=== PATIENT | female | born 1965 | race Caucasian/White ===

== ENCOUNTER 2020-10-11 19:05 | Emergency (ER) | payer OTHER, SELFPAY ==
[2020-10-11] VITALS (7 sets, daily range): BP systolic 124–154; BP diastolic 68–90; PULSE 71–94; RESP 15–18; TEMP 36.4–36.8; O2SAT 93–95
--- NOTE | ~2020-10-11 | CT_ITS ---
EXAMINATION: CT abdomen pelvis w con DATE: 10/11/2020 22:51 INDICATION: Low abdominal pain. Blood in stool. TECHNIQUE: Computed tomography (CT) of the abdomen and pelvis was performed with 100 mL Omnipaque 350 intravenous contrast. Automated exposure control and iterative reconstruction technique were employe d. The dose-length product was 346.28 mGy-cm. COMPARISON: CT abdomen and pelvis 06/12/2017 FINDINGS: The visualized portions of the lung bases demonstrate minimal atelectasis. No pleural effus ion. The heart size is normal. No pericardial effusion. The liver and spleen are normal. There is cys tic wall thickening of the fundus of the gallbladder, consistent with adenomyomatosis. The pancreas a nd adrenal glands are normal. There are cysts in the kidneys measuring up to 3.0 cm on the left. Ther e are no dilated loops of bowel. The appendix is normal. There are no pathologically enlarged lymph n odes. There is no free intraperitoneal fluid. There is mild thoracolumbar spondylosis. IMPRESSION: 1. No etiology for the patient's symptoms. Reviewed, dictated and finalized at location A.
[2020-10-11 19:28] LABS: Basophils Percent Auto 0.4 % (0.2-1.2); Eosinophils Absolute Auto 0.1 K/mm3 (0-0.3); Eosinophils Percent Auto 1.3 % (0-4.4); Hematocrit 42.6 % (37.0-47.0); Hemoglobin 13.9 g/dL (12.0-15.0); Immature Granulocyte Absolute 0.02 K/mm3 (0.00-0.031); Immature Granulocyte Percent A 0.3 % (0-0.5); Lymphocytes Absolute Auto 2.17 K/mm3 (0.9-3.2); Lymphocytes Percent Auto 28.1 % (18.3-44.2); Mean Corpuscular HGB Conc 32.6 g/dl (32-36); Mean Corpuscular Hemoglobin 29.8 pg (26-34); Mean Corpuscular Volume 91.4 fl (80-100); Mean Platelet Volume 10.2 fl (7.4-10.4); Monocytes Absolute Auto 0.5 K/mm3 (0.1-0.6); Monocytes Percent Auto 6.7 % (2.6-8.5); Neutrophils Absolute Auto 4.9 K/mm3 (1.3-6.7); Neutrophils Percent Auto 63.2 % (45.5-73.1); Platelet Count Result 187 k/mm3 (150-375); Red Blood Count 4.66 M/mm3 (4.2-5.4); Red Cell Distribution Width 13.2 % (11.5-14.5); White Blood Count 7.7 K/mm3 (4.5-10.0)
[2020-10-11 19:37] LABS: INR 0.9; Prothrombin Time 13.1 Seconds (11.1-14.7)
[2020-10-11 19:38] LABS: Partial Thromboplastin Time 29.2 SECONDS (22.3-36.8)
[2020-10-11 19:50] LABS: Alanine Aminotransferase 158 U/L (4-35); Albumin Level 4.1 g/dL (3.5-5.1); Alkaline Phosphatase 131 U/L (38-126); Anion Gap 4 mmol/L (8-16); Aspartate Amino Transferase 102 U/L (14-36); Bilirubin,Total 0.5 mg/dL (0.2-1.3); Blood Urea Nitrogen 7 mg/dL (7-17); Calcium 8.7 mg/dL (8.4-10.2); Carbon Dioxide 32 mmol/L (22-30); Chloride 103 mmol/L (98-107); Estimated CRCL calculation 63 ml/min; Estimated Glomerular Filt Rate > 60; Glucose 133 mg/dL (65-105); Potassium 3.8 mmol/L (3.4-5.0); Sodium 139 mmol/L (137-145)
[2020-10-11 20:31] LABS: Add Urine Microscopic? NO; Appearance Urine Clear (Clear); Bilirubin Urine Negative (Negative); Blood Urine Negative (Negative); Color Urine Colorless (Yellow); Glucose Urine UA Negative (Negative); Ketones Urine Negative (Negative); Leukocyte Esterase Ur Negative LEU/UL (Negative); Nitrate Urine Negative (Negative); Protein Urine Negative (Negative); Urobilinogen Urine Negative mg/dL (<2.0)
[2020-10-11 20:41] LABS: Specific Grav Ur 1.002 (1.001-1.035)
--- NOTE | 2020-10-11 22:03 | ED.GIBLEED ---
HPI - GI Bleed General Chief complaint: GI Bleed Stated complaint: GI BLEED Time Seen by Provider: 10/11/20 22:01 Source: patient Mode of arrival: ambulatory Limitations: no limitations History of Present Illness HPI Narrative: Patient is a 55-year-old female complaining of rectal bleeding accompanied by lower abdominal pain started tonight. MD complaint: gross hematochezia Pain Consistency: constant Severity: moderate Relieving factors: none Exacerbating factors: none Related Data Home Medications Medication Instructions Recorded Confirmed atorvastatin 10/11/20 budesonide-formoterol INHALATION 10/11/20 buspirone mg 10/11/20 diclofenac sodium PO 10/11/20 donepezil mg 10/11/20 escitalopram oxalate mg 10/11/20 escitalopram oxalate mg 10/11/20 gabapentin 10/11/20 trazodone 10/11/20 Allergies Allergy/AdvReac Type Severity Reaction Status Date / Time ibuprofen Allergy Mild Ulcers Verified 10/11/20 22:30 codeine AdvReac Unknown N/V Verified 10/11/20 22:30 Review of Systems Review of Systems: All systems reviewed & are unremarkable except as noted in HPI and below Constitutional: Constitutional: Denies body ache(s), Denies chills, Denies excessive sweating, Denies fatigue, Denies fever(s), Denies headache(s), Denies lethargy, Denies malaise, Denies weakness and Denies weight loss Eyes: Eyes: Denies blurry vision, Denies change in vision and Denies loss of vision ENT: Denies dizziness, Denies ear discharge, Denies headache(s), Denies lip swelling, Denies epistaxis, Denies nasal congestion, Denies neck pain, Denies throat swelling and Denies tongue swelling Cardiovascular: Cardiovascular: Denies chest pain, Denies chest pain at rest, Denies chest pain with activity, Denies diaphoresis, Denies rapid heart rate, Denies edema, Denies irregular heart rhythm, Denies lightheadedness, Denies palpitations, Denies dyspnea and Denies dyspnea on exertion Respiratory: Respiratory: Denies chest congestion, Denies cough, Denies hemoptysis, Denies dyspnea and Denies dyspnea on exertion Gastrointestinal: Gastrointestinal: Denies melena, Denies diarrhea, Denies nausea, Denies vomiting and Denies hematemesis Musculoskeletal: Musculoskeletal: Denies abnormal gait, Denies deformity, Denies joint swelling, Denies limited range of motion, Denies neck pain and Denies numbness Neurologic: Denies Abnormal speech present, Denies abnormal gait, Denies confusion, Denies dizziness, Denies headache(s), Denies focal weakness, Denies loss of vision, Denies numbness, Denies Other visual disturbances, Denies Sensory deficit (Neuro) and Denies weakness Psychiatric: Psychiatric: Denies confusion, Denies depression, Denies auditory hallucinations, Denies homicidal ideation and Denies suicidal ideation Endocrine: Endocrine: Denies cold intolerance, Denies excessive sweating, Denies fatigue, Denies heat intolerance and Denies palpitations Hematologic/Lymphatic: Hematologic/Lymphatic: Denies easy bleeding and Denies easy bruising Allergic/Immunologic: Allergic/Immunologic: Denies lip swelling, Denies throat swelling and Denies tongue swelling PMFSH Past Medical History Medical History Ankle fracture, left Anxiety Bronchitis CAD (coronary artery disease) Chronic cough COPD (chronic obstructive pulmonary disease) Depression HTN (hypertension) Myocardial infarction Peripheral neuropathy Pneumonia UTI (urinary tract infection) Surgical History Surgical History H/O section H/O: hysterectomy Social History Social History Smoking status: Current every day smoker Gender identity (if verbalized by the patient): Female Exam Const: General: cooperative, healthy appearing, comfortable, no acute distress, well developed, alert and awake; No confusion Orientation/consc
[2020-10-11] MEDS: SODIUM CHLORIDE 0.9% IV 1,000 ML 999 ML IV CONT (23:37)
[2020-10-12 00:21] VITALS: BP 128/73; PULSE 72; RESP 16; O2SAT 100
== END 2020-10-12 00:23 | disposition home or self-care (01) ==
PROVIDERS: Emergency Medicine; Emergency Provider Emergency Medicine
DX: K62.5 Hemorrhage of anus and rectum (principal); F41.9 Anxiety disorder, unspecified; I25.10 Atherosclerotic heart disease of native coronary artery without angina pectoris; J44.9 Chronic obstructive pulmonary disease, unspecified; I10 Essential (primary) hypertension; I25.2 Old myocardial infarction; G62.9 Polyneuropathy, unspecified; Z87.442 Personal history of urinary calculi; F17.200 Nicotine dependence, unspecified, uncomplicated
CPT/HCPCS: 36415; 74177; 80053; 81003; 85025; 85610; 85730; 86850; 86900; 86901; 99284; J7030; Q9967

== ENCOUNTER 2021-12-31 13:22 | Outpatient (CLI) | payer OTHER, SELFPAY ==
--- NOTE | ~2021-12-31 | CT_ITS ---
EXAMINATION: CT abdomen pelvis w con DATE: 12/31/2021 13:56 INDICATION: Central lower abdominal pain with diarrhea TECHNIQUE: Computed tomography (CT) of the abdomen and pelvis was performed with 100 mL Omnipaque-300 intravenous contrast. Automated exposure control and iterative reconstruction technique were employe d. The dose-length product was 343.34 mGy-cm. COMPARISON: 10/11/2020 FINDINGS: Chronic mild linear discoid atelectasis/scarring in the anterobasilar right lower lobe. Heart size is normal. No pericardial or pleural effusion. Small region of focal hepatic steatosis along the ligame ntum teres. Again seen is low-density focal thickening of the gallbladder wall thickening of the fund us consistent with focal adenomyomatosis. The spleen, pancreas, right kidney and bilateral adrenal gl ands are normal. A couple left renal cysts the larger at the upper pole measuring 3 cm. Bowels includ ing the appendix are normal. Bladder and atrophic uterus and bilateral adnexa are unremarkable. No fr ee intraperitoneal gas or fluid. No pathologically enlarged abdominal or pelvic lymphadenopathy. Ther e is calcified atherosclerosis of the aorta and bilateral iliac arteries. Mild thoracolumbar spondylo sis. IMPRESSION: 1. No acute intra-abdominal/pelvic process. Reviewed, dictated and finalized at location B.
== END 2021-12-31 13:23 | disposition home or self-care (01) ==
LOC: CHSIMG 13:24
PROVIDERS: PCP Nurse Practitioner Family; Visit Provider Nurse Practitioner Family
DX: R10.84 Generalized abdominal pain (principal)
CPT/HCPCS: 74177; Q9967

== ENCOUNTER 2022-01-26 08:11 | Observation (INO) | payer OTHER, SELFPAY ==
[2022-01-26] VITALS (15 sets, daily range): BP systolic 118–147; BP diastolic 67–90; PULSE 67–150; RESP 14–30; TEMP 36.4–37.5; O2SAT 88–100; BMI 22.9
--- NOTE | ~2022-01-26 | XR_ITS ---
EXAMINATION: XR chest 1V portable DATE: 01/26/2022 08:50 INDICATION: Productive cough. Shortness of breath. TECHNIQUE: A single frontal view of the chest was obtained. COMPARISON: Chest 2 views 06/12/2019, CT abdomen and pelvis 12/31/2021 FINDINGS: The chest demonstrates clear lungs without pneumonia, pleural effusion, or pneumothorax. Th e heart size is normal. IMPRESSION: 1. No acute cardiopulmonary disease. Reviewed, dictated and finalized at location A.
--- NOTE | ~2022-01-26 | CT_ITS ---
EXAMINATION: CT abdomen pelvis w con DATE: 01/26/2022 10:50 INDICATION: Abdominal pain, nausea and vomiting TECHNIQUE: Computed tomography (CT) of the abdomen and pelvis was performed with 100 mL Omnipaque-300 intravenous contrast. Automated exposure control and iterative reconstruction technique were employe d. The dose-length product was 251.41 mGy-cm. COMPARISON: 12/31/2021 FINDINGS: Mild dependent atelectasis in the right lower lobe. Additional mild atelectasis more anteriorly in th e right middle lobe and lingula. Heart size is normal. No pericardial or pleural effusion. Focal hepa tic steatosis along the ligamentum teres. Phrygian cap versus focal adenomyomatosis at the tip of the gallbladder fundus. The pancreas, spleen, right kidney and bilateral adrenal glands are normal. A co uple left renal cysts the larger measuring 2.9 cm with smaller 2.1 cm parapelvic cyst at the lower po le of the left kidney. Bladder is mild, uterus and bilateral adnexa are unremarkable. The bowels incl uding the appendix are normal. No free intraperitoneal gas or fluid. No pathologically enlarged abdom inal or pelvic lymphadenopathy. Mild lumbar spondylosis and Schmorl's node along the superior endplat e of L1. IMPRESSION: 1. No acute intra-abdominal/pelvic process. Reviewed, dictated and finalized at location A.
--- NOTE | 2022-01-26 08:18 | ED.NAVMDI ---
HPI - Nausea/Vomiting/Diarrhea General Chief complaint: Nausea/Vomiting/Diarrhea Stated complaint: chest tightness, vomiting, covid symmptoms 01/25/22 Time Seen by Provider: 01/26/22 08:14 History of Present Illness HPI Narrative: Patient is a 56-year-old female presenting to the emergency department for evaluation of cough, nausea, numerous episodes of dry heaving and vomiting as well as chills. Patient states that symptoms began yesterday with associated rhinorrhea and cough. Patient reportedly has been vaccinated for COVID with initial booster. States that she started feeling unwell yesterday with subjective fever and chills overnight. Patient states she started to experience a chest pressure this morning that was aching in nature and burning in nature without radiation to the shoulders, neck or back. Patient with associated abdominal cramping which has been chronic and ongoing for many months. Patient without formal diagnosis for cause of this. Patient denies diarrhea or constipation. She does report normal bowel movement yesterday. She denies dysuria or hematuria. No recent medication changes per family. Per family, she has followed with prior cardiovascular in the past. She denies history of stent placement. Related Data Home Medications Medication Instructions Recorded Confirmed atorvastatin 80 mg tablet 10/11/20 buspirone 10 mg tablet 15 mg 10/11/20 donepezil 5 mg tablet mg 10/11/20 gabapentin 600 mg tablet 10/11/20 aspirin 81 mg chewable tablet 81 mg PO DAILY 01/26/22 01/26/22 cyanocobalamin (vitamin B-12) 1,000 mcg PO DAILY 01/26/22 01/26/22 1,000 mcg tablet (Vitamin B-12) dicyclomine 10 mg capsule mg 01/26/22 01/26/22 escitalopram oxalate 20 mg tablet mg 01/26/22 memantine 10 mg tablet mg 01/26/22 nitroglycerin 0.4 mg sublingual 0.4 mg sublingual Q5M PRN Chest 01/26/22 01/26/22 tablet Pain omeprazole 40 mg capsule,delayed mg 01/26/22 release ondansetron 4 mg disintegrating mg 01/26/22 tablet pantoprazole 40 mg tablet,delayed mg PO 01/26/22 release quetiapine 25 mg tablet mg 01/26/22 01/26/22 Allergies Allergy/AdvReac Type Severity Reaction Status Date / Time ibuprofen Allergy Mild Ulcers Verified 01/26/22 08:25 codeine AdvReac Unknown N/V Verified 01/26/22 08:25 Review of Systems Review of Systems: CONSTITUTIONAL: Reports fever, chills, diaphoresis EYES: Denies visual changes, redness, or discharge. ENT: Reports rhinorrhea, congestion, loss of sense of taste and smell CARDIOVASCULAR: Reports chest pain and palpitations RESPIRATORY: Reports cough and shortness of breath GASTROINTESTINAL: Reports abdominal pain, nausea and vomiting GENITOURINARY: Denies dysuria or hematuria. SKIN: Denies rash or itching. MUSCULOSKELETAL: Denies back pain, joint pain, reports myalgias NEUROLOGIC: Denies headache, numbness, or weakness. [facility] Past Medical History Medical History Ankle fracture, left Anxiety Bronchitis CAD (coronary artery disease) Chronic cough COPD (chronic obstructive pulmonary disease) Depression HTN (hypertension) Myocardial infarction Peripheral neuropathy Pneumonia UTI (urinary tract infection) Surgical History Surgical History H/O section H/O: hysterectomy Social History Social History Smoking status: Current every day smoker Gender identity (if verbalized by the patient): Female Exam Narrative: GENERAL: Awake, alert, ill-appearing, actively dry heaving at the time of assessment HEAD: Normocephalic, atraumatic. EYES: PERRLA and EOMI. ENT: Nares clear, no rhinorrhea or epistaxis. Mucous membranes moist. NECK: Supple. CHEST: No respiratory distress, breathing even and non labored HEART: Tachycardic rate, sinus rhythm ABDOMEN:Non distended, non tender EXTREMITIES: Normal range of ye
[2022-01-26] MEDS: SODIUM CHLORIDE 0.9% IV 1,000 ML 999 ML IV CONT (08:26)
[2022-01-26] MEDS: METOCLOPRAMIDE HCL INJ 10 MG/2 ML VIAL IV PUSH (08:27)
[2022-01-26] MEDS: diphenhydrAMINE HCl INJ 50 MG/ML VIAL 25 MG IV PUSH (08:27)
--- NOTE | 2022-01-26 08:29 | PC.NURSE ---
blood glucose was 97 at 0828
[2022-01-26 08:30] LABS: Glucose Point of Care 97 mg/dl (65-105)
[2022-01-26 08:39] LABS: Basophils Absolute Auto 0.1 K/mm3 (0.0-0.1); Basophils Percent Auto 0.4 % (0.2-1.2); Eosinophils Absolute Auto 0.1 K/mm3 (0-0.3); Eosinophils Percent Auto 0.4 % (0-4.4); Hematocrit 52.6 % (37.0-47.0); Hemoglobin 16.7 g/dL (12.0-15.0); Immature Granulocyte Absolute 0.03 K/mm3 (0.00-0.031); Immature Granulocyte Percent A 0.2 % (0-0.5); Lymphocytes Absolute Auto 2.38 K/mm3 (0.9-3.2); Lymphocytes Percent Auto 19.4 % (18.3-44.2); Mean Corpuscular HGB Conc 31.7 g/dl (32-36); Mean Corpuscular Hemoglobin 29.2 pg (26-34); Monocytes Absolute Auto 0.8 K/mm3 (0.1-0.6); Monocytes Percent Auto 6.6 % (2.6-8.5); Neutrophils Absolute Auto 8.9 K/mm3 (1.3-6.7); Platelet Count Result 233 k/mm3 (150-375); Red Blood Count 5.72 M/mm3 (4.2-5.4); Red Cell Distribution Width 13.4 % (11.5-14.5); White Blood Count 12.3 K/mm3 (4.5-10.0)
[2022-01-26 08:49] LABS: Alanine Aminotransferase 19 U/L (6-35); Albumin Level 5.2 g/dL (3.5-5.1); Alkaline Phosphatase 133 U/L (38-126); Anion Gap 11 mmol/L (8-16); Aspartate Amino Transferase 32 U/L (14-36); Bilirubin,Total 1.1 mg/dL (0.2-1.3); Blood Urea Nitrogen 8 mg/dL (7-17); Calcium 9.7 mg/dL (8.4-10.2); Carbon Dioxide 31 mmol/L (22-30); Chloride 99 mmol/L (98-107); Estimated CRCL calculation 55 ml/min; Estimated Glomerular Filt Rate > 60; Glucose 91 mg/dL (65-110); Lactic Acid Reflex 2.4 mmol/L (0.7-2.0); Lipase 85 U/L (23-300); Potassium 3.7 mmol/L (3.4-5.0); Sodium 141 mmol/L (137-145)
[2022-01-26] MEDS: MORPHINE SULFATE (*CRX) 4 MG/ML INJ IV PUSH (09:00)
[2022-01-26] MEDS: ONDANSETRON INJ 4 MG/2 ML VIAL IV PUSH (09:02)
[2022-01-26 09:10] LABS: Troponin I 0.069 ng/mL (0.000-0.034)
--- NOTE | 2022-01-26 09:15 | ECG_ITS ---
Measurements Intervals [place] Rate: 56 P: 81 NC: 176 QRS: 77 QRSD: 82 T: 60 QT: 413 QTc: 401 Interpretive Statements SINUS BRADYCARDIA INCOMPLETE RIGHT BUNDLE BRANCH BLOCK BASELINE ARTIFACT- I, II, III, AVR, AVL, AVF, V1-V6 BORDERLINE ECG Electronically Signed On 01-26-2022 22:21:22 CDT by Dwain Carr D.O.
[2022-01-26 09:58] LABS: D Dimer 0.39 ug/mL (<0.48)
[2022-01-26 09:58] LABS: Appearance Urine Clear (Clear); Bilirubin Urine Negative (Negative); Color Urine Yellow (Yellow); Glucose Urine UA Negative (Negative); Ketones Urine Negative (Negative); Leukocyte Esterase Ur 1+ LEU/UL (Negative); Nitrate Urine Negative (Negative); Protein Urine Negative (Negative); Specific Grav Ur 1.015 (1.001-1.035)
[2022-01-26 09:59] LABS: Add Urine Microscopic? YES; Blood Urine Trace-Intact (Negative)
[2022-01-26 10:03] LABS: Influenza A QL RT-PCR Negative (Negative); Influenza B QL RT-PCR Negative (Negative); SARS-CoV-2 RNA PCR Negative
[2022-01-26 10:10] LABS: Squamous Epithelial Cell Urine Moderate /hpf (Few); WBC Urine 0-3 /hpf
[2022-01-26] MEDS: ASPIRIN 81 MG CHEWABLE TABLET 324 MG PO (11:26)
[2022-01-26 11:35] LABS: Reflex Lactic Acid Yes or No Add Lactic
[2022-01-26 11:38] LABS: Troponin I 0.046 ng/mL (0.000-0.034)
--- NOTE | 2022-01-26 12:16 | PC.NURSE ---
patient transferred to floor with IVF infusing
--- NOTE | 2022-01-26 12:31 | PC.NURSE ---
This patient, Velia Pascual, was admitted to IMU Room 210-01. Patient/family oriented to hospital policies and general routines including ID bracelet, bed and alarms, visiting hours, pain management, procedures, bathroom and other care routines, personal items, smoking policy, room service/diet, and visiting hours. Information on how to activate the Rapid Response Team has been discussed. Patient/Family are encouraged to report perceived risks to care and to ask questions if they do not understand what they are told or what they should do.
[2022-01-26] MEDS: LACTATED RINGERS 1,000 ML 125 ML IV CONT ×2 (12:56→22:29)
--- NOTE | 2022-01-26 13:20 | PM.IMHP ---
H&P: HPI History of Present Illness Date/Time: 01/26/22 13:20 Chief Complaint: nausea and vomiting and cough Narrative: Patient is a 56-year-old female with past medical history of hyperlipidemia, mi, hypertension, GERD, IBS who presented to the ED with complaints of cough, nausea, vomiting. Patient stated that she felt like she really had COVID. Yesterday it started with a sore throat and today and advance to a cough that created her to have vomiting. After she had vomiting multiple times her chest became very tight she became very short of breath however patient is on home O2 at 2 L. her daughter stated that she went in to check on her and she was vomiting. Very diaphoretic and was having dry heaving. She stated that she is very tired and she has been having sweats, chills and felt fever prior. Her daughter also stated that she is having moments and fusion saying help help and was having involuntary tremors were whole body would move. Patient also stated that her belly is hurting it has been worse than normal that she has been having these issues over the last couple years. At it was mentioned that her liver and her gallbladder always of question however everything has came back normal multiple times. She denies any visual changes, hearing changes, dizziness, palpitations. She also stated that she has been having some urinary frequency and sometimes does not make it to that bathroom in time. She had a BM this morning and has had really bad gas ever since then. She also stated that yesterday when she had a pizza from [employer] the taste was really finding that she and garlic on it however there was no pathology on the pizza according to the daughter. Patient did denied direct chest pain. Upon arrival to he need a lactic acid was noted to be at 2.4 Troponins were noted to be elevated at 0.069, 0.046, 0.037. Patient was given IV fluids and currently his lactic acid 1.0. patient stated that she does have appetite changes however that has been something that has been going on for a while. However she is tolerating water. cardiology has been consulted for elevated troponins. Patient is being admitted to the hospitalist service as an observation Review of Systems Review of Systems: All systems reviewed & are unremarkable except as noted in HPI and below PMFSH Past Medical History Medical History Ankle fracture, left Anxiety Bronchitis CAD (coronary artery disease) COPD (chronic obstructive pulmonary disease) Depression HTN (hypertension) Hyperlipemia Myocardial infarction Pneumonia UTI (urinary tract infection) Surgical History Surgical History H/O: hysterectomy Family History Family History Mother Heart disease Renal disease Diabetes mellitus CHF (congestive heart failure) Father Heart disease Sibling Heart disease Social History Social History (Updated 01/26/22 @ 15:47 by FERCHO Longoria) Social History: Patient currently lives with her boyfriend. Her daughter Luzmaria is her surrogate. She denies having any pets at home, and had a total of three kids, one girl and 2 boys. 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
[2022-01-26 15:01] LABS: Troponin I 0.037 ng/mL (0.000-0.034)
--- NOTE | 2022-01-26 15:35 | PM.CNCAR ---
Assessment and Plan Assessment and plan (1) Elevated troponin: Code(s): R77.8 - Other specified abnormalities of plasma proteins Status: Acute Assessment and Plan: Elevated troponins noted, 0.069, 0.046 and 0.037, and occurring in the setting of acute gastrointestinal illness associated with lactic acidosis, tachycardia, dehydration, etc.. Nonischemic myocardial injury, not ACS Supportive care Had some slight EKG changes. Repeat EKG Continue aspirin, atorvastatin etc. Follow-up with security operations engineer on discharge (2) Nausea & vomiting: Code(s): R11.2 - Nausea with vomiting, unspecified Status: Acute Assessment and Plan: Nausea, vomiting, diarrhea etc. Possible viral gastroenteritis as workup has otherwise been negative Agree with IV fluids as she appears dehydrated Long history of GI problems and IBS (3) Chest pain: Code(s): R07.9 - Chest pain, unspecified Status: Acute Assessment and Plan: Appears musculoskeletal (4) History of [place] (myocardial infarction): Code(s): I25.2 - Old myocardial infarction Status: Acute Assessment and Plan: Apparent history of elevated troponins/[place]? Few years ago Try to find records Continue aspirin and atorvastatin (5) Tobacco use: Code(s): Z72.0 - Tobacco use Status: Acute Assessment and Plan: Encouraged tobacco cessation especially since the patient has a history of COPD and heart disease History of Present Illness History of Present Illness Consult date/time: 01/26/22 15:35 Reason For Visit: elecated troponin,chest pain,nausea/vomiting Narrative: Velia Dixon is a 56 y.o. female whom I was asked to see at the request of the ER physician Dr. Gardner for my advice and opinion regarding her elevated troponin of 0.037, in consultation. Patient has history of CAD with a small heart attack a few years ago when she was admitted to [facility] with pneumonia and elevated troponins. Apparently she had a cardiac catheterization, no intervention, and was discharged on aspirin and Plavix. She is followed by Dr. Trinidad Deng at [facility] in [place]. No recent cardiac problems or TNG use. Ms. Dixon has a history of GI complaints as followed by a GI MD, for possible IBS. Starting yesterday the patient had lower abdominal pain, nausea, vomiting, headache, cough, dry heaving, chills, rhinorrhea since yesterday. She thinks she had diarrhea 20 times yesterday and some this morning. No bleeding. Unable to keep anything down. Also complained of chest pressure and soreness in the left upper chest today, where she says it is tender to touch. Some shortness of breath today as well. In the emergency room apparently she was dry heaving very actively, heart rate 97-150, blood pressure 130-140/80-90, O2 sat 88-100%. COVID negative. History of hypertension, hyperlipidemia, COPD, and tobacco use. Unable to find any further information about her cardiac situation in [facility] or Care Everywhere, or [facility] EMR. The patient's daughter provided a lot of history since the patient has poor memory. Review of Systems Constitutional: Constitutional: Denies fever(s) Comments: Gets tired with activity, can only do so much housework then needs to stop and rest. Eyes: Eyes: Reports no additional eye complaints ENT: Denies epistaxis Cardiovascular: Cardiovascular: Reports chest pain, Reports pedal edema (Intermittently), Denies lightheadedness and Reports dyspnea Respiratory: Respiratory: Denies chest congestion, Reports cough, Reports dyspnea and Reports dyspnea on exertion Gastrointestinal: Gastrointestinal: Reports abdominal pain, Denies hematochezia, Reports diarrhea, Repo
--- NOTE | 2022-01-26 15:37 | ECG_ITS ---
Measurements Intervals [place] Rate: 72 P: 64 DE: 193 QRS: 37 QRSD: 82 T: 31 QT: 405 QTc: 445 Interpretive Statements SINUS RHYTHM INCOMPLETE RIGHT BUNDLE BRANCH BLOCK BORDERLINE ECG Electronically Signed On 01-26-2022 22:42:54 CDT by Dwain Carr D.O.
[2022-01-26] MEDS: DICYCLOMINE HCL 10 MG CAPSULE PO ×2 (17:16→20:05)
[2022-01-26] MEDS: busPIRone HCL 5 MG TABLET 15 MG PO (17:16)
[2022-01-26] MEDS: GABAPENTIN 300 MG CAPSULE 600 MG PO (17:16)
[2022-01-26] MEDS: ACETAMINOPHEN 325 MG TABLET 650 MG PO (17:22)
[2022-01-26 17:43] LABS: Troponin I 0.035 ng/mL (0.000-0.034)
[2022-01-26] MEDS: QUEtiapine FUMARATE 25 MG TABLET PO (20:04)
[2022-01-26] MEDS: ESCITALOPRAM OXALATE 10 MG TABLET 20 MG PO (20:05)
[2022-01-26] MEDS: ATORVASTATIN 40 MG TABLET 80 MG PO (20:05)
[2022-01-26] MEDS: PANTOPRAZOLE 40 MG TABLET PO (20:05)
[2022-01-26] MEDS: MORPHINE SULFATE (*CRX) 2 MG/ML INJ IV PUSH (20:11)
[2022-01-27] VITALS (11 sets, daily range): BP systolic 90–116; BP diastolic 48–65; PULSE 64–85; RESP 16–24; TEMP 36.2–37.1; O2SAT 83–97
[2022-01-27 05:07] LABS: Alanine Aminotransferase 9 U/L (6-35); Albumin Level 2.9 g/dL (3.5-5.1); Alkaline Phosphatase 69 U/L (38-126); Anion Gap 0 mmol/L (8-16); Aspartate Amino Transferase 22 U/L (14-36); Bilirubin,Total 0.8 mg/dL (0.2-1.3); Blood Urea Nitrogen 9 mg/dL (7-17); Calcium 8.2 mg/dL (8.4-10.2); Carbon Dioxide 30 mmol/L (22-30); Chloride 108 mmol/L (98-107); Estimated CRCL calculation 62 ml/min; Estimated Glomerular Filt Rate > 60; Glucose 69 mg/dL (65-110); Magnesium 1.9 mg/dL (1.6-2.3); Potassium 3.5 mmol/L (3.4-5.0); Sodium 138 mmol/L (137-145)
[2022-01-27 06:24] LABS: Basophils Percent Auto 0.5 % (0.2-1.2); Eosinophils Absolute Auto 0.1 K/mm3 (0-0.3); Eosinophils Percent Auto 1.2 % (0-4.4); Hematocrit 39.8 % (37.0-47.0); Hemoglobin 12.2 g/dL (12.0-15.0); Immature Granulocyte Absolute 0.01 K/mm3 (0.00-0.031); Immature Granulocyte Percent A 0.2 % (0-0.5); Lymphocytes Absolute Auto 2.25 K/mm3 (0.9-3.2); Lymphocytes Percent Auto 37.6 % (18.3-44.2); Mean Corpuscular HGB Conc 30.7 g/dl (32-36); Mean Corpuscular Volume 94.8 fl (80-100); Mean Platelet Volume 10.2 fl (7.4-10.4); Monocytes Absolute Auto 0.5 K/mm3 (0.1-0.6); Monocytes Percent Auto 7.9 % (2.6-8.5); Neutrophils Absolute Auto 3.2 K/mm3 (1.3-6.7); Neutrophils Percent Auto 52.6 % (45.5-73.1); Platelet Count Result 164 k/mm3 (150-375); Red Cell Distribution Width 13.5 % (11.5-14.5)
--- NOTE | 2022-01-27 06:28 | PC.NURSE ---
BG found to be 69 on 4 AM labs. 8 oz apple juice given at 0600. Orders for ACHS accuchecks and hypoglycemia protocol implemented by Dr. Rasmussen.
[2022-01-27] MEDS: HYDROcodone/acetaminophen (*CRX) 5-325 MG TABLET 1 TAB PO ×2 (06:39→19:49)
[2022-01-27] MEDS: LACTATED RINGERS 1,000 ML 125 ML IV CONT ×3 (06:40→22:39)
[2022-01-27 08:09] LABS: Glucose Point of Care 92 mg/dl (65-105)
[2022-01-27] MEDS: busPIRone HCL 5 MG TABLET 15 MG PO ×3 (09:12→17:04)
[2022-01-27] MEDS: CYANOCOBALAMIN 1,000 MCG TABLET 1000 MCG PO (09:12)
[2022-01-27] MEDS: GABAPENTIN 300 MG CAPSULE 600 MG PO ×3 (09:12→17:04)
[2022-01-27] MEDS: PANTOPRAZOLE 40 MG TABLET PO ×2 (09:12→19:52)
[2022-01-27] MEDS: DICYCLOMINE HCL 10 MG CAPSULE PO ×4 (09:12→19:52)
[2022-01-27] MEDS: MEMANTINE 10 MG TABLET PO (09:12)
[2022-01-27] MEDS: DONEPEZIL HCL 5 MG TABLET PO (09:12)
[2022-01-27] MEDS: ENOXAPARIN 40 MG/0.4 ML SYRINGE SUB-Q (09:13)
[2022-01-27] MEDS: ASPIRIN 81 MG CHEWABLE TABLET PO (09:16)
--- NOTE | 2022-01-27 10:07 | PM.PNCARD ---
Progress Note: A&P Assessment and Plan (1) Elevated troponin: Code(s): R77.8 - Other specified abnormalities of plasma proteins Status: Acute Assessment and Plan: Elevated troponins noted, 0.069, 0.046 and 0.037, and occurring in the setting of acute gastrointestinal illness associated with lactic acidosis, tachycardia, dehydration, etc.. Nonischemic myocardial injury, not ACS Supportive care no ST-T changes on repeat EKG Continue aspirin, atorvastatin etc. Follow-up with combine inspector on discharge Cardiology will sign off, please do not hesitate to contact us with any questions. (2) Nausea & vomiting: Code(s): R11.2 - Nausea with vomiting, unspecified Status: Acute Assessment and Plan: Nausea, vomiting, diarrhea etc. Possible viral gastroenteritis as workup has otherwise been negative Agree with IV fluids as she appears dehydrated Long history of GI problems and IBS (3) Chest pain: Code(s): R07.9 - Chest pain, unspecified Status: Acute Assessment and Plan: Appears musculoskeletal (4) History of CT (myocardial infarction): Code(s): I25.2 - Old myocardial infarction Status: Acute Assessment and Plan: Apparent history of elevated troponins/CT? Few years ago Try to find records Continue aspirin and atorvastatin (5) Tobacco use: Code(s): Z72.0 - Tobacco use Status: Acute Assessment and Plan: Encouraged tobacco cessation especially since the patient has a history of COPD and heart disease Subjective Date/time seen: 01/27/22 10:07 Cardiology follow up for chest pain, elevated troponin Feeling better this morning. No further chest pain. Denies any worsening shortness of breath, breathing is at baseline. Review of Systems Constitutional: Constitutional: Denies fever(s) and Reports headache(s) Eyes: Eyes: Reports no additional eye complaints ENT: Reports headache(s) and Denies epistaxis Cardiovascular: Cardiovascular: Reports chest pain, Reports pedal edema (Intermittently), Denies lightheadedness, Reports dyspnea and Reports dyspnea on exertion Respiratory: Respiratory: Denies chest congestion, Reports cough, Reports dyspnea and Reports dyspnea on exertion Gastrointestinal: Gastrointestinal: Reports abdominal pain, Denies hematochezia, Reports diarrhea, Reports nausea and Reports vomiting Musculoskeletal: Musculoskeletal: Reports arthralgias and Reports joint swelling (Knees) Integumentary/Breasts: Skin/Breast: Reports system reviewed and no additional complaints, except as docu Neurologic: Reports system reviewed and no additional complaints, except as documented, Denies behavioral changes, Denies confusion and Reports headache(s) Psychiatric: Psychiatric: Denies behavioral changes and Denies confusion Exam Const: General: cooperative, comfortable and no acute distress; No confusion Orientation/consciousness: oriented to person, patient oriented x3 and No confusion HENMT: Mouth: Yes dry mucous membranes Eyes: EOM: EOMs intact bilaterally Neck: Neck: supple Thyroid: thyroid normal Carotids: no bruits Chest: Other: Tenderness to palpation left upper chest Resp: Effort & Inspection: normal respiratory effort Auscultation: clear to auscultation bilaterally Cardio: Rate: regular rate Rhythm: regular rhythm Heart sounds: no murmurs GI: Inspection: normal to inspection Auscultation: normal bowel sounds Skin: Lesions: lesion noted (some scattered lesions on legs) Neuro: General: oriented to person, patient oriented x3 and No confusion Extrem: Right lower extremity: no edema Left lower extremity: no edema Psych: Appearance: grossly normal Mental Status: mental status grossly normal Objective Data Vital Signs Vital Signs: Vital Signs - 24 hr 01/26/22 11:05
[2022-01-27 12:15] LABS: Glucose Point of Care 108 mg/dl (65-105)
--- NOTE | 2022-01-27 13:42 | PM.IMPN ---
Progress Note: A&P Assessment and Plan (1) Chest pain: Code(s): R07.9 - Chest pain, unspecified Status: Acute (2) Nausea & vomiting: Code(s): R11.2 - Nausea with vomiting, unspecified Status: Acute (3) Bacteremia: Code(s): R78.81 - Bacteremia Status: Acute Plan 56-year-old female with past medical history of hyperlipidemia, mi, hypertension, GERD, IBS who presented to the ED with complaints of cough, nausea, vomiting. 1)Nausea/Vomiting: ?viral gastroenteritis symptoms resolved/improving c/w IV fluids Zofran PRN Tolerating PO food CT abdomen unremarkable Will need outpatient GI referral for possible H/o IBS 2)Chest Pain/Elevated troponin: resolved Cardiology signed off c/w ASA, Lipitor Outpatient follow up with cardiology 3)Bacteremia: Blood culture positive for GPC, 1 set in anaerobic bottle, ?contaminant Repeat Blood culture Start on Vancomycin empirically 4)c/w other home meds 5)DVT ppx: Lovenox 6)Code:Full 7)Dispo:pending improvement, can be downgraded to Med/Surg floor from IMU Time Spent With Patient Time with patient: 15 - 25 minutes Subjective Date/time seen: 01/27/22 13:42 Interval history: no chest pain, nausea resolved, some abdominal cramping but tolerating oral diet Review of Systems Review of Systems: All systems reviewed & are unremarkable except as noted in HPI and below Constitutional: Constitutional: Reports no additional constitutional complaints Eyes: Eyes: Reports no additional eye complaints ENT: Reports system reviewed and no additional complaints, except as documented Cardiovascular: Cardiovascular: Reports no additional cardiovascular complaints Respiratory: Respiratory: Reports no additional respiratory complaints Gastrointestinal: Gastrointestinal: Reports abdominal pain Musculoskeletal: Musculoskeletal: Reports no additional musculoskeletal complaints Neurologic: Reports system reviewed and no additional complaints, except as documented Exam Const: General: comfortable and no acute distress HENMT: Mouth: Yes moist mucous membranes Eyes: Sclera: sclerae normal Neck: Neck: supple Resp: Effort & Inspection: normal respiratory effort Auscultation: clear to auscultation bilaterally Cardio: Rate: regular rate Rhythm: regular rhythm GI: GI Palp: Yes Soft to palpation Auscultation: normal bowel sounds Skin: General skin exam: normal color Neuro: Speech: normal speech Extrem: General: normal to inspection Psych: Mental Status: mental status grossly normal Objective Data Vital Signs Vital Signs: Vital Signs - 24 hr 01/26/22 14:00 01/26/22 16:00 01/26/22 16:00 Temperature 98.8 F Pulse Rate 69 73 79 Respiratory Rate 18 Blood Pressure 120/67 Pulse Oximetry 95 Oxygen Delivery Oxygen Flow Rate 01/26/22 16:00 01/26/22 18:00 01/26/22 20:00 Temperature 99.5 F Pulse Rate 85 92 Respiratory Rate 16 Blood Pressure 125/69 Pulse Oximetry 93 94 Oxygen Delivery Nasal Cannula Oxygen Flow Rate 2 01/26/22 20:00 01/26/22 20:00 01/26/22 22:00 Temperature Pulse Rate 92 92 92 Respiratory Rate 16 Blood Pressure Pulse Oximetry 94 Oxygen Delivery Nasal Cannula Oxygen Flow Rate 2 01/27/22 00:00 01/27/22 00:00 01/27/22 00:00 Temperature 98.1 F Pulse Rate 80 72 80 Respiratory Rate 16 16 Blood Pressure 104/62 Pulse Oximetry 97 97 Oxygen Delivery Nasal Cannula Oxygen Flow Rate 2 01/27/22 02:00 01/27/22 04:00 01/27/22 04:00 Temperature Pulse Rate 75 75 75 Respiratory Rate 16 Blood Pressure Pulse Oximetry 97 Oxygen Delivery Nasal Cannula Oxygen Flow Rate 2 01/27/22 04:00 01/27/22 06:00 01/27/22 08:00 Temperature 98.1 F 98.5 F Pulse Rate 72 78 78 Respiratory Rate 16 16 Blood Pressure 100/62 116/65 Pulse Oximetry 93 95 Oxygen Delivery Oxygen Flow Rate 01/27/22 08:00 01/27/22 08:00 01/27/22 10:00 [place]
--- NOTE | 2022-01-27 14:51 | PCNSR ---
On 01/27/22, the student,Ai De Luna, provided care and completed [facility] documentation on this patient. I have reviewed the student's documentation and agree with the findings.
[2022-01-27 17:49] LABS: Glucose Point of Care 227 mg/dl (65-105)
[2022-01-27] MEDS: ATORVASTATIN 40 MG TABLET 80 MG PO (19:52)
[2022-01-27] MEDS: QUEtiapine FUMARATE 25 MG TABLET PO (19:52)
[2022-01-27] MEDS: ESCITALOPRAM OXALATE 10 MG TABLET 20 MG PO (19:52)
[2022-01-27 20:13] LABS: Glucose Point of Care 61 mg/dl (65-105)
[2022-01-27 20:37] LABS: Glucose Point of Care 86 mg/dl (65-105)
[2022-01-28 04:44] LABS: Basophils Percent Auto 0.4 % (0.2-1.2); Eosinophils Absolute Auto 0.1 K/mm3 (0-0.3); Eosinophils Percent Auto 1.1 % (0-4.4); Hematocrit 38.6 % (37.0-47.0); Hemoglobin 11.8 g/dL (12.0-15.0); Immature Granulocyte Absolute 0.01 K/mm3 (0.00-0.031); Immature Granulocyte Percent A 0.2 % (0-0.5); Immature Platelet Fraction Pct 4.2 % (0.9-11.2); Lymphocytes Absolute Auto 1.55 K/mm3 (0.9-3.2); Lymphocytes Percent Auto 28.8 % (18.3-44.2); Mean Corpuscular HGB Conc 30.6 g/dl (32-36); Mean Corpuscular Hemoglobin 29.4 pg (26-34); Mean Corpuscular Volume 96.3 fl (80-100); Monocytes Absolute Auto 0.5 K/mm3 (0.1-0.6); Monocytes Percent Auto 9.9 % (2.6-8.5); Neutrophils Absolute Auto 3.2 K/mm3 (1.3-6.7); Neutrophils Percent Auto 59.6 % (45.5-73.1); Platelet Count Result 153 k/mm3 (150-375); Red Blood Count 4.01 M/mm3 (4.2-5.4); Red Cell Distribution Width 13.4 % (11.5-14.5); White Blood Count 5.4 K/mm3 (4.5-10.0)
[2022-01-28 04:56] LABS: Alanine Aminotransferase 9 U/L (6-35); Albumin Level 2.7 g/dL (3.5-5.1); Alkaline Phosphatase 60 U/L (38-126); Anion Gap 0 mmol/L (8-16); Aspartate Amino Transferase 18 U/L (14-36); Bilirubin,Total 0.6 mg/dL (0.2-1.3); Blood Urea Nitrogen 6 mg/dL (7-17); Calcium 7.9 mg/dL (8.4-10.2); Carbon Dioxide 34 mmol/L (22-30); Chloride 107 mmol/L (98-107); Estimated CRCL calculation 62 ml/min; Estimated Glomerular Filt Rate > 60; Glucose 83 mg/dL (65-110); Potassium 3.8 mmol/L (3.4-5.0); Sodium 141 mmol/L (137-145)
[2022-01-28] MEDS: LACTATED RINGERS 1,000 ML 125 ML IV CONT (06:31)
[2022-01-28 08:00] VITALS: BP 118/75; PULSE 72; RESP 16; TEMP 36.4; O2SAT 93
[2022-01-28 08:30] LABS: Glucose Point of Care 92 mg/dl (65-105)
[2022-01-28 08:31] VITALS: PULSE 77; RESP 16; O2SAT 96
[2022-01-28] MEDS: busPIRone HCL 5 MG TABLET 15 MG PO ×2 (08:41→13:58)
[2022-01-28] MEDS: DICYCLOMINE HCL 10 MG CAPSULE PO ×2 (08:42→13:59)
[2022-01-28] MEDS: MEMANTINE 10 MG TABLET PO (08:42)
[2022-01-28] MEDS: DONEPEZIL HCL 5 MG TABLET PO (08:43)
[2022-01-28] MEDS: ENOXAPARIN 40 MG/0.4 ML SYRINGE SUB-Q (08:43)
[2022-01-28] MEDS: PANTOPRAZOLE 40 MG TABLET PO (08:43)
[2022-01-28] MEDS: GABAPENTIN 300 MG CAPSULE 600 MG PO ×2 (08:43→13:58)
[2022-01-28] MEDS: CYANOCOBALAMIN 1,000 MCG TABLET 1000 MCG PO (08:43)
[2022-01-28] MEDS: ASPIRIN 81 MG CHEWABLE TABLET PO (08:46)
[2022-01-28 11:58] LABS: Glucose Point of Care 100 mg/dl (65-105)
--- NOTE | 2022-01-28 14:17 | PM.DS ---
DS: Admitting Diagnosis Discharge Date 01/28/2022 Admitting Diagnosis nausea or vomiting DS: Discharge Diagnosis Discharge Diagnosis (1) Chest pain: Code(s): R07.9 - Chest pain, unspecified Status: Acute (2) Nausea & vomiting: Code(s): R11.2 - Nausea with vomiting, unspecified Status: Acute (3) Bacteremia: Code(s): R78.81 - Bacteremia Status: Acute Plan 56-year-old female with past medical history of hyperlipidemia, mi, hypertension, GERD, IBS who presented to the ED with complaints of cough, nausea, vomiting. 1)Nausea/Vomiting: ?viral gastroenteritis symptoms resolved/improving c/w IV fluids Zofran PRN Tolerating PO food CT abdomen unremarkable Will need outpatient GI referral for possible H/o IBS 2)Chest Pain/Elevated troponin: resolved Cardiology signed off c/w ASA, Lipitor Outpatient follow up with cardiology 3)Bacteremia: Blood culture positive for GPC, 1 set in anaerobic bottle, ?contaminant Repeat Blood culture Start on Vancomycin empirically 4)c/w other home meds 5)DVT ppx: Lovenox 6)Code:Full 7)Dispo:pending improvement, can be downgraded to Med/Surg floor from IMU DS: Summary Hospital Course Reason for hospitalization: nausea and vomiting and cough Narrative: ? Patient is a 56-year-old female with past medical history of hyperlipidemia, mi, hypertension, GERD, IBS who presented to the ED with complaints of cough, nausea, vomiting.? Patient stated that she felt like she really had COVID.? Yesterday it started with a sore throat and today and advance to a cough that created her to have vomiting.? After she had vomiting multiple times her chest became very tight she became very short of breath however patient is on home O2 at 2 L. her daughter stated that she went in to check on her and she was vomiting.? Very diaphoretic and was having dry heaving.? She stated that she is very tired and she has been having sweats, chills and felt fever prior.? Her daughter also stated that she is having moments and fusion saying help help and was having involuntary tremors were whole body would move.? Patient also stated that her belly is hurting it has been worse than normal that she has been having these issues over the last couple years.? At it was mentioned that her liver and her gallbladder always of question however everything has came back normal multiple times.? She denies any visual changes, hearing changes, dizziness, palpitations.? She also stated that she has been having some urinary frequency and sometimes does not make it to that bathroom in time.? She had a BM this morning and has had really bad gas ever since then.? She also stated that yesterday when she had a pizza from [employer] the taste was really finding that she and garlic on it however there was no pathology on the pizza according to the daughter.? Patient did denied direct chest pain.? Upon arrival to he need a lactic acid was noted to be at 2.4? Troponins were noted to be elevated at 0.069, 0.046, 0.037.? Patient was given IV fluids and? currently his lactic acid 1.0. patient stated that she does have appetite changes however that has been something that has been going on for a while.? However she is tolerating water. cardiology has been consulted for elevated troponins. Hospital Course: 56-year-old female with past medical history of hyperlipidemia, mi, hypertension, GERD, IBS who presented to the ED with complaints of cough, nausea, vomiting. 1)Nausea/Vomiting: ?viral gastroenteritis symptoms resolved/improving c/w IV fluids Zofran PRN Tolerating PO food CT abdomen unremarkable Will need outpatient GI referral for possible H/o IBS 2)Chest Pain/Elevated troponin: resolved Cardiology signed off c/w ASA, Lipitor Outpatient follow up with cardiology 3)Bacteremia: Blood culture positive for GPC, 1 set in anaerobic bottle, ?contaminant Repeat Blood culture Start on Vancomycin empirically patient remains cli
== END 2022-01-28 15:35 | disposition home or self-care (01) ==
LOC: ANHED 11:21 → ANHIMU 12:52
PROVIDERS: Internal Medicine; Nurse Practitioner; Admitting Provider Student in an Organized Health Care Education/Training Program; Emergency Provider Emergency Medicine; PCP Nurse Practitioner Family; Visit Provider Family Medicine
DX: R07.9 Chest pain, unspecified (principal); R11.2 Nausea with vomiting, unspecified; R78.81 Bacteremia; E78.5 Hyperlipidemia, unspecified; K58.9 Irritable bowel syndrome, unspecified; I10 Essential (primary) hypertension; Z99.81 Dependence on supplemental oxygen; F41.9 Anxiety disorder, unspecified; J44.9 Chronic obstructive pulmonary disease, unspecified; F32.A Depression, unspecified; I25.2 Old myocardial infarction; I45.10 Unspecified right bundle-branch block; G62.9 Polyneuropathy, unspecified; R10.9 Unspecified abdominal pain; R50.9 Fever, unspecified; D72.829 Elevated white blood cell count, unspecified; R71.8 Other abnormality of red blood cells; R77.8 Other specified abnormalities of plasma proteins; Z20.822 Contact with and (suspected) exposure to COVID-19; Z79.82 Long term (current) use of aspirin; Z79.899 Other long term (current) drug therapy
CPT/HCPCS: 36415; 71045; 74177; 80053; 81001; 82948; 83605; 83690; 83735; 84443; 84484; 85025; 85055; 85380; 87040; 87147; 87181; 87186; 87502; 93005; 96361; 96372; 96374; 96375; 96376; 99285; A9270; C9803; G0378; G0379; J1200; J1650; J2270; J2405; J2765; J3370; J7030; J7120; Q9967; U0003; U0005

== ENCOUNTER 2023-07-29 16:56 | Emergency (ER) | payer OTHER, SELFPAY ==
--- NOTE | ~2023-07-29 | CT_ITS ---
EXAMINATION: CT brain wo con DATE: 07/29/2023 21:12 INDICATION: dizziness . TECHNIQUE: Computed tomography (CT) of the head was performed without intravenous contrast. The mA wa s adjusted according to patient size. Iterative reconstruction technique was employed. The dose-lengt h product was 529.67 mGy-cm. COMPARISON: 06/12/2017. FINDINGS: No acute intracranial hemorrhage or extra-axial fluid collection. No hydrocephalus, mass, or herniation. No acute ischemic infarct. Unremarkable dural venous sinus attenuation. No acute osseous abnormality. The aerated spaces are clear. Mild intracranial atherosclerotic calcification. IMPRESSION: No acute intracranial process. Reviewed, dictated and finalized at location K. HOUSE WORKER
--- NOTE | ~2023-07-29 | XR_ITS ---
EXAMINATION: XR chest 2V Exam Date/Time: 07/29/2023 21:20 MANAGER TREASURY HISTORY: dizziness, SMOKER Comparison: 01/26/2022. RESULT: Lines, tubes, and devices: None. Lungs and pleura: Clear. Cardiomediastinal silhouette: Stable. Other: No acute osseous or upper abdominal finding. IMPRESSION: No acute cardiopulmonary process. Reviewed, dictated and finalized at location K. GER TREASURY
[2023-07-29 17:16] VITALS: BP 128/71; PULSE 106; RESP 18; TEMP 36.1; O2SAT 97
--- NOTE | 2023-07-29 20:30 | ECG_ITS ---
Measurements Intervals [place] Rate: 96 P: 55 MN: 208 QRS: 52 QRSD: 89 T: 57 QT: 333 QTc: 422 Interpretive Statements SINUS RHYTHM INCOMPLETE RIGHT BUNDLE BRANCH BLOCK LOW QRS VOLTAGE IN PRECORDIAL LEADS BORDERLINE ECG COMPARED TO ECG 01/26/2022 17:05:37 NO SIGNIFICANT CHANGES Electronically Signed On 07-30-2023 7:56:56 HOT FRAME TENDER by Dwain Carr D.O.
--- NOTE | 2023-07-29 20:47 | ED.RECABL ---
HPI - Recheck/Abnormal Lab/Rx General Chief Complaint: Recheck/Abnormal Lab/Rx Stated Complaint: low BP Time Seen by Provider: 07/29/23 20:29 Source: patient and family Mode of arrival: wheelchair Limitations: dementia History of Present Illness HPI narrative: This is a 58 year old female that presents to the ER for dizziness. Ongoing over the last 4 days. Reports worse with certain position changes. Reports lightheadedness as well as room spinning dizziness. Reports some associated nausea and vomiting. Does report history of vertigo. Reports recently being started on a new blood pressure medication. Denies chest pain, shortness of breath, palpitations or lower extremity edema. Related Data Home Medications Medication Instructions Recorded Confirmed atorvastatin 80 mg tablet 80 mg PO HS 10/11/20 01/26/22 buspirone 10 mg tablet 15 mg PO TID 10/11/20 01/26/22 donepezil 5 mg tablet 5 mg PO DAILY 10/11/20 01/26/22 gabapentin 600 mg tablet 600 mg PO TID 10/11/20 01/26/22 aspirin 81 mg chewable tablet 81 mg PO DAILY 01/26/22 01/26/22 cyanocobalamin (vitamin B-12) 1,000 mcg PO DAILY 01/26/22 01/26/22 1,000 mcg tablet (Vitamin B-12) dicyclomine 10 mg capsule 10 mg PO QID 01/26/22 01/26/22 escitalopram oxalate 20 mg tablet 20 mg PO HS 01/26/22 01/26/22 memantine 10 mg tablet 10 mg PO DAILY 01/26/22 01/26/22 nitroglycerin 0.4 mg sublingual 0.4 mg sublingual Q5M PRN Chest 01/26/22 01/26/22 tablet Pain omeprazole 40 mg capsule,delayed 40 mg PO DAILY 01/26/22 01/26/22 release ondansetron 4 mg disintegrating 4 mg PO Q8H PRN Nausea And Vomiting 01/26/22 01/26/22 tablet pantoprazole 40 mg tablet,delayed 40 mg PO DAILY 01/26/22 01/26/22 release quetiapine 25 mg tablet 25 mg PO HS 01/26/22 01/26/22 Allergies Allergy/AdvReac Type Severity Reaction Status Date / Time ibuprofen Allergy Mild Ulcers Verified 01/26/22 08:25 codeine AdvReac Unknown N/V Verified 01/26/22 08:25 Review of Systems Review of Systems: CONSTITUTIONAL: Denies fever EYES: Denies visual changes CARDIOVASCULAR: Denies chest pain, palpitations, or edema. RESPIRATORY: Denies dyspnea. GASTROINTESTINAL: Reports nausea, vomiting GENITOURINARY: Denies dysuria NEUROLOGIC: Denies numbness, or weakness. All systems reviewed & are unremarkable except as noted in HPI and below PMFSH Past Medical History Medical History (Updated 07/30/23 @ 00:13 by Joana Talavera PA-C) Ankle fracture, left Anxiety Bronchitis CAD (coronary artery disease) Possible [place] around 2019 when hospitalized for pneumonia. Train Operations Manager is Rajan Quinn Heart COPD (chronic obstructive pulmonary disease) Depression HTN (hypertension) Hyperlipemia Myocardial infarction Pneumonia Tobacco use UTI (urinary tract infection) Surgical History Surgical History H/O: hysterectomy Family History Family History Mother Heart disease Renal disease Diabetes mellitus CHF (congestive heart failure) Father Heart disease Sibling Heart disease Social History Social History Social History: Patient currently lives with her boyfriend. Her daughter Luzmaria is her surrogate. She denies having any pets at home, and had a total of three kids, one girl and 2 boys. 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
[2023-07-29 21:04] LABS: Basophils Absolute Auto 0.1 K/mm3 (0.0-0.1); Basophils Percent Auto 0.5 % (0.2-1.2); Eosinophils Absolute Auto 0.1 K/mm3 (0-0.3); Eosinophils Percent Auto 0.8 % (0-4.4); Hematocrit 44.3 % (37.0-47.0); Hemoglobin 14.3 g/dL (12.0-15.0); Immature Granulocyte Absolute 0.03 K/mm3 (0.00-0.031); Immature Granulocyte Percent A 0.3 % (0-0.5); Lymphocytes Absolute Auto 2.55 K/mm3 (0.9-3.2); Lymphocytes Percent Auto 25.2 % (18.3-44.2); Mean Corpuscular HGB Conc 32.3 g/dl (32-36); Mean Corpuscular Hemoglobin 30.6 pg (26-34); Mean Corpuscular Volume 94.7 fl (80-100); Monocytes Absolute Auto 0.7 K/mm3 (0.1-0.6); Monocytes Percent Auto 6.8 % (2.6-8.5); Neutrophils Absolute Auto 6.7 K/mm3 (1.3-6.7); Neutrophils Percent Auto 66.4 % (45.5-73.1); Platelet Count Result 235 k/mm3 (150-375); Red Blood Count 4.68 M/mm3 (4.2-5.4); Red Cell Distribution Width 14.4 % (11.5-14.5); White Blood Count 10.1 K/mm3 (4.5-10.0)
[2023-07-29 21:15] LABS: Alanine Aminotransferase 15 U/L (6-35); Albumin Level 4.4 g/dL (3.5-5.1); Alkaline Phosphatase 90 U/L (38-126); Anion Gap 4 mmol/L (8-16); Aspartate Amino Transferase 27 U/L (14-36); Bilirubin,Total 0.5 mg/dL (0.2-1.3); Blood Urea Nitrogen 13 mg/dL (7-17); Calcium 9.1 mg/dL (8.4-10.2); Carbon Dioxide 33 mmol/L (22-30); Chloride 102 mmol/L (98-107); Estimated CRCL calculation 61 ml/min; Estimated Glomerular Filt Rate > 60; Glucose 111 mg/dL (65-110); Potassium 3.9 mmol/L (3.4-5.0); Sodium 139 mmol/L (137-145)
[2023-07-29] MEDS: MECLIZINE HCL 25 MG TABLET PO (21:34)
[2023-07-29] MEDS: ONDANSETRON INJ 4 MG/2 ML VIAL IV PUSH (21:35)
[2023-07-29] MEDS: SODIUM CHLORIDE 0.9% IV 1,000 ML 999 ML IV CONT (21:39)
[2023-07-29 23:09] LABS: Appearance Urine Cloudy (Clear); Bacteria Urine 4+ /hpf; Bilirubin Urine Negative (Negative); Blood Urine Negative (Negative); Color Urine Yellow (Yellow); Glucose Urine UA Negative (Negative); Ketones Urine Trace mg/dL (Negative); Leukocyte Esterase Ur 2+ LEU/UL (Negative); Mucus Urine Present /lpf; Need Manual Microscopic Reviewed; Nitrate Urine Negative (Negative); Protein Urine Negative (Negative); RBC Urine 0-2 /hpf (0-2); Specific Grav Ur 1.023 (1.001-1.035); Squamous Epithelial Cell Urine Many /hpf (Few); Transitional Epi Cells Urine Present /hpf (None Seen); Urobilinogen Urine 0.2 mg/dL (<2.0); WBC Urine 51-100 /hpf; pH Urine 5.5 (5.0-9.0)
[2023-07-29 23:10] LABS: Add Urine Microscopic? YES
[2023-07-30 00:23] VITALS: BP 142/84; PULSE 72; RESP 15; O2SAT 100
== END 2023-07-30 00:24 | disposition home or self-care (01) ==
PROVIDERS: Emergency Provider Physician Assistant; PCP Nurse Practitioner Family
DX: N39.0 Urinary tract infection, site not specified (principal); R42 Dizziness and giddiness; I25.10 Atherosclerotic heart disease of native coronary artery without angina pectoris; I10 Essential (primary) hypertension; E78.5 Hyperlipidemia, unspecified; F41.9 Anxiety disorder, unspecified; F32.A Depression, unspecified; Z87.01 Personal history of pneumonia (recurrent); Z90.710 Acquired absence of both cervix and uterus; Z79.82 Long term (current) use of aspirin; F17.210 Nicotine dependence, cigarettes, uncomplicated
CPT/HCPCS: 36415; 70450; 71046; 80053; 81001; 85025; 87086; 87088; 93005; 96361; 96365; 96375; 99284; A9270; J0696; J2405; J7030

== ENCOUNTER 2023-10-23 15:01 | Inpatient (IN) | payer OTHER, SELFPAY ==
[2023-10-23] VITALS (21 sets, daily range): BP systolic 103–124; BP diastolic 53–83; PULSE 103–131; RESP 18–26; TEMP 36.4–37; O2SAT 77–100; BMI 27.8
--- NOTE | ~2023-10-23 | XR_ITS ---
EXAMINATION: XR chest 1V portable 10/23/2023 15:56 INDICATION: Shortness of breath, cough and aches PROCEDURE: AP portable chest COMPARISON: No prior studies for comparison. FINDINGS: The lungs are clear. The cardiomediastinal silhouette is within normal limits. There are no pleural effusions. There is no pneumothorax suspected. IMPRESSION: 1: NO ACUTE CARDIOPULMONARY DISEASE. Reviewed, dictated and finalized at location B.
--- NOTE | 2023-10-23 15:47 | ECG_ITS ---
SEE SCANNED COPY FOR CONFIRMED REPORT MTDD
[2023-10-23 16:07] LABS: Basophils Percent Auto 0.4 % (0.2-1.2); Eosinophils Absolute Auto 0.1 K/mm3 (0-0.3); Eosinophils Percent Auto 1.1 % (0-4.4); Hematocrit 42.4 % (37.0-47.0); Hemoglobin 13.7 g/dL (12.0-15.0); Immature Granulocyte Absolute 0.03 K/mm3 (0.00-0.031); Immature Granulocyte Percent A 0.3 % (0-0.5); Lymphocytes Absolute Auto 2.13 K/mm3 (0.9-3.2); Lymphocytes Percent Auto 20.2 % (18.3-44.2); Mean Corpuscular HGB Conc 32.3 g/dl (32-36); Mean Corpuscular Hemoglobin 31.2 pg (26-34); Mean Corpuscular Volume 96.6 fl (80-100); Mean Platelet Volume 9.8 fl (7.4-10.4); Monocytes Absolute Auto 1.1 K/mm3 (0.1-0.6); Monocytes Percent Auto 10.2 % (2.6-8.5); Neutrophils Absolute Auto 7.1 K/mm3 (1.3-6.7); Neutrophils Percent Auto 67.8 % (45.5-73.1); Platelet Count Result 265 k/mm3 (150-375); Red Blood Count 4.39 M/mm3 (4.2-5.4); Red Cell Distribution Width 12.4 % (11.5-14.5); White Blood Count 10.5 K/mm3 (4.5-10.0)
[2023-10-23 16:17] LABS: Alanine Aminotransferase 14 U/L (6-35); Albumin Level 4.1 g/dL (3.5-5.1); Alkaline Phosphatase 116 U/L (38-126); Anion Gap 3 mmol/L (4-12); Aspartate Amino Transferase 18 U/L (14-36); Bilirubin,Total 0.7 mg/dL (0.2-1.3); Blood Urea Nitrogen 7 mg/dL (7-17); Calcium 9.1 mg/dL (8.4-10.2); Carbon Dioxide 33 mmol/L (22-30); Chloride 101 mmol/L (98-107); Estimated CRCL calculation 61 ml/min; Estimated Glomerular Filt Rate > 60; Glucose 108 mg/dL (65-110); Potassium 3.9 mmol/L (3.4-5.0); Sodium 137 mmol/L (137-145)
[2023-10-23 16:22] LABS: Alveolar/Arterial O2 Gradient 206.4 mmHg; Base Excess ABG 3.1 mEq/l (+/-2.0); Carboxyhemoglobin 2.5 % THb (0-2.0); Fractional Inspired Oxygen 44 %; HCO3 ABG 29.3 mEq/l (22.0-26.0); Methemoglobin ABG 0.4 %THb (0-1.5); Oxygen Content ABG 17.1 %vol (16.0-22.0); PCO2 ABG 51.1 mmHg (35.0-45.0); PO2 FiO2 Ratio Arterial Blood 1.12 %; Reduced Hemoglobin 14.3 %THb (0-5.0); Total Hemoglobin 14.7 g/dL (12.0-18.0); pH ABG 7.377 (7.350-7.450)
[2023-10-23 16:27] LABS: Oxygen Saturation ABG 83.4 % (95.0-100.0); PO2 ABG 49.1 mmHg (80.0-100.0)
[2023-10-23 16:28] LABS: Device NASAL CANNULA; Modified Allen's Test Pass; Oxyhemoglobin 82.8 % THb (90.0-100.0); Site Drawn LEFT RADIAL
[2023-10-23 16:49] LABS: Influenza A QL RT-PCR Negative (Negative); Influenza B QL RT-PCR Negative (Negative); RSV RNA, RT-PCR Negative (Negative); SARS-CoV-2 RNA PCR Negative (Negative)
--- NOTE | 2023-10-23 17:41 | ED.SOB ---
HPI - SOB/Dyspnea General Chief Complaint: Shortness of Breath/Dyspnea Stated Complaint: TROUBLE BREATHING Time Seen by Provider: 10/23/23 17:35 History of Present Illness HPI Narrative: Pt presents with SOB for a few days and a cough productive of brown sputum. Pt denies fever. Pt has COPD and is on 2L 0xygen at home. Pt saturation 77% on arrival here on 4L, now 90%. Related Data Home Medications Medication Instructions Recorded Confirmed atorvastatin 80 mg tablet 80 mg PO HS 10/11/20 10/23/23 buspirone 10 mg tablet 15 mg PO TID 10/11/20 10/23/23 donepezil 5 mg tablet 5 mg PO DAILY 10/11/20 10/23/23 gabapentin 600 mg tablet 600 mg PO TID 10/11/20 10/23/23 aspirin 81 mg chewable tablet 81 mg PO DAILY 01/26/22 10/23/23 cyanocobalamin (vitamin B-12) 1,000 mcg PO DAILY 01/26/22 10/23/23 1,000 mcg tablet (Vitamin B-12) dicyclomine 10 mg capsule 10 mg PO QID 01/26/22 10/23/23 memantine 10 mg tablet 10 mg PO DAILY 01/26/22 10/23/23 nitroglycerin 0.4 mg sublingual 0.4 mg sublingual Q5M PRN Chest 01/26/22 10/23/23 tablet Pain omeprazole 40 mg capsule,delayed 40 mg PO DAILY 01/26/22 10/23/23 release trazodone 50 mg tablet 50 mg PO HS 10/23/23 10/23/23 Allergies Allergy/AdvReac Type Severity Reaction Status Date / Time ibuprofen Allergy Mild Ulcers Verified 01/26/22 08:25 codeine AdvReac Unknown N/V Verified 01/26/22 08:25 Review of Systems Review of Systems: All systems reviewed & are unremarkable except as noted in HPI and below PMFSH Past Medical History Medical History (Updated 10/23/23 @ 17:56 by Jasmin Lima III, ) Ankle fracture, left Anxiety Bronchitis CAD (coronary artery disease) Possible [place] around 2019 when hospitalized for pneumonia. Electronic Gluer is Rajan Quinn Heart COPD (chronic obstructive pulmonary disease) Depression HTN (hypertension) Hyperlipemia Myocardial infarction Pneumonia Tobacco use UTI (urinary tract infection) Surgical History Surgical History H/O: hysterectomy Family History Family History Mother Heart disease Renal disease Diabetes mellitus CHF (congestive heart failure) Father Heart disease Sibling Heart disease Social History Social History Social History: Patient currently lives with her boyfriend. Her daughter Luzmaria is her surrogate. She denies having any pets at home, and had a total of three kids, one girl and 2 boys. She wishes to be a full code at this time Smoking packs per day: 0.5 Smoking cigarettes per day: 10.0 Years smoked: 44 Smoking pack-years: 22.00 Smoking status: Current every day smoker Tobacco type: cigarettes Alcohol intake: current Drinks per week: 1 Substance use: current Substance use type: marijuana Other substance usage details: About a $20 bag Last use: 10/21/23 Do You Feel Safe in your Home?: Yes Lack of Transportation: No Lack of Food: Never True Current Housing: I Have Housing Concerned About Future Housing: No Difficulty Paying Gas/Electric Bills: No Difficulty Paying for Meds: No Currently Unemployed: No Education: High School Diploma/GED Difficulty w/ Childcare or Family Care: No Living arrangements: other Additional living arrangements comments: Lives with boyfriend Occupation/Education: other 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
[2023-10-23] MEDS: methylPREDNISolone SOD SUCC 125 MG VIAL IV PUSH (17:54)
[2023-10-23] MEDS: IPRATROPIUM 0.5 MG/ALBUTEROL SULFATE 2.5 MG AMPUL.NEB 3 ML INHALATION ×2 (18:07→19:26)
[2023-10-23] MEDS: AZITHROMYCIN 500 MG/NS 250 ML 500 MG/250 ML BAG 250 MG IVPB (18:26)
[2023-10-23] MEDS: BENZONATATE 100 MG CAPSULE PO (19:43)
--- NOTE | 2023-10-23 20:51 | ADMGEN ---
This patient, Velia Pascual, was admitted to IMU Room 203-01. Patient/family oriented to hospital policies and general routines including ID bracelet, bed and alarms, visiting hours, pain management, procedures, bathroom and other care routines, personal items, smoking policy, room service/diet, and visiting hours. Information on how to activate the Rapid Response Team has been discussed. Patient/Family are encouraged to report perceived risks to care and to ask questions if they do not understand what they are told or what they should do.
[2023-10-23] MEDS: WATER FOR IRRIGATION, STERILE 1,000 ML BOTTLE 1000 ML (22:00)
[2023-10-23] MEDS: ATORVASTATIN 40 MG TABLET 80 MG PO (23:17)
[2023-10-23] MEDS: traZODone HCL 50 MG TABLET PO (23:17)
[2023-10-23] MEDS: methylPREDNISolone SOD SUCC 125 MG VIAL 60 MG IV PUSH (23:18)
[2023-10-24] VITALS (24 sets, daily range): BP systolic 93–135; BP diastolic 61–78; PULSE 84–141; RESP 18–22; TEMP 36.2–36.8; O2SAT 63–100
[2023-10-24] MEDS: IPRATROPIUM 0.5 MG/ALBUTEROL SULFATE 2.5 MG AMPUL.NEB 3 ML INHALATION ×2 (02:08→07:31)
[2023-10-24 05:06] LABS: Basophils Percent Auto 0.2 % (0.2-1.2); Hematocrit 40.6 % (37.0-47.0); Hemoglobin 13.2 g/dL (12.0-15.0); Immature Granulocyte Absolute 0.08 K/mm3 (0.00-0.031); Immature Granulocyte Percent A 0.9 % (0-0.5); Lymphocytes Percent Auto 8.6 % (18.3-44.2); Mean Corpuscular HGB Conc 32.5 g/dl (32-36); Mean Corpuscular Hemoglobin 31.2 pg (26-34); Mean Platelet Volume 9.8 fl (7.4-10.4); Monocytes Absolute Auto 0.1 K/mm3 (0.1-0.6); Monocytes Percent Auto 0.6 % (2.6-8.5); Neutrophils Absolute Auto 8.3 K/mm3 (1.3-6.7); Neutrophils Percent Auto 89.7 % (45.5-73.1); Platelet Count Result 268 k/mm3 (150-375); Red Blood Count 4.23 M/mm3 (4.2-5.4); Red Cell Distribution Width 12.3 % (11.5-14.5); White Blood Count 9.3 K/mm3 (4.5-10.0)
[2023-10-24 05:17] LABS: Anion Gap 4 mmol/L (4-12); Blood Urea Nitrogen 9 mg/dL (7-17); Calcium 9.2 mg/dL (8.4-10.2); Carbon Dioxide 30 mmol/L (22-30); Chloride 105 mmol/L (98-107); Estimated CRCL calculation 80 ml/min; Estimated Glomerular Filt Rate > 60; Glucose 159 mg/dL (65-110); Magnesium 2.4 mg/dL (1.6-2.3); Potassium 3.9 mmol/L (3.4-5.0); Sodium 139 mmol/L (137-145)
[2023-10-24 05:19] LABS: Alveolar/Arterial O2 Gradient 66.7 mmHg; Base Excess ABG 0.5 mEq/l (+/-2.0); Carboxyhemoglobin 0.3 % THb (0-2.0); Fractional Inspired Oxygen 28 %; HCO3 ABG 26.3 mEq/l (22.0-26.0); Methemoglobin ABG 0.3 %THb (0-1.5); Oxygen Content ABG 18.9 %vol (16.0-22.0); Oxygen Saturation ABG 95.2 % (95.0-100.0); Oxyhemoglobin 93.8 % THb (90.0-100.0); PCO2 ABG 46.5 mmHg (35.0-45.0); PO2 ABG 78.1 mmHg (80.0-100.0); PO2 FiO2 Ratio Arterial Blood 2.79 %; Reduced Hemoglobin 5.6 %THb (0-5.0); Total Hemoglobin 14.3 g/dL (12.0-18.0)
[2023-10-24 05:20] LABS: Device NASAL CANNULA; Site Drawn RIGHT BRACHIAL
[2023-10-24 05:46] LABS: Procalcitonin 0.1 ng/mL
[2023-10-24] MEDS: methylPREDNISolone SOD SUCC 125 MG VIAL 60 MG IV PUSH ×3 (05:53→17:06)
[2023-10-24] MEDS: guaiFENesin 12 HR 600 MG TABCR 1200 MG PO ×2 (05:59→20:54)
--- NOTE | 2023-10-24 08:06 | PM.IMHP ---
H&P: HPI History of Present Illness Date/Time: 10/24/23 08:06 Chief Complaint: Shortness of breath Narrative: Ms. Pascual is a pleasant 58-year-old female with a past medical history depression and anxiety, mild cognitive impairment, CAD, COPD with chronic respiratory failure with hypoxia, hypertension, hyperlipidemia, active tobacco abuse presenting with shortness of breath. Typically uses 2 L of nasal cannula at home and on presentation to [place] [facility] she was requiring 4 L nasal cannula. She also admits to cough productive of ?nasty? sputum. In [place] [facility] she was provided DuoNebs along with Solu-Medrol 125 mg IV x1, azithromycin 500 mg IV x1, a dose of Tessalon Perles 100 mg p.o. Upon evaluating the patient in the morning of 10/23 she reports improved breathing but still active cough with sputum production. Review of Systems Review of Systems: All systems reviewed & are unremarkable except as noted in HPI and below (Subjective) [facility] Past Medical History Medical History (Updated 10/24/23 @ 08:09 by Clau Solorzano MD) Ankle fracture, left Anxiety Bronchitis CAD (coronary artery disease) Possible SD around 2019 when hospitalized for pneumonia. 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 Her daughter Luzmaria is her surrogate. She denies having any pets at home, and had a total of three kids, one girl and 2 boys. She wishes to be a full code at this time Smoking packs per day: 0.5 Smoking cigarettes per day: 10.0 Years smoked: 44 Smoking pack-years: 22.00 Smoking status: Current every day smoker Tobacco type: cigarettes Alcohol intake: current Drinks per week: 1 Substance use: current Substance use type: marijuana Other substance usage details: About a $20 bag Last use: 10/21/23 Do You Feel Safe in your Home?: Yes Lack of Transportation: No Lack of Food: Never True Current Housing: I Have Housing Concerned About Future Housing: No Difficulty Paying Gas/Electric Bills: No Difficulty Paying for Meds: No Currently Unemployed: No Education: High School Diploma/GED Difficulty w/ Childcare or Family Care: No Living arrangements: other Additional living arrangements comments: Lives with boyfriend Occupation/Education: other 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 Gender identity (if verbalized by the patient): Female Sexual Orientation (if Verbalized by the Patient): Straight or Heterosexual Spiritual care concerns: No Agree to blood products: Yes Meds Home Medications and Allergies Home Medications Medication Instructions Recorded Confirmed Type atorvastatin 80 mg tablet 80 mg PO HS 10/11/20 10/23/23 History buspirone 10 mg tablet 15 mg PO TID 10/11/20 10/23/23 History donepezil 5 mg tablet 5 mg PO DAILY 10/11/20 10/23/23 History gabapentin 600 mg tablet 600 mg PO TID 10/11/20 10/23/23 History aspirin 81 mg chewable tablet 81 mg PO DAILY 01/26/22 10/23/23 History cyanocobalamin (vitamin B-12) 1,000 mcg PO DAILY 01/26/22 10/23/23 History 1,000 mcg tablet (Vitamin B-12) dicyclomine 10 mg capsule 10 mg PO QID 01/26/22 10/23/23 History memantine 10 mg tablet 10 mg PO DAILY 01/26/22 10/23/23 History nitroglycerin 0.4 mg sublingual 0.4 mg sublingual Q5M PRN Chest 01/26/22 10/23/23 History table
[2023-10-24] MEDS: MEMANTINE 10 MG TABLET PO (08:53)
[2023-10-24] MEDS: busPIRone HCL 5 MG TABLET 15 MG PO ×3 (08:53→17:05)
[2023-10-24] MEDS: DICYCLOMINE HCL 10 MG CAPSULE PO ×4 (08:53→20:55)
[2023-10-24] MEDS: PANTOPRAZOLE 40 MG TABLET PO ×2 (08:53→17:06)
[2023-10-24] MEDS: ENOXAPARIN 40 MG/0.4 ML SYRINGE SUB-Q (08:54)
[2023-10-24] MEDS: GABAPENTIN 300 MG CAPSULE 600 MG PO ×3 (08:54→17:06)
[2023-10-24] MEDS: CYANOCOBALAMIN 1,000 MCG TABLET 1000 MCG PO (08:54)
[2023-10-24] MEDS: AZITHROMYCIN 250 MG TABLET 500 MG PO (08:54)
[2023-10-24] MEDS: ASPIRIN 81 MG CHEWABLE TABLET PO (08:54)
[2023-10-24] MEDS: DONEPEZIL HCL 5 MG TABLET PO (08:57)
[2023-10-24] MEDS: BENZONATATE 100 MG CAPSULE PO ×2 (10:12→20:55)
--- NOTE | 2023-10-24 12:00 | WPDNEURCNPN ---
Assessment and Plan Assessment and plan (1) COPD exacerbation: Code(s): J44.1 - Chronic obstructive pulmonary disease with (acute) exacerbation Status: Acute (2) Tobacco use: Code(s): Z72.0 - Tobacco use Status: Acute (3) Anxiety and depression: Code(s): F41.9 - Anxiety disorder, unspecified; F32.A - Depression, unspecified Status: Acute Plan 1. COPD With acute exacerbation. 2. Ongoing dementia 3. Polypharmacy 4. Chronic smoking. Will benefit from the long-term counseling and readjustment of the medications with involvement of the family. CT scan does not show any ventriculomegaly or chronic subdurals but MRI will be needed for the long-term recommendations Consult date: 10/24/23 HPI: Velia Pascual is a 58 year old female Admitted to the hospital through the emergency room for the complaints of dizziness 4 days duration in addition to complain of the aggravation of dizziness which position changes along with nausea and vomiting and vertigo patient, was recently started on antihypertensive medication and has been taking multiple medications which particularly included atorvastatin 80mg at night,BuSpar 15mg 3 times, donepezil 5mg daily, gabapentin 600mg 3 times, aspirin 81mg daily ecitalopram 20mg at night, memantine 10mg 3, omeprazole 40mg daily, Seroquel 25mg at night, patient is notedly allergic to codeine and ibuprofen and in the past has had ongoing anxiety, 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 for the coronary artery disease, hypertension ,has ongoing history of tobacco use and depression also has history of 50 years smoked 1 pack per day ,smoking currently everyday smoker but former alcohol intaker and also currently substance user, initial vital Signs fairly normal ,CBC normal, basic metabolic panel normal and routine lab studies normal ,initial CT scan without bleed or ventriculomegaly ,chest x-ray negative EKG without atrial fibrillation, being treated at present for the difficulties in breathing because of a history of chronic respiratory failure with hypoxia and history of active tobacco abuse medications have been unchanged continues to be on donepezil 5mg daily BuSpar 15mg 3 times a day aspirin 81mg daily atorvastatin 80mg at night. [facility] Past Medical History Medical History (Updated 10/24/23 @ 08:09 by Clau Solorzano MD) Ankle fracture, left Anxiety Bronchitis CAD (coronary artery disease) Possible [place] around 2019 when hospitalized for pneumonia. [facility] Offsider is [facility] COPD (chronic obstructive pulmonary disease) Depression HTN (hypertension) Hyperlipemia Myocardial infarction Pneumonia Tobacco use UTI (urinary tract infection) Surgical History Surgical History H/O: hysterectomy Family History Family History Mother Heart disease Renal disease Diabetes mellitus CHF (congestive heart failure) Father Heart disease Sibling Heart disease Social History Social History Social History: Patient currently lives with her boyfriend. Her daughter Luzmaria is her surrogate. She denies having any pets at home, and had a total of three kids, one girl and 2 boys. She wishes to be a full code at this time Smoking packs per day: 0.5 Smoking cigarettes per day: 10.0 Years smoked: 44 Smoking pack-years: 22.00 Smoking status: Current every day smoker Tobacco type: cigarettes Alcohol intake: current Drinks per week: 1 Substance use: current Substance use type: marijuana Other substance usage details: About a $20 bag Last use: 10/21/23 Do You Feel Safe in your Home?: Yes Lack of Transportation: No Lack of Food: Never True Current Housing: I Have Housing Concerned About Future Housing: No Difficulty Paying Gas/Electric Bills: No Difficulty Paying for Meds: No
[2023-10-24] MEDS: IPRATROPIUM BR 0.02% INH SOLN 0.5 MG/2.5 ML VIAL INHALATION ×2 (14:12→19:43)
[2023-10-24] MEDS: traZODone HCL 50 MG TABLET PO (20:55)
[2023-10-24] MEDS: ATORVASTATIN 40 MG TABLET 80 MG PO (20:55)
[2023-10-25] VITALS (19 sets, daily range): BP systolic 100–120; BP diastolic 71–88; PULSE 67–114; RESP 16–20; TEMP 36.3–37.1; O2SAT 90–98
[2023-10-25] MEDS: methylPREDNISolone SOD SUCC 125 MG VIAL 60 MG IV PUSH ×5 (00:09→23:44)
--- NOTE | 2023-10-25 01:59 | PC.NURSE ---
Patient received from IMU room 203 to 2 medical room 240 via wheelchair. Report received from ELISE Swan.
[2023-10-25] MEDS: IPRATROPIUM BR 0.02% INH SOLN 0.5 MG/2.5 ML VIAL INHALATION ×4 (02:39→20:03)
--- NOTE | 2023-10-25 02:52 | PC.NURSE ---
This patient, Velia Pascual, was transferred to [240] on 10/25/23 at 0200. Personal belongings sent with patient. Report given to [ELISE Shabazz]. Appropriate documentation sent with patient.
[2023-10-25 05:40] LABS: Basophils Percent Auto 0.2 % (0.2-1.2); Hematocrit 42.4 % (37.0-47.0); Hemoglobin 13.3 g/dL (12.0-15.0); Immature Granulocyte Absolute 0.17 K/mm3 (0.00-0.031); Lymphocytes Absolute Auto 1.21 K/mm3 (0.9-3.2); Lymphocytes Percent Auto 7.2 % (18.3-44.2); Mean Corpuscular HGB Conc 31.4 g/dl (32-36); Mean Corpuscular Hemoglobin 30.8 pg (26-34); Mean Corpuscular Volume 98.1 fl (80-100); Mean Platelet Volume 9.9 fl (7.4-10.4); Monocytes Absolute Auto 0.5 K/mm3 (0.1-0.6); Monocytes Percent Auto 2.9 % (2.6-8.5); Neutrophils Absolute Auto 14.8 K/mm3 (1.3-6.7); Neutrophils Percent Auto 88.7 % (45.5-73.1); Platelet Count Result 322 k/mm3 (150-375); Red Blood Count 4.32 M/mm3 (4.2-5.4); Red Cell Distribution Width 12.3 % (11.5-14.5); White Blood Count 16.7 K/mm3 (4.5-10.0)
[2023-10-25 05:59] LABS: Anion Gap 1 mmol/L (4-12); Blood Urea Nitrogen 9 mg/dL (7-17); Calcium 9.2 mg/dL (8.4-10.2); Carbon Dioxide 35 mmol/L (22-30); Chloride 103 mmol/L (98-107); Estimated CRCL calculation 81 ml/min; Estimated Glomerular Filt Rate > 60; Glucose 159 mg/dL (65-110); Sodium 139 mmol/L (137-145)
--- NOTE | 2023-10-25 07:00 | PM.IMPN ---
Progress Note: A&P Assessment and Plan (1) COPD exacerbation: Code(s): J44.1 - Chronic obstructive pulmonary disease with (acute) exacerbation Status: Acute Assessment and Plan: - started on abx tx: azithromycin 10/24/23 - Methylprednisolone 60 mg IV q6 - Atrovent 0.5 mg q6 - Supplemental O2: back at 2L baseline - supportive treatment: tylenol, tessalon perles, mucinex -CXR: no acute cardiopulmonary disease - Viral PCR: negative for Flu/COVID/RSV - ABG: improving 7.370/46.5/78.1/26.3 - Sputum culture: few gram positive cocci and few gram positive bacilli - trend labs Time Spent With Patient Time with patient: 25 - 35 minutes Subjective Date/time seen: 10/25/23 07:00 Interval history: 58-year-old female with a past medical history depression and anxiety, mild cognitive impairment, CAD, COPD with chronic respiratory failure with hypoxia, hypertension, hyperlipidemia, active tobacco abuse presenting with shortness of breath.? Typically uses 2 L of nasal cannula at home and on presentation to [place] ER she was requiring 4 L nasal cannula.? Patient is pleasant lying in bed. She states that she feels much better and denies chest pain, shortness of breath, palpitations, and nausea/vomiting. She continues to have a cough that has since become dry. Started on a benzocaine. Sputum cultures are showing gram + cocci and gram + bacilli. Patient remains on azithromycin at this time. Review of Systems Review of Systems: All systems reviewed & are unremarkable except as noted in HPI and below Exam Narrative: AF HR 101 RR 20 SpO2 98 2L BP 112/71 General: well nourished, well-developed female in no acute respiratory distress who is nontoxic appearing, lying semi recumbent in bed. HEENT: Normocephalic. Atraumatic. Pupils equal round reactive to light. Extraocular movement intact. Sclera clear and anicteric. No facial asymmetry. Chest: Lungs are clear to auscultation bilaterally. No wheezes or crackles. CV: Heart was regular rate and rhythm. S1-S2. No murmurs, gallops, or rubs. Abd: Abdomen was soft. Nontender. Nondistended. Positive bowel sounds. No organomegaly or masses. Ext: No clubbing, cyanosis, or edema. 2+ DP pulses bilaterally. Neuro: Patient is alert and oriented x4. Speech is clear. Psych: Normal mood and affect. Patient is pleasant and cooperative. Skin: Warm and dry. No rashes noted. Objective Data Vital Signs Vital Signs: Vital Signs - 24 hr 10/24/23 07:31 10/24/23 07:33 10/24/23 07:39 Temperature Pulse Rate 106 H 106 H 112 H Respiratory Rate 20 20 20 Blood Pressure Pulse Oximetry 97 Oxygen Delivery Nasal Cannula Oxygen Flow Rate 2 10/24/23 08:00 10/24/23 08:00 10/24/23 08:00 Temperature 97.6 F Pulse Rate 117 H 113 H 113 H Respiratory Rate 20 Blood Pressure 93/61 L Pulse Oximetry 95 94 Oxygen Delivery Nasal Cannula Oxygen Flow Rate 2 10/24/23 12:00 10/24/23 14:10 10/24/23 14:25 Temperature 97.4 F L Pulse Rate 94 107 H 102 H Respiratory Rate 22 H 20 20 Blood Pressure 123/78 Pulse Oximetry 92 Oxygen Delivery Oxygen Flow Rate 10/24/23 12:00 10/24/23 12:30 10/24/23 16:00 Temperature Pulse Rate 101 H 103 H Respiratory Rate Blood Pressure Pulse Oximetry 97 Oxygen Delivery Nasal Cannula Oxygen Flow Rate 1 10/24/23 16:00 10/24/23 19:43 10/24/23 19:43 Temperature 97.1 F L Pulse Rate 98 97 Respiratory Rate 22 H 20 Blood Pressure 133/69 Pulse Oximetry 91 87 L Oxygen Delivery Nasal Cannula Oxygen Flow Rate 1 10/24/23 19:51 10/24/23 20:02 10/24/23 20:28 Temperature 98.2 F Pulse Rate 102 H 141 H Respiratory Rate 20 22 H Blood Pressure 135/71 Pulse Oximetry 63 L 96 Oxygen Delivery Nasal Cannula Oxygen Flow Rate 2 10/24/23 20:45 10/24/23 20:00 10/25/23 00:00 Temperature Pulse Rate 141 H 108 H 75 Respiratory Rate 22 H Blood Pressure Pulse Oximetry 96 Oxygen Delivery Nasa
[2023-10-25] MEDS: AZITHROMYCIN 250 MG TABLET 500 MG PO (08:38)
[2023-10-25] MEDS: GABAPENTIN 300 MG CAPSULE 600 MG PO ×3 (08:38→16:33)
[2023-10-25] MEDS: CYANOCOBALAMIN 1,000 MCG TABLET 1000 MCG PO (08:38)
[2023-10-25] MEDS: guaiFENesin 12 HR 600 MG TABCR 1200 MG PO ×2 (08:38→20:33)
[2023-10-25] MEDS: busPIRone HCL 5 MG TABLET 15 MG PO ×3 (08:38→16:33)
[2023-10-25] MEDS: PANTOPRAZOLE 40 MG TABLET PO ×2 (08:38→16:33)
[2023-10-25] MEDS: DONEPEZIL HCL 5 MG TABLET PO (08:39)
[2023-10-25] MEDS: ASPIRIN 81 MG CHEWABLE TABLET PO (08:39)
[2023-10-25] MEDS: DICYCLOMINE HCL 10 MG CAPSULE PO ×4 (08:39→20:33)
[2023-10-25] MEDS: ENOXAPARIN 40 MG/0.4 ML SYRINGE SUB-Q (08:44)
[2023-10-25] MEDS: MEMANTINE 10 MG TABLET PO (09:35)
[2023-10-25] MEDS: BENZOCAINE/MENTHOL (*BKC) 18 EA LOZENGE 1 LOZENGE PO (17:59)
[2023-10-25] MEDS: ATORVASTATIN 40 MG TABLET 80 MG PO (20:33)
[2023-10-25] MEDS: traZODone HCL 50 MG TABLET PO (20:33)
[2023-10-26] VITALS (7 sets, daily range): BP systolic 119; BP diastolic 71; PULSE 62–98; RESP 18–20; TEMP 36.9; O2SAT 92–98
[2023-10-26] MEDS: IPRATROPIUM BR 0.02% INH SOLN 0.5 MG/2.5 ML VIAL INHALATION ×2 (02:15→07:42)
[2023-10-26] MEDS: methylPREDNISolone SOD SUCC 125 MG VIAL 60 MG IV PUSH ×2 (05:13→12:11)
[2023-10-26 06:13] LABS: Hematocrit 40.6 % (37.0-47.0); Hemoglobin 13.1 g/dL (12.0-15.0); Mean Corpuscular HGB Conc 32.3 g/dl (32-36); Mean Corpuscular Volume 96.2 fl (80-100); Platelet Count Result 316 k/mm3 (150-375); Red Blood Count 4.22 M/mm3 (4.2-5.4); Red Cell Distribution Width 12.3 % (11.5-14.5); White Blood Count 16.2 K/mm3 (4.5-10.0)
[2023-10-26 06:23] LABS: Anion Gap 4 mmol/L (4-12); Blood Urea Nitrogen 13 mg/dL (7-17); Calcium 9.2 mg/dL (8.4-10.2); Carbon Dioxide 34 mmol/L (22-30); Chloride 102 mmol/L (98-107); Estimated CRCL calculation 68 ml/min; Estimated Glomerular Filt Rate > 60; Glucose 148 mg/dL (65-110); Potassium 3.9 mmol/L (3.4-5.0); Sodium 140 mmol/L (137-145)
[2023-10-26] MEDS: DONEPEZIL HCL 5 MG TABLET PO (08:06)
[2023-10-26] MEDS: GABAPENTIN 300 MG CAPSULE 600 MG PO ×2 (08:06→12:10)
[2023-10-26] MEDS: CYANOCOBALAMIN 1,000 MCG TABLET 1000 MCG PO (08:06)
[2023-10-26] MEDS: MEMANTINE 10 MG TABLET PO (08:06)
[2023-10-26] MEDS: DICYCLOMINE HCL 10 MG CAPSULE PO ×2 (08:06→12:11)
[2023-10-26] MEDS: PANTOPRAZOLE 40 MG TABLET PO (08:06)
[2023-10-26] MEDS: ASPIRIN 81 MG CHEWABLE TABLET PO (08:06)
[2023-10-26] MEDS: guaiFENesin 12 HR 600 MG TABCR 1200 MG PO (08:06)
[2023-10-26] MEDS: AZITHROMYCIN 250 MG TABLET 500 MG PO (08:06)
[2023-10-26] MEDS: busPIRone HCL 5 MG TABLET 15 MG PO ×2 (08:06→12:10)
[2023-10-26] MEDS: ENOXAPARIN 40 MG/0.4 ML SYRINGE SUB-Q (08:07)
[2023-10-26] MEDS: BENZOCAINE/MENTHOL (*BKC) 18 EA LOZENGE 1 LOZENGE PO (08:09)
--- NOTE | 2023-10-26 10:56 | PC.NURSE ---
On 10/26/23, the student, [Lamar Oscar], provided care and completed [facility] documentation on this patient. I have reviewed the student's documentation and agree with the findings.
--- NOTE | 2023-10-26 10:57 | PM.DS ---
DS: Admitting Diagnosis Discharge Date 10/26/2023 Admitting Diagnosis COPD exacerbation DS: Discharge Diagnosis Discharge Diagnosis (1) COPD exacerbation: Code(s): J44.1 - Chronic obstructive pulmonary disease with (acute) exacerbation Status: Acute DS: Summary Hospital Course Reason for hospitalization: COPD exacerbation Hospital Course: 58-year-old female with a past medical history depression and anxiety, mild cognitive impairment, CAD, COPD with chronic respiratory failure with hypoxia, hypertension, hyperlipidemia, active tobacco abuse presenting with shortness of breath.? Typically uses 2 L of nasal cannula at home and on presentation to [place] ER she was requiring 4 L nasal cannula.?She was started on duonebs, solu-medrol and azithromycin at that time. Patient remained tachycardic with persistent cough and wheezing. The duoneb was then changed to ipratropium. Due to patients continuous sputum production a sputum culture was obtained and few gram positive cocci and bacilli. Spoke with [facility] pharmacy about antibiotic coverage and he states azithromycin remains appropriate. Patient is back on her baseline 2L nasal cannula and denies shortness of breath. Patient discharged home with daughter in a stable condition. She will finsih her course of azithromycin on 10/28/23. She will follow up with her primary care provider in 1 week. Status at Discharge Functional status at discharge: independent ambulation Time Spent with Patient Time attestation: Total time spent providing and/or coordinating discharge services: Time spent: Greater than 30 minutes Exam Narrative: AF HR 71 RR 18 SpO2 98 2L NC BP 119/71 General: well nourished, well-developed female in no acute respiratory distress who is nontoxic appearing, lying semi recumbent in bed. HEENT: Normocephalic. Atraumatic. Pupils equal round reactive to light. Extraocular movement intact. Sclera clear and anicteric. No facial asymmetry. Chest: Lungs are clear to auscultation bilaterally. No wheezes or crackles. CV: Heart was regular rate and rhythm. S1-S2. No murmurs, gallops, or rubs. Abd: Abdomen was soft. Nontender. Nondistended. Positive bowel sounds. No organomegaly or masses. Ext: No clubbing, cyanosis, or edema. 2+ DP pulses bilaterally. Neuro: Patient is alert and oriented x4.? Speech is clear. Psych: Normal mood and affect. Patient is pleasant and cooperative. Skin: Warm and dry. No rashes noted. DS: Data Data Completed and Pending Completed studies during hospitalization: Chest XR Labs on day of discharge: Labs from last 24 hours 10/26/23 10/26/23 05:08 05:07 WBC 16.2 H RBC 4.22 Hgb 13.1 Hct 40.6 MCV 96.2 MCH 31.0 MCHC 32.3 RDW 12.3 Plt Count 316 MPV 10.0 Sodium 140 Potassium 3.9 Chloride 102 Carbon Dioxide 34 H Anion Gap 4 BUN 13 Creatinine 0.70 Estim Creat Clear Calc 68 Estimated GFR > 60 Glucose 148 H Calcium 9.2 Discharge Plan Discharge Attending physician on discharge: Kiersten Hein Discharging Clinician: Albina Miranda Anticipated Discharge Date/Time: 10/26/23 08:35 Patient Disposition: Home, Self-Care Activity: as tolerated Diet: as tolerated and heart healthy Discharge Instructions: You were seen at the hospital for a COPD exacerbation. You were treated with duonebs, steroids and an antibiotic during your admission. You will continue this antibiotic for 2 more days starting tomorrow to complete the course. Follow up with your primary care provider in 1 week. Return to the hospital or call your primary care provider if you develop chest pain, shortness of breath, dizziness/lightheadedness, nausea/vomiting, or changes in bowel/bladder. Patient Instructions: Antibiotic Form, Azithromycin (By mouth), How to Stop Smoking (DC), COPD (Chronic Obstructive Pulmonary Disease) (DC) Patient Language: Yi Stand Alone Forms: General Discharge Information
== END 2023-10-26 14:26 | disposition home or self-care (01) | DRG 140 ==
LOC: ANHED 17:57 → ANHIMU 22:12 → ANH2MED 10-26 08:45 → ANHIMU 10-27 11:31
PROVIDERS: Student in an Organized Health Care Education/Training Program; Admitting Provider General Practice; Emergency Provider Emergency Medicine; PCP Student in an Organized Health Care Education/Training Program; Visit Provider Family Medicine
DX: J44.1 Chronic obstructive pulmonary disease with (acute) exacerbation (principal); J96.11 Chronic respiratory failure with hypoxia; E78.5 Hyperlipidemia, unspecified; F17.210 Nicotine dependence, cigarettes, uncomplicated; F41.9 Anxiety disorder, unspecified; F32.A Depression, unspecified; G31.84 Mild cognitive impairment of uncertain or unknown etiology; I25.10 Atherosclerotic heart disease of native coronary artery without angina pectoris; I10 Essential (primary) hypertension; Z99.81 Dependence on supplemental oxygen; Z79.82 Long term (current) use of aspirin
CPT/HCPCS: 36415; 36600; 71045; 80048; 80053; 82375; 82805; 83050; 83735; 84145; 85025; 85027; 87070; 87205; 87637; 93005; 94640; 96374; 99285; A9270; J0456; J1650; J2919

== ENCOUNTER 2024-11-10 18:55 | Inpatient (IN) | payer OTHER, SELFPAY ==
[2024-11-10] VITALS (11 sets, daily range): BP systolic 105–111; BP diastolic 74–77; PULSE 60–97; RESP 13–23; TEMP 36.8; O2SAT 88–100
--- NOTE | ~2024-11-10 | CT_ITS ---
Non-contrast Head CT History: Unresponsive episode COMPARISON: 07/29/2023 Technique: Axial non-contrast imaging of the brain was performed. Dose reduction technique was used on this scan by utilizing automated exposure control and iterative reconstruction technique. The dose -length product (DLP) was 605.33 mGy-cm. Findings: There is no evidence of intracranial hemorrhage, mass lesion, or acute infarct. Brain par enchyma appears normal. The ventricles and subarachnoid spaces are normal in size. The calvarium ap pears normal. The visualized paranasal sinuses and mastoid air cells are clear. Impression: No significant abnormality seen. Reviewed, dictated and finalized at location . Impression: No significant abnormality seen.
--- NOTE | ~2024-11-10 | XR_ITS ---
EXAMINATION: XR chest 1V portable Exam Date/Time: 11/10/2024 20:05 CDT HISTORY: hypoxia Comparison: 10/23/2023. RESULT: Lines, tubes, and devices: None. Lungs and pleura: Clear. Cardiomediastinal silhouette: Stable. Other: No acute osseous or upper abdominal finding. IMPRESSION: No acute cardiopulmonary process. Reviewed, dictated and finalized at location K.
--- NOTE | ~2024-11-10 | CT_ITS ---
Clinical Indication: Hypoxic respiratory failure CT Scan of the Chest with Contrast: Technique: Contiguous sections were acquired throughout the chest after intravenous administration of 100 cc of Omnipaque 350. Dose reduction technique was used on this scan by utilizing automated expos ure control and iterative reconstruction technique. The dose-length product (DLP) was 307.08 mGy-cm. Findings: There is no evidence of any significant mediastinal, hilar or axillary lymphadenopathy. There is no f illing defect in the pulmonary arterial tree to suggest pulmonary embolus. There is no evidence of ao rtic dissection or aneurysm. There is no evidence of pleural or pericardial effusion. The lungs are clear. No pulmonary nodules or infiltrates are noted. There is moderate emphysema. Images through the upper abdomen reveal no abnormalities. Impression: Moderate emphysema. No evidence of pulmonary embolus, aortic dissection, or aortic aneurysm. Clear lungs. Reviewed, dictated and finalized at [facility]. Impression: Moderate emphysema. No evidence of pulmonary embolus, aortic dissection, or aortic aneurysm. Clear lungs.
--- OUTSIDE RECORDS SUMMARY | 2024-11-10 18:58 | XMS_ITS ---
Author Organization [facility] Address [address] [place] [address] Care Team Providers Care Building Inspection Engineer Name Role Phone Rose Marie Craven PAC Primary Care Provider [facility] Status:Enrolled (Active) Start date:08/07/2024 Enrollment date:08/07/2024 Related social drivers of health:Intimate Partner Violence, Social Connections, Alcohol Use, Tobacco Use, Financial Resource Strain,Depression, Stress, Physical Activity, Food Insecurity, Transportation Needs, Housing Stability, Utilities Continued Care and Services Coordination
--- OUTSIDE RECORDS SUMMARY | 2024-11-10 18:58 | XMS_ITS | Clinical Summary ---
Author Organization [facility] Address [facility] [place] [address] Care Team Providers Care Fourdrinier Machine Operator Name Role Phone Giovanna Higgins MD Unavailable [phone] Gracie Hazel MD Primary Care Provider Allergies Active Allergy Reactions Criticality Noted Date Comments Codeine Vomiting,Unknown High 08/16/2017 Ibuprofen GI Bleed High 11/18/2018 Medications vitamin B-12 (CYANOCOBALAMIN) 1000 mcg tablet Take 1 tablet (1,000 mcg total) by mouth once a week. NO DOSE GIVEN 12-25-18. 12/26/19 19 Active aspirin EC 81 MG tablet Take 1 tablet (81 mg total) by mouth daily. 90 tablet 08/07/19 20 Active albuterol sulfate HFA 108 (90 Base) MCG/ACT inhaler Inhale 2 puffs into the lungs. 05/06/20 21 Active nitroglycerin (NITROSTAT) 0.[address] 1 tablet (0.4 mg total) under the tongue every 5 (five) minutes as needed for Chest Pain. Maximum of 3 doses. After 3rd dose call 9-1-1. 25 tablet 2 02/04/20 22 Active BREZTRI AEROSPHERE 160-9-4.8 MCG/ACT inhaler Inhale 2 puffs into the lungs 2 (two) times daily. Active traZODone (DESYREL) 50 MG tabletIndications: Moderate episode of recurrent major depressive disorder (CMS/HCC) at bedtime 60 tablet 11 05/20/20 24 Active valACYclovir (VALTREX) 1 g tabletIndications: HSV infection TAKE 1 TABLET BY MOUTH THREE TIMES DAILY 21 tablet 3 07/26/19 25 Active gabapentin (NEURONTIN) 300 MG capsule Take 1 capsule (300 mg total) by mouth 3 (three) times daily. Active polyethylene glycol (GLYCOLAX) packet Take 240 mLs (17 g total) by mouth daily as needed for Constipatio n. Dissolve powder in 240 mL water 14 each 09/04/19 25 Active donepezil (ARICEPT) 5 MG Tab Take 1 tablet (5 mg total) by mouth daily. Active memantine (NAMENDA) 10 MG tablet Take 1 tablet (10 mg total) by mouth 2 (two) times daily. Active hydroCHLOROthiazid e (MICROZIDE) 12.5 MG tablet Take 1 tablet (12.5 mg total) by mouth every morning. 90 tablet 3 09/24/19 25 Active buPROPion SR (WELLBUTRIN SR) 150 MG 12 hr tabletIndications: Encounter for smoking cessation counseling Take 1 tablet by mouth twice daily 60 tablet 5 10/01/19 25 Active busPIRone (BUSPAR) 15 MG tabletIndications: Anxiety Take 1 tablet (15 mg total) by mouth 2 (two) times a day. 60 tablet 5 10/05/19 25 Active amLODIPine (NORVASC) 5 MG tabletIndications: Primary hypertension Take 1 tablet (5 mg total) by mouth daily. 90 tablet 3 10/07/19 25 Active atorvastatin (LIPITOR) 40 MG tabletIndications: Hyperlipidemia, unspecified hyperlipidemia type Take 1 tablet (40 mg total) by mouth nightly at bedtime. at bedtime 90 tablet 3 10/07/19 25 Active pantoprazole EC (PROTONIX) 40 MG tabletIndications: GERD without esophagitis Take 1 tablet (40 mg total) by mouth daily. 90 tablet 3 10/07/19 25 Active folic acid (FOLVITE) 1 MG tabletIndications: Folic acid deficiency Take 1 tablet by mouth once daily 90 tablet 11/05/19 25 Active folic acid (FOLVITE) 1 MG tabletIndications: Folic acid deficiency Take 1 tablet by mouth once daily 90 tablet 08/06/19 25 025 Discontinued Active Problems Problem Noted Date Diagnosed Date COPD exacerbation ([facility]) 09/03/2024 Gastroesophageal reflux disease without esophagi tis 10/27/2021 Exercise hypoxemia 08/31/2020 Overview (07/25/2022): Last Assessment & Plan: Will continue 1 L of oxygen with activity. A disability placard application has been signed this visit. Nocturnal hypoxia 08/31/2020 Overview (07/25/2022): Last Assessment & Plan: 1 L of oxygen to be worn at night while sleeping Tobacco use 08/31/2020 Overview (07/25/2022): Last Assessment & Plan: Patient has a current up to 1 pack of cigarettes every 3 days. Patient has smoked for over 41 years and had her heaviest would smoke 1 pack per day. I have ordered a lung cancer screening CT in encouraged the patient to decrease the number of cigarettes use daily MCI (mild cognitive impairment) 05/29/2020 History of alcohol abuse 05/29/2020 Low back pain 04/13/2020 Coronary artery disease invo lving [place] coronary artery without angina pectoris 12/25/2018 Chronic systolic heart failure ([facility]) 12/25/2018 Tobacco dependence due to cigarettes 12/25/2018 Pure hypercholesterolemia 12/25/2018 Abnormal peripheral pulse 12/25/2018 S/P [facility] 11/19/2018 NSTEMI (non-ST elevated myoc ardial infarction) ([facility]) 11/18/2018 COPD, moderate ([facility]) 08/16/2017 Depression screening 08/16/2017 Depression with anxiety 08/16/2017 Lung nodule 08/16/2017 Neck pain 08/16/2017 Hypertension 08/16/2017 Neuropathy 08/16/2017 Resolved Problems Problem Noted Date Diagnosed Date Resolved Date Encounter to establish care 08/16/2017 03/20/2020 Encounters Date Type Department Care Team Description 10/22/2024 Travel 10/08/2024 Scan [employer] INFO SRVCS Scanned, Doc [facility] 10/07/2024 Ali Message Enc [facility] Family & Internal Medicine [address] [phone] Gracie Hazel MD Cb leisamamichael 10/04/2024 4:00 PM CDT Office Visit [facility] Family & Internal Medicine [address] [phone] Gracie Hazel MD Follow Up 10/04/2024 Travel 09/24/2024 Telephone [facility], [place] [address] Lincoln Moran MD Other 09/24/2024 Orders Only [facility], [address] [address] Karma Nick FNP 09/23/2024 11:15 AM CDT Office Visit [facility] [phone] Karma Nick FNP Coronary Artery Disease; CHF; Hypertension; Lipids 09/11/2024 3:03 PM SPACE CONTROLLER - 09/11/2024 11:59 PM SPACE CONTROLLER Hospital Encounter [facility] [address] Shaw Ribera REGISTERED DENTAL ASSISTANT RDA Discharge Disposition: Home or Self Care (Routine Discharge) 09/11/2024 Travel 09/06/2024 Hospital Follow-up Call [facility] [address] Shaylee Amaya LPN Follow Up Call (JANNY 09/02-09/04/24) 09/02/2024 8:06 PM SPACE CONTROLLER - 09/04/2024 11:03 AM SPACE CONTROLLER [facility] [address] [place] [address] Tesfaye Nieves MD,PHD Eladia, MD Heidi Tovar Isaac T, MD Breathing Problem Discharge Disposition: Home or Self Care (Routine Discharge) 09/02/2024 Travel from Last 3 Months Immunizations Immunization Administration Dates Next Due Arexvy Respiratory Syncytial Virus (RSV, adjuvanted) 0.5 mL, PF 11/04/2023 Fluzone (IIV3, Trivalent, 0. 5 ML Prefilled Syringe) 05/22/2024 Fluzone 6 Months+ Quad (0.5 mL Prefilled Syringe) 05/03/2023,04/13/2021,06/05/2020 Fluzone Adult - >Age 3 (Prefilled Syringe) 04/23 Fluzone High Dose - >Age 65 (Prefilled Syringe) 04/14/2022 Influenza Adult (Generic) 04/14/2022,04/23/2019, 04/06/2018 PFIZER COVID-19 (12+) MRNA, LNP-S, PF, CHARISSA-SUCROSE, 30 MCG/0.3 ML (COMIRNATY) 05/22/2024 PFIZER COVID-19 (HUSSEIN CAP), MRNA, LNP-S, PF, 30 MCG/0.3 ML CHARISSA-SUCROSE, IM 01/31/2022,08/07/2021 PFIZER COVID-19 (ORIGINAL FO RMULATION, PURPLE CAP) mRNA, LNP-S, PF, 30 MCG/0.3 ML DOSE 09/29/2020,09/08/2020 Pneumococcal (Prevnar 13) 09/02/2019 Pneumococcal (Prevnar 20) 01/20/2023 Shingrix 01/21/2024,11/04/2023 Tdap (Boostrix) 02/18/2018 Family History Medical History Relation Comments No Known Problems Brother 1 gout Brother 2 Heart Attack Father Kidney Disease Grandchild Sleep Apnea Grandchild wpw Grandchild No Known Problems Maternal Aunt Heart Attack Maternal Grandfather Cancer Maternal Grandmother No Known Problems Maternal Uncle CHF Mother Diabetes Mother Kidney Disease Mother Sleep Apnea Mother Stroke Mother peripheral neuropathy Mother No Known Problems Paternal Aunt Heart Attack Paternal Grandfather Heart Attack Paternal Grandmother No Known Problems Paternal Uncle Heart murmur Sister Breast Cancer Neg Hx Relation Status Comments Brother 1 Alive Brother 2 Alive Father (Age 70) Grandchild Maternal Aunt Maternal Grandfather Maternal Grandmother Maternal Uncle Alive Mother Alive Paternal Aunt Paternal Grandfather Paternal Grandmother Paternal Uncle Sister Alive Social History Tobacco Use Types Packs/Day Years Used Date Smoking Tobacco: Every Day Cigarettes 1 30 Smokeless Tobacco: Never Tobacco Cessation:Ready to Q uit: No; Counseling Given: Yes Comments:doc will address Alcohol Use Standard Drinks/Week Comments Yes 1.7 (1 standard drink = 0.6 oz p ure alcohol) socially [facility] Utilities Answer Date Recorded In the past 12 months has th e [employer], [employer], oil, or water [employer] threatened to shut off services in your home? No 09/03/2024 Humiliation, Afraid, Rape, and Kick questionnair e Answer Date Recorded Within the last year, have y ou been afraid of your partner or ex-partner? No 09/03/2024 Within the last year, have y ou been humiliated or emotionally abused in other ways by your partner or ex-partner? No Within the last year, have y ou been kicked, hit, slapped, or otherwise physically hurt by your partner or ex-partner? No 09/03/2024 Within the last year, have y ou been raped or forced to have any kind of sexual activity by your partner or ex-partner? No 09/03/2024 Overall Financial Resource Strain (CARDIA) Answe r Date Recorded How hard is it for you to pa y for the very basics like food, housing, medical care, and heating? Not very hard 09/03/2024 PHQ-2 Answer Date Recorded Patient Health Questionnaire-2 Score 2 10/04/2024 Hunger Vital Sign Answer Date Recorded Within the past 12 months, y ou worried that your food would run out before you got the money to buy more. Sometimes true Within the past 12 months, t he food you bought just didn't last and you didn't have money to get more. Sometimes true PRAPARE - Transportation Answer Date Re corded In the past 12 months, has l ack of transportation kept you from medical appointments or from getting medications? No 08/11 In the past 12 months, has l ack of transportation kept you from meetings, work, or from getting things needed for daily living? No 09/03/2024 Housing Stability Vital Sign Answer Fitz e Recorded In the last 12 months, was t here a time when you were not able to pay the mortgage or rent on time? No 09/03/2024 In the past 12 months, how m any times have you moved where you were living? 0 09/03/2024 At any time in the past 12 m [facility], were you homeless or living in a long term (including now)? No 09/03/2024 Comments No Sex and Gender Information Value Date Recorded Sex Assigned at Female 08/28/2024 12:36 PM SPACE CONTROLLER Legal Sex Female 6:34 PM SPACE CONTROLLER Gender Identity Not on file Sexual Orientation Not on file Last Filed Vital Signs Vital Sign Reading Time Taken Comments Blood Pressure 106/77 10/04/2024 3:44 PM CDT Pulse 98 10/04/2024 3:44 PM CDT Temperature 36.7 C (98 F) 10/04/2024 3:44 PM CDT Respiratory Rate 18 10/04/2024 3:44 PM CDT Oxygen Saturation 88% 10/04/2024 4:06 PM CDT Inhaled Oxygen Concentration - - Weight 65.8 kg (145 lb) 10/04/2024 3:44 PM CDT Height 152.4 cm (5') 10/04/2024 3:44 PM CDT Body Mass Index 28.32 10/04/2024 3:44 PM CDT Plan of Treatment Upcoming Encounters Date Type Department Care Team (Late st Contact Info) Description 11/15/2024 3:40 PM CDT Appointment [facility] [address] [place] [address] [place] [address] 04/01/2025 12:15 PM CDT Office Visit [facility]- on [facility] [address], [address] [phone] Lincoln Moran MD [facility]. [address] [phone] 04/03/2025 7:00 AM CDT Laboratory Only [facility] [id number] [place] [phone] 04/10/2025 4:20 PM CDT Office Visit [facility] [address] [place] [phone] [place] [address] [address] [place] [place] [address] Health Maintenance Due Date Last Done Comments Hepatitis C 1983 Mammogram Screening 09/11/2021 09/12/2019 Lung Cancer Screening 03/22/2022 03/22/2021 Annual Physical 11/02/2024 11/03/2023 DTaP, Tdap and Td Vaccines (2 - Td or Tdap) 02/19/2028 02/18/2018 Colorectal Cancer Screening Colonoscopy (10 Years) 11/16/2031 11/15/2021 Pneumococcal Vaccine: 50+ Years Completed 01/20/2023, 09/02/2019 RSV Immunization or 60+ Years Completed 11/04/2023 Zoster Vaccines Completed 01/21/2024, 11/04/2023 COVID-19 Vaccine Completed 05/22/2024, , 08/07/2021, Additional history exists PHQ-2 (Physician [place]) Completed 10/04/2024 Meningococcal B Vaccine Aged Out No l onger eligible based on patient's age to complete this topic Meningococcal Vaccine Aged Out No segundo brenna eligible based on patient's age to complete this topic RSV Immunizations Under 20 Months Aged Out No longer eligible based on patient's age to complete this topic Procedures Procedure Name Priority Date/Time Associated Diagnosis Comments MRI BRAIN WWO CON Routine 09/11/2024 4:0 6 PM SPACE CONTROLLER Mild neurocognitive disorder Mild cognitive impairment of uncertain or unknown etiology PROCALCITONIN (PCT) Routine 09/04/2024 5 :10 AM SPACE CONTROLLER CBC W/DIFF AUTOMATED Routine 09/04/2024 5:10 AM SPACE CONTROLLER COMPREHENSIVE METABOLIC PANEL Routine 09/04/2024 5:10 AM SPACE CONTROLLER MAGNESIUM Routine 09/04/2024 5:10 AM SPACE CONTROLLER INFLUENZA A & B Routine 09/03/2024 11:20 AM SPACE CONTROLLER CORONAVIRUS (COVID 19) Routine 09/03/2024 11:20 AM SPACE CONTROLLER HEMOGLOBIN, GLYCOSYLATED Routine 09/03/2024 5:40 AM SPACE CONTROLLER PROCALCITONIN (PCT) Routine 09/03/2024 5 :40 AM SPACE CONTROLLER TROPONIN, QUANT Routine 09/03/2024 5:40 AM SPACE CONTROLLER CBC W/DIFF AUTOMATED STAT 09/03/2024 5:40 AM SPACE CONTROLLER COMPREHENSIVE METABOLIC PANEL STAT 09/03/2024 5:40 AM SPACE CONTROLLER MAGNESIUM STAT 09/03/2024 5:40 AM SPACE CONTROLLER BLOOD GAS, ARTERIAL LAB STAT 09/03/2024 1:49 AM SPACE CONTROLLER TROPONIN, QUANT STAT 09/02/2024 10:54 PM SPACE CONTROLLER ECG 12-LEAD Routine 09/02/2024 8:37 PM SPACE CONTROLLER D-DIMER, QUANTITATIVE Routine 09/02/2024 8:24 PM SPACE CONTROLLER PRO-BRAIN NATRIURETIC PEPTIDE STAT 09/02/2024 8:24 PM SPACE CONTROLLER TROPONIN, QUANT STAT 09/02/2024 8:24 PM SPACE CONTROLLER COMPREHENSIVE METABOLIC PANEL STAT 09/02/2024 8:24 PM SPACE CONTROLLER CBC W/DIFF AUTOMATED STAT 09/02/2024 8:24 PM SPACE CONTROLLER XR CHEST PA+LAT STAT 09/02/2024 8:00 PM SPACE CONTROLLER COLONOSCOPY GENERIC (SCAN ORDER) 11/15/2021 MG SCREENING W ANTHONY BRIAN DIGI Routine 09/12/2019 1:17 PM SPACE CONTROLLER Breast cancer screening from Last 3 Months or Most Recently Relevant to Health Maintenance Results * MRI BRAIN WWO CON (09/11/2024 4:06 PM SPACE CONTROLLER) Anatomical Region Laterality Modality Head Magnetic Resonan ce 09/16/2024 9:13 AM CDT Impressions 09/17/2024 12:54 PM CDT IMPRESSION: 1. No acute intracranial abnormalities identified. 2. Small patchy supratentorial white matter abnormalities, possibly due to early small vessel disease. The attending radiologist has reviewed the image(s) and agrees with the content of this report. Ordered By: SHAW RIBERA Interpreted By: Rob Nagel MD, 09/16/2024 9:13 AM Narrative 09/17/2024 12:54 PM CDT [address] [id number] DATE: 09/11/2024 3:35 PM INDICATION: Mild neurocognitive disorder. Memory loss. EXAMINATION: MRI brain with and without contrast. TECHNIQUE: Multiplanar and multisequence MRI images of the brain were obtained before and after uneventful intravenous administration of 13 mL Dotarem. COMPARISON: MRI brain 09/07/20 FINDINGS: There is no evidence of acute infarct or restricted diffusion. There are a few tiny FLAIR hyperintense foci in the periventricular and deep white matter, possibly due to small vessel disease. There is no evidence of abnormal enhancement within the brain or meninges. There is no evidence of intracranial mass, mass effect, or midline shift. The ventricles and extra-axial CSF spaces are symmetric and unremarkable. There are no abnormal extra-axial collections. No hemorrhagic foci of susceptibility seen. The major intracranial arterial flow voids are grossly patent. The craniocervical junction and pineal region appear unremarkable. Partially empty sella, unchanged. Trace bilateral mastoid fluid, nonspecific. Visualized paranasal sinuses and orbits appear unremarkable. Procedure Note Mukul Hernandez MD - 09/17/2024 [facility] [address] [place], [place] [address] DATE: 09/11/2024 3:35 PM INDICATION: Mild neurocognitive disorder. Memory loss. EXAMINATION: MRI brain with and without contrast. TECHNIQUE: Multiplanar and multisequence MRI images of the brain wereobtained before and after uneventful intravenous administration of 13 mLDotarem. COMPARISON: MRI brain 09/07/20 FINDINGS: There is no evidence of acute infarct or restricted diffusion. There are afew tiny FLAIR hyperintense foci in the periventricular and deep whitematter, possibly due to small vessel disease. There is no evidence ofabnormal enhancement within the brain or meninges. There is no evidence ofintracranial mass, mass effect, or midline shift. The ventricles andextra-axial CSF spaces are symmetric and unremarkable. There are noabnormal extra-axial collections. No hemorrhagic foci of susceptibilityseen. The major intracranial arterial flow voids are grossly patent. Thecraniocervical junction and pineal region appear unremarkable. Partiallyempty sella, unchanged. Trace bilateral mastoid fluid, nonspecific.Visualized paranasal sinuses and orbits appear unremarkable. IMPRESSION: 1. No acute intracranial abnormalities identified. 2. Small patchy supratentorial white matter abnormalities, possibly due toearly small vessel disease. The attending radiologist has reviewed the image(s) and agrees with thecontent of this report. Ordered By: SHAW RIBERA Interpreted By: Rob Nagel MD, 09/16/2024 9:13 AM us Shaw Ribera REGISTERED DENTAL ASSISTANT RDA MRI Final Resul t * PROCALCITONIN (PCT) (09/04/2024 5:10 AM SPACE CONTROLLER) Only the most recent of2 resultswithin the time period is included. PROCALCITONIN <0.05 0.00 - 0.49 NG/ML 09/04/2024 6:22 AM [facility] 09/04/2024 5:10 AM SPACE CONTROLLER Marco Gordon MD LABORATORY Final Result [facility] [address] [place] [address], [place] [phone] * (ABNORMAL) COMPREHENSIVE METABOLIC PANEL (09/04/2024 5:10 AM SPACE CONTROLLER) Only the most recent of3 resultswithin the time period is included. GLUCOSE 113(H) 70 - 99 MG/DL 09/04/2024 6:00 AM [facility] BUN 6(L) 7 - 18 MG/DL 09/04/2024 6:00 AM [facility] CREATININE S/P/B 0.63 0.55 - 1.02 MG/DL 09/04/2024 6:00 AM [facility] SODIUM S/P/B 140 136 - 145 MMOL/L 09/04/2024 6:00 AM [facility] POTASSIUM S/P/B 4.1 3.5 - 5.1 MMOL/L 09/04/2024 6:00 AM [facility] CHLORIDE S/P/B 105 97 - 115 MMOL/L 09/04/2024 6:00 AM [facility] CO2 35.1(H) 21 - 32 MMOL/L 09/04/2024 6:00 AM [facility] CALCIUM S/P/B 8.4(L) 8.5 - 10.1 MG/DL 09/04/2024 6:00 AM [facility] BILIRUBIN TOTAL S/P/B 0.3 0.2 - 1.2 MG/DL 09/04/2024 6:00 AM [facility] Comment: THIS ASSAY IS NOT RECOMMENDED FOR PATIENTS UNDERGOING TREATMENT WITH ELTROMBOPAG DUE TO THE POTENTIAL FOR FALSELY ELEVATED RESULTS. TOTAL PROTEIN S/P/B 5.4(L) 6.4 - 8.2 G/DL 09/04/2024 6:00 AM [facility] ALBUMIN S/P/B 3.0(L) 3.4 - 5.0 G/DL 09/04/2024 6:00 AM [facility] AST 5(L) 15 - 37 U/L 09/04/2024 6:00 AM [facility] ALT 14 14 - 55 U/L 09/04/2024 6:00 AM [facility] ALKALINE PHOSPHATASE S/P/B 65 50 - 136 U/L 09/04/2024 6:00 AM [facility] ANION GAP NOT CALCULATED 2 - 10 MMOL/L 09/04/2024 6:00 AM [facility] BUN CREATININE RATIO 9.6 09/04/2024 6:00 AM [facility] A/G RATIO 1.2 1.0 - 2.0 RATIO 09/04/2024 6:00 AM [facility] GFR ESTIMATE >90 >90 ML/MIN/1. 73 M2 09/04/2024 6:00 AM [facility] Comment: NOTE: eGFR is not calculated for patients <18 years of age or gender unknown. This is an estimated GFR calculation using the new CKD EPI creatinine equation without race and so does not require a correction factor for race. This estimated GFR should not be used for calculating drug doses. 09/04/2024 5:10 AM SPACE CONTROLLER Gallito Church NP LABORATORY Final Result [facility] [address] [place] [address], * (ABNORMAL) CBC W/DIFF AUTOMATED (09/04/2024 5:10 AM SPACE CONTROLLER) Only the most recent of3 resultswithin the time period is included. WBC 10.99 4.5 - 11.0 x10'3/uL 09/04/2024 5:35 AM [facility] RBC 4.47 4.20 - 5.40 x10'6/uL 09/04/2024 5:35 AM [facility] HGB 13.8 12.0 - 16.0 G/DL 09/04/2024 5:35 AM [facility] HCT 42.9 38.0 - 48.0 % 09/04/2024 5:35 AM [facility] MCV 96.0 81.0 - 99.0 FL 09/04/2024 5:35 AM [facility] MCH 30.9 27.0 - 31.0 PG 09/04/2024 5:35 AM [facility] MCHC 32.2 32.0 - 36.0 G/DL 09/04/2024 5:35 AM [facility] RDW 14.0 11.5 - 14.5 % 09/04/2024 5:35 AM [facility] PLT 190 130 - 400 x10'3/uL 09/04/2024 5:35 AM [facility] MPV 9.9 9.3 - 12.2 FL 09/04/2024 5:35 AM [facility] DIFFERENTIAL TYPE AUTOMATED DIFFERENTIAL 09/04/2024 5:35 AM SPACE CONTROLLER [facility] NEUTROPHILS % 80.5 % 09/04/2024 5:35 AM SPACE CONTROLLER [facility] LYMPHOCYTES % 11.6 % 09/04/2024 5:35 AM [facility] MONOCYTES % 7.3 % 09/04/2024 5:35 AM [facility] EOSINOPHILS 0.0 % 09/04/2024 5:35 AM SPACE CONTROLLER [facility] BASOPHILS 0.1 % 09/04/2024 5:35 AM [facility] IMMATURE GRANS % 0.5 % 09/04/19 5:35 AM [facility] ABS. NEUTROPHILS 8.86(H) 1.80 - 7.70 x10'3/uL 09/04/2024 5:35 AM [facility] ABS. LYMPHOCYTES 1.27 1.00 - 4.80 x10'3/uL 09/04/2024 5:35 AM [facility] ABS. MONOCYTES 0.80 0.24 - 0.86 x10'3/uL 09/04/2024 5:35 AM [facility] ABS. EOSINOPHILS 0.00(L) 0.04 - 0.36 x10'3/uL 09/04/2024 5:35 AM [facility] ABS. BASOPHILS 0.01 0.01 - 0.08 x10'3/uL 09/04/2024 5:35 AM [facility] ABS. IMMATURE GRANULOCYTES 0.05 0.00 - 0.49 x10'3/uL 09/04/2024 5:35 AM [facility] 09/04/2024 5:10 AM SPACE CONTROLLER Gallito Church NP LABORATORY Final Result [facility] [address] [place] [address], * MAGNESIUM (09/04/2024 5:10 AM SPACE CONTROLLER) Only the most recent of2 resultswithin the time period is included. MAGNESIUM 2.2 1.8 - 2.4 MG/DL 09/04/2024 6:00 AM SPACE CONTROLLER [facility] 09/04/2024 5:10 AM SPACE CONTROLLER Gallito Church NP LABORATORY Final Result Performing Organization Address [facility] de Phone Number [facility] [address] [place] [id number], * CORONAVIRUS (COVID 19) (09/03/2024 11:20 AM SPACE CONTROLLER) CORONAVIRUS SARS COV 2 RNA NEGATIVE NEGATIVE 09/03/2024 12:00 PM SPACE CONTROLLER [facility] Comment: NEGATIVE RESULTS DO NOT RULE OUT COVID 19 AND SHOULD NOT BE USED THE SOLE BASIS FOR TREATMENT OR PATIENT MANAGEMENT DECISIONS, INCLUDING INFECTION CONTROL DECISIONS. NEGATIVE RESULTS SHOULD BE CONSIDERED IN THE CONTEXT OF A PATIENT'S RECENT EXPOSURES, HISTORY AND THE PRESENCE OF CLINICAL SIGNS AND SYMPTOMS CONSISTENT WITH COVID 19. THE ID NOW COVID-19 2.0 TEST HAS BEEN AUTHORIZED BY THE FDA UNDER EAU FOR USE BY AUTHORIZED LABORATORIES. PERFORMED BY NUCLEIC ACID AMPLIFICATION FOR MOLECULAR QUALITATIVE DETECTION OF SARS-COV-2. SPECIMEN TYPE NASAL 09/03/2024 11:39 AM SPACE CONTROLLER [facility] NASAL STRUCTURE / Unknown 09/03/2024 11:20 AM SPACE CONTROLLER Marco Gordon MD MICROBIOLOGY - GENERAL ORDERABLE S Final Result Performing Organization Address City/[facility]/ZIP Co de Phone Number [facility] [address] [place] [address], [place] [phone] * INFLUENZA A & B, RAPID (09/03/2024 11:20 AM SPACE CONTROLLER) SPECIMEN TYPE Negative for Group A Streptococci 09/03/2024 11:43 AM SPACE CONTROLLER [facility] INFLUENZA A NEGATIVE NEGATIVE 09/03/2024 12:00 PM SPACE CONTROLLER [facility] INFLUENZA B NEGATIVE NEGATIVE 09/03/2024 12:00 PM SPACE CONTROLLER [facility] Comment: Interpretation: Negative for Influenza A and B. A negative result does not exclude influenza virus infection. If influenza is circulating in your community, a diagnosis of influenza should be considered based on a patient's clinical presentation and empiric antiviral treatment should be considered, if indicated. If more conclusive testing is needed for hospitalized inpatients, follow-up confirmatory testing with RT-PCR requires a separate order. NASOPHARYNGEAL SWAB / Unknown 09/03/2024 11:20 AM SPACE CONTROLLER Marco Gordon MD MICROBIOLOGY - GENERAL ORDERABLE S Final Result [facility] [address] [place] [address], [place] [phone] * HEMOGLOBIN, GLYCOSYLATED (09/03/2024 5:40 AM SPACE CONTROLLER) HGB A1C 5.6 <5.7 % 09/03/2024 12:33 PM SPACE CONTROLLER [facility] Comment: ADA GUIDELINES 2010 5.7 TO 6.4% INCREASED RISK OF DIABETES > OR = 6.5% CONSISTENT WITH DIABETES ESTIMATED AVG GLUCOSE 114 mg/dL 09/03/2024 12:33 PM SPACE CONTROLLER [facility] 09/03/2024 5:40 AM SPACE CONTROLLER Ai Victoria RN LABORATORY Final Result [facility] [address] [place] [address], * TROPONIN, QUANT (09/03/2024 5:40 AM SPACE CONTROLLER) Only the most recent of3 resultswithin the time period is included. Pathologist [facility] TROPONIN I HIGH SENSITIVITY 49 <54 ng/L 09/03/2024 6:29 AM SPACE CONTROLLER [facility] Comment: HIGH DOSES OF BIOTIN, TROPONIN-SPECIFIC AUTOANTIBODIES, AND ANTIBODY THERAPY CONTAINING HAMA MAY INTERFERE WITH THIS TEST RESULT. CORRELATION TO CLINICAL HISTORY AND PRESENTATION RECOMMENDED. 09/03/2024 5:40 AM SPACE CONTROLLER Ai Victoria RN LABORATORY Final Result Performing Organization Address City/[facility]/ZIP Co de Phone Number [facility] [address] [place] [address], * (ABNORMAL) ARTERIAL BLOOD GAS (09/03/2024 1:49 AM SPACE CONTROLLER) [facility] PH ARTERIAL 7.42 7.35 - 7.45 09/03/2024 2:15 AM SPACE CONTROLLER [facility] PCO2 59.0(H) 35.0 - 45.0 MMHG 09/03/2024 2:15 AM SPACE CONTROLLER [facility] PO2 79.0(L) 83.0 - 108.0 MMHG 09/03/2024 2:15 AM [facility] TOTAL CO2 ARTERIAL 40.1(H) 19.0 - 24.0 MMOL/L 09/03/2024 2:15 AM [facility] BASE EXCESS 11.4(H) 0.0 - 3.0 MMOL/L 09/03/2024 2:15 AM [facility] O2 SATURATION 96 94.0 - 98.0 % 09/03/2024 2:15 AM SPACE CONTROLLER [facility] BICARB ARTERIAL 38.3(H) 21.0 - 28.0 MMOL/L 09/03/2024 2:15 AM SPACE CONTROLLER [facility] VALENTE TEST VALENTE TEST PERFORMED 09/03/2024 2:12 AM SPACE CONTROLLER [facility] O2 ADMIN ARTERIAL 44 09/03/2024 2:12 AM SPACE CONTROLLER [facility] DRAW SITE ARTERIAL RT RADIAL 09/03/2024 2:12 AM SPACE CONTROLLER [facility] 09/03/2024 1:49 AM SPACE CONTROLLER Gonzalez Montilla MD LABORATORY Final Resul t [facility] [address] [place] [address], * ECG 12 lead (09/02/2024 8:37 PM SPACE CONTROLLER) 09/02/2024 8:37 PM SPACE CONTROLLER Narrative [facility] RAD - 09/02/2024 10:08 PM SPACE CONTROLLER [address] Test Date: 2024-09-02 Pat Name: VELIA PASCUAL Department: 41 Room: [facility] Gender: Female [place]: [id number] : 1965 Requested By: JONATHAN LE Order Number: [id number] Reading MD: Maynor Mendez Measurements Intervals [place] Rate: 97 P: 66 CA: 208 QRS: 75 QRSD: 81 T: 68 QT: 335 QTc: 426 Interpretive Statements SINUS RHYTHM LOW QRS VOLTAGE IN PRECORDIAL LEADS [QRS DEFLECTION < 1.0 mV IN CHEST LEADS] Compared to ECG 02/03/2022 15:04:03 Low QRS voltage now present E CONTROLLER Procedure Note Maynor Mendez MD - 09/02/[address] Test Date: 2024-09-02 Pat Name: VELIA PASCUAL Department: 41 Room: [facility] Gender: Female [place]: [id number] : 1965 Requested By: JONATHAN LE Order Number: [id number] Reading MD: Maynor Mendez Measurements Intervals [place] Rate: 97 P: 66 CA: 208 QRS: 75 QRSD: 81 T: 68 QT: 335 QTc: 426 Interpretive Statements SINUS RHYTHM LOW QRS VOLTAGE IN PRECORDIAL LEADS [QRS DEFLECTION < 1.0 mV IN CHESTLEADS] Compared to ECG 02/03/2022 15:04:03 Low QRS voltage now present E CONTROLLER Jonathan HERNANDEZ ECG ORDERABLES Final Resul t Performing Organization Address City/[facility] Co de Phone Number [facility] ([facility]) RAD * (ABNORMAL) PRO-BRAIN NATRIURETIC PEPTIDE (09/02/2024 8:24 PM SPACE CONTROLLER) PRO-B TYPE NATRIURETIC PEPTIDE 197(H) <125 PG/ML 09/02/2024 9:14 PM SPACE CONTROLLER [facility] Comment: CUT POINTS ESTABLISHED BY INTERNATIONAL COLL[employer] ON NT PROBNP (ICON) STUDY (2006). AGE INDEPENDENT: <300 PG/ML HAS A 99% NEGATIVE PREDICTIVE VALUE FOR EXCLUDING ACUTE CHF <50 YEARS: >450 PG/ML IS CONSISTENT WITH ACUTE CHF 50-75 YEARS: >900 PG/ML IS CONSISTENT WITH ACUTE CHF >75 YEARS: >1800 PG/ML IS CONSISTENT WITH ACUTE CHF IN PATIENTS WITH RENAL INSUFFICIENCY (GFR <60), >1200 PG/ML YIELDS A DIAGNOSTIC SENSITIVITY AND SPECIFICITY OF 89% AND 72% FOR ACUTE CHF. 09/02/2024 8:24 PM SPACE CONTROLLER Jonathan HERNANDEZ LABORATORY Final Resul t Performing Organization Address City/State/[facility] Co de Phone Number [facility] [address] [place] [address], * D-DIMER, QUANTITATIVE (09/02/2024 8:24 PM SPACE CONTROLLER) D-DIMER 299 0 - 500 ng{FEU}/mL 09/02/2024 10:37 PM SPACE CONTROLLER [facility] Comment: D-Dimer values less than or equal to 500 ng/mL FEU have a negative predictive value of >95% for exclusion of deep vein thrombosis and pulmonary embolism. In patients over 50 (who tend to have higher normal baseline D-Dimer values), recent studies suggest age-adjusted D-Dimer cutoff values (calculated as: age [years] x 10 ng/mL) result in equivalent outcomes and no additional false negative findings. 09/02/2024 8:24 PM SPACE CONTROLLER Tesfaye Nieves MD,PHD LABORATORY Final Resu lt Performing Organization Address [facility] Co de Phone Number [facility] [address] [place] [address], * XR CHEST PA+LAT (09/02/2024 8:00 PM SPACE CONTROLLER) Anatomical Region Laterality Modality Chest Radiographic Kaylee ging 09/02/2024 8:04 PM SPACE CONTROLLER Impressions 09/02/2024 8:05 PM SPACE CONTROLLER =====IMPRESSION:===== No radiographic evidence of active chest disease. Ordered By: JONATHAN LE Interpreted By: Nikos Murdock MD, 09/02/2024 8:04 PM Narrative 09/02/2024 8:05 PM SPACE CONTROLLER [facility] [address] [address] Examination: Chest x-ray 2 view Exam date/time: 09/02/2024 7:51 PM Reason For Exam: increased shortness of breath Comparison: No prior exam Technique: PA and lateral views of the chest were obtained. Findings: The cardiac silhouette, mediastinal contours, and pulmonary vessels appear normal. The lungs are clear. No pneumothorax. No consolidations or effusions are seen. Procedure Note Nikos Murdock MD - 09/02/2024 [place] [id number] Examination: Chest x-ray 2 view Exam date/time: 09/02/2024 7:51 PM Reason For Exam: increased shortness of breath Comparison: No prior exam Technique: PA and lateral views of the chest were obtained. Findings: The cardiac silhouette, mediastinal contours, and pulmonaryvessels appear normal. The lungs are clear. No pneumothorax. Noconsolidations or effusions are seen. =====IMPRESSION:===== No radiographic evidence of active chest disease. Ordered By: JONATHAN LE Interpreted By: Nikos Murdock MD, 09/02/2024 8:04 PM Jonathan HERNANDEZ GENERAL IMAGING Final Resul t * COLONOSCOPY GENERIC (11/15/2021) 11/15/2021 Narrative 11/15/2021 Ordered by an unspecified provider. us Documents Scanned SCANNING Final Result * MG SCREENING W ANTHONY BRIAN DIGI (09/12/2019 1:17 PM SPACE CONTROLLER) Anatomical Region Laterality Modality Breast Bilateral Mammography 09/18/2019 12:3 5 PM CDT Impressions 09/18/2019 12:38 PM CDT IMPRESSION: 1. No mammographic evidence of malignancy. 2. BI-RADS Category 2 - benign findings. Annual screening mammography recommended MQSA BI-RADS Categories: Category 0 - needs additional imaging evaluation. Category 1 - negative. Category 2 - benign findings. Category 3 - probably benign findings, but short interval follow-up is recommended. Category 4 - suspicious abnormality and biopsy should be considered though the lesion may well be benign. Category 5 - highly suggestive of malignancy and appropriate action should be taken. A) A negative report should not delay a biopsy if a dominant or clinically suspicious mass is present. B) Adenosis and dense breasts may obscure an underlying neoplasm. C) Study interpreted with computer aided detection. Interpreted By: Fred Carbone, 09/18/2019 12:35 PM Narrative 09/18/2019 12:38 PM CDT IMAGING STUDIES: Bilateral screening mammograms with computer-aided detection with 2-D and 3-D imaging. Tomosynthesis. DATE: 09/12/2019 1:00 PM HISTORY: Screening . No current complaints. Routine exam. COMPARISON: 03/12/2015. TISSUE TYPE: Category B - There are areas of scattered fibroglandular density. FINDINGS: 1. Bilateral screening mammograms with computer detection with 2-D and 3-D imaging. Tomosynthesis. Mild scattered fibroglandular tissue pattern is present. Benign nodularity. Benign calcifications. Interval reduction in amount of breast parenchyma since prior exam. 2. No malignant microcalfcifications, new dominant masses, or architectural distortion. 3. No skin thickening or nipple retraction. Axillary regions are within normal limits. Rose Marie HERNANDEZ MAMMO Final Result from Last 3 Months or Most Recently Relevant to Health Maintenance Insurance [employer] Advance Directives Documents on File Type Date Recorded Patient Street Department Dispatcher Expl anation Advance Directives and Living Will 06/09/2020 12:36 PM 06/08/2020 [facility] Advance Directives and Living Will 06/09/2020 12:35 PM 06/05/2020 HC POA * Full Code (Latest Code Status on File) Date Activated Date Inactivated Comments 09/03/2024 12:08 AM 09/04/2024 1:13 PM * Full Code Date Activated Date Inactivated Comments 11/18/2018 5:52 PM 11/19/2018 10:04 PM * Full Code Date Activated Date Inactivated Comments 11/18/2018 5:52 PM 11/18/2018 5:52 PM Healthcare Agents on File Name Relationship Healthcare Agent Relationshi p Communication Luzmaria Pascual Daughter Health Care Agent Care Teams [employer] Machine Operator Relationship Specialty [place] [address] [facility] [place] [id number] PCP - General FAMILY PRACTICE 07/06/22 Giovanna Higgins MD [facility]. [facility] [address] [place] [address] [place] Supervisor [employer] INTERVENTIONAL CARDIOLOGY 12/14/18
--- OUTSIDE RECORDS SUMMARY | 2024-11-10 18:58 | XMS_ITS | Data Portability ---
Author Organization [facility], [address] [facility] ([place]) Address [address] 4th [place] [address] Care Team Providers Care Ward Clerk Name Role Phone VALENTINE PENG Primary Care Provider Assessment Encounter Date Assessment Date Assessment LastModified by Organization Details LastModified Time 02/19/2024 02/19/2024 Risk factors for cognitive dysfunction: current alcoholism, depression, anxiety, COPD, cardiovascular disease. 2022 SLUMS suggesting progression from 2021 when SLUMS was . 1. Daughter tells me that providers in the [facility] accept patient s insurance. We will try to get her set up for Neuropsychology there. 2. Continue donepezil 5 mg at bedtime, memantine 10 mg by mouth twice daily, and thiamine plus vitamin B12 supplementation daily. 3. Encouraged treatment for alcoholism. 4. I would like for her to obtain an MRI of the brain with and without contrast. 5. Discussed lifestyle modifications to help with memory loss at home: - A healthful diet, particularly the Mediterranean diet, can help to improve memory. This includes leafy green vegetables, nuts, berries, tea, coffee, and fish. - Regular exercise boosts the growth of brain cells and the production of neurotransmitters, enhancing memory. A mix of aerobic (cardio) and strength exercise is best. - Ensure 7-9 hours of sleep per night to aid in cognition and memory. - Meditation, stress reduction, and keeping up a good network of social relationships have all demonstrated abilities to stave off the effects of aging of the brain. - Learning new skills, traveling, learning new languages, using a musical instrument, taking an art or cooking class, doing puzzles, playing board games, etc., all help to promote the growth of new brain cells and help the brain form new passageways. - Try to stay organized and adhere to a routine schedule. Recommend keeping to-do lists, address books, lists of passwords, etc., to help recall information when it is needed. - Certain co-morbidities such as pain, depression, anxiety, and obstructive sleep apnea can all exacerbate memory loss. Make sure if these are issues for you to have them properly treated. - Treatment of hearing loss, vision loss, elevated blood pressure, elevated cholesterol, and thyroid disease also is important for good brain health and memory. 6. Follow-up with me in six months or sooner if needed. I personally spent a total of 30 minutes on the patient on this date of service, including both nlvz-bc-clru and wca-buiu-tr-face time, excluding any separately reportable services. titi [email or web address] Not available 03/05/2024 13:43:08 08/19/2024 08/19/2024 Risk factors for cognitive dysfunction: current alcoholism, depression, anxiety, COPD, cardiovascular disease. 2022 SLUMS suggesting progression from 2021 when SLUMS was . 1. Will continue to work on neuropsychology referral 2. Continue donepezil 5 mg at bedtime, memantine 10 mg by mouth twice daily, and thiamine plus vitamin B12 supplementation daily. 3. Encouraged treatment for alcoholism. 4. I would like for her to obtain an MRI of the brain with and without contrast 5. Discussed lifestyle modifications to help with memory loss at home: - A healthful diet, particularly the Mediterranean diet, can help to improve memory. This includes leafy green vegetables, nuts, berries, tea, coffee, and fish. - Regular exercise boosts the growth of brain cells and the production of neurotransmitters, enhancing memory. A mix of aerobic (cardio) and strength exercise is best. - Ensure 7-9 hours of sleep per night to aid in cognition and memory. - Meditation, stress reduction, and keeping up a good network of social relationships have all demonstrated abilities to stave off the effects of aging of the brain. - Learning new skills, traveling, learning new languages, using a musical instrument, taking an art or cooking class, doing puzzles, playing board games, etc., all help to promote the growth of new brain cells and help the brain form new passageways. - Try to stay organized and adhere to a routine schedule. Recommend keeping to-do lists, address books, lists of passwords, etc., to help recall information when it is needed. - Certain co-morbidities such as pain, depression, anxiety, and obstructive sleep apnea can all exacerbate memory loss. Make sure if these are issues for you to have them properly treated. - Treatment of hearing loss, vision loss, elevated blood pressure, elevated cholesterol, and thyroid disease also is important for good brain health and memory. 6. Follow-up with me in Fall 2024 or sooner if needed. I personally spent a total of 30 minutes on the patient on this date of service, including both edaq-vj-iibz and mjh-xcfm-sl-face time, excluding any separately reportable services. titi herbert Not available 08/29/2024 11:11:01 Plan of Treatment Reminders Order Date Submit Date Provider Last Modified By Organization Details Last Modified Time Details Appointments Establish ed Patient 20.EST 2024 11:00A Yoselin Phillips Not available Not available Not available Lab None recorded. Referral neuropsy hologist referral - Please see referral order and attachmen ts. Please call patient with appointme nt date and time. Thanks. 2023 025 [email or web address] r3 [facility] Centralized Referral Team, [address] [place], [address], 11/08/2024 10:17:21 Procedures None recorded. Surgeries None recorded. Imaging MRI, brain, w/wo contrast - Please contact patient to schedule. [email or web address] [facility], [address] [place], [address], 10/07/2024 14:57:00 MRI, brain, w/o contrast - Please call patient to schedule this. Fax results to [phone] [facility], [address] [place], [address], 10/07/2024 15:34:37 Medication Orders None recorded. Patient TargetsNo targets recorded. Patient InstructionsNo instructions recorded. Reason for Referral Neuropsychologist Referral f or Mild neurocognitive disorder Memory imparment - dementia Please see referral order and attachments. Please call patient with appointment date and time. Thanks. Referring Physician: Shaw Phillips, Neurology, Encounter Date: 02/19/2024 Results Created Date Observation Date Name Description Value Unit Range Abnormal Flag Note LastModifiedBy Organization Detail LastModifiedTime 10/08/19 25 09/11/2024 MRI, brain , w/o contr ast No observ ation record ed. FAMILIA Not Available 2024 16:48:18 Result Notes None recorded. Problems Name Problem SNOMED Code Status Onset Date Resolution Date Notes Provider Name and Address Organization Details Recorded Time Mild neurocognitive disorder 186567187 Active 2023 Shaw Phillips, SENIOR MARKETING SPECIALIST, HEALTH INSURANCE SPECIALIST [address] [place] [address], [phone] [facility] 4 13:23:12 Dementia 10447351 Active 2023 Shilpa Valenzuela [facility], [facility] 4 17:31:22 Problem Notes None recorded. Procedures Surgical History Date Name Laterality Status Provider Name and Address Organization Details Recorded Time Colonoscopy with biopsy completed Not Available Health Note 02/12/2024 13:31:58 Partial hysterectomy completed Not Available Health Note 02/12/2024 13:31:58 Imaging Results Imaging Date Name Status LastModified by Organiz ation Details LastModified Time 09/11/2024 MRI, brain, w/o contrast completed FAMILIA Information not available 10/10/2024 16:48:18 Procedure Notes None recorded. Medical Equipment None Reported. Allergies Allergen ID Allergen Name Allergen Category Reaction Reaction Severity Criticality Documentation Date Start Date Code Code System Note Provider Name and Address Organization Details Recorded Time 509653 ibuprofen medicatio n gi bleed Not available Not available 08/07/20232022 5640 RxNorm React ion: [place] hem[facility] ; Not Available [facility] 22:00:55 810704 codeine medicatio n vomiting Not available Not available 08/07/20232022 2670 RxNorm React ion: Vomit ing; Not Available [facility] 4 22:01:25 Medications Name Sig Start Date Stop Date Status Note LastModified by Organization Details LastModified Time atorvastatin 40 mg tablet TAKE 1 TABLET BY MOUTH NIGHTLY AT BEDTIME active Not Available Not Available No t Available donepezil 5 mg tablet TAKE 1 TABLET BY MOUTH ONCE DAILY active Not Available Not Available No t Available trazodone 50 mg tablet TAKE 1 TABLET BY MOUTH NIGHTLY AT BEDTIME active Not Available Not Available No t Available azithromycin 250 mg tablet TAKE 2 TABLETS BY MOUTH ONCE DAILY active Not Available Not Available No t Available valacyclovir 1 gram tablet TAKE 1 TABLET BY MOUTH THREE TIMES DAILY active Not Available Not Available Not Available prednisone 20 mg tablet TAKE 2 TABLETS BY MOUTH ONCE DAILY FOR 7 DAYS active Not Available Not Available No t Available amlodipine 5 mg tablet TAKE 1 TABLET BY MOUTH ONCE DAILY active Not Available Not Available No t Available cephalexin 500 mg capsule TAKE 1 CAPSULE BY MOUTH THREE TIMES DAILY active Not Available Not Available Not Available pantoprazole 40 mg tablet,delay ed release TAKE 1 TABLET BY MOUTH ONCE DAILY active Not Available Not Available No t Available gabapentin 300 mg capsule TAKE 1 CAPSULE BY MOUTH THREE TIMES DAILY active Not Available Not Available Not Available folic acid 1 mg tablet TAKE 1 TABLET BY MOUTH ONCE DAILY active Not Available Not Available No t Available hydrochlorot hiazide 25 mg tablet TAKE 1/2 (ONE-HALF) TABLET BY MOUTH IN THE MORNING active Not Available Not Available Not Available mirtazapine 15 mg tablet TAKE 1/2 (ONE-HALF) TABLET BY MOUTH ONCE DAILY FOR 2 WEEKS THEN 1 ONCE DAILY active Not Available Not Available No t Available albuterol sulfate HFA 90 mcg/actuatio n aerosol inhaler INHALE 2 PUFFS BY MOUTH EVERY 6 HOURS NEEDED FOR WHEEZING AND FOR SHORTNESS OF BREATH active Not Available Not Available No t Available celecoxib 100 mg capsule TAKE 1 CAPSULE BY MOUTH TWICE DAILY active Not Available Not Available No t Available cefdinir 300 mg capsule TAKE 1 CAPSULE BY MOUTH EVERY 12 HOURS FOR 7 DAYS active Not Available Not Available N ot Available amoxicillin 875 mg-potassium clavulanate 125 mg tablet TAKE 1 TABLET BY MOUTH TWICE DAILY FOR 10 DAYS active Not Available Not Available No t Available buspirone 15 mg tablet TAKE 1 TABLET BY MOUTH THREE TIMES DAILY active Not Available Not Available Not Available memantine 10 mg tablet TAKE 1 TABLET BY MOUTH TWICE DAILY active Not Available Not Available No t Available varenicline tartrate 0.5 mg (11)-1 mg (42) tablets in a dose pack TAKE 1 TABLET BY MOUTH IN MORNING WITH FOOD FOR 3 DAYS, THEN INCREASE TO 1 TABLET BY MOUTH TWICE DAILY WITH FOOD THEREAFTER DIRECTED ON PACKAGE. TRY TO QUIT SMOKING AFTER 1 WEEK. active Not Available Not Available No t Available Symbicort 160 mcg-4.5 mcg/actuatio n HFA aerosol inhaler INHALE 2 PUFFS BY MOUTH TWICE DAILY RINSE MOUTH AFTER USE DO NOT SWALLOW. active Not Available Not Available No t Available Anoro Ellipta 62.5 mcg-25 mcg/actuatio n powder for inhalation INHALE 1 PUFF BY MOUTH ONCE DAILY active Not Available Not Available No t Available bupropion HCl 150 mg tablet,12 hr sustained-re lease(smokin g deterrent) TAKE 1 TABLET BY MOUTH ONCE DAILY IN THE MORNING active Not Available Not Available Not Available Breztri Aerosphere 160 mcg-9mcg-4.8 mcg/actuatio n HFA aerosol inhaler INHALE 2 PUFFS TWICE DAILY active Not Available Not Available No t Available Vitals Date Recorded Body weight Heart rate Oxygen saturation Oxygen saturation in Arterial blood by Pulse oximetry Systolic blood pressure Diastolic blood pressure Provider Name and Address Organization Details Last Updated DateTime 4 38458.4 9 g 105 /min 88 % 88 % 130 mm[Hg] 82 mm[Hg] Aicha zaidi [facility] 4 12:40:13 Date Recorded Body height Body mass index (BMI) Body weight Heart rate Oxygen saturation Oxygen saturation in Arterial blood by Pulse oximetry Systolic blood pressure Diastolic blood pressure Provider Name and Address Organization Details Last Updated DateTime 5 162.56 cm 25.4 kg/m2 96499.9 5 g 102 /min 91 % 91 % 112 mm[Hg] 64 mm[Hg] Gloria Viveros [facility] 5 12:38:05 Social History Question Answer Notes LastModified by Organizat ion Details LastModified Time Tobacco Smoking Status Current Every Day Smoker Gloria Viveros [facility] 08/19/2024 12:41:57 Do You Have An Advance Directive? No [email or web address] Information not available 02/12/2024 What Is Your Level Of Alcohol Consumption? Occasional [email or web address] Information not available 02/12/2024 How Many Times Per Week Do You Consume Alcohol? 1-2 Times Per Week [email or web address] Information not available 02/12/2024 What Is Your Level Of Caffeine Consumption? Heavy [email or web address] Information not available 02/12/2024 Are You Currently Employed? No [email or web address] Information not available 02/12/2024 Which Illicit Or Recreational Drugs Have You Used? Marijuana [email or web address] Information not available 02/12/2024 What Is Your Occupation? N/a [email or web address] Information not available 02/12/2024 How Many Times Per Week Do You Exercise? 1-2 Times Per Week [email or web address] Information not available 02/12/2024 How Many Packs Per Day (PPD)? 1 Pack Per Day [email or web address] Information not available 02/12/2024 How Long Have You Smoked? 45 Years [email or web address] Information not available 02/12/2024 Do You Have A Medical Power Of Assessor? Yes [email or web address] Information not available 02/12/2024 What Was The Date Of Your Most Recent Tobacco Screening? 02/19/2024 [email or web address] Information not available 02/12/2024 What Is Your Relationship Status? [email or web address] Information not available 02/12/2024 Do You Use Any Illicit Or Recreational Drugs? Yes [email or web address] Information not available 02/12/2024 Sex: Unknown Functional Status Question Answer Note LastModified by Organization D etails LastModified Time What is your exercise level? Moderate [email or web address] Information not available 02/12/2024 Mental Status None recorded. Family History Relationship Description Onset Age of this Age Resolved Age Notes LastModified by Organization Details LastModified Time Mother Arthritis [email or web address] Not available 02/12/2024 13:31:57 Mother Chronic obstructive pulmonary disease [email or web address] Not available 2023 13:31:57 Mother Diabetes mellitus [email or web address] Not available 2023 13:31:57 Mother Heart disease [email or web address] Not available 2023 13:31:57 Mother Hypertensive disorder [email or web address] Not available 2023 13:31:57 Mother Hypercholest erolemia [email or web address] Not available 2023 13:31:57 Mother Kidney disease [email or web address] Not available 2023 13:31:57 Father Arthritis [email or web address] Not available 02/12/2024 13:31:57 Father Chronic obstructive pulmonary disease [email or web address] Not available 2023 13:31:57 Father Heart disease [email or web address] Not available 2023 13:31:57 Father Hypertensive disorder [email or web address] Not available 2023 13:31:57 Brother Arthritis [email or web address] Not availabl e 02/12/2024 13:31:57 Brother Heart disease [email or web address] Not available 2023 13:31:57 Sister Heart disease [email or web address] Not available 2023 13:31:57 Medical History Condition Response High Blood Pressure Y COPD Y Depression N Anxiety Disorder N Arthritis Y Cancer N Stroke N Fibromyalgia N Kidney Disease N Attention-deficit Hyperactivity Disorder N Thyroid Problems N Anemia N Diabetes N Bleeding Disorder N Hyperlipidemia N Asthma N Seizures N Heart Disease Y Osteoporosis N Gynecological HistoryNo gynecological history recorded. Obstetrics History GPAL:G 0 P 0 0 0 0 Past Encounters Encounter ID Performer Location Encounter Start Date Encounter Closed Date Diagnosis/Indication Diagnosis SNOMED-CT Code Diagnosis ICD10 Code Diagnosis Note [id number] Shaw Phillips APRN, HEALTH INSURANCE SPECIALIST [facility] ([place]) [address] [place] [phone] 02/19/2024 12:28:25 02/19/2024 13:11:56 Mild neurocognitive disorder 278546622 G31.84 [id number] Shaw Phillips APRN, HEALTH INSURANCE SPECIALIST [facility] ([place]) [address] [address] 08/19/2024 11:50:46 08/19/2024 14:28:33 Mild neurocognitive disorder 740347666 G31.84 Dementia 30830942 F03.90 Health Concerns Section Related Observation LastModified by Organization Detai ls LastModified Time None Recorded Concern Status LastModified by Organization Details LastModified Time None Recorded Advance Directives Directive N: Payers Encounter Date Sequence Insurance Name Policy Number Policy Hope Covered Member ID Hope Member ID Guarantor Name 02/19/2024 1 [employer] BET[place] - DOS ON OR AFTER 2020 (MEDICAID REPLACEMENT - HMO) Velia Pascual [id number] Velia Pascual 08/19/2024 1 [employer] BETTER HE[employer] OF [place] ON OR AFTER 06/09/2020 (MEDICAID REPLACEMENT - HMO) Velia Pascual [id number] Velia Pascual Notes Date Note Type Note Provider Name and Address Organization Details Recorded Time 02/19/2024 text/html Ms. Augie waldrop a pleasant 58 year-old female with a history of depression, anxiety, and alcoholism who returns today with her daughter, Luzmaria for follow-up of memory loss. The patient and her daughter tell me that her memory loss is stable since her last visit. She continues to live with her boyfriend and is independent in bathing, dressing, and cleaning. She needs cueing with cooking. Her significant other manages the finances. Her daughter lives one block away and visits her daily. She manages her own medication without difficulty or error. She recently forgot about an upcoming doctor s appointment. She still is consuming alcohol on occasion. She consumes about two meals per day. She takes a thiamine supplement, donepezil, and memantine daily. She denies any falls but does have mild tremulousness. She tends to socially withdraw and endorses some depression. She reports it takes a while for her to fall asleep at night. There have been no socially inappropriate behaviors, personality changes, hallucinations, delusions, or paranoia. She does not drive. She has had difficulty finding a neuropsychologist to take her insurance. Her family history is significant for mother with dementia. Shaw Phillips, SENIOR MARKETING SPECIALIST, HEALTH INSURANCE SPECIALIST [address] [place] [address], [phone], [facility] 03/05/2024 14:21:45 08/19/2024 text/html Ms. Augie waldrop a pleasant 59 year-old female with a history of depression, anxiety, and alcoholism who returns today with her daughter, Luzmaria for follow-up of memory loss. Interim history 08/16/24:Memory loss mostly stable since last visit. She continues to live with her boyfriend and is independent in ADL's. She has poor appetite. Daughter sets up medication for her; boyfriend manages most bills. Daughter lives close by. She endorses good mood; no abnormal thoughts / behaviors. They deny need for additional help at home. She has lumbar stenosis, takes gabapentin regularly. She has been told she needs surgery but will have to quit smoking first. Enjoys doing crossword puzzles. Continues to drink 1 - 3 beers most days. Takes donepezil 5 mg at bedtime, memantine 10 mg by mouth twice daily, and thiamine plus vitamin B12 supplementation daily. She has not yet had MRI Brain and we have been unable to find neuropsychology who accepts patient's insurance. Her family history is significant for mother with dementia. Shaw Phillips, SENIOR MARKETING SPECIALIST, HEALTH INSURANCE SPECIALIST [address] [place] [address], [phone], [facility] 08/29/2024 11:11:24 OBGyn Episode No OBEpisode recorded.
--- OUTSIDE RECORDS SUMMARY | 2024-11-10 18:58 | XMS_ITS | Encounter Summary ---
Author Organization [facility] Address [facility] [place] [address] Care Team Providers Care Brand Representative Name Role Phone Consuelo Santos UMM Primary Care Provider [phone] Giovanna Higgins MD Unavailable [phone] Taryn Marrero MD Primary Care Provider [phone] Rose Marie Craven Primary Care Provider + [phone] Emma Hernandez NP Primary Care Provider [facility] Rose Marie Craven Primary Care Provider + [phone] Gracie Hazel MD Primary Care Provider [phone] Encounter Details Date Type Department Care Team (Late st Contact Info) Description 11/22/2018 Hospital Follow-up Call [facility] [place] [address] Idalia Ernst Social History Tobacco Use Types Packs/Day Years Used Date Smoking Tobacco: Former Cigarettes 1 30 0 11/14/1988 - 11/14/2018 Smokeless Tobacco: Never Alcohol Use Standard Drinks/Week Comments Yes 1.7 (1 standard drink = 0.6 oz p ure alcohol) quit on 10/22/18 Comments Unknown Sex and Gender Information Value Date Recorded Sex Assigned at Female 08/28/2024 12:36 PM FAMILY SERVICES SPECIALIST Legal Sex Female 6:34 PM FAMILY SERVICES SPECIALIST Gender Identity Not on file Sexual Orientation Not on file documented as of this encounter Functional Status * RETIRED Are you deaf or do you have serious difficulty hearing Answer Date of Assessment Author Status No 11/19/2018 4:56 PM CDT Activ e * RETIRED Are you blind or do you have serious difficulty seeing, even when wearing glasses? Answer Date of Assessment Author Status No 11/19/2018 4:56 PM CDT Activ e * Do you have serious difficulty walking or climbing stairs? Answer Date of Assessment Author Status Yes 11/19/2018 4:56 PM CDT [place] Vazquez R N Active * Do you have difficulty dressing or bathing? Answer Date of Assessment Author Status Yes 11/19/2018 4:56 PM CDT [place] Vazquez R N Active * Because of a physical, mental, or emotional condition, do you have difficulty doing errands alone such as visiting a doctor's office or shopping? Answer Date of Assessment Author Status Yes 11/19/2018 4:56 PM CDT Houston Vazquez R N Active documented as of this encounter Mental Status * Because of a physical, mental, or emotional condition, do you have serious difficulty concentrating, remembering, or making decisions? Answer Entry Date Author Status No 11/19/2018 4:56 PM CDT Houston Vazquez R N Active documented in this encounter Plan of Treatment Upcoming Encounters Date Type Department Care Team (Late st Contact Info) Description 11/15/2024 3:40 PM CDT Appointment [facility] [place] [address] Gracie Hazel MD [address] [place] [address]. [address] [address] 04/01/2025 12:15 PM CDT Office Visit [facility], [address] [address] Lincoln Moran MD Three [facility]. [address] [address] 04/03/2025 7:00 AM CDT Laboratory Only [facility] Family & Internal Medicine [address] [phone] 04/10/2025 4:20 PM CDT Office Visit [facility] Family & Internal Medicine [facility] [address] [place] [address] [place] [address] [facility] [place] [address] documented as of this encounter Visit Diagnoses Not on filedocumented in this encounter Additional Health Concerns Infection Onset Date Last Indicated Resolved Time COVID-19 Rule Out 09/03/2024 09/03/2024 09/03/2024 12:00 PM FAMILY SERVICES SPECIALIST Respiratory Rule-Out 09/03/2024 09/03/2024 025 12:00 PM FAMILY SERVICES SPECIALIST documented as of this encounter Care Teams Brand Representative Relationship Specialty Start Date End Date Consuelo Santos APNP [address] [place] [address] PCP - General NURSE PRACTITIONER 08/16/17 12/07/18 Taryn Marrero MD [address] [address] PCP - General FAMILY PRACTICE 12/08/18 02/03/20 [place] [address] [place] [address] PCP - General PHYSICIAN QUALITY ASSURANCE SUPERVISOR BODY 02/04/20 12/12/21 [place] [address] [place] [address] PCP - General NURSE PRACTITIONER 12/13/21 04/03/22 [place] [address] [place] [address] PCP - General PHYSICIAN QUALITY ASSURANCE SUPERVISOR BODY 04/04/22 07/05/22 [place] [address] [facility] [place] [address] PCP - General FAMILY PRACTICE 07/06/22 Giovanna Higgins MD [facility]. [facility] [address] [place] [address] [place] Traffic Coordinator INTERVENTIONAL CARDIOLOGY 12/14/18 documented as of this encounter
--- OUTSIDE RECORDS SUMMARY | 2024-11-10 18:58 | XMS_ITS | Encounter Summary ---
Author Organization [facility] Address [facility] [place] [address] Care Team Providers Care Slasher Runner Name Role Phone Giovanna Higgins MD Unavailable Gracie Hazel MD Primary Care Provider [phone] Encounter Details Date Type Department Care Team (Late st Contact Info) Description 01/04/2023 MyChart Message [facility] [address] [place] [address] [facility] Provider Air Quality Message Social History Tobacco Use Types Packs/Day Years Used Date Smoking Tobacco: Every Day Cigarettes 1 30 Smokeless Tobacco: Never Comments:doc will address Alcohol Use Standard Drinks/Week Comments Yes 1.7 (1 standard drink = 0.6 oz p ure alcohol) socially PHQ-2 Answer Date Recorded PHQ-2 Score - If the patient scores above 3, please move on to questions 3-9 1 04/14/2022 Comments No Sex and Gender Information Value Date Recorded Sex Assigned at Female 08/28/2024 12:36 PM UTILIZATION ENGINEER Legal Sex Female 6:34 PM UTILIZATION ENGINEER Gender Identity Not on file Sexual Orientation [...] Info) Description 11/15/2024 3:40 PM CDT Appointment [facility] [place] [address] [place] [address] [place] [address] 04/01/2025 12:15 PM CDT [facility], [address] [address] Lincoln Moran MD Three [facility]. [address] [address] 04/03/2025 7:00 AM CDT Laboratory Only [facility] Family & Internal Medicine [address] [phone] 04/10/2025 4:20 PM CDT Office Visit [facility] Family & Internal Medicine [address] [phone] [place] [address] [place] [address] documented as of this encounter Visit Diagnoses Not on filedocumented in this encounter Additional Health Concerns Infection Onset Date Last Indicated Resolved Time COVID-19 Rule Out 09/03/2024 09/03/2024 09/03/2024 12:00 PM UTILIZATION ENGINEER Respiratory Rule-Out 09/03/2024 09/03/2024 025 12:00 PM UTILIZATION ENGINEER Assessment Noted Time PHQ-9 Depression Total Score: 16 022 4:13 PM CDT documented as of this encounter Care Teams Slasher Runner Relationship Specialty Start [place] [address] [facility] [address] [place] [address] PCP - General FAMILY PRACTICE 07/06/22 Giovanna Higgins MD [facility]. [facility] [address] [place] [address] [place] [facility] Veterinarian INTERVENTIONAL CARDIOLOGY 12/14/18 documented as of this encounter
--- OUTSIDE RECORDS SUMMARY | 2024-11-10 18:58 | XMS_ITS | Clinical Summary ---
Author Organization [address] Address [address] [place] [id number] Care Team Providers Care Gis Coordinator Name Role Phone Gracie Hazel MD Primary Care Provider [phone] Allergies Active Allergy Reactions Criticality Noted Date Comments Codeine Unknown,Vomiting High 08/16/2017 Ibuprofen GI bleeding,Other (S ee comments) High 11/18/2018 Stomach ulcers Medications aspirin 81 mg enteric coated tablet Take 1 tablet (81 mg total) by mouth daily 08/07/19 20 Active busPIRone (BUSPAR) 15 mg tablet 1 tablet (15 mg total) 3 (three) times a day 08/22/19 21 Active donepeziL (ARICEPT) 5 mg tablet Take 1 tablet (5 mg total) by mouth every morning 09/26/19 21 Active nitroglycerin (NITROSTAT) 0.[address] 1 tablet (0.4 mg total) under the tongue 11/20/19 19 Active memantine (NAMENDA) 10 mg tablet TAKE 1 TABLET BY MOUTH ONCE DAILY FOR 21 DAYS AFTER FINISHING 5MG TABLETS 03/30/20 21 Active ondansetron ODT (ZOFRAN-ODT) 4 mg disintegrating tablet Dissolve 1-2 tablets oral every 8 hours as needed for nausea or vomiting. 15 tablet 06/25/20 21 Active Additional Information Patient not taking.Reported on 10/08/2024 folic acid (FOLVITE) 1 mg tablet Take 1 tablet (1,000 mcg total) by mouth daily 10/02/19 23 Active atorvastatin (LIPITOR) 40 mg tablet Take 1 tablet (40 mg total) by mouth nightly 08/18/19 23 Active gabapentin (NEURONTIN) 300 mg capsule Take 1 capsule (300 mg total) by mouth 3 (three) times a day 08/01/19 23 Active albuterol HFA (PROVENTIL HFA,VENTOLIN HFA,PROAIR HFA) 90 mcg/actuation inhalerIndications :Chronic Obstructive Pulmonary Disease Inhale 2 puffs every 6 (six) hours as needed for wheezing or shortness of breath Fill per patient formulary 3 each 3 07/04/20 23 Active amLODIPine (NORVASC) 5 mg tablet Take 1 tablet (5 mg total) by mouth daily 07/16/19 24 Active valACYclovir (VALTREX) 1 gram tablet Take 1 tablet (1,000 mg total) by mouth 3 (three) times a day 07/16/[address] (PROTONIX) 40 mg EC tablet Take 1 tablet (40 mg total) by mouth daily 07/17/19 24 Active traZODone (DESYREL) 50 mg tablet Take 1 tablet (50 mg total) by mouth nightly 09/02/19 24 Active celecoxib (CeleBREX) 100 mg capsule Take 1 capsule (100 mg total) by mouth 2 (two) times a day 60 capsule 3 09/22/19 24 Active Additional Information Patient not taking.Reported on 04/09/2024 predniSONE (DELTASONE) 20 mg tablet 02/15/20 24 Active budesonide-glycopy r-formoterol (BREZTRI) 160-9-4.8 mcg/actuation inhalerIndications :Panlobular emphysema (HCC) Inhale 2 puffs 2 (two) times a day 3 each 3 04/09/20 24 Active mirtazapine (REMERON) 15 mg tablet TAKE 1/2 (ONE-HALF) TABLET BY MOUTH ONCE DAILY FOR 2 WEEKS THEN 1 ONCE DAILY Active hydroCHLOROthiazid e (HYDRODIURIL) 25 mg tablet Take 0.5 tablets (12.5 mg total) by mouth stockfeed miller before breakfast 04/01/20 24 Active buPROPion SR (ZYBAN) 150 mg 12 hr tablet Take 1 tablet (150 mg total) by mouth every morning 30 tablet 2 05/29/20 Active Active Problems Problem Noted Date Diagnosed Date Snoring 10/08/2024 Assessment & Plan (10/08/2024 1:52 PM CDT): As above, I have ordered a sleep study Mild neurocognitive disorder 02/19/2024 Dementia 01/08/2024 Low back pain 09/29/2023 Osteoarthritis of right knee 09/29/2023 Gastroesophageal reflux disease without esophagi tis 10/27/2021 Tobacco use 08/31/2020 Assessment & Plan (10/08/2024 1:52 PM CDT): I strongly encouraged the patient to decrease her tobacco use. I will order another screening chest CT for July 2025 Assessment & Plan (04/09/2024 3:36 PM CDT): The patient was strongly encouraged to decrease smoking with the ultimate goal of quitting. The patient and I went over the preliminary results of the PFT. Dr. العراقي notified. I have ordered an arterial blood gas with Carboxyhemoglobin Assessment & Plan (02/27/2024 1:53 PM CDT): Strongly encouraged the patient to quit smoking and she has a screening chest CT scheduled for June 2024 Assessment & Plan (07/04/2023 4:13 PM PIPE STEM REPAIRER): The patient continues to decrease the number cigarettes use per day. The patient has goal is to quit. I have ordered a lung cancer screening CT. Assessment & Plan (01/02/2023 1:52 PM CDT): The patient continues to smoke half pack cigarettes a day. The patient is also exposed to secondhand smoke. I did encourage the patient to decrease the amount of cigarettes to a goal of quitting. Assessment & Plan (10/17/2022 4:02 PM CDT): The patient was once again encouraged to decrease the amount of cigarettes she is smoking. The patient states she is trying to cut down a little bit every day. A low-dose screening CT scan has been ordered for March of 2023. Assessment & Plan (04/18/2022 4:34 PM CDT): Patient has a current up to 1 pack of cigarettes every 3 days. Patient has smoked for over 41 years and had her heaviest would smoke 1 pack per day. I have ordered a lung cancer screening CT in encouraged the patient to decrease the number of cigarettes use daily Assessment & Plan (11/04/2021 2:57 PM CDT): The patient was once again encouraged to stop smoking. Assessment & Plan (05/06/2021 1:40 PM CDT): Patient was once again encouraged to stop smoking. Assessment & Plan (01/04/2021 2:18 PM CDT): The patient was encouraged to decrease the number cigarette use per day with ultimate goal of quitting. The patient is currently smoking 0.5 packs of cigarettes per day for 41+ years. Assessment & Plan (08/31/2020 4:28 PM PIPE STEM REPAIRER): Patient was encouraged to decrease and stop her smoking. The patient verbalized understanding. The patient states that she is trying to decrease her smoking however in times of stress she does smoke more. I have ordered a low-dose screening CT to evaluate the patient for any pulmonary nodules. Simple chronic bronchitis 08/31/2020 Assessment & Plan (08/31/2020 4:28 PM PIPE STEM REPAIRER): The patient would like the Advair change. I have ordered Symbicort for the patient. The patient was instructed to use it 2 puffs twice a day and to rinse her mouth after use. She did verbalize understanding. The patient will continue to use her albuterol inhaler as needed up to 4 times a day for shortness of breath. Nocturnal hypoxia 08/31/2020 Assessment & Plan (10/08/2024 1:52 PM CDT): The patient has had documented nocturnal hypoxemia in the past and is snoring and has daytime hypersomnia. Have recommended proceeding with a nocturnal polysomnogram with a split night protocol if necessary and no MSLT. She will follow up here in 4 months. Assessment & Plan (04/09/2024 3:33 PM CDT): The patient was strongly encouraged to use her oxygen at night while sleeping. The patient should be wearing 2 L of oxygen at night via nasal cannula while sleeping Assessment & Plan (02/27/2024 1:52 PM CDT): She is using oxygen at 2 liters/minute while sleeping. Assessment & Plan (07/04/2023 4:13 PM PIPE STEM REPAIRER): The patient was encouraged to use 1 L of oxygen at night while sleeping Assessment & Plan (01/02/2023 1:52 PM CDT): The patient was encouraged to wear her oxygen at night. The patient is supposed to wear 1 L. Assessment & Plan (10/17/2022 4:01 PM CDT): The patient was encouraged to wear her oxygen at night. The patient is supposed to wear 1 L. Assessment & Plan (04/18/2022 4:34 PM CDT): 1 L of oxygen to be worn at night while sleeping Assessment & Plan (11/04/2021 2:57 PM CDT): I will have the patient's daughter call back in to verify the DME company that the patient is getting the oxygen from. The patient is noncompliant with oxygen via the nasal cannula. I am hoping that using an oxygen mask at night may help the patient to be more compliant. Assessment & Plan (05/06/2021 1:41 PM CDT): Patient continue to use her oxygen at night while sleeping. I have asked the DME company to send her a mask to wear instead of nasal cannula see if the patient will be more compliant. Assessment & Plan (01/04/2021 2:18 PM CDT): The patient was encouraged to resume 1 L of oxygen at bedtime. Assessment & Plan (08/31/2020 4:29 PM PIPE STEM REPAIRER): The patient was encouraged to use her oxygen at night while sleeping. The patient was explained the benefits of wearing the oxygen. Exercise hypoxemia 08/31/2020 Assessment & Plan (10/08/2024 1:51 PM CDT): She is using oxygen continuously at 3 L/min has adequate saturations today Assessment & Plan (04/09/2024 3:35 PM CDT): Due to the PFT results of the patient requiring 3 L of oxygen with ambulation on her 6 minute walk test and the patient has arthritic changes in the portable tank being too difficult to manipulate, I have ordered the patient a portable oxygen concentrator. She is aware that insurance may not want to pay for the concentrator. Assessment & Plan (02/27/2024 1:52 PM CDT): She has been using oxygen at 2 liters/minute with activity but she did not have her oxygen with her today. Assessment & Plan (07/04/2023 4:13 PM PIPE STEM REPAIRER): The patient was encouraged to use 1 L of oxygen with activity Assessment & Plan (01/02/2023 1:52 PM CDT): The patient was encouraged to use her oxygen 1 L with exertion. Assessment & Plan (10/17/2022 4:02 PM CDT): The patient was encouraged to use her oxygen 1 L with exertion. Assessment & Plan (04/18/2022 4:33 PM CDT): Will continue 1 L of oxygen with activity. A disability placard application has been signed this visit. Assessment & Plan (11/04/2021 3:10 PM CDT): The patient was encouraged to use 1 L of oxygen with activity. I did give the patient and daughter prescription to get a pulse ox at the [facility]. The patient's daughter is going to call back in to inform us of the [employer] company that supplies the patient's oxygen. In order needs to be sent to the DME company to supply the patient with a facemask to use her oxygen at night. Assessment & Plan (05/06/2021 1:41 PM CDT): Patient continue to use 1 L of oxygen with activity. The patient was encouraged to use it any time she is exerting herself. Assessment & Plan (01/04/2021 2:18 PM CDT): The patient will continue with 1 L of oxygen with all activity. Assessment & Plan (08/31/2020 4:30 PM PIPE STEM REPAIRER): The patient was encouraged to wear her oxygen 1 L with activity. I did inform the patient after she is consistent with using the Symbicort that we could perform another 6 minutes walk test to see if the patient's oxygen can be picked up. The patient verbalized understanding. COPD, moderate 08/16/2017 Assessment & Plan (10/08/2024 1:51 PM CDT): The patient has stage IV COPD and continues on Breztri 2 puffs b.i.d. and has an albuterol inhaler to use on a p.r.n. basis. Assessment & Plan (04/09/2024 3:33 PM CDT): Due to continued symptoms, the patient will continue with Breztri 2 puffs b.i.d.. Patient was previously on Symbicort and Anoro. She states that if the medication is too expensive she will call into the office to restart Symbicort and Anoro. The patient has an albuterol inhaler to use on a p.r.n. basis and up to 4 times a day as needed for symptom control. Assessment & Plan (02/27/2024 1:52 PM CDT): The patient has stage IV COPD. I will repeat PFTs since her PFTs were last checked in November 2022. I will also repeat a 6 minute walk test as well as a room air ABG to see if she needs oxygen at rest. I will check a chest x-ray and an alpha-1 antitrypsin level. I have given her a sample to use of breztri [address] of the Symbicort to see if this will improve her breathing. She will continue use albuterol a p.r.n. basis and follow up here in 6 weeks. Assessment & Plan (07/04/2023 4:14 PM PIPE STEM REPAIRER): The patient will continue Symbicort 2 puffs b.i.d. and albuterol on a p.r.n. basis and up to 4 times a day as needed for symptom control. The patient is under able to afford Trelegy at this time but states Trelegy did give her better relief Assessment & Plan (01/02/2023 2:21 PM CDT): I did give the patient samples of Trelegy to use one puff once a day to see if this will help better than the Symbicort. The patient is aware that she should not use the Symbicort in the Trelegy together. Patient continue to use her albuterol inhaler as needed up to 4 times a day for shortness of breath. The patient will call back in if she would like to start pulmonary rehab. Assessment & Plan (10/17/2022 4:03 PM CDT): The patient continue to use Symbicort two puffs twice a day. Patient continue to use her albuterol inhaler as needed up to 4 times a day for shortness of breath. I have ordered a pulmonary function test and a chest x-ray. The patient was also ordered an alpha-1 antitrypsin level. Assessment & Plan (04/18/2022 4:33 PM CDT): Will continue Symbicort 2 puffs b.i.d.. Patient has an albuterol inhaler that she may use on a p.r.n. basis and up to 4 times a day as needed for symptom control. Assessment & Plan (11/04/2021 2:56 PM CDT): Patient continue to use her Symbicort two puffs twice a day. Patient continue to use her albuterol inhaler as needed up to 4 times a day for shortness of breath. Assessment & Plan (05/06/2021 1:42 PM CDT): I did reorder the patient Symbicort. The patient was instructed to use it 2 puffs twice a day. Patient continue to use her albuterol inhaler as needed up to 4 times a day for shortness of breath. Assessment & Plan (01/04/2021 2:19 PM CDT): The patient will continue with Symbicort 2 puffs b.i.d. to treat COPD symptoms. The patient also has an albuterol inhaler that she may use on a p.r.n. basis and up to 4 times a day as needed for symptom control. The patient was provided a Z-Roddy and a tapering dose of prednisone due to her cold symptoms. Lung nodule 08/16/2017 Assessment & Plan (10/08/2024 1:51 PM CDT): The lung nodules are stable on the screening chest CT. Assessment & Plan (04/09/2024 3:32 PM CDT): CT has been ordered and scheduled for June of 2024 Assessment & Plan (07/04/2023 4:14 PM PIPE STEM REPAIRER): I have ordered a CT scan to monitor pulmonary nodules Assessment & Plan (01/02/2023 1:53 PM CDT): The patient will have another CT scan in March of 2023. This is been ordered. Assessment & Plan (10/17/2022 4:02 PM CDT): The patient will have another CT scan in March of 2023. This is been ordered. Assessment & Plan (04/18/2022 4:34 PM CDT): I have ordered a lung cancer screening CT for April of 2023. Patient has an up to 1 pack per day smoking history for 41 years. Patient was also ordered a kidney ultrasound due to the cyst found on left kidney during CT scanning. Assessment & Plan (11/04/2021 2:56 PM CDT): The patient will need another CT scan in March of 2022. This is been ordered. Assessment & Plan (05/06/2021 1:42 PM CDT): Patient will need another CT scan in March of 2022. This will need to be ordered at her next visit. Assessment & Plan (01/04/2021 2:18 PM CDT): The patient will need a CT scan in 6 months to evaluate pulmonary nodules. This is been ordered for the patient. Resolved Problems Problem Noted Date Diagnosed Date Resolved Date Cyst of left kidney 10/17/2022 10/09/19 Assessment & Plan (07/04/2023 4:14 PM PIPE STEM REPAIRER): The ultrasound showed stable cyst since 2016 Assessment & Plan (01/02/2023 1:53 PM CDT): I have reordered the ultrasound of the left kidney. Assessment & Plan (10/17/2022 4:06 PM CDT): The patient is agreeable to have the ultrasound of her kidney completed. Encounters Date Type Department Care Team Description 10/08/2024 1:45 PM CDT Office Visit [facility] Pulmonary [address] [place] [phone] Rob العراقي MD Nocturnal hypoxia (Primary Dx); Exercise hypoxemia; Lung nodule; COPD, moderate (HCC); Cyst of left kidney; Tobacco use; Snoring from Last 3 Months Immunizations Immunization Administration Dates Next Due Influenza, Quadrivalent, Spl it, Preservative Free, Intramuscular 05/03/2023,04/13/2021,06/05/2020,04/06 Influenza, Trivalent, Preser vative Free, Intramuscular 04/23/2019 Influenza, Unspecified 04/14/2022 Pfizer SARS-CoV-2 Monovalent Vaccination (12+ Yrs) PURPLE 09/29/2020 Pneumococcal Conjugate PCV 13 09/02/2019 Tdap 02/18/2018 Surgical History Surgery Date Site/Laterality Comments HYSTERECTOMY partial Medical History Medical History Date Comments High cholesterol COPD (chronic obstructive pulmonary disease) (HC C) Heart attack (HCC) Depression Neuropathy Hypertension Addiction to drug (HCC) Alcoholism (HCC) Anxiety Arthritis Dementia (HCC) Family History Medical History Relation Name Comments Anxiety disorder Brother Chronic Pain Brother COPD Father Heart disease Father Anxiety disorder Mother Chronic Pain Mother Depression Mother Diabetes Mother Heart disease Mother Hypertension Mother Kidney disease Mother Stroke Mother Anxiety disorder Sister Chronic Pain Sister Depression Sister Relation Name Status Comments Brother Father Mother Alive Sister Social History Tobacco Use Types Packs/Day Years Used Date Smoking Tobacco: Every Day Cigarettes 1 43 Smokeless Tobacco: Never Tobacco Cessation:Ready to Q uit: Not Asked; Counseling Given: Yes AUDIT-C Answer Date Recorded Q1: How often do you have a drink containing alc ohol? 2-3 times a week 01/22/2024 Q2: How many drinks containi ng alcohol do you have on a typical day when you are drinking? 1 or 2 01/22/2024 Q3: How often do you have si x or more drinks on one occasion? Never 01/22/2024 Comments No Sex and Gender Information Value Date Recorded Sex Assigned at Not on file Legal Sex Female 5:27 PM PIPE STEM REPAIRER Gender Identity Not on file Sexual Orientation Not on file Obstetrics History Last Filed Vital Signs Vital Sign Reading Time Taken Comments Blood Pressure 112/62 10/08/2024 1:19 PM CDT Pulse 100 10/08/2024 1:19 PM CDT Temperature 36.2 C (97.1 F) 10/08/2024 1:19 PM CDT Respiratory Rate 18 10/08/2024 1:19 PM CDT Oxygen Saturation 98% 10/08/2024 1:19 PM CDT 3 L 02 Inhaled Oxygen Concentration - - Weight 66.7 kg (147 lb) 10/08/2024 1:19 PM CDT Height 157.5 cm (5' 2 ) 10/08/2024 1:19 PM CDT Body Mass Index 26.89 10/08/2024 1:19 PM CDT Plan of Treatment Health Maintenance Due Date Last Done Comments Colon Cancer Screening-Colonoscopy 1965 Depression Screening 1963 Hepatitis C Screening 1963 Hepatitis B Screening 1981 Regular Well Visit/Exam 18-64 1981 Pneumococcal vaccine <65 (2 of 2 - PPSV23) 10/28/2019 09/02/2019 Breast Cancer Screening-Mammogram 09/11/2020 020, 09/12/2019 Covid-19 Vaccine (3 - 2023-2 5 season) 2024 09/29/2020, 09/08/2020 Lung Cancer Screening 07/31/2025 07/30/2024 , 06/12/2023, 04/04/2023, Additional history exists DTaP/Tdap/Td Vaccine (2 - Td or Tdap) 02/19/2028 02/18/2018 Cervical Cancer Screening Discontinued 11/03/2023 Zoster Vaccine Completed 01/21/2024, 11/04/2023 Influenza Vaccine Completed 05/22/2024, , 04/14/2022, Additional history exists Goals Goal Patient Goal Type Associated Problems Recent Progress Patient-Stated? Author CCM Chronic Pain Care Plan Chronic Care Management No change(01/21 12:24 PM CDT) No [place] bridges, Nisa Salazar, RN Note: Problem: Chronic Pain Goals: 1. Minimize further functional decline 2. Maximize quality of life 3. Control pain Strategies: - Activity/exercise program recommendation - Conservative stepwise pain medicine strategy with multi-disciplinary approach - Recommend healthy lifestyle strategies and compensatory methods as needed Procedures Procedure Name Priority Date/Time Associated Diagnosis Comments CT LUNG CANCER SCREENING Schedule Routine, Read Routine (OP Routine) 07/30/2024 9:02 AM PIPE STEM REPAIRER Tobacco abuse Personal history of tobacco use Pulmonary nodule Panlobular emphysema (HCC) from Last 3 Months or Most Recently Relevant to Health Maintenance Results * CT Lung Cancer Screening (07/30/2024 9:02 AM PIPE STEM REPAIRER) Anatomical Region Laterality Modality Chest N/A Computed Tomogra phy 07/30/2024 10:0 4 AM PIPE STEM REPAIRER Narrative 07/30/2024 10:11 AM PIPE STEM REPAIRER EXAM DESCRIPTION: CT LUNG CANCER SCREENING REASON FOR STUDY: Screening CT of the chest in a current smoker with a 49 pack year smoking history. Additional history: None. TECHNIQUE: Low dose CT scan of the chest was performed without intravenous contrast using helical scanning technique. The exam extends from the lung apices through the lung bases. Automatic exposure control was used as a dose optimization technique. NOTE: This study was performed for the specific purposes of lung cancer screening and is not an alternative to diagnostic chest CT. RADIATION DOSE: CT dose index volume (CTDIvol) = 2.89 mGy COMPARISON: 06/12/2023 FINDINGS: SMOKING RELATED LUNG DISEASE: There are moderate emphysematous changes of lungs with scattered mild subsegmental atelectasis and scarring. There is no definite evidence of a pneumothorax. The central airways are grossly patent. There is scattered mild bronchial wall thickening, which is likely related to mild chronic bronchitis/bronchiolitis. There is no definite evidence of a focal consolidation or pleural effusion. LUNG NODULES: There is a stable elongated subpleural 0.5 cm pulmonary nodule in the posterior right upper lobe (axial image 62). There is a stable subtle 0.3 cm perivascular there is a stable 0.3 cm pulmonary nodule in the lateral left lower lobe (axial image 195). Pulmonary nodule in the anterolateral left upper lobe (axial image 123). CORONARY ARTERY CALCIFICATION: Present. OTHER: The heart size is stable. There is no definite evidence of pericardial effusion. There are atherosclerotic changes of the thoracic aorta. There are mild atherosclerotic changes of the coronary vessels. There is no definite unenhanced CT evidence of mediastinal, hilar, or axillary lymphadenopathy. There are scattered subcentimeter mediastinal lymph nodes noted with the largest measuring 0.5 cm in the precarinal region (axial image 107). There is a mild nonspecific patulous appearance of the esophagus. There is a small amount of ingested debris noted in the distal esophagus, which is likely related to gastroesophageal reflux. There are small bilateral Bochdalek's hernias. The visualized portions of the bilateral adrenal glands are grossly stable and unremarkable. There is a mild levoscoliotic curvature of the spine with degenerative changes. IMPRESSION: Redemonstration of a few scattered small pulmonary nodules measuring up to 0.5 cm, grossly similar to the prior study. No definite evidence of a new suspicious pulmonary nodule. Moderate emphysematous changes of lungs with scattered mild subsegmental atelectasis and scarring. Scattered mild bronchial wall thickening, which is likely related to mild chronic bronchitis/bronchiolitis. Lung-RADS category 2: Benign appearance or behavior. Recommendation: Low dose Screening CT of chest in 12 months. THIS IS AN ELECTRONICALLY VERIFIED FINAL REPORT 07/30/2024 10:11 AM - Electronically signed by Thai Resendez D.O. PS: PS Report ID: [id number] Reading Location: [id number] Procedure Note Thai Resendez, DO - 07/30/2024 EXAM DESCRIPTION: CT LUNG CANCER SCREENING REASON FOR STUDY: Screening CT of the chest in a current smoker with a49 pack year smoking history. Additional history: None. TECHNIQUE: Low dose CT scan of the chest was performed without intravenous contrast using helical scanning technique. The exam extends from the lung apices through the lung bases. Automatic exposure control was used as adose optimization technique. NOTE: This study was performed for the specific purposes of lung cancer screening and is not an alternative to diagnostic chest CT. RADIATION DOSE: CT dose index volume (CTDIvol) = 2.89 mGy COMPARISON: 06/12/2023 FINDINGS: SMOKING RELATED LUNG DISEASE: There are moderate emphysematous changes of lungs with scattered mild subsegmental atelectasis andscarring. There is no definite evidence of a pneumothorax. The central airways are grossly patent. There is scattered mild bronchial wall thickening, whichis likely related to mild chronic bronchitis/bronchiolitis. There is nodefinite evidence of a focal consolidation or pleural effusion. LUNG NODULES: There is a stable elongated subpleural 0.5 cm pulmonarynodule in the posterior right upper lobe (axial image 62). There is a stablesubtle 0.3 cm perivascular there is a stable 0.3 cm pulmonary nodule in thelateral left lower lobe (axial image 195). Pulmonary nodule in the anterolateralleft upper lobe (axial image 123). CORONARY ARTERY CALCIFICATION: Present. OTHER: The heart size is stable. There is no definite evidence of pericardial effusion. There are atherosclerotic changes of the thoracic aorta. There are mild atherosclerotic changes of the coronary vessels. There is no definite unenhanced CT evidence of mediastinal, hilar, oraxillary lymphadenopathy. There are scattered subcentimeter mediastinal lymphnodes noted with the largest measuring 0.5 cm in the precarinal region (axialimage 107). There is a mild nonspecific patulous appearance of the esophagus. Thereis a small amount of ingested debris noted in the distal esophagus, which islikely related to gastroesophageal reflux. There are small bilateral Bochdalek's hernias. The visualized portions of the bilateral adrenal glands aregrossly stable and unremarkable. There is a mild levoscoliotic curvature of the spine with degenerative changes. IMPRESSION: Redemonstration of a few scattered small pulmonary nodules measuring upto 0.5 cm, grossly similar to the prior study. No definite evidence of a new suspicious pulmonary nodule. Moderate emphysematous changes of lungs with scattered mild subsegmental atelectasis and scarring. Scattered mild bronchial wall thickening, which is likely related to mild chronic bronchitis/bronchiolitis. Lung-RADS category 2: Benign appearance or behavior. Recommendation: Low dose Screening CT of chest in 12 months. THIS IS AN ELECTRONICALLY VERIFIED FINAL REPORT 07/30/2024 10:11 AM - Electronically signed by Thai Resendez D.O. PS: PS Report ID: [id number] Reading Location: [place] [address] Rob العراقي MD IMG CT PROCEDURES Final R esult from Last 3 Months or Most Recently Relevant to Health Maintenance Insurance [facility] [employer] [facility] Care Teams Gis Coordinator Relationship Specialty [place] [address] [place] [address] PCP - General Family Medicine 05/18/23
--- OUTSIDE RECORDS SUMMARY | 2024-11-10 18:58 | XMS_ITS | Clinical Summary ---
Author Organization [facility] Address [address] [place] [address] Care Team Providers Care Wet Mixer Name Role Phone Rose Marie Craven PAC Primary Care Provider [phone] Allergies Active Allergy Reactions Criticality Noted Date Comments Codeine Unknown,Vomiting High 08/16/2017 Ibuprofen Other (see Comments) High 11/18/2018 Stomach ulcers Medications atorvastatin (LIPITOR) 80 MG Tablet Take 80 mg by mouth. 0 Active busPIRone (BUSPAR) 10 MG Tablet Take 1 Tablet by mouth. 8 Active aspirin EC 81 MG Tablet Delayed Response Take 81 mg by mouth. 0 Active escitalopram (LEXAPRO) 10 MG Tablet Take 15 mg by mouth. 1 Active diclofenac (VOLTAREN) 75 MG Tablet Delayed Response Take 75 mg by mouth. 1 Active nitroGLYCERIN (NITROSTAT) 0.4 MG SL Tablet 0.4 mg by Sublingual route. 9 Active gabapentin (NEURONTIN) 600 MG Tablet Take 600 mg by mouth. 1 Active traMADol (ULTRAM) 50 MG Tablet Take 50 mg by mouth. 1 Active donepezil (ARICEPT) 5 MG Tablet Take 5 mg by mouth. 1 Active ondansetron (ZOFRAN) 4 MG Tablet Take 4 mg by mouth. 0 Active Cyanocobalamin (VITAMIN B-12) 1000 MCG Tablet Take 1,000 mcg by mouth. 9 Active budesonide-form oterol fumarate (SYMBICORT) 160-4.5 MCG/ACT Aerosol INHALE 2 PUFFS BY MOUTH TWICE DAILY (RINSE MOUTH AFTER EACH USE DO NOT SWALLOW) Active Active Problems No known active problems Immunizations Immunization Administration Dates Next Due Covid-19, Mrna, Lnp-s, Pf, 30 Mcg/0.3 Ml Dose (P fizer) 09/08/2020 Influenza Vaccine 04/23/2019 Influenza Vaccine, Quadrivalent, PF 06/05/2020,0 04/06/2018 Pneumococcal Vaccine - 13 Valent 09/02/2019 TDAP Vaccine 02/18/2018 Family History Medical History Relation Name Comments Heart Disease Father Diabetes Mother Heart Disease Mother Heart Disease Sister Relation Name Status Comments Father Mother Sister Social History Tobacco Use Types Packs/Day Years Used Date Smoking Tobacco: Every Day Smokeless Tobacco: Never Tobacco Cessation:Ready to Q uit: Yes; Counseling Given: Yes Alcohol Use Standard Drinks/Week Comments Not Currently 0 (1 standard drink = 0.6 oz pur e alcohol) in recovery Sexually Active Control Partners Comments Yes Comments No Sex and Gender Information Value Date Recorded Sex Assigned at Not on file Legal Sex Female 10:37 AM CDT Gender Identity Not on file Sexual Orientation Not on file Last Filed Vital Signs Vital Sign Reading Time Taken Comments Blood Pressure 144/80 12/02/2020 2:51 PM CDT Pulse 99 12/02/2020 2:51 PM CDT Temperature 37.1 C (98.7 F) 12/02/2020 2:51 PM CDT Respiratory Rate 18 12/02/2020 2:51 PM CDT Oxygen Saturation 90% 12/02/2020 2:51 PM CDT Inhaled Oxygen Concentration - - Weight 66.7 kg (147 lb) 12/02/2020 2:51 PM CDT Height 160 cm (5' 3 ) 12/02/2020 2:51 PM CDT Body Mass Index 26.04 12/02/2020 2:51 PM CDT Plan of Treatment Health Maintenance Due Date Last Done Comments Hepatitis C Virus (HCV) Screening 1965 Mammogram 1963 Colonoscopy 2008 Colorectal Cancer Screening 2008 Cologuard 2013 Immunochemical Fecal Occult Blood 2013 Zoster Immunization (1 of 2) 2013 Pneumococcal Immunization (5 0+ years) (2 of 2 - PPSV23) 09/02/2020 09/02/2019 Influenza Immunization (#1) 03/10/202405/11, 04/23/2019, 04/06/2018 SARS-COV-2 Immunization (3 - season) 2024 09/29/2020, 09/08/2020 Td Immunization Every 10 Yea rs (Adults With 1 Tdap) 02/19/2028 02/18/2018 Respiratory Syncytial Virus (RSV) Immunization (Adult) (1 - 1-dose 75+ series) 2038 DTaP/Tdap/Td Immunization Discontinued 02/18/2018 Pneumococcal Immunization Combined Discontinued 09/02/2019 Hepatitis B Immunization Aged Out No longer eligible based on patient's age to complete this topic Meningococcal Immunization (ACWY) Aged Out No longer eligible based on patient's age to complete this topic Rotavirus Immunization Aged Out No lo nger eligible based on patient's age to complete this topic Insurance MEDICAID [employer] [facility] Care Teams Wet Mixer Relationship Specialty Start Date End Date Rose Marie Craven PAC PCP - General Physician Regional Loss Prevention Manager 09/24/20
--- OUTSIDE RECORDS SUMMARY | 2024-11-10 18:58 | XMS_ITS | Encounter Summary ---
Author Organization [facility] Healthcare Address [address] [place] [address] Care Team Providers Care Pest Control Supervisor Name Role Phone Gracie Hazel MD Primary Care Provider [phone] Reason for Visit * Reason Onset Date Comments PMC Preprocedure 01/18/2024 Encounter Details Date Type Department Care Team (Late st Contact Info) Description 01/18/2024 Telephone [facility] [address] [facility] [address] [place] [address] Claudia Motley MD [address] [place] [address] PMC Preprocedure Social History Tobacco Use Types Packs/Day Years Used Date Smoking Tobacco: Every Day Cigarettes 1 43 Smokeless Tobacco: Never AUDIT-C Answer Date Recorded Q1: How often do you have a drink containing alc ohol? 2-3 times a week 01/22/2024 Q2: How many drinks containi ng alcohol do you have on a typical day when you are drinking? 1 or 2 01/22/2024 Q3: How often do you have si x or more drinks on one occasion? Never 01/22/2024 Comments Unknown Sex and Gender Information Value Date Recorded Sex Assigned at Not on file Legal Sex Female 5:27 PM VEHICLE WASHER Gender Identity Not on file Sexual Orientation Not on file documented as of this encounter Plan of Treatment Not on file documented as of this encounter Goals Goal Patient Goal Type Associated Problems Recent Progress Patient-Stated? Author CCM Chronic Pain Care Plan Chronic Care Management No change(01/21 12:24 PM CDT) Nisa Caldrea, RN Note: Problem: Chronic Pain Goals: 1. Minimize further functional decline 2. Maximize quality of life 3. Control pain Strategies: - Activity/exercise program recommendation - Conservative stepwise pain medicine strategy with multi-disciplinary approach - Recommend healthy lifestyle strategies and compensatory methods as needed documented as of this encounter Visit Diagnoses Not on filedocumented in this encounter Care Teams Pest Control Supervisor Relationship Specialty [place] [address] [address] [place] [address] PCP - General Family Medicine 05/18/23 documented as of this encounter
--- OUTSIDE RECORDS SUMMARY | 2024-11-10 18:58 | XMS_ITS | Encounter Summary ---
Author Organization [facility] Address [facility]ly [facility] [place] [address] Care Team Providers Care Stripper Shovel Operator Name Role Phone Giovanna Higgins MD Unavailable Gracie Hazel MD Primary Care Provider [phone] Encounter Details Date Type Department Care Team (Late st Contact Info) Description 02/14/2024 [employer] Message Enc [facility] Family & Internal Medicine [facility] [id number] [place] [address] Gracie Hazel [place] [id number] [place] [address]. [address] [place] [address] Antibiotics and steroids Social History Tobacco Use Types Packs/Day Years Used Date Smoking Tobacco: Every Day Cigarettes 1 30 Smokeless Tobacco: Never Comments:doc will address Alcohol Use Standard Drinks/Week Comments Yes 1.7 (1 standard drink = 0.6 oz p ure alcohol) socially PHQ-2 Answer Date Recorded Patient Health Questionnaire-2 Score 2 08/08/2023 Comments No Sex and Gender Information Value Date Recorded Sex Assigned at Female 08/28/2024 12:36 PM ANESTHESIOLOGY RESIDENT Legal Sex Female 6:34 PM ANESTHESIOLOGY RESIDENT Gender Identity Not on file Sexual Orientation [...] Info) Description 11/15/2024 3:40 PM CDT Appointment [facility] [address] Gracie Hazel MD [address] [place] [address]. [address] [place] [id number] 04/01/2025 12:15 PM CDT Office Visit [facility] THREE [facility], [address] [address] Lincoln Moran MD Three [facility]. [address] [address] 04/03/2025 7:00 AM CDT Laboratory Only [facility] Family & Internal Medicine [address] [address] 04/10/2025 4:20 PM CDT Office Visit [facility] Family & Internal Medicine [address] [phone] [place] [address] [place] [address] documented as of this encounter Visit Diagnoses Not on filedocumented in this encounter Additional Health Concerns Infection Onset Date Last Indicated Resolved Time COVID-19 Rule Out 09/03/2024 09/03/2024 09/03/2024 12:00 PM ANESTHESIOLOGY RESIDENT Respiratory Rule-Out 09/03/2024 09/03/2024 025 12:00 PM ANESTHESIOLOGY RESIDENT Assessment Noted Time PHQ-9 Depression Total Score: 6 08/08/19 24 4:07 PM ANESTHESIOLOGY RESIDENT documented as of this encounter Care Teams Stripper Shovel Operator Relationship Specialty [place] [address] [place] [address] PCP - General FAMILY PRACTICE 07/06/22 Giovanna Higgins MD [facility] [address] [place] [address] Live Wood Inspector INTERVENTIONAL CARDIOLOGY 12/14/18 documented as of this encounter
--- OUTSIDE RECORDS SUMMARY | 2024-11-10 18:58 | XMS_ITS | Encounter Summary ---
Author Organization [facility] Address [facility] [place] [address] Care Team Providers Care Market Intelligence Consultant Name Role Phone Consuelo Santos UMM Primary Care Provider [phone] Giovanna Higgins MD Unavailable [phone] Taryn Marrero MD Primary Care Provider [phone] Rose Marie Craven Primary Care Provider [phone] Emma Hernandez NP Primary Care Provider [facility] Rose Marie Craven Primary Care Provider [phone] Gracie Hazel MD Primary Care Provider [phone] Encounter Details Date Type Department Care Team (Late st Contact Info) Description 07/26/2017 Abstract [facility] CONVERSION [address] [place] [address] , Walt Faulkner MD Social History Tobacco Use Types Packs/Day Years Used Date Smoking Tobacco: Never Assessed Comments Unknown Sex and Gender Information Value Date Recorded Sex Assigned at Female 08/28/2024 12:36 PM SENIOR MICROSTRATEGY DEVELOPER Legal Sex Female 6:34 PM SENIOR MICROSTRATEGY DEVELOPER Gender Identity Not on file Sexual Orientation Not on file documented as of this encounter Plan of Treatment Upcoming Encounters Date Type Department Care Team (Late st Contact Info) Description 11/15/2024 3:40 PM CDT Appointment [place] [address] [place] [address] [facility]. [address] [place] [address] 04/01/2025 12:15 PM CDT Office Visit [facility] THREE [facility], [address] [address] Lincoln Moran MD Three [facility]. [address] [address] 04/03/2025 7:00 AM CDT Laboratory Only [facility] & Internal [address] [address] 04/10/2025 4:20 PM CDT Office Visit [facility] Family & Internal [address] [address] Gracie Hazel MD [address] [place] [address]. [address] [place] [address] documented as of this encounter Visit Diagnoses Not on filedocumented in this encounter Additional Health Concerns Infection Onset Date Last Indicated Resolved Time COVID-19 Rule Out 09/03/2024 09/03/2024 09/03/2024 12:00 PM SENIOR MICROSTRATEGY DEVELOPER Respiratory Rule-Out 09/03/2024 09/03/2024 025 12:00 PM SENIOR MICROSTRATEGY DEVELOPER documented as of this encounter Care Teams Market Intelligence Consultant Relationship Specialty Start Date End Date Consuelo Santos APNP [address] [place] [address] PCP - General NURSE PRACTITIONER 08/16/17 12/07/18 Taryn Marrero MD [facility] [address] [place] [address] PCP - General FAMILY PRACTICE 12/08/18 02/03/20 [place] [address] [place] [address] PCP - General PHYSICIAN MUFFLER INSTALLER 02/04/20 12/12/21 [place] [address] [place] [address] PCP - General NURSE PRACTITIONER 12/13/21 04/03/22 [place] [address] [place] [address] PCP - General PHYSICIAN MUFFLER INSTALLER 04/04/22 07/05/22 [place] [address] [facility]. [facility] [address] [place] [address] PCP - General FAMILY PRACTICE 07/06/22 Giovanna Higgins MD Three [facility]. [facility] [address] [place] [address] [place] Physical Therapist Assistant INTERVENTIONAL CARDIOLOGY 12/14/18 documented as of this encounter
--- OUTSIDE RECORDS SUMMARY | 2024-11-10 18:58 | XMS_ITS | Encounter Summary ---
Author Organization [facility] Address [facility] [place] [address] Care Team Providers Care Senior Engineering Associate Name Role Phone Giovanna Higgins MD Unavailable [phone] Taryn Marrero MD Primary Care Provider [phone] Rose Marie Craven Primary Care Provider [phone] Emma Hernandez NP Primary Care Provider [facility] Rose Marie Craven Primary Care Provider + [phone] Gracie Hazel MD Primary Care Provider [phone] Encounter Details Date Type Department Care Team (Late st Contact Info) Description 12/13/2018 [facility] at [address] [address] Milind Deleon MA Social History Tobacco Use Types Packs/Day Years Used Date Smoking Tobacco: Former Cigarettes 1 30 0 11/14/1988 - 11/14/2018 Smokeless Tobacco: Never Alcohol Use Standard Drinks/Week Comments Yes 1.7 (1 standard drink = 0.6 oz p ure alcohol) quit on 10/22/18 Comments Unknown Sex and Gender Information Value Date Recorded Sex Assigned at Female 08/28/2024 12:36 PM PODIATRIC SURGEON Legal Sex Female 6:34 PM PODIATRIC SURGEON Gender Identity Not on file Sexual Orientation [...] Info) Description 11/15/2024 3:40 PM CDT Appointment [facility] [address] Gracie Hazel MD [address] [place] [address]. [address] [phone] 04/01/2025 12:15 PM CDT Office Visit [facility], [address] [address] Lincoln Moran MD Three [facility]. [address] [address] 04/03/2025 7:00 AM CDT Laboratory Only [facility] Family & Internal Medicine [address] [phone] 04/10/2025 4:20 PM CDT Office Visit [facility] Family & Internal Medicine [facility] [address] [place] [address] [place] [address] [facility] [place], [place] [phone] documented as of this encounter Procedures Procedure Name Priority Date/Time Associated Diagnosis Comments BUN (OUTSIDE LAB) Routine 12/11/2018 HCT (OUTSIDE LAB) Routine 12/11/2018 HEMOGLOBIN Routine 12/11/2018 CREATININE Routine 12/11/2018 documented in this encounter Results * HCT (OUTSIDE LAB) (12/11/2018) HCT 38.9 12/11/2018 us Doc [facility] Abstract LAB-OUTSIDE/ABSTRACTED Final Result * Hemoglobin (12/11/2018) HGB 12.6 12/11/2018 us Doc [facility] Abstract LABORATORY Final Result * CREATININE (12/11/2018) CREATININE S/P/B 0.60 0.5 - 1.0 EGFR NON-AFR. AMER. >60 <=90 12/11/2018 us Doc [facility] Abstract LABORATORY Final Result * BUN (OUTSIDE LAB) (12/11/2018) BUN 6 12/11/2018 us Doc [facility] Abstract LAB-OUTSIDE/ABSTRACTED Edite d Result - Final documented in this encounter Visit Diagnoses Not on filedocumented in this encounter Additional Health Concerns Infection Onset Date Last Indicated Resolved Time COVID-19 Rule Out 09/03/2024 09/03/2024 09/03/2024 12:00 PM PODIATRIC SURGEON Respiratory Rule-Out 09/03/2024 09/03/2024 025 12:00 PM PODIATRIC SURGEON documented as of this encounter Care Teams Senior Engineering Associate Relationship Specialty Start Date End Date Taryn Marrero MD [facility] [address] [place] [address] PCP - General FAMILY PRACTICE 12/08/18 02/03/20 [place] [address] [place] [address] PCP - General PHYSICIAN MANAGER LOAN 02/04/20 12/12/21 [place] [address] [place] [address] PCP - General NURSE PRACTITIONER 12/13/21 04/03/22 [place] [address] [place] [address] PCP - General PHYSICIAN MANAGER LOAN 04/04/22 07/05/22 [place] [address] [facility]. [facility] [address] [place] [address] PCP - General FAMILY PRACTICE 07/06/22 Giovanna Higgins MD Three [facility]. [facility] [address] [place] [address] Moffat Inside Account Representative INTERVENTIONAL CARDIOLOGY 12/14/18 documented as of this encounter
--- OUTSIDE RECORDS SUMMARY | 2024-11-10 18:58 | XMS_ITS | Referral Summary ---
Author Organization [address] Address [address] [place] [id number] Care Team Providers Care Correctional Case Manager Name Role Phone Gracie Hazel MD Primary Care Provider [phone] Encounters Date Type Department Care Team Description 10/08/2024 1:45 PM CDT Office Visit [facility] Pulmonary [address] [place] [address] Rob العراقي MD Nocturnal hypoxia (Primary Dx); Exercise hypoxemia; Lung nodule; COPD, moderate (HCC); Cyst of left kidney; Tobacco use; Snoring from Last 3 Months Allergies Active Allergy Reactions Criticality Noted Date [...] 0.5 tablets (12.5 mg total) by mouth drywall applicator before breakfast 04/01/20 24 Active buPROPion SR (ZYBAN) 150 mg 12 hr tablet Take 1 tablet (150 mg total) by mouth every morning 30 tablet 2 05/29/20 24 Active Active Problems Problem Noted Date Diagnosed [...] 2024 Assessment & Plan (07/04/2023 4:13 PM ARTIFICIAL CANDY MAKER): The patient continues to decrease the number [...] years. Assessment & Plan (08/31/2020 4:28 PM ARTIFICIAL CANDY MAKER): Patient was encouraged to decrease and stop her smoking. The patient verbalized understanding. The patient states that she is trying to decrease her smoking however in times of stress she does smoke more. I have ordered a low-dose screening CT to evaluate the patient for any pulmonary nodules. Simple chronic bronchitis 08/31/2020 Assessment & Plan (08/31/2020 4:28 PM ARTIFICIAL CANDY MAKER): The patient would like the Advair change. [...] sleeping. Assessment & Plan (07/04/2023 4:13 PM ARTIFICIAL CANDY MAKER): The patient was encouraged to use 1 [...] daughter call back in to verify the [employer] company that the patient is getting the oxygen from. The patient is noncompliant with oxygen via the nasal cannula. I am hoping that using an oxygen mask at night may help the patient to be more compliant. Assessment & Plan (05/06/2021 1:41 PM CDT): Patient continue to use her oxygen at night while sleeping. I have asked the [employer] company to send her a mask to wear instead of nasal cannula see if the patient will be more compliant. Assessment & Plan (01/04/2021 2:18 PM CDT): The patient was encouraged to resume 1 L of oxygen at bedtime. Assessment & Plan (08/31/2020 4:29 PM ARTIFICIAL CANDY MAKER): The patient was encouraged to use her [...] today. Assessment & Plan (07/04/2023 4:13 PM ARTIFICIAL CANDY MAKER): The patient was encouraged to use 1 [...] to get a pulse ox at the drugstore. The patient's daughter is going to call back in to inform us of the DME company that supplies the patient's oxygen. In [...] activity. Assessment & Plan (08/31/2020 4:30 PM ARTIFICIAL CANDY MAKER): The patient was encouraged to wear her [...] weeks. Assessment & Plan (07/04/2023 4:14 PM ARTIFICIAL CANDY MAKER): The patient will continue Symbicort 2 puffs [...] 2024 Assessment & Plan (07/04/2023 4:14 PM ARTIFICIAL CANDY MAKER): I have ordered a CT scan to [...] 10/09/19 Assessment & Plan (07/04/2023 4:14 PM ARTIFICIAL CANDY MAKER): The ultrasound showed stable cyst since 2016 Assessment & Plan (01/02/2023 1:53 PM CDT): I have reordered the ultrasound of the left kidney. Assessment & Plan (10/17/2022 4:06 PM CDT): The patient is agreeable to have the ultrasound of her kidney completed. Immunizations Immunization Administration Dates Next Due Influenza, Quadrivalent, Spl it, Preservative Free, Intramuscular 05/03/2023,04/13/2021,06/05/2020,04/06 Influenza, Trivalent, Preser vative Free, Intramuscular 04/23/2019 Influenza, Unspecified 04/14/2022 Pfizer SARS-CoV-2 Monovalent Vaccination (12+ Yrs) PURPLE 09/29/2020 Pneumococcal Conjugate PCV 13 09/02/2019 Tdap 02/18/2018 Social History Tobacco Use Types Packs/Day Years [...] on file Legal Sex Female 5:27 PM ARTIFICIAL CANDY MAKER Gender Identity Not on file Sexual Orientation [...] 10/08/2024 1:19 PM CDT Plan of Treatment Not on file Goals Goal Patient Goal Type Associated Problems Recent Progress Patient-Stated? Author CCM Chronic Pain Care Plan Chronic Care Management No change(01/21 12:24 PM CDT) No Nisa Montoya, ELISE Note: Problem: Chronic Pain Goals: 1. Minimize further functional decline 2. Maximize quality of life 3. Control pain Strategies: - Activity/exercise program recommendation - Conservative stepwise pain medicine strategy with multi-disciplinary approach - Recommend healthy lifestyle strategies and compensatory methods as needed Procedures Procedure Name Priority Date/Time Associated Diagnosis Comments CT LUNG CANCER SCREENING Schedule Routine, Read Routine (OP Routine) 07/30/2024 9:02 AM ARTIFICIAL CANDY MAKER Tobacco abuse Personal history of tobacco use Pulmonary nodule Panlobular emphysema (HCC) from Last 3 Months or Most Recently Relevant to Health Maintenance Results * CT Lung Cancer Screening (07/30/2024 9:02 AM ARTIFICIAL CANDY MAKER) Anatomical Region Laterality Modality Chest N/A Computed Tomogra phy 07/30/2024 10:0 4 AM ARTIFICIAL CANDY MAKER Narrative 07/30/2024 10:11 AM ARTIFICIAL CANDY MAKER EXAM DESCRIPTION: CT LUNG CANCER SCREENING REASON [...] Thai Resendez D.O. PS: PS Report ID: [id number] Reading Location: [place] [address] Procedure Note Thai Resendez, DO - 07/30/2024 [...] Electronically signed by Thai Resendez D.O. PS: AMIE Report ID: [id number] Reading Location: [id number] Rob العراقي MD IMG CT PROCEDURES Final R esult from Last 3 Months or Most Recently Relevant to Health Maintenance Insurance [employer] [place] [place] [employer] [place] [place] Care Teams Correctional Case Manager Relationship Specialty [place] [address] [place] [address] PCP - General Family Medicine 05/18/23
--- OUTSIDE RECORDS SUMMARY | 2024-11-10 18:58 | XMS_ITS | Encounter Summary ---
Author Organization [facility] Address [address] [place] [address] Care Team Providers Care Residency Coordinator Name Role Phone Gracie Hazel MD Primary Care Provider [phone] Reason for Visit * Reason Onset Date Comments PMC Preprocedure 11/08/2023 Encounter Details Date Type Department Care Team (Late st Contact Info) Description 11/08/2023 Telephone [facility] [address] [facility] [address] [place] [address] Claudia Motley MD [address] [place] [address] [facility] Preprocedure Social History Tobacco Use Types Packs/Day Years Used Date Smoking Tobacco: Every Day Cigarettes 1 43 Smokeless Tobacco: Never AUDIT-C Answer Date Recorded Q1: How often do you have a drink containing alc ohol? 2-3 times a week 09/22/2023 Q2: How many drinks containi ng alcohol do you have on a typical day when you are drinking? 1 or 2 09/22/2023 Q3: How often do you have si x or more drinks on one occasion? Never 09/22/2023 Comments Unknown Sex and Gender Information Value Date Recorded Sex Assigned at Not on file Legal Sex Female 5:27 PM HAND RIGGER Gender Identity Not on file Sexual Orientation Not on file documented as of this encounter Plan of Treatment Not on file documented as of this encounter Goals Goal Patient Goal Type Associated Problems Recent Progress Patient-Stated? Author CCM Chronic Pain Care Plan Chronic Care Management No change(01/21 12:24 PM CDT) Nisa Caldera, RN Note: Problem: Chronic Pain Goals: 1. Minimize further functional decline 2. Maximize quality of life 3. Control pain Strategies: - Activity/exercise program recommendation - Conservative stepwise pain medicine strategy with multi-disciplinary approach - Recommend healthy lifestyle strategies and compensatory methods as needed documented as of this encounter Visit Diagnoses Not on filedocumented in this encounter Care Teams Residency Coordinator Relationship Specialty Start [place] [address] [address] [place] [address] PCP - General Family Medicine 05/18/23 documented as of this encounter
--- NOTE | 2024-11-10 19:16 | ECG_ITS ---
Test Date: 2024-11-10 19:35:35 Measurements Intervals [place] Rate: 89 P: 75 TN: 206 QRS: 61 QRSD: 83 T: 60 QT: 328 QTc: 401 Interpretive Statements SINUS RHYTHM POSSIBLE RIGHT VENTRICULAR CONDUCTION DELAY [RSR (QR) IN V1/V2] No previous ECG available for comparison Electronically Signed On 11-11-2024 06:54:09 CDT by Ba Silva M.D.
--- NOTE | 2024-11-10 19:24 | ED_ITS ---
HPI - General Adult General Chief complaint: Shortness of Breath/Dyspnea Stated complaint: neuro Time Seen by Provider: 11/10/24 19:17 History of Present Illness HPI narrative: 59-year-old female with history of COPD that continues to smoke presents emergency department for evaluation for altered mental status and hypoxia. Patient states she is on 4-5 L oxygen during the day during and with exertion but nothing at rest. Patient states that she has had increased shortness of breath over the last 3 days. states for the majority of the day today she has been altered. Patient states she does have some intermittent chest pain with inspiration. Patient does report a prior history of CO. Related Data Home Medications ?Medication ?Instructions ?Recorded ?Confirmed ?Last Taken ?Type atorvastatin 80 mg tablet 80 mg PO HS 10/11/20 11/10/24 10/22/23 20:00 History buspirone 10 mg tablet 15 mg PO TID 10/11/20 11/10/24 10/23/23 09:00 History donepezil 5 mg tablet 5 mg PO DAILY 10/11/20 11/10/24 10/23/23 09:00 History gabapentin 600 mg tablet 300 mg PO TID 10/11/20 11/10/24 10/23/23 09:00 History aspirin 81 mg chewable tablet 81 mg PO DAILY 01/26/22 11/10/24 10/23/23 09:00 History cyanocobalamin (vitamin B-12) 1,000 mcg PO DAILY 01/26/22 11/10/24 10/23/23 09:00 History 1,000 mcg tablet (Vitamin B-12) memantine 10 mg tablet 10 mg PO DAILY 01/26/22 11/10/24 10/23/23 09:00 History nitroglycerin 0.4 mg sublingual 0.4 mg sublingual Q5M PRN Chest 01/26/22 11/10/24 Unknown History tablet Pain omeprazole 40 mg capsule,delayed 40 mg PO DAILY 01/26/22 11/10/24 11/10/24 History release trazodone 50 mg tablet 50 mg PO HS 10/23/23 11/10/24 10/22/23 21:00 History albuterol sulfate 90 mcg/actuation 2 puff inhalation BID PRN 11/10/24 11/10/24 11/10/24 History aerosol inhaler shortness of breath or wheezing amlodipine 5 mg tablet 5 mg PO DAILY 11/10/24 11/10/24 Unknown History budesonide-formoterol HFA 160 2 puff inhalation BID 11/10/24 11/10/24 11/10/24 History mcg-4.5 mcg/actuation aerosol inhaler (Symbicort) bupropion HCl (smoking deter) 150 150 mg PO BID 11/10/24 11/10/24 Unknown History mg tablet,12 hr sustained-release(smoking deterrent) folic acid 1 mg tablet 1 mg PO DAILY 11/10/24 11/10/24 Unknown History hydrochlorothiazide 12.5 mg tablet 12.5 mg PO DAILY 11/10/24 11/10/24 11/10/24 History pantoprazole 40 mg tablet,delayed 40 mg PO DAILY 11/10/24 11/10/24 Unknown History release valacyclovir 1 gram tablet 1,000 mg PO TID 11/10/24 11/10/24 Unknown History Allergies Allergy/AdvReac Type Severity Reaction Status Date / Time ibuprofen Allergy Mild Ulcers Verified 11/10/24 19:22 codeine AdvReac Unknown N/V Verified 11/10/24 19:22 Review of Systems 2 Review of Systems: All systems reviewed & are unremarkable except as noted in HPI and below PMFSH Past Medical History Medical History (Updated 11/10/24 @ 23:15 by Eugene Lara MD) Substance abuse Nicotine abuse Dementia Acute electrocardiogram changes Hypoxic respiratory failure Tobacco use Hyperlipemia Anxiety Depression Ankle fracture, left UTI (urinary tract infection) Pneumonia Bronchitis COPD (chronic obstructive pulmonary disease) Myocardial infarction HTN (hypertension) CAD (coronary artery disease) Possible CO around 2019 when hospitalized for pneumonia. Pocket Flap Creasing Machine Operator is Rajan Quinn Heart Surgical History Surgical History H/O: hysterectomy Family History Family History (Updated 11/10/24 @ 23:07 by Blanche Austin RN) Mother Diabetes mellitus CHF (congestive heart failure) Renal disease Father COPD (chronic obstructive pulmonary disease) Sibling Heart disease Social History Social History Social History: Patient currently lives with her boyfriend. Her daughter Luzmaria is her surrogate. She denies having any pets at home, and had a total of three kids, one girl and 2 boys. She wishes to be a full code at this time Smoking packs per day: 0.5 Smoking cigarettes per day: 10.0 Years smoked: 44 Smoking pack-years: 22.00 Smoking status: Current every day smoker Tobacco type: cigarettes Alcohol intake: never Drinks per week: 1 Substance use: never Substance use type: marijuana Other substance usage details: About a $20 bag Last use: 10/21/23 Do You Feel Safe in your Home?: Yes Lack of Transportation: No Lack of Food: Never True Current Housing: I Have Housing Concerned About Future Housing: No Difficulty Paying Gas/Electric Bills: No Difficulty Paying for Meds: No Currently Unemployed: No Education: High School Diploma/GED Difficulty w/ Childcare or Family Care: No Living arrangements: other Additional living arrangements comments: Lives with boyfriend Occupation/Education: other 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 EYES: PERRLA/EOMI, conjunctivae clear. NOSE: Normal no drainage EARS:TMS clear with good light reflex. THROAT: Pharynx clear, no exudate. NECK: Supple. No adenopathy, no masses. RESPIRATORY: Wheezing respirations bilaterally CARDIOVASCULAR: Regular rate and rhythm without murmurs rubs or gallops. ABDOMINAL: Soft, nontender, nondistended, normal bowel sounds MUSCULOSKELETAL: Moves all extremities. Strength/ROM intact, No edema, No calf tenderness. NEURO: Alert. Cranial nerves II through XII intact. Good gait. Good coordination SKIN: Warm, dry. Normal Color Course Vital Signs Vital signs: Vital Signs Temperature 98.3 F 11/10/24 19:11 Pulse Rate 60 11/10/24 19:11 Respiratory Rate 14 11/10/24 19:11 Blood Pressure 105/74 11/10/24 19:11 Pulse Oximetry 88 L 11/10/24 19:11 Oxygen Delivery Nasal Cannula 11/10/24 19:11 Oxygen Flow Rate 5.5 11/10/24 19:11 Temperature 98.3 F 11/10/24 19:11 Pulse Rate 87 11/10/24 22:20 Respiratory Rate 23 H 11/10/24 22:20 Blood Pressure 110/74 11/10/24 19:31 Pulse Oximetry 98 11/10/24 22:20 Oxygen Delivery BiPAP 11/10/24 22:20 Oxygen Flow Rate 5 11/10/24 19:19 Medical Decision Making MDM Narrative Medical decision making narrative: 59-year-old female with history of COPD continues to smoke present to the emergency department for evaluation for hypoxia and confusion. Patient was hypoxic upon arrival emergency department, she was 55% on room air. Patient did improve on 5 L of oxygen but patient was quickly placed on BiPAP and a breathing treatment was given. 20 minutes after being on BiPAP the ABG was completed and does show a hypercapnia with a pCO2 in the 50s. Patient's EKG shows no evidence of acute STEMI the patient did have an elevated troponin. Repeat EKG shows no evidence of ischemia. Patient does have elevated troponins previously. Patient was negative for influenza RSV and for COVID. Chest x-ray shows no acute cardiopulmonary mallet. Patient was treated with a dose of IV Solu-Medrol, blood cultures were ordered patient was started on antibiotics for concern for underlying infection along with her COPD. Case was discussed with the hospitalist patient was accepted for admission. Differential Diagnosis Differential Diagnosis: COVID, RSV, influenza, pneumonia, COPD, ACS, CHF Vital Signs Vital Signs: Vital Signs Temperature 98.3 F 11/10/24 19:11 Pulse Rate 60 11/10/24 19:11 Respiratory Rate 14 11/10/24 19:11 Blood Pressure 105/74 11/10/24 19:11 Pulse Oximetry 88 L 11/10/24 19:11 Oxygen Delivery Nasal Cannula 11/10/24 19:11 Oxygen Flow Rate 5.5 11/10/24 19:11 Temperature 98.3 F 11/10/24 19:11 Pulse Rate 87 11/10/24 22:20 Respiratory Rate 23 H 11/10/24 22:20 Blood Pressure 110/74 11/10/24 19:31 Pulse Oximetry 98 11/10/24 22:20 Oxygen Delivery BiPAP 11/10/24 22:20 Oxygen Flow Rate 5 11/10/24 19:19 Lab Data Lab results reviewed: Yes I reviewed the patient's lab results. 11/10/24 19:29 11/10/24 19:29 Labs: Lab Results 11/10/24 11/10/24 Range/Units 19:29 19:54 WBC 8.9 (4.5-10.0) K/mm3 RBC 5.23 (4.2-5.4) M/mm3 Hgb 15.1 H (12.0-15.0) g/dL Hct 49.5 H (37.0-47.0) % MCV 94.6 (80-100) fl MCH 28.9 (26-34) pg MCHC 30.5 L (32-36) g/dl RDW 15.0 H (11.5-14.5) % Plt Count 233 (150-375) k/mm3 MPV 9.1 (7.4-10.4) fl Immature Gran % (Auto) 0.2 (0-0.5) % Neut % (Auto) 66.3 (45.5-73.1) % Lymph % (Auto) 20.0 (18.3-44.2) % Burke % (Auto) 13.0 H (2.6-8.5) % Eos % (Auto) 0.0 (0-4.4) % Baso % (Auto) 0.5 (0.2-1.2) % Lymph # (Auto) 1.78 (0.9-3.2) K/mm3 Burke # (Auto) 1.2 H (0.1-0.6) K/mm3 Eos # (Auto) 0.0 (0-0.3) K/mm3 Baso # (Auto) 0.0 (0.0-0.1) K/mm3 Abs Immat Gran (auto) 0.02 (0.00-0.031) K/mm3 Absolute Neuts (auto) 5.9 (1.3-6.7) K/mm3 Absolute Nucleated RBC 0.000 (0.0-0.012) K/mm3 Nucleated RBC % 0.0 (0.0-0.2) % Methemoglobin 0.4 (0-1.5) %THb Expiratory Pressure 6 CMH2O Inspiratory Pressure 12 CMH2O Sodium 135 L (137-145) mmol/L Potassium 4.0 (3.4-5.0) mmol/L Chloride 96 L (98-107) mmol/L Carbon Dioxide 36 H (22-30) mmol/L Anion Gap 3 L (4-12) mmol/L BUN 15 (7-17) mg/dL Creatinine 1.07 H (0.7-1.0) mg/dL Estim Creat Clear Calc 39 ml/min Estimated GFR 52 L (59 - ) Glucose 85 (65-110) mg/dL Calcium 8.4 (8.4-10.2) mg/dL Total Bilirubin 0.8 (0.2-1.3) mg/dL AST 18 (14-36) U/L ALT 13 (6-35) U/L Alkaline Phosphatase 84 (38-126) U/L Troponin I 0.061 H* (0.000-0.034) ng/mL Total Protein 6.0 L (6.3-8.2) g/dL Albumin 3.9 (3.5-5.1) g/dL Influenza A (RT-PCR) Negative (Negative) Influenza B (RT-PCR) Negative (Negative) RSV (RT-PCR) Negative (Negative) SARS-CoV-2 RNA (RT-PCR) Negative (Negative) ABG Data ABG results: 11/10/24 19:54 Puncture Site Right radial ABG pH 7.412 ABG pCO2 50.7 H ABG pO2 83.9 ABG PO2/FiO2 Ratio 1.86 ABG HCO3 31.6 H ABG O2 Saturation 96.3 ABG O2 Content 20.1 ABG Base Excess 5.5 A-a Gradient 179.3 Oxyhemoglobin 90.2 Carboxyhemoglobin 6.0 H Reduced Hemoglobin 3.4 Total Hemoglobin 15.8 O2 Delivery Device Non-invasive vent O2 Liters/Min Oss Architect Vent Rate 4 FiO2 45 Imaging Data Radiologist's impression: Impressions Chest X-Ray 11/10/24 21:00 IMPRESSION: No acute cardiopulmonary process. Critical Care Time Critical Care Time Critical Care Time: Yes Total Critical Care Time: 35 Discharge Plan Discharge Clinical Impression: COPD (chronic obstructive pulmonary disease) Patient Disposition: Still a Patient Condition: Serious
--- NOTE | 2024-11-10 19:38 | PC.NURSE ---
POA at bedside with patient.
[2024-11-10] MEDS: methylPREDNISolone SOD SUCC 125 MG VIAL IV PUSH (19:42)
--- OUTSIDE RECORDS SUMMARY | 2024-11-10 19:42 | XMS_ITS | Encounter Summary ---
Author Organization [facility] Address [facility] [place] [address] Care Team Providers Care Logistics Specialist Name Role Phone Consuelo Santos UMM Primary Care Provider [phone] Giovanna Higgins MD Unavailable [phone] Taryn Marrero MD Primary Care Provider [phone] Rose Marie Craven Primary Care Provider [phone] Emma Hernandez NP Primary Care Provider [facility] Rose Marie Craven Primary Care Provider [phone] Gracie Hazel MD Primary Care Provider [phone] Encounter Details Date Type Department Care Team (Late st Contact Info) Description 11/22/2018 Hospital Follow-up Call [facility] [place] [address] Idalia Ernst Social History Tobacco Use Types Packs/Day Years Used Date Smoking Tobacco: Former Cigarettes 1 30 0 11/14/1988 - 11/14/2018 Smokeless Tobacco: Never Alcohol Use Standard Drinks/Week Comments Yes 1.7 (1 standard drink = 0.6 oz p ure alcohol) quit on 10/22/18 Comments Unknown Sex and Gender Information Value Date Recorded Sex Assigned at Female 08/28/2024 12:36 PM MUSIC THERAPY SPECIALIST Legal Sex Female 6:34 PM MUSIC THERAPY SPECIALIST Gender Identity Not on file Sexual [...] Info) Description 11/15/2024 3:40 PM CDT Appointment [facility] [place] [address] Gracie Hazel MD [address] [place] [address]. [address] [place] [address] 04/01/2025 12:15 PM CDT Office Visit [facility], [address] [address] Lincoln Moran MD [facility]. [address] [address] 04/03/2025 7:00 AM CDT Laboratory Only [facility] Family & Internal Medicine [address] [address] 04/10/2025 4:20 PM CDT Office Visit [facility] Family & Internal [facility] [address] [place] [address] [place] [address] [facility] [place] [address] documented as of this encounter Visit Diagnoses Not on filedocumented in this encounter Additional Health Concerns Infection Onset Date Last Indicated Resolved Time COVID-19 Rule Out 09/03/2024 09/03/2024 09/03/2024 12:00 PM MUSIC THERAPY SPECIALIST Respiratory Rule-Out 09/03/2024 09/03/2024 025 12:00 PM MUSIC THERAPY SPECIALIST documented as of this encounter Care Teams Logistics Specialist Relationship Specialty Start Date End Date Consuelo Santos APNP [address] [place] [id number] PCP - General NURSE PRACTITIONER 08/16/17 12/07/18 Taryn Marrero MD [address] [address] PCP - General FAMILY PRACTICE 12/08/18 02/03/20 [place] [address] [place] [address] PCP - General PHYSICIAN CRAYON MOLDING MACHINE OPERATOR 02/04/20 12/12/21 [place] [address] [place] [address] PCP - General NURSE PRACTITIONER 12/13/21 04/03/22 [place] [address] [place] [address] PCP - General PHYSICIAN CRAYON MOLDING MACHINE OPERATOR 04/04/22 07/05/22 [place] [address] [facility]. [address] [place] [address] PCP - General FAMILY PRACTICE 07/06/22 Giovanna Higgins MD [facility]. [facility] [address] [place] [address] [place] Vault Manager INTERVENTIONAL CARDIOLOGY 12/14/18 documented as of this encounter
--- OUTSIDE RECORDS SUMMARY | 2024-11-10 19:42 | XMS_ITS | Encounter Summary ---
Author Organization [facility] Address [facility] [place] [address] Care Team Providers Care Therapist'S Assistant Name Role Phone Giovanna Higgins MD Unavailable [phone] Gracie Hazel MD Primary Care Provider [phone] Encounter Details Date Type Department Care Team (Late st Contact Info) Description 02/14/2024 Radialpoint Message Enc [facility] Family & Internal Medicine [facility] [id number] [place] [phone] [place] [phone] [place] [address]. [address] [place] [address] Antibiotics and steroids Social History [...] Sex Assigned at Female 08/28/2024 12:36 PM GEAR SETTER Legal Sex Female 6:34 PM GEAR SETTER Gender Identity Not on file Sexual Orientation [...] Info) Description 11/15/2024 3:40 PM CDT Appointment [facility] [address] Gracie Hazel MD [address] [place] [address]. [address] [place] [phone] 04/01/2025 12:15 PM CDT Office Visit [facility] on [facility], [address] [address] Lincoln Moran MD Three [facility]. [address] [address] 04/03/2025 7:00 AM CDT Laboratory Only [facility] Family & Internal Medicine [address] [phone] 04/10/2025 4:20 PM CDT Office Visit [facility] Family & Internal Medicine [address] [phone] [place] [address] [address] [place] [address] documented as of this encounter Visit Diagnoses Not on filedocumented in this encounter Additional Health Concerns Infection Onset Date Last Indicated Resolved Time COVID-19 Rule Out 09/03/2024 09/03/2024 09/03/2024 12:00 PM GEAR SETTER Respiratory Rule-Out 09/03/2024 09/03/2024 025 12:00 PM GEAR SETTER Assessment Noted Time PHQ-9 Depression Total Score: 6 08/08/19 24 4:07 PM GEAR SETTER documented as of this encounter Care Teams Therapist'S Assistant Relationship Specialty [place] [address] [place] [address] PCP - General FAMILY PRACTICE 07/06/22 Giovanna Higgins MD [facility] [address] [place] [address] Live Administrative Support Manager INTERVENTIONAL CARDIOLOGY 12/14/18 documented as of this encounter
--- OUTSIDE RECORDS SUMMARY | 2024-11-10 19:42 | XMS_ITS | Encounter Summary ---
Author Organization [facility] Address [facility] [place] [address] Care Team Providers Care Diesel Maintenance Technician Name Role Phone Giovanna Higgins MD Unavailable [phone] Taryn Marrero MD Primary Care Provider [phone] Rose Marie Craven Primary Care Provider [phone] Emma Hernandez NP Primary Care Provider [facility] Rose Marie Craven Primary Care Provider [phone] Gracie Hazel MD Primary Care Provider [phone] Encounter Details Date Type Department Care Team (Late st Contact Info) Description 12/13/2018 [facility] at [address] [address] Milind Deleon MA Social History Tobacco Use Types Packs/Day Years Used Date Smoking Tobacco: Former Cigarettes 1 30 0 11/14/1988 - 11/14/2018 Smokeless Tobacco: Never Alcohol Use Standard Drinks/Week Comments Yes 1.7 (1 standard drink = 0.6 oz p ure alcohol) quit on 10/22/18 Comments Unknown Sex and Gender Information Value Date Recorded Sex Assigned at Female 08/28/2024 12:36 PM BOILER INSPECTOR Legal Sex Female 6:34 PM BOILER INSPECTOR Gender Identity Not on file Sexual Orientation [...] Info) Description 11/15/2024 3:40 PM CDT Appointment [facility] [place] [address] Gracie Hazel MD [address] [place] [address]. [address] [phone] 04/01/2025 12:15 PM CDT Office Visit [facility], [address] [address] Lincoln Moran MD Three [facility]. [address] [address] 04/03/2025 7:00 AM CDT Laboratory Only [facility] Medical [facility] Family & Internal Medicine [address] [phone] 04/10/2025 4:20 PM CDT Office Visit [facility] Family & Internal Medicine [facility] [address] [place] [address] [place] [address] [facility]. [address] [place], [place] [phone] documented as of this encounter Procedures Procedure [...] Rule Out 09/03/2024 09/03/2024 09/03/2024 12:00 PM BOILER INSPECTOR Respiratory Rule-Out 09/03/2024 09/03/2024 025 12:00 PM BOILER INSPECTOR documented as of this encounter Care Teams Diesel Maintenance Technician Relationship Specialty Start Date End Date Taryn Marrero MD [facility] [address] [place] [address] PCP - General FAMILY PRACTICE 12/08/18 02/03/20 [place] [address] [place] [address] PCP - General PHYSICIAN HELPER SHEAR OPERATOR 02/04/20 12/12/21 [place] [address] [place] [address] PCP - General NURSE PRACTITIONER 12/13/21 04/03/22 [place] [address] [place] [address] PCP - General PHYSICIAN HELPER SHEAR OPERATOR 04/04/22 07/05/22 [place] [address] [facility]. [facility] [address] [place] [address] PCP - General FAMILY PRACTICE 07/06/22 Giovanna Higgins MD Three [facility]. [facility] [address] [place] [address] [place] Dividing Machine Operator Helper INTERVENTIONAL CARDIOLOGY 12/14/18 documented as of this encounter
--- OUTSIDE RECORDS SUMMARY | 2024-11-10 19:42 | XMS_ITS | Encounter Summary ---
Author Organization [facility] Address [facility] [place] [address] Care Team Providers Care Research/Program Director Name Role Phone Giovanna Higgins MD Unavailable [phone] Gracie Hazel MD Primary Care Provider [phone] Encounter Details Date Type Department Care Team (Late st Contact Info) Description 01/04/2023 MyChart Message [facility] - [facility] [address] [place] [address] Patient Communicatort, [facility] Provider Air Quality Message Social History Tobacco [...] Sex Assigned at Female 08/28/2024 12:36 PM CNC OPERATOR Legal Sex Female 6:34 PM CNC OPERATOR Gender Identity Not on file Sexual Orientation [...] Info) Description 11/15/2024 3:40 PM CDT Appointment [facility] [place] [address] [place] [address] [place] [address] 04/01/2025 12:15 PM CDT [facility], [address] [address] Lincoln Moran MD Three [facility]. [address] [address] 04/03/2025 7:00 AM CDT Laboratory Only [facility] Family & Internal Medicine [address] [phone] 04/10/2025 4:20 PM CDT Office Visit [facility] Family & Internal Medicine [address] [phone] [place] [address] [place] [address] documented as of this encounter Visit Diagnoses Not on filedocumented in this encounter Additional Health Concerns Infection Onset Date Last Indicated Resolved Time COVID-19 Rule Out 09/03/2024 09/03/2024 09/03/2024 12:00 PM CNC OPERATOR Respiratory Rule-Out 09/03/2024 09/03/2024 025 12:00 PM CNC OPERATOR Assessment Noted Time PHQ-9 Depression Total Score: 16 022 4:13 PM CDT documented as of this encounter Care Teams Research/Program Director Relationship Specialty [place] [address] [facility] [address] [place] [address] PCP - General FAMILY PRACTICE 07/06/22 Giovanna Higgins MD [facility]. [facility] [address] [place] [address] [employer] Teradata Solution Architect INTERVENTIONAL CARDIOLOGY 12/14/18 documented as of this encounter
--- OUTSIDE RECORDS SUMMARY | 2024-11-10 19:43 | XMS_ITS | Encounter Summary ---
Author Organization [facility] Healthcare Address [address] [place] [address] Care Team Providers Care Duty Officer Name Role Phone Gracie Hazel MD Primary Care Provider [phone] Reason for Visit * Reason Onset Date Comments PMC Preprocedure 11/08/2023 Encounter Details Date Type Department Care Team (Late st Contact Info) Description 11/08/2023 Telephone [facility] [address] [facility] Advanced [facility] [address] [place] [address] Claudia Motley MD [address] [place] [address] [facility] Preprocedure Social History Tobacco Use Types Packs/Day [...] on file Legal Sex Female 5:27 PM RISK REDUCTION COUNSELOR Gender Identity Not on file Sexual Orientation [...] on filedocumented in this encounter Care Teams Duty Officer Relationship Specialty [place] [address] [facility] [place] [address] PCP - General Family Medicine 05/18/23 documented as of this encounter
--- OUTSIDE RECORDS SUMMARY | 2024-11-10 19:43 | XMS_ITS | Encounter Summary ---
Author Organization [facility] Address [facility] [place] [address] Care Team Providers Care Beef Boner Name Role Phone Consuelo Santos UMM Primary Care Provider [phone] Giovanna Higgins MD Unavailable [phone] Taryn Marrero MD Primary Care Provider [phone] Rose Marie Craven Primary Care Provider [phone] Emma Hernandez NP Primary Care Provider [facility] Rose Marie Craven Primary Care Provider [phone] Gracie Hazel MD Primary Care Provider [phone] Encounter Details Date Type Department Care Team (Late st Contact Info) Description 07/26/2017 Abstract [facility] CONVERSION [address] [place] [address] , Walt Faulkner MD Social History Tobacco Use Types Packs/Day Years Used Date Smoking Tobacco: Never Assessed Comments Unknown Sex and Gender Information Value Date Recorded Sex Assigned at Female 08/28/2024 12:36 PM METAL ENGRAVER Legal Sex Female 6:34 PM METAL ENGRAVER Gender Identity Not on file Sexual Orientation Not on file documented as of this encounter Plan of Treatment Upcoming Encounters Date Type Department Care Team (Late st Contact Info) Description 11/15/2024 3:40 PM CDT Appointment [facility] [address] [place] [address] [facility]. [address] [place] [address] 04/01/2025 12:15 PM CDT Office Visit [facility] THREE [facility], [address] [address] Lincoln Moran MD Three [facility]. [address] [address] 04/03/2025 7:00 AM CDT Laboratory Only [facility] & Internal [address] [phone] 04/10/2025 4:20 PM CDT Office Visit [facility] Family & Internal [address] [address] Gracie Hazel MD [address] [place] [address]. [address] [place] [address] documented as of this encounter Visit Diagnoses Not on filedocumented in this encounter Additional Health Concerns Infection Onset Date Last Indicated Resolved Time COVID-19 Rule Out 09/03/2024 09/03/2024 09/03/2024 12:00 PM METAL ENGRAVER Respiratory Rule-Out 09/03/2024 09/03/2024 025 12:00 PM METAL ENGRAVER documented as of this encounter Care Teams Beef Boner Relationship Specialty Start Date End Date Consuelo Santos APNP [address] [place] [address] PCP - General NURSE PRACTITIONER 08/16/17 12/07/18 Taryn Marrero MD [facility] [address] [place] [address] PCP - General FAMILY PRACTICE 12/08/18 02/03/20 [place] [address] [facility] [place] [address] PCP - General PHYSICIAN FREELANCE DIRECTOR 02/04/20 12/12/21 [place] [address] [place] [address] PCP - General NURSE PRACTITIONER 12/13/21 04/03/22 [place] [address] [place] [address] PCP - General PHYSICIAN FREELANCE DIRECTOR 04/04/22 07/05/22 [place] [address] [facility]. [facility] [address] [place] [address] PCP - General FAMILY PRACTICE 07/06/22 Giovanna Higgins MD Three [facility]. [facility] [address] [place] [address] [place] INTERVENTIONAL CARDIOLOGY 12/14/18 documented as of this encounter
--- OUTSIDE RECORDS SUMMARY | 2024-11-10 19:43 | XMS_ITS | Clinical Summary ---
Author Organization [address] Address [address] [place] [phone] Care Team Providers Care Plant Pathologist Name Role Phone Gracie Hazel MD Primary Care Provider [phone] Allergies Active Allergy Reactions Criticality Noted Date [...] 0.5 tablets (12.5 mg total) by mouth fire eater before breakfast 04/01/20 24 Active buPROPion SR [...] 2024 Assessment & Plan (07/04/2023 4:13 PM TC OPERATOR): The patient continues to decrease the number [...] years. Assessment & Plan (08/31/2020 4:28 PM TC OPERATOR): Patient was encouraged to decrease and stop her smoking. The patient verbalized understanding. The patient states that she is trying to decrease her smoking however in times of stress she does smoke more. I have ordered a low-dose screening CT to evaluate the patient for any pulmonary nodules. Simple chronic bronchitis 08/31/2020 Assessment & Plan (08/31/2020 4:28 PM TC OPERATOR): The patient would like the Advair change. [...] sleeping. Assessment & Plan (07/04/2023 4:13 PM TC OPERATOR): The patient was encouraged to use 1 [...] bedtime. Assessment & Plan (08/31/2020 4:29 PM TC OPERATOR): The patient was encouraged to use her [...] today. Assessment & Plan (07/04/2023 4:13 PM TC OPERATOR): The patient was encouraged to use 1 [...] to get a pulse ox at the [facility]. The patient's daughter is going to call back in to inform us of the [employer] company that supplies the patient's oxygen. In [...] activity. Assessment & Plan (08/31/2020 4:30 PM TC OPERATOR): The patient was encouraged to wear her [...] weeks. Assessment & Plan (07/04/2023 4:14 PM TC OPERATOR): The patient will continue Symbicort 2 puffs [...] 2024 Assessment & Plan (07/04/2023 4:14 PM TC OPERATOR): I have ordered a CT scan to [...] 10/09/19 Assessment & Plan (07/04/2023 4:14 PM TC OPERATOR): The ultrasound showed stable cyst since 2016 Assessment & Plan (01/02/2023 1:53 PM CDT): I have reordered the ultrasound of the left kidney. Assessment & Plan (10/17/2022 4:06 PM CDT): The patient is agreeable to have the ultrasound of her kidney completed. Encounters Date Type Department Care Team Description 10/08/2024 1:45 PM CDT Office Visit [facility] Pulmonary [address] [place] [phone] Rob العراقي MD Nocturnal hypoxia (Primary [...] on file Legal Sex Female 5:27 PM TC OPERATOR Gender Identity Not on file Sexual [...] Read Routine (OP Routine) 07/30/2024 9:02 AM TC OPERATOR Tobacco abuse Personal history of tobacco use Pulmonary nodule Panlobular emphysema (HCC) from Last 3 Months or Most Recently Relevant to Health Maintenance Results * CT Lung Cancer Screening (07/30/2024 9:02 AM TC OPERATOR) Anatomical Region Laterality Modality Chest N/A Computed Tomogra phy 07/30/2024 10:0 4 AM TC OPERATOR Narrative 07/30/2024 10:11 AM TC OPERATOR EXAM DESCRIPTION: CT LUNG CANCER SCREENING REASON [...] Thai Resendez D.O. PS: PS Report ID: [id number] Reading Location: [id number] Procedure Note Thai Resendez, DO - 07/30/2024 [...] Thai Resendez D.O. PS: PS Report ID: [id number] Reading Location: [place] [address] Rob العراقي MD IMG CT PROCEDURES Final R esult from Last 3 Months or Most Recently Relevant to Health Maintenance Insurance [employer] [facility] [employer] [facility] Care Teams Plant Pathologist Relationship Specialty [place] [address] [place] [address] PCP - General Family Medicine 05/18/23
--- OUTSIDE RECORDS SUMMARY | 2024-11-10 19:43 | XMS_ITS | Clinical Summary ---
Author Organization [facility] Address [facility] [place] [address] Care Team Providers Care Presales Senior Specialist Name Role Phone Giovanna Higgins MD Unavailable [phone] Gracie Hazel MD Primary Care Provider [phone] Allergies Active Allergy Reactions Criticality Noted Date [...] Problem Noted Date Diagnosed Date COPD exacerbation ([facility]) 09/03/2024 Gastroesophageal reflux disease without esophagi tis [...] pain 04/13/2020 Coronary artery disease invo lving [place] coronary artery without angina pectoris 12/25/2018 Chronic systolic heart failure ([facility]) 12/25/2018 Tobacco dependence due to cigarettes 12/25/2018 Pure hypercholesterolemia 12/25/2018 Abnormal peripheral pulse 12/25/2018 S/P left heart catheterization by percutaneous a [email or web address] 11/19/2018 NSTEMI (non-ST elevated myoc ardial infarction) ([facility]) 11/18/2018 COPD, moderate ([facility]) 08/16/2017 Depression screening 08/16/2017 Depression with anxiety 08/16/2017 Lung nodule 08/16/2017 Neck pain 08/16/2017 Hypertension 08/16/2017 Neuropathy 08/16/2017 Resolved Problems Problem Noted Date Diagnosed Date Resolved Date Encounter to establish care 08/16/2017 03/20/2020 Encounters Date Type Department Care Team Description 10/22/2024 Travel 10/08/2024 Scan Contactual INFO SRVCS Scanned, [facility] 10/07/2024 GoodClic Message Enc [facility] Family & Internal Medicine [address] [phone] Gracie Hazel MD Cb leisagamichael 10/04/2024 4:00 PM CDT Office Visit [facility] Family & Internal Medicine [address] [phone] Gracie Hazel MD Follow Up 10/04/2024 Travel 09/24/2024 Telephone [facility], [place] [address] Lincoln Moran MD Other 09/24/2024 Orders Only [facility], [address] [address] Karma Nick FNP 09/23/2024 11:15 AM CDT Office Visit [facility] [phone] Karma Nick FNP Coronary Artery Disease; CHF; Hypertension; Lipids 09/11/2024 3:03 PM FITTER TYPE BAR AND SEGMENT - 09/11/2024 11:59 PM FITTER TYPE BAR AND SEGMENT Hospital Encounter [facility] [place] [address] [facility] [employer] MEDICAL TECHNOLOGIST BLOOD BANK Discharge Disposition: Home or Self Care (Routine Discharge) 09/11/2024 Travel 09/06/2024 Hospital Follow-up Call [facility] [place] [address] Shaylee Amaya LPN Follow Up Call (JANNY 09/02-09/04/24) 09/02/2024 8:06 PM FITTER TYPE BAR AND SEGMENT - 09/04/2024 11:03 AM FITTER TYPE BAR AND SEGMENT [facility] [address] [place] [address] Tesfaye Nieves MD,PHD Eladia, MD Heidi Tovar [...] = 0.6 oz p ure alcohol) socially [facility] Utilities Answer Date Recorded In the past 12 months has th e [employer], oil, or water [employer] threatened to shut off services in your [...] any time in the past [address] [facility], were you homeless or living in a residential (including now)? No 09/03/2024 Comments No Sex and Gender Information Value Date Recorded Sex Assigned at Female 08/28/2024 12:36 PM FITTER TYPE BAR AND SEGMENT Legal Sex Female 6:34 PM FITTER TYPE BAR AND SEGMENT Gender Identity Not on file Sexual Orientation [...] Description 11/15/2024 3:40 PM CDT Appointment [facility] [place] [address] [place] [id number] [facility]. [address] [place] [address] 04/01/2025 12:15 PM CDT Office Visit [facility]an [facility]ina- on [address] [facility] [address], [address] [id number] Lincoln Moran MD Three [facility]. [address] [phone] 04/03/2025 7:00 AM CDT Laboratory Only [facility] [phone] [place] [phone] 04/10/2025 4:20 PM CDT Office Visit [facility] [address] [place] [phone] [place] [address] [facility]. [address] [place] [address] Health Maintenance Due Date Last [...] , 08/07/2021, Additional history exists PHQ-2 (Physician [place]) Completed 10/04/2024 Meningococcal B Vaccine Aged Out [...] WWO CON Routine 09/11/2024 4:0 6 PM FITTER TYPE BAR AND SEGMENT Mild neurocognitive disorder Mild cognitive impairment of uncertain or unknown etiology PROCALCITONIN (PCT) Routine 09/04/2024 5 :10 AM FITTER TYPE BAR AND SEGMENT CBC W/DIFF AUTOMATED Routine 09/04/2024 5:10 AM FITTER TYPE BAR AND SEGMENT COMPREHENSIVE METABOLIC PANEL Routine 09/04/2024 5:10 AM FITTER TYPE BAR AND SEGMENT MAGNESIUM Routine 09/04/2024 5:10 AM FITTER TYPE BAR AND SEGMENT INFLUENZA A & B Routine 09/03/2024 11:20 AM FITTER TYPE BAR AND SEGMENT CORONAVIRUS (COVID 19) Routine 09/03/2024 11:20 AM FITTER TYPE BAR AND SEGMENT HEMOGLOBIN, GLYCOSYLATED Routine 09/03/2024 5:40 AM FITTER TYPE BAR AND SEGMENT PROCALCITONIN (PCT) Routine 09/03/2024 5 :40 AM FITTER TYPE BAR AND SEGMENT TROPONIN, QUANT Routine 09/03/2024 5:40 AM FITTER TYPE BAR AND SEGMENT CBC W/DIFF AUTOMATED STAT 09/03/2024 5:40 AM FITTER TYPE BAR AND SEGMENT COMPREHENSIVE METABOLIC PANEL STAT 09/03/2024 5:40 AM FITTER TYPE BAR AND SEGMENT MAGNESIUM STAT 09/03/2024 5:40 AM FITTER TYPE BAR AND SEGMENT BLOOD GAS, ARTERIAL LAB STAT 09/03/2024 1:49 AM FITTER TYPE BAR AND SEGMENT TROPONIN, QUANT STAT 09/02/2024 10:54 PM FITTER TYPE BAR AND SEGMENT ECG 12-LEAD Routine 09/02/2024 8:37 PM FITTER TYPE BAR AND SEGMENT D-DIMER, QUANTITATIVE Routine 09/02/2024 8:24 PM FITTER TYPE BAR AND SEGMENT PRO-BRAIN NATRIURETIC PEPTIDE STAT 09/02/2024 8:24 PM FITTER TYPE BAR AND SEGMENT TROPONIN, QUANT STAT 09/02/2024 8:24 PM FITTER TYPE BAR AND SEGMENT COMPREHENSIVE METABOLIC PANEL STAT 09/02/2024 8:24 PM FITTER TYPE BAR AND SEGMENT CBC W/DIFF AUTOMATED STAT 09/02/2024 8:24 PM FITTER TYPE BAR AND SEGMENT XR CHEST PA+LAT STAT 09/02/2024 8:00 PM FITTER TYPE BAR AND SEGMENT COLONOSCOPY GENERIC (SCAN ORDER) 11/15/2021 MG SCREENING W ANTHONY BRIAN DIGI Routine 09/12/2019 1:17 PM FITTER TYPE BAR AND SEGMENT Breast cancer screening from Last 3 Months or Most Recently Relevant to Health Maintenance Results * MRI BRAIN WWO CON (09/11/2024 4:06 PM FITTER TYPE BAR AND SEGMENT) Anatomical Region Laterality Modality Head Magnetic Resonan [...] 9:13 AM Narrative 09/17/2024 12:54 PM CDT [address] [address] DATE: 09/11/2024 3:35 PM INDICATION: Mild neurocognitive [...] Procedure Note Mukul Hernandez MD - 09/17/2024 [facility] [address] [place], [place] [address] DATE: 09/11/2024 3:35 PM INDICATION: Mild neurocognitive [...] MD, 09/16/2024 9:13 AM us [facility] [employer] MEDICAL TECHNOLOGIST BLOOD BANK MRI Final Resul t * PROCALCITONIN (PCT) (09/04/2024 5:10 AM FITTER TYPE BAR AND SEGMENT) Only the most recent of2 resultswithin the time period is included. PROCALCITONIN <0.05 0.00 - 0.49 NG/ML 09/04/2024 6:22 AM [facility] 09/04/2024 5:10 AM FITTER TYPE BAR AND SEGMENT Marco Gordon MD LABORATORY Final Result [facility] [address] [place] [address], [place] [phone] * (ABNORMAL) COMPREHENSIVE METABOLIC PANEL (09/04/2024 5:10 AM FITTER TYPE BAR AND SEGMENT) Only the most recent of3 resultswithin the time period is included. GLUCOSE 113(H) 70 - 99 MG/DL 09/04/2024 6:00 AM [facility] BUN 6(L) 7 - 18 MG/DL 09/04/2024 6:00 AM [facility] CREATININE S/P/B 0.63 0.55 - 1.02 MG/DL 09/04/2024 6:00 AM [facility] SODIUM S/P/B 140 136 - 145 MMOL/L 09/04/2024 6:00 AM [facility] POTASSIUM S/P/B 4.1 3.5 - 5.1 MMOL/L 09/04/2024 6:00 AM [facility] CHLORIDE S/P/B 105 97 - 115 MMOL/L 09/04/2024 6:00 AM [facility] CO2 35.1(H) 21 - 32 MMOL/L 09/04/2024 6:00 AM [facility] CALCIUM S/P/B 8.4(L) 8.5 - 10.1 MG/DL 09/04/2024 6:00 AM [facility] BILIRUBIN TOTAL S/P/B 0.3 0.2 - 1.2 MG/DL 09/04/2024 6:00 AM [facility] Comment: THIS ASSAY IS NOT RECOMMENDED FOR PATIENTS UNDERGOING TREATMENT WITH ELTROMBOPAG DUE TO THE POTENTIAL FOR FALSELY ELEVATED RESULTS. TOTAL PROTEIN S/P/B 5.4(L) 6.4 - 8.2 G/DL 09/04/2024 6:00 AM [facility] ALBUMIN S/P/B 3.0(L) 3.4 - 5.0 G/DL 09/04/2024 6:00 AM [facility] AST 5(L) 15 - 37 U/L 09/04/2024 6:00 AM [facility] ALT 14 14 - 55 U/L 09/04/2024 6:00 AM [facility] ALKALINE PHOSPHATASE S/P/B 65 50 - 136 U/L 09/04/2024 6:00 AM [facility] ANION GAP NOT CALCULATED 2 - 10 MMOL/L 09/04/2024 6:00 AM [facility] BUN CREATININE RATIO 9.6 09/04/2024 6:00 AM [facility] A/G RATIO 1.2 1.0 - 2.0 RATIO 09/04/2024 6:00 AM [facility] GFR ESTIMATE >90 >90 ML/MIN/1. 73 M2 09/04/2024 6:00 AM [facility] Comment: NOTE: eGFR is not calculated for patients <18 years of age or gender unknown. This is an estimated GFR calculation using the new CKD EPI creatinine equation without race and so does not require a correction factor for race. This estimated GFR should not be used for calculating drug doses. 09/04/2024 5:10 AM FITTER TYPE BAR AND SEGMENT Gallito Church NP LABORATORY Final Result [facility] [address] [place] [address], * (ABNORMAL) CBC W/DIFF AUTOMATED (09/04/2024 5:10 AM FITTER TYPE BAR AND SEGMENT) Only the most recent of3 resultswithin the time period is included. WBC 10.99 4.5 - 11.0 x10'3/uL 09/04/2024 5:35 AM [facility] RBC 4.47 4.20 - 5.40 x10'6/uL 09/04/2024 5:35 AM [facility] HGB 13.8 12.0 - 16.0 G/DL 09/04/2024 5:35 AM [facility] HCT 42.9 38.0 - 48.0 % 09/04/2024 5:35 AM [facility] MCV 96.0 81.0 - 99.0 FL 09/04/2024 5:35 AM [facility] MCH 30.9 27.0 - 31.0 PG 09/04/2024 5:35 AM [facility] MCHC 32.2 32.0 - 36.0 G/DL 09/04/2024 5:35 AM [facility] RDW 14.0 11.5 - 14.5 % 09/04/2024 5:35 AM [facility] PLT 190 130 - 400 x10'3/uL 09/04/2024 5:35 AM [facility] MPV 9.9 9.3 - 12.2 FL 09/04/2024 5:35 AM [facility] DIFFERENTIAL TYPE AUTOMATED DIFFERENTIAL 09/04/2024 5:35 AM FITTER TYPE BAR AND SEGMENT [facility] NEUTROPHILS % 80.5 % 09/04/2024 5:35 AM FITTER TYPE BAR AND SEGMENT [facility] LYMPHOCYTES % 11.6 % 09/04/2024 5:35 AM [facility] MONOCYTES % 7.3 % 09/04/2024 5:35 AM [facility] EOSINOPHILS 0.0 % 09/04/2024 5:35 AM FITTER TYPE BAR AND SEGMENT [facility] BASOPHILS 0.1 % 09/04/2024 5:35 AM [facility] IMMATURE GRANS % 0.5 % 09/04/19 5:35 AM [facility] ABS. NEUTROPHILS 8.86(H) 1.80 - 7.70 x10'3/uL 09/04/2024 5:35 AM [facility] ABS. LYMPHOCYTES 1.27 1.00 - 4.80 x10'3/uL 09/04/2024 5:35 AM [facility] ABS. MONOCYTES 0.80 0.24 - 0.86 x10'3/uL 09/04/2024 5:35 AM [facility] ABS. EOSINOPHILS 0.00(L) 0.04 - 0.36 x10'3/uL 09/04/2024 5:35 AM [facility] ABS. BASOPHILS 0.01 0.01 - 0.08 x10'3/uL 09/04/2024 5:35 AM [facility] ABS. IMMATURE GRANULOCYTES 0.05 0.00 - 0.49 x10'3/uL 09/04/2024 5:35 AM [facility] 09/04/2024 5:10 AM FITTER TYPE BAR AND SEGMENT Gallito Church NP LABORATORY Final Result [facility] [address] [place] [address], * MAGNESIUM (09/04/2024 5:10 AM FITTER TYPE BAR AND SEGMENT) Only the most recent of2 resultswithin the time period is included. MAGNESIUM 2.2 1.8 - 2.4 MG/DL 09/04/2024 6:00 AM FITTER TYPE BAR AND SEGMENT [facility] 09/04/2024 5:10 AM FITTER TYPE BAR AND SEGMENT Gallito Church NP LABORATORY Final Result Performing Organization Address [facility] de Phone Number [facility] [address] [place] [address], * CORONAVIRUS (COVID 19) (09/03/2024 11:20 AM FITTER TYPE BAR AND SEGMENT) CORONAVIRUS SARS COV 2 RNA NEGATIVE NEGATIVE 09/03/2024 12:00 PM FITTER TYPE BAR AND SEGMENT [facility] Comment: NEGATIVE RESULTS DO NOT RULE [...] SARS-COV-2. SPECIMEN TYPE NASAL 09/03/2024 11:39 AM FITTER TYPE BAR AND SEGMENT [facility] NASAL STRUCTURE / Unknown 09/03/2024 11:20 AM FITTER TYPE BAR AND SEGMENT Marco Gordon MD MICROBIOLOGY - GENERAL ORDERABLE S Final Result Performing Organization Address City/[facility]/ZIP Co de Phone Number [facility] [address] [place] [address], [place] [phone] * INFLUENZA A & B, RAPID (09/03/2024 11:20 AM FITTER TYPE BAR AND SEGMENT) SPECIMEN TYPE Negative for Group A Streptococci 09/03/2024 11:43 AM FITTER TYPE BAR AND SEGMENT [facility] INFLUENZA A NEGATIVE NEGATIVE 09/03/2024 12:00 PM FITTER TYPE BAR AND SEGMENT [facility] INFLUENZA B NEGATIVE NEGATIVE 09/03/2024 12:00 PM FITTER TYPE BAR AND SEGMENT [facility] Comment: Interpretation: Negative for Influenza A [...] NASOPHARYNGEAL SWAB / Unknown 09/03/2024 11:20 AM FITTER TYPE BAR AND SEGMENT Marco Gordon MD MICROBIOLOGY - GENERAL ORDERABLE S Final Result [facility] [address] [place] [address], [place] [phone] * HEMOGLOBIN, GLYCOSYLATED (09/03/2024 5:40 AM FITTER TYPE BAR AND SEGMENT) HGB A1C 5.6 <5.7 % 09/03/2024 12:33 PM FITTER TYPE BAR AND SEGMENT [facility] Comment: ADA GUIDELINES 2010 5.7 TO 6.4% INCREASED RISK OF DIABETES > OR = 6.5% CONSISTENT WITH DIABETES ESTIMATED AVG GLUCOSE 114 mg/dL 09/03/2024 12:33 PM FITTER TYPE BAR AND SEGMENT [facility] 09/03/2024 5:40 AM FITTER TYPE BAR AND SEGMENT Ai Victoria RN LABORATORY Final Result [facility] [address] [place] [address], * TROPONIN, QUANT (09/03/2024 5:40 AM FITTER TYPE BAR AND SEGMENT) Only the most recent of3 resultswithin the time period is included. Pathologist [facility] TROPONIN I HIGH SENSITIVITY 49 <54 ng/L 09/03/2024 6:29 AM FITTER TYPE BAR AND SEGMENT [facility] Comment: HIGH DOSES OF BIOTIN, TROPONIN-SPECIFIC AUTOANTIBODIES, AND ANTIBODY THERAPY CONTAINING HAMA MAY INTERFERE WITH THIS TEST RESULT. CORRELATION TO CLINICAL HISTORY AND PRESENTATION RECOMMENDED. 09/03/2024 5:40 AM FITTER TYPE BAR AND SEGMENT Ai Victoria RN LABORATORY Final Result Performing Organization Address City/[facility]/ZIP Co de Phone Number [facility] [address] [place] [address], * (ABNORMAL) ARTERIAL BLOOD GAS (09/03/2024 1:49 AM FITTER TYPE BAR AND SEGMENT) [facility] PH ARTERIAL 7.42 7.35 - 7.45 09/03/2024 2:15 AM FITTER TYPE BAR AND SEGMENT [facility] PCO2 59.0(H) 35.0 - 45.0 MMHG 09/03/2024 2:15 AM FITTER TYPE BAR AND SEGMENT [facility] PO2 79.0(L) 83.0 - 108.0 MMHG 09/03/2024 2:15 AM [facility] TOTAL CO2 ARTERIAL 40.1(H) 19.0 - 24.0 MMOL/L 09/03/2024 2:15 AM [facility] BASE EXCESS 11.4(H) 0.0 - 3.0 MMOL/L 09/03/2024 2:15 AM [facility] O2 SATURATION 96 94.0 - 98.0 % 09/03/2024 2:15 AM FITTER TYPE BAR AND SEGMENT [facility] BICARB ARTERIAL 38.3(H) 21.0 - 28.0 MMOL/L 09/03/2024 2:15 AM FITTER TYPE BAR AND SEGMENT [facility] VALENTE TEST VALENTE TEST PERFORMED 09/03/2024 2:12 AM FITTER TYPE BAR AND SEGMENT [facility] O2 ADMIN ARTERIAL 44 09/03/2024 2:12 AM FITTER TYPE BAR AND SEGMENT [facility] DRAW SITE ARTERIAL RT RADIAL 09/03/2024 2:12 AM FITTER TYPE BAR AND SEGMENT [facility] 09/03/2024 1:49 AM FITTER TYPE BAR AND SEGMENT Gonzalez Montilla MD LABORATORY Final Resul t [facility] [address] [place] [address], * ECG 12 lead (09/02/2024 8:37 PM FITTER TYPE BAR AND SEGMENT) 09/02/2024 8:37 PM FITTER TYPE BAR AND SEGMENT Narrative [facility] ([facility]) RAD - 09/02/2024 10:08 PM FITTER TYPE BAR AND SEGMENT [address] Test Date: 2024-09-02 Pat Name: VELIA PASCUAL Department: 41 Room: [facility] Gender: Female Nib Adjuster: [id number] : 1965 Requested By: JONATHAN LE Order Number: [id number] Reading MD: Maynor Mendez Measurements Intervals [place] Rate: 97 P: 66 VA: 208 QRS: 75 QRSD: 81 T: 68 QT: 335 QTc: 426 Interpretive Statements SINUS RHYTHM LOW QRS VOLTAGE IN PRECORDIAL LEADS [QRS DEFLECTION < 1.0 mV IN CHEST LEADS] Compared to ECG 02/03/2022 15:04:03 Low QRS voltage now present ER TYPE BAR AND SEGMENT Procedure Note Maynor Mendez MD - 09/02/[address] Test Date: 2024-09-02 Pat Name: VELIA PASCUAL Department: 41 Room: [facility] Gender: Female Nib Adjuster: [id number] : 1965 Requested By: JONATHAN LE Order Number: [id number] Reading MD: Maynor Mendez Measurements Intervals [place] Rate: 97 P: 66 VA: 208 QRS: 75 QRSD: 81 T: 68 QT: 335 QTc: 426 Interpretive Statements SINUS RHYTHM LOW QRS VOLTAGE IN PRECORDIAL LEADS [QRS DEFLECTION < 1.0 mV IN CHESTLEADS] Compared to ECG 02/03/2022 15:04:03 Low QRS voltage now present ER TYPE BAR AND SEGMENT Jonathan HERNANDEZ ECG ORDERABLES Final Resul t Performing Organization Address City/[facility] Co de Phone Number [facility] ([facility] RAD * (ABNORMAL) PRO-BRAIN NATRIURETIC PEPTIDE (09/02/2024 8:24 PM FITTER TYPE BAR AND SEGMENT) PRO-B TYPE NATRIURETIC PEPTIDE 197(H) <125 PG/ML 09/02/2024 9:14 PM FITTER TYPE BAR AND SEGMENT [facility] Comment: CUT POINTS ESTABLISHED BY INTERNATIONAL [...] 72% FOR ACUTE CHF. 09/02/2024 8:24 PM FITTER TYPE BAR AND SEGMENT Jonathan HERNANDEZ LABORATORY Final Resul t Performing Organization Address City/State/[facility] Co de Phone Number [facility] [address] [place] [address], * D-DIMER, QUANTITATIVE (09/02/2024 8:24 PM FITTER TYPE BAR AND SEGMENT) D-DIMER 299 0 - 500 ng{FEU}/mL 09/02/2024 10:37 PM FITTER TYPE BAR AND SEGMENT [facility] Comment: D-Dimer values less than or [...] additional false negative findings. 09/02/2024 8:24 PM FITTER TYPE BAR AND SEGMENT Tesfaye Nieves MD,PHD LABORATORY Final Resu lt Performing Organization Address [facility] Co de Phone Number [facility] [address] [place] [address], * XR CHEST PA+LAT (09/02/2024 8:00 PM FITTER TYPE BAR AND SEGMENT) Anatomical Region Laterality Modality Chest Radiographic Kaylee ging 09/02/2024 8:04 PM FITTER TYPE BAR AND SEGMENT Impressions 09/02/2024 8:05 PM FITTER TYPE BAR AND SEGMENT =====IMPRESSION:===== No radiographic evidence of active chest disease. Ordered By: JONATHAN LE Interpreted By: Nikos Murdock MD, 09/02/2024 8:04 PM Narrative 09/02/2024 8:05 PM FITTER TYPE BAR AND SEGMENT [facility] [address] [address] Examination: Chest x-ray 2 view Exam date/time: 09/02/2024 7:51 PM Reason For Exam: increased shortness of breath Comparison: No prior exam Technique: PA and lateral views of the chest were obtained. Findings: The cardiac silhouette, mediastinal contours, and pulmonary vessels appear normal. The lungs are clear. No pneumothorax. No consolidations or effusions are seen. Procedure Note Nikos Murdock MD - 09/02/2024 [place] [address] Examination: Chest x-ray 2 view Exam date/time: [...] W ANTHONY BRIAN DIGI (09/12/2019 1:17 PM FITTER TYPE BAR AND SEGMENT) Anatomical Region Laterality Modality Breast Bilateral Mammography [...] Documents on File Type Date Recorded Patient Seo Executive Expl anation Advance Directives and Living Will [...] Pascual Daughter Health Care Agent Care Teams Presales Senior Specialist Relationship Specialty Start [place] [id number] [facility]. [address] [place] [address] PCP - General FAMILY PRACTICE 07/06/22 Giovanna Higgins MD [facility]. [facility] [address] [place] [address] [place] Marketing Information Analyst INTERVENTIONAL CARDIOLOGY 12/14/18
--- OUTSIDE RECORDS SUMMARY | 2024-11-10 19:43 | XMS_ITS | Referral Summary ---
Author Organization [address] Address [address] [place] [id number] Care Team Providers Care Quality Improvement Engineer Name Role Phone Gracie Hazel MD Primary Care Provider [phone] Encounters Date Type Department Care Team Description 10/08/2024 1:45 PM CDT Office Visit [facility] [address] [place] [address] Rob العراقي MD Nocturnal hypoxia [...] 0.5 tablets (12.5 mg total) by mouth joy operator helper before breakfast 04/01/20 24 Active buPROPion SR [...] 2024 Assessment & Plan (07/04/2023 4:13 PM COMMUNICATION CENTER COORDINATOR): The patient continues to decrease the number [...] years. Assessment & Plan (08/31/2020 4:28 PM COMMUNICATION CENTER COORDINATOR): Patient was encouraged to decrease and stop her smoking. The patient verbalized understanding. The patient states that she is trying to decrease her smoking however in times of stress she does smoke more. I have ordered a low-dose screening CT to evaluate the patient for any pulmonary nodules. Simple chronic bronchitis 08/31/2020 Assessment & Plan (08/31/2020 4:28 PM COMMUNICATION CENTER COORDINATOR): The patient would like the Advair change. [...] sleeping. Assessment & Plan (07/04/2023 4:13 PM COMMUNICATION CENTER COORDINATOR): The patient was encouraged to use 1 [...] daughter call back in to verify the [employer] company that the patient is getting the oxygen from. The patient is noncompliant with oxygen via the nasal cannula. I am hoping that using an oxygen mask at night may help the patient to be more compliant. Assessment & Plan (05/06/2021 1:41 PM CDT): Patient continue to use her oxygen at night while sleeping. I have asked the [employer] company to send her a mask to wear instead of nasal cannula see if the patient will be more compliant. Assessment & Plan (01/04/2021 2:18 PM CDT): The patient was encouraged to resume 1 L of oxygen at bedtime. Assessment & Plan (08/31/2020 4:29 PM COMMUNICATION CENTER COORDINATOR): The patient was encouraged to use her [...] today. Assessment & Plan (07/04/2023 4:13 PM COMMUNICATION CENTER COORDINATOR): The patient was encouraged to use 1 [...] activity. Assessment & Plan (08/31/2020 4:30 PM COMMUNICATION CENTER COORDINATOR): The patient was encouraged to wear her [...] weeks. Assessment & Plan (07/04/2023 4:14 PM COMMUNICATION CENTER COORDINATOR): The patient will continue Symbicort 2 puffs [...] 2024 Assessment & Plan (07/04/2023 4:14 PM COMMUNICATION CENTER COORDINATOR): I have ordered a CT scan to [...] 10/09/19 Assessment & Plan (07/04/2023 4:14 PM COMMUNICATION CENTER COORDINATOR): The ultrasound showed stable cyst since 2016 [...] on file Legal Sex Female 5:27 PM COMMUNICATION CENTER COORDINATOR Gender Identity Not on file Sexual Orientation [...] Read Routine (OP Routine) 07/30/2024 9:02 AM COMMUNICATION CENTER COORDINATOR Tobacco abuse Personal history of tobacco use Pulmonary nodule Panlobular emphysema (HCC) from Last 3 Months or Most Recently Relevant to Health Maintenance Results * CT Lung Cancer Screening (07/30/2024 9:02 AM COMMUNICATION CENTER COORDINATOR) Anatomical Region Laterality Modality Chest N/A Computed Tomogra phy 07/30/2024 10:0 4 AM COMMUNICATION CENTER COORDINATOR Narrative 07/30/2024 10:11 AM COMMUNICATION CENTER COORDINATOR EXAM DESCRIPTION: CT LUNG CANCER SCREENING REASON [...] Thai Resendez D.O. PS: PS Report ID: [id number] Reading Location: [place] [address] Procedure Note Thai Resendez, DO - 07/30/2024 [...] Thai Resendez D.O. PS: AMIE Report ID: [id number] Reading Location: [id number] Rob العراقي MD IMG CT PROCEDURES Final R esult from Last 3 Months or Most Recently Relevant to Health Maintenance Insurance [employer] [place] [employer] [place] Care Teams Quality Improvement Engineer Relationship Specialty [place] [id number] [place] [address] PCP - General Family Medicine 05/18/23
--- OUTSIDE RECORDS SUMMARY | 2024-11-10 19:43 | XMS_ITS | Clinical Summary ---
Author Organization [facility] Address [address] [place] [address] Care Team Providers Care Inspector Machine Cut Glass Name Role Phone Rose Marie Craven PAC Primary Care Provider Allergies Active Allergy Reactions [...] to complete this topic Insurance MEDICAID AETNA [facility] Care Teams Inspector Machine Cut Glass Relationship Specialty Start Date End Date Rose Marie Craven PAC PCP - General Physician Bus Person 09/24/20
--- OUTSIDE RECORDS SUMMARY | 2024-11-10 19:43 | XMS_ITS | Encounter Summary ---
Author Organization [facility] Address [address] [place] [address] Care Team Providers Care Carpenter Streetcar Name Role Phone Gracie Hazel MD Primary Care Provider [phone] Reason for Visit * Reason Onset Date Comments PMC Preprocedure 01/18/2024 Encounter Details Date Type Department Care Team (Late st Contact Info) Description 01/18/2024 Telephone [facility] [address] [facility] [address] [place] [address] Claudia Motley MD [address] [place] [address] PMC Preprocedure Social History Tobacco [...] on file Legal Sex Female 5:27 PM SEARCH ENGINE OPTIMIZATION STRATEGIST Gender Identity Not on file Sexual Orientation [...] on filedocumented in this encounter Care Teams Carpenter Streetcar Relationship Specialty [place] [address] [address] [place] [address] PCP - General Family Medicine 05/18/23 documented as of this encounter
--- OUTSIDE RECORDS SUMMARY | 2024-11-10 19:43 | XMS_ITS ---
Author Organization [facility] Address [address] [place] [address] Care Team Providers Care Fashion Adviser Name Role Phone Rose Marie Craven PAC Primary Care Provider [facility] Status:Enrolled (Active) Start date:08/07/2024 Enrollment date:08/07/2024 Related social drivers of health:Intimate Partner Violence, Social Connections, Alcohol Use, Tobacco Use, Financial Resource Strain,Depression, Stress, Physical Activity, Food Insecurity, Transportation Needs, Housing Stability, Utilities Continued Care and Services Coordination
[2024-11-10] MEDS: ALBUTEROL SULFATE NEB 2.5 MG/3 ML INH 5 MG INHALATION (19:48)
[2024-11-10 19:54] LABS: Basophils Percent Auto 0.5 % (0.2-1.2); Hematocrit 49.5 % (37.0-47.0); Hemoglobin 15.1 g/dL (12.0-15.0); Immature Granulocyte Absolute 0.02 K/mm3 (0.00-0.031); Immature Granulocyte Percent A 0.2 % (0-0.5); Lymphocytes Absolute Auto 1.78 K/mm3 (0.9-3.2); Mean Corpuscular HGB Conc 30.5 g/dl (32-36); Mean Corpuscular Hemoglobin 28.9 pg (26-34); Mean Corpuscular Volume 94.6 fl (80-100); Mean Platelet Volume 9.1 fl (7.4-10.4); Monocytes Absolute Auto 1.2 K/mm3 (0.1-0.6); Neutrophils Absolute Auto 5.9 K/mm3 (1.3-6.7); Neutrophils Percent Auto 66.3 % (45.5-73.1); Platelet Count Result 233 k/mm3 (150-375); Red Blood Count 5.23 M/mm3 (4.2-5.4); White Blood Count 8.9 K/mm3 (4.5-10.0)
[2024-11-10 20:03] LABS: Alveolar/Arterial O2 Gradient 179.3 mmHg; Base Excess ABG 5.5 mEq/l (+/-2.0); Fractional Inspired Oxygen 45 %; HCO3 ABG 31.6 mEq/l (22.0-26.0); Methemoglobin ABG 0.4 %THb (0-1.5); Oxygen Content ABG 20.1 %vol (16.0-22.0); Oxygen Saturation ABG 96.3 % (95.0-100.0); Oxyhemoglobin 90.2 % THb (90.0-100.0); PCO2 ABG 50.7 mmHg (35.0-45.0); PO2 ABG 83.9 mmHg (80.0-100.0); PO2 FiO2 Ratio Arterial Blood 1.86 %; Reduced Hemoglobin 3.4 %THb (0-5.0); Total Hemoglobin 15.8 g/dL (12.0-18.0); pH ABG 7.412 (7.350-7.450)
[2024-11-10 20:05] LABS: Device NON-INVASIVE VENT; Modified Allen's Test Pass; Site Drawn RIGHT RADIAL
[2024-11-10 20:06] LABS: Non-Invasive Expiratory Pressure 6 CMH2O; Non-Invasive Inspiratory Pressure 12 CMH2O; Non-Invasive Vent Rate 4 /MIN
[2024-11-10 20:13] LABS: Alanine Aminotransferase 13 U/L (6-35); Albumin Level 3.9 g/dL (3.5-5.1); Alkaline Phosphatase 84 U/L (38-126); Anion Gap 3 mmol/L (4-12); Aspartate Amino Transferase 18 U/L (14-36); Bilirubin,Total 0.8 mg/dL (0.2-1.3); Blood Urea Nitrogen 15 mg/dL (7-17); Calcium 8.4 mg/dL (8.4-10.2); Carbon Dioxide 36 mmol/L (22-30); Chloride 96 mmol/L (98-107); Estimated CRCL calculation 39 ml/min; Estimated Glomerular Filt Rate 52; Glucose 85 mg/dL (65-110); Sodium 135 mmol/L (137-145)
[2024-11-10 20:28] LABS: Troponin I 0.061 ng/mL (0.000-0.034)
[2024-11-10 20:30] LABS: Influenza A QL RT-PCR Negative (Negative); Influenza B QL RT-PCR Negative (Negative); RSV RNA, RT-PCR Negative (Negative); SARS-CoV-2 RNA PCR Negative (Negative)
--- NOTE | 2024-11-10 20:32 | ECG_ITS ---
Test Date: 2024-11-10 20:51:10 Measurements Intervals Patterson Rate: 91 P: 65 NC: 201 QRS: 157 QRSD: 90 T: 72 QT: 328 QTc: 405 Interpretive Statements SINUS RHYTHM POSSIBLE RIGHT VENTRICULAR CONDUCTION DELAY [RSR (QR) IN V1/V2] LEFT POSTERIOR FASCICULAR BLOCK [QRS AXIS > 109, INFERIOR Q] MODERATE ST DEPRESSION [0.05+ mV ST DEPRESSION] Compared to ECG 11/10/2024 19:35:35 Left posterior fascicular block now present ST (T wave) deviation now present Electronically Signed On 11-11-2024 06:53:55 CDT by Ba Silva M.D.
--- NOTE | 2024-11-10 21:15 | PC.NURSE ---
patient home meds updated in chart
--- NOTE | 2024-11-10 21:58 | P.HP_ITS ---
H&P: HPI History of Present Illness Date/Time: 11/10/24 21:58 Chief Complaint: Somnolence Narrative: This 59-year-old female patient with past medical history significant of COPD on 3-4 L baseline supplemental oxygen at home, continuing to smoke at a 44+ pack-year history, hyperlipidemia, anxiety, depression, coronary artery disease status post CT, hypertension and dementia comes to the emergency room with increased somnolence. For the past 3 days patient states she has had increasing dyspnea with exertion, she also notes that she has had increased weakness. Family who is at the bedside states patient has been having increased confusion, increased unsteadiness on her feet and at times has been unable to hold anything due to her degree of weakness. She has had no recent medication changes, she d enies any current pain, she has not had any recent sleep study and she only takes baby aspirin daily for anticoagulation. She is followed by loan coordinator Dr. Rob العراقي in [place], claims counsel Dr. Lincoln Moran in [place] and her Neurologist is Shaw Phillips in [place]. Patient does not have any current medical providers at facility. In addition to patient's 44+ year pack history she socially smokes marijuana daily and normally drinks at least 1 beer nightly the reports she has not had any for 3 weeks. Patient denies any current chest pain, nausea, vomiting, diarrhea. Patient's daughter Luzmaria is her POA is at the bedside. Upon arrival to the emergency room patient was noted to be somnolent, oxygen saturations 55% on room air. Patient initially placed on 5 L supplemental oxygen per nasal cannula and quickly upgraded to BiPAP with settings of 12/6 with 40% FiO2 and is maintaining her oxygen saturations in the high 90s to 100%. Patient had improvement in her overall mental status with addition of BiPAP and started to wake up and become more active. She has continued mild SOB. Significant labs include normal CBC, normal metabolic panel, elevated troponin at 0.061, however when looking back historically patient's troponin has been elevated and appears to be at baseline. Her ABG after application of BiPAP with pH of 7.412, pCO2 of 50.7, PO2 of 83.9 a bicarb of 31.6. EKG shows sinus rhythm with 91 beats per minute any new left posterior fascicular block. Chest x-ray was performed that does not show any acute cardiopulmonary abnormalities. Despite patient's renal function being in normal range she does have a slight increase in her creatinine to 1.07 were baseline 0.6-0.7. Review of Systems Review of Systems: All systems reviewed & are unremarkable except as noted in HPI and below [facility] Past Medical History Medical History (Updated 11/10/24 @ 22:27 by FERCHO Lucas) Substance abuse Nicotine abuse Dementia Acute electrocardiogram changes Hypoxic respiratory failure Tobacco use Hyperlipemia Anxiety Depression Ankle fracture, left UTI (urinary tract infection) Pneumonia Bronchitis COPD (chronic obstructive pulmonary disease) Myocardial infarction HTN (hypertension) CAD (coronary artery disease) Possible CT around 2019 when hospitalized for pneumonia. Administrative Associate is Rajan Quinn Heart Surgical History Surgical History H/O: hysterectomy Family History Family History Mother Heart disease Renal disease Diabetes mellitus CHF (congestive heart failure) Father Heart disease Sibling Heart disease Social History Social History Social History: Patient currently lives with her boyfriend. Her daughter Luzmaria is her surrogate. She denies having any pets at home, and had a total of three kids, one girl and 2 boys. She wishes to be a full code at this time Smoking packs per day: 0.5 Smoking cigarettes per day: 10.0 Years smoked: 44 Smoking pack-years: 22.00 Smoking status: Current every day smoker Tobacco type: cigarettes Alcohol intake: current Drinks per week: 1 Substance use: current Substance use type: marijuana Other substance usage details: About a $20 bag Last use: 10/21/23 Do You Feel Safe in your Home?: Yes Lack of Transportation: No Lack of Food: Never True Current Housing: I Have Housing Concerned About Future Housing: No Difficulty Paying Gas/Electric Bills: No Difficulty Paying for Meds: No Currently Unemployed: No Education: High School Diploma/GED Difficulty w/ Childcare or Family Care: No Living arrangements: other Additional living arrangements comments: Lives with boyfriend Occupation/Education: other 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 Gender identity (if verbalized by the patient): Female Sexual Orientation (if Verbalized by the Patient): Straight or Heterosexual Spiritual care concerns: No Agree to blood products: Yes Meds Home Medications and Allergies Home Medications ?Medication ?Instructions ?Recorded ?Confirmed ?Type atorvastatin 80 mg tablet 80 mg PO HS 10/11/20 11/10/24 History buspirone 10 mg tablet 15 mg PO TID 10/11/20 11/10/24 History donepezil 5 mg tablet 5 mg PO DAILY 10/11/20 11/10/24 History gabapentin 600 mg tablet 300 mg PO TID 10/11/20 11/10/24 History aspirin 81 mg chewable tablet 81 mg PO DAILY 01/26/22 11/10/24 History cyanocobalamin (vitamin B-12) 1,000 mcg PO DAILY 01/26/22 11/10/24 History 1,000 mcg tablet (Vitamin B-12) memantine 10 mg tablet 10 mg PO DAILY 01/26/22 11/10/24 History nitroglycerin 0.4 mg sublingual 0.4 mg sublingual Q5M PRN Chest 01/26/22 11/10/24 History tablet Pain omeprazole 40 mg capsule,delayed 40 mg PO DAILY 01/26/22 10/23/23 History release levalbuterol HCl 1.25 mg/0.5 mL 1.25 mg (0.5 mL) inhalation Q6HRT 01/28/22 11/10/24 Rx solution for nebulization PRN shortness of breath #1 inh trazodone 50 mg tablet 50 mg PO HS 10/23/23 11/10/24 History albuterol sulfate 90 mcg/actuation 2 puff inhalation PRN shortness of 11/10/24 History aerosol inhaler breath or wheezing amlodipine 5 mg tablet 5 mg PO DAILY 11/10/24 11/10/24 History budesonide-formoterol HFA 160 2 puff inhalation 11/10/24 History mcg-4.5 mcg/actuation aerosol inhaler (Symbicort) bupropion HCl (smoking deter) 150 150 mg PO BID 11/10/24 11/10/24 History mg tablet,12 hr sustained-release(smoking deterrent) folic acid 1 mg tablet 1 mg PO DAILY 11/10/24 11/10/24 History hydrochlorothiazide 12.5 mg tablet 12.5 mg PO DAILY 11/10/24 11/10/24 History pantoprazole 40 mg tablet,delayed 40 mg PO DAILY 11/10/24 11/10/24 History release valacyclovir 1 gram tablet 1,000 mg PO TID 11/10/24 11/10/24 History Allergies Allergy/AdvReac Type Severity Reaction Status Date / Time ibuprofen Allergy Mild Ulcers Verified 11/10/24 19:22 codeine AdvReac Unknown N/V Verified 11/10/24 19:22 Vital Signs Vital Signs - 24 hr 11/10/24 19:11 11/10/24 19:15 11/10/24 19:16 Temperature 98.3 F Pulse Rate 60 95 96 Respiratory Rate 14 16 14 Blood Pressure 105/74 105/74 111/75 Pulse Oximetry 88 L 91 92 Oxygen Delivery Nasal Cannula Oxygen Flow Rate 5.5 11/10/24 19:19 11/10/24 19:19 11/10/24 19:19 Temperature Pulse Rate 96 97 Respiratory Rate 13 Blood Pressure 111/75 Pulse Oximetry 91 92 Oxygen Delivery Nasal Cannula Oxygen Flow Rate 4 5 11/10/24 19:19 11/10/24 19:31 11/10/24 19:39 Temperature Pulse Rate 92 93 85 Respiratory Rate 22 H 18 456 H Blood Pressure 111/75 110/74 Pulse Oximetry 91 88 L 99 Oxygen Delivery BiPAP Oxygen Flow Rate 11/10/24 19:49 11/10/24 20:53 Temperature Pulse Rate 87 Respiratory Rate 17 Blood Pressure Pulse Oximetry 100 Oxygen Delivery BiPAP Oxygen Flow Rate Exam Const: General: comfortable Other: Elderly female patient appearing older than stated age lying supine at this time on stretcher on BiPAP. She is alert, oriented and answering questions appropriately. HENMT: Face/Nose/Sinus: Normal nares present Mouth: Yes dry mucous membranes Eyes: General: appearance normal, both eyes and all related structures Neck: Neck: supple and no JVD Lymphatic: lymphadenopathy not noted Chest: Other: Nontender to palpation Resp: Effort & Inspection: normal respiratory effort Auscultation: wheezes (Prolonged expiratory phase) expiratory wheezes Cardio: Rate: regular rate Rhythm: regular rhythm Heart sounds: no gal lops, no murmurs and no rubs GI: GI Palp: Yes Soft to palpation and No Tenderness to palpation present (GI) Auscultation: normal bowel sounds Skin: General skin exam: normal color, no rashes or lesions noted and no erythema Lesions: no lesions noted Rashes: no rashes noted Wounds: no wounds Other: Skin is dry and flaky. Neuro: Speech: normal speech Motor exam (neuro): Abnormal motor strength present (Generalized, nonfocal weakness) Sensory Exam: normal sensation Other: Tremor present at rest that worsens with intentional movement. Extrem: General: normal to inspection, no edema and no pedal edema Psych: Mental Status: mental status grossly normal Affect: normal affect H&P: Results Labs Labs: Short CBC 11/10/24 Range/Units 19:29 WBC 8.9 (4.5-10.0) K/mm3 Hgb 15.1 H (12.0-15.0) g/dL Hct 49.5 H (37.0-47.0) % Plt Count 233 (150-375) k/mm3 BMP 11/10/24 19:29 Sodium 135 L Potassium 4.0 Chloride 96 L Carbon Dioxide 36 H BUN 15 Creatinine 1.07 H Glucose 85 Calcium 8.4 Cardiac Enzymes 11/10/24 Range/Units 19:29 Troponin I 0.061 H* (0.000-0.034) ng/mL Liver Function 11/10/24 Range/Units 19:29 Total Bilirubin 0.8 (0.2-1.3) mg/dL AST 18 (14-36) U/L ALT 13 (6-35) U/L Alkaline Phosphatase 84 (38-126) U/L Albumin 3.9 (3.5-5.1) g/dL Assessment and Plan Assessment and plan (1) COPD exacerbation: Code(s): J44.1 - Chronic obstructive pulmonary disease with (acute) exacerbation Status: Acute Assessment and Plan: * Acute on Chronic * Requiring BiPap with settings 12/6 w/40% FiO2 and sats maintaining in upper 90s-100%. * Supportive care with nebs ordered. * Consult Pulmonology for COPD exacerbation with Hypoxic respiratory failure * Obtain CTA PE Protocol * Start Levaquin daily. * Continue Solumedrol 60 mg Q6 hrs IVP * Continue Telemetry * Blood cultures pending. (2) Hypoxic respiratory failure: Code(s): J96.91 - Respiratory failure, unspecified with hypoxia Status: Acute Assessment and Plan: * See plan for #1. * ABG in AM. * Obtain ECHO w/Bubble study * Continue Telemetry (3) Acute electrocardiogram changes: Code(s): R94.31 - Abnormal electrocardiogram [ECG] [EKG] Status: Acute Assessment and Plan: * New interval development of Posterior Fascicular block * Consult Cardiology * ECHO ordered. * Trend trops and EKGs. * Telemetry (4) Elevated troponin: Code(s): R77.8 - Other specified abnormalities of plasma proteins Status: Chronic Assessment and Plan: * Elevated, but remains at baseline. * Telemetry (5) HTN (hypertension): Code(s): I10 - Essential (primary) hypertension Status: Chronic Assessment and Plan: * Continue home medications once confirmed. * Monitor and trend VS * PRN Hydralazine ordered for SBP>180 and DBP>90. (6) Anxiety and depression: Code(s): F41.9 - Anxiety disorder, unspecified; F32.A - Depression, unspecified Status: Chronic Assessment and Plan: * Continue home meds once confirmed (7) Hyperlipemia: Code(s): E78.5 - Hyperlipidemia, unspecified Status: Chronic Assessment and Plan: * Continue home meds once confirmed. (8) Dementia: Code(s): F03.90 - Unspecified dementia, unspecified severity, without behavioral disturbance, psychotic disturbance, mood disturbance, and anxiety Status: Chronic Assessment and Plan: * Continue home meds (9) Nicotine abuse: Code(s): Z72.0 - Tobacco use Status: Chronic Assessment and Plan: * Pt counseled for smoking cessation. * Nicotine patch ordered. * Continue Welbutrin. (10) Substance abuse: Code(s): F19.10 - Other psychoactive substance abuse, uncomplicated Status: Chronic Assessment and Plan: * In addition to nicotine, pt uses daily marijuana and also routinely drinks, although she reports she hasn't had any in three weeks. * Monitor closely and initiate CIWA if needed. Quality VTE Prophylaxis VTE prophylaxis: pharmacologic ordered Hospitalist MIPS Advance Care Plan I have confirmed that the patient's Advanced Care Plan is present, code status is documented, or surrogate decision maker is listed in patient medical record.: Yes Medication Reconciliation I have utilized all available resources to obtain, update and review the patients current medications (includes all prescriptions, OTC, herbals, cannabis, and nutritional supplements).: Yes
[2024-11-10] MEDS: AZITHROMYCIN 500 MG/NS 250 ML 500 MG/250 ML BAG 250 MG IVPB (22:45)
--- NOTE | 2024-11-10 22:58 | ADMGEN ---
This patient, Velia Pascual, was admitted to IMU Room 211-01. Patient/family oriented to hospital policies and general routines including ID bracelet, bed and alarms, visiting hours, pain management, procedures, bathroom and other care routines, personal items, smoking policy, room service/diet, and visiting hours. Information on how to activate the Rapid Response Team has been discussed. Patient/Family are encouraged to report perceived risks to care and to ask questions if they do not understand what they are told or what they should do.
[2024-11-10 23:00] LABS: Troponin I 0.057 ng/mL (0.000-0.034)
[2024-11-11] VITALS (28 sets, daily range): BP systolic 103–119; BP diastolic 44–76; PULSE 81–104; RESP 12–22; TEMP 36.5–36.8; O2SAT 90–100
--- NOTE | 2024-11-11 | ECHO_ITS ---
Patient Info Name: Velia Pascual Age: 59 years : 1965 Gender: Female Ht: 62 in Wt: 140 lbs BSA: 1.68 m2 HR: 94 bpm BP: 109 / 71 mmHg Heart Rhythm: Sinus Rhythm Technical Quality: Good Exam Date: 11/11/2024 2:07 PM Exam Location: Echo Lab Patient Status: Inpatient Admit Date: 11/11/2024 Staff Ordering Physician: Maryan Chung Brake Operator Helper: Dorcas Haas RDCS Attending Provider: Boby Bravo MD Referring Physician: Juliet HOFFMAN; Exam Type: CA echo doppler w bubble study Study Info Indications - Hypoxic resp failure Complete two-dimensional, color flow and Doppler transthoracic echocardiogram is performed with agitated saline. Contrast/Agitated Saline Contrast/Ag. Saline: Agitated Saline Amount: 12.00 ml Existing IV Access: Yes IV Access Condition: patent with no signs of infiltration Summary 1. Normal left ventricular size, systolic function with grade 1 diastolic noncompliance. 2. Mild aortic sclerosis with no functional impairment. 3. Mild MR. 4. Mild right ventricular and right atrial enlargement with RV systolic dysfunction. 5. Agitated saline contrast injection at rest and with Valsalva is mildly positive suggesting PFO. Left Ventricle Left ventricular chamber dimension is normal. Left ventricular systolic function is normal, estimated at 60-65%. The left ventricular diastolic function is grade I diastolic dysfunction. Right Ventricle Right ventricular chamber dimension is mildly enlarged. Right ventricular systolic function is reduced. Left Atria Left atrial chamber dimension is normal. Right Atria Right atrial chamber dimension is mildly enlarged. Atrial Septum Intact interatrial septum visualized by agitated saline imaging. Aortic Valve The aortic valve is trileaflet. There is no aortic valve stenosis. Pulmonic Valve The pulmonic valve is not well visualized. Mitral Valve The mitral valve has normal leaflets. There is mild mitral valve regurgitation. Tricuspid Valve The tricuspid valve leaflets are normal. Pericardium/Pleural The pericardium appears normal. Aorta The aortic root size at the sinus of Valsalva is normal. Left Ventricular Outflow Tract Name Value Normal LVOT 2D LVOT Diameter 1.9 cm LVOT Doppler LVOT Peak Gradient 3 mmHg LVOT Mean Gradient 2 mmHg LVOT VTI 20 cm LVOT VTI/AV VTI Ratio 0.9 LVOT Stroke Volume 54 ml LVOT CO 10.5 l/min LVOT CI 6.2 l/min/m2 Pulmonic Valve Name Value Normal PV Doppler PV Peak Gradient 2 mmHg Mitral Valve Name Value Normal MV Doppler MV Decel [place] 693 cm/s2 MV PHT 33 ms MV Area (PHT) 6.6 cm2 4.0-5.0 MV Diastolic Function MV E Peak Velocity 80 cm/s MV A Peak Velocity 97 cm/s MV E/A 0.8 MV Decel Time 115 ms MV Annular TDI MV E/e' (Septal) 10.3 <=8.0 MV E/e' (Lateral) 7.2 <=8.0 MV E/e' (Average) 8.8 Aorta Name Value Normal Ascending Aorta Ao Root Diameter (MM) 3.0 cm Ao Root Diam Index (MM) 1.8 cm/m2 Aortic Valve Name Value Normal AV Doppler AV Peak Velocity 119 cm/s AV Peak Gradient 6 mmHg AV Mean Gradient 4 mmHg AV VTI 23 cm AV Area (Cont Eq VTI) 2.3 cm2 >=3.0 AV Area (Cont Eq [place]) 2.0 cm2 AV Regurgitation 2D LVOT Area 2.7 cm2 Ventricles Name Value Normal LV Dimensions 2D/MM IVS Diastolic Thickness (2D) 1.0 cm 0.6-1.0 LVID Diastole (2D) 4.2 cm 3.8-5.2 LVIW Diastolic Thickness (2D) 0.8 cm 0.6-0.9 LVID Systole (2D) 2.9 cm 2.2-3.5 LVOT Diameter 1.9 cm LV Mass (2D Cubed) 112.82 g 67.00-162.00 LV Mass Index (2D Cubed) 67 g/m2 43-95 Relative Wall Thickness (2D) 0.36 LV Fractional Shortening/Ejection Fraction 2D/MM LV Fractional Shortening (2D) 31 % 27-45 LV EF (2D Teicholz) 60 % 54-74 LV Diastolic Volume (4C MOD) 61 ml LV EF (4C MOD) 59 % LV Diastolic Volume (2C MOD) 81 ml LV EF (2C MOD) 72 % LV Diastolic Volume (BP MOD) 72 ml 46-106 LV Diastolic Volume Index (BP MOD) 43 ml/m2 29-61 LV Systolic Volume (BP MOD) 24 ml 14-42 LV Systolic Volume Index (BP MOD) 14 ml/m2 8-24 LV EF (BP MOD) 67 % 54-74 LV Diastolic Length (4C) 7.6 cm LV Systolic Length (4C) 6.1 cm LV Stroke Volume (4C MOD) 36 ml RV Dimensions 2D/MM RVID Diastole (2D) 4.0 cm 2.5-3.5 Atria Name Value Normal LA Dimensions LA Dimension (MM) 3.1 cm 2.7-3.8 LA Volume (4C A-L) 32 ml LA Volume (BP A-L) 35 ml RA Dimensions RA Area (4C) 16.1 cm2 <=18.0 Report Signatures
[2024-11-11 01:30] LABS: Glucose Point of Care 201 mg/dl (65-105)
[2024-11-11 01:41] LABS: Basophils Percent Auto 0.1 % (0.2-1.2); Hematocrit 52.1 % (37.0-47.0); Immature Granulocyte Absolute 0.03 K/mm3 (0.00-0.031); Immature Granulocyte Percent A 0.4 % (0-0.5); Lymphocytes Absolute Auto 0.37 K/mm3 (0.9-3.2); Lymphocytes Percent Auto 4.6 % (18.3-44.2); Mean Corpuscular HGB Conc 30.7 g/dl (32-36); Mean Corpuscular Hemoglobin 28.8 pg (26-34); Mean Corpuscular Volume 93.9 fl (80-100); Mean Platelet Volume 9.3 fl (7.4-10.4); Monocytes Absolute Auto 0.1 K/mm3 (0.1-0.6); Monocytes Percent Auto 0.7 % (2.6-8.5); Neutrophils Absolute Auto 7.6 K/mm3 (1.3-6.7); Neutrophils Percent Auto 94.2 % (45.5-73.1); Platelet Count Result 244 k/mm3 (150-375); Red Blood Count 5.55 M/mm3 (4.2-5.4); Red Cell Distribution Width 14.9 % (11.5-14.5)
[2024-11-11 01:43] LABS: Base Excess ABG 4.6 mEq/l (+/-2.0); Fractional Inspired Oxygen 40 %; HCO3 ABG 32.3 mEq/l (22.0-26.0); Oxygen Content ABG 20.8 %vol (16.0-22.0); Oxygen Saturation ABG 94.5 % (95.0-100.0); Oxyhemoglobin 91.1 % THb (90.0-100.0); PCO2 ABG 59.5 mmHg (35.0-45.0); PO2 ABG 76.8 mmHg (80.0-100.0); PO2 FiO2 Ratio Arterial Blood 1.92 %; Total Hemoglobin 16.2 g/dL (12.0-18.0); pH ABG 7.352 (7.350-7.450)
--- NOTE | 2024-11-11 01:47 | PM.EVENT ---
Event Note Event Note Event Note: Rapid response was called at about 01:20. Nurse states the patient's BiPAP was alarming and when she went to the room the patient's respiratory rate was 4 which was in fact the backup rate. Nurse was unable to wake the patient with sternal rub. No concerning findings were noted on telemetry according to the nurse. Vital signs at that time include a pulse of 85, respiratory rate 4, blood pressure 115/69, SpO2 92%. Accu-Chek was 200. She did eventually moderate few words in open her eyes briefly but fall right back asleep. Pupils were nearly pinpoint. Lung sounds were coarse with occasional expiratory wheezing. Backup rate on the BiPAP was increased 18 and she seemed to wake up a bit more with that. She was given Narcan 0.4 mg as her pupils were pinpoint in the off chance that she may have taken narcotics (patient denies). Within several minutes she was much more awake and answering questions. Stat brain CT did not show any acute findings. ABG showed a pH of 7.352, pCO2 59.5, PO2 76.8, HC03 32.3. BiPAP settings to remain at 12/6 though her rate was increased as above. Neurologic checks q.4 hours for now. Hydrocodone held. Critical Care Time Critical Care Time: Yes Total Critical Care Time: 30 Attestation: Due to a high probability of clinically significant, life threatening deterioration, the patient required my highest level of preparedness to intervene emergently and I personally spent this critical care time directly and personally managing the patient. This critical care time included obtaining a history; examining the patient; pulse oximetry; ordering and review of studies; arranging urgent treatment with development of a management plan; evaluation of patient's response to treatment; frequent reassessment; and discussions with other providers. It was exclusive of separately billable procedures and treating other patients and teaching time. Please see Assessment and Plan section and the rest of the note for further information on patient assessment and treatment.
[2024-11-11 01:49] LABS: Device BIPAP; Modified Allen's Test Pass; Site Drawn RIGHT RADIAL
[2024-11-11 01:50] LABS: Expiratory Pressure 6 cmH2O; Inspiratory Pressure 12 cmH2O
[2024-11-11 01:53] LABS: Alanine Aminotransferase 17 U/L (6-35); Albumin Level 4.3 g/dL (3.5-5.1); Alkaline Phosphatase 88 U/L (38-126); Anion Gap 7 mmol/L (4-12); Aspartate Amino Transferase 17 U/L (14-36); Bilirubin,Total 0.5 mg/dL (0.2-1.3); Blood Urea Nitrogen 13 mg/dL (7-17); Calcium 8.6 mg/dL (8.4-10.2); Carbon Dioxide 34 mmol/L (22-30); Chloride 96 mmol/L (98-107); Estimated CRCL calculation 45 ml/min; Estimated Glomerular Filt Rate > 60; Glucose 196 mg/dL (65-110); Magnesium 2.1 mg/dL (1.6-2.3); Potassium 3.8 mmol/L (3.4-5.0); Sodium 137 mmol/L (137-145)
[2024-11-11] MEDS: NALOXONE HCL 0.4 MG/ML VIAL IV PUSH (01:56)
[2024-11-11] MEDS: IPRATROPIUM 0.5 MG/ALBUTEROL SULFATE 2.5 MG AMPUL.NEB 3 ML INHALATION ×3 (02:05→13:42)
[2024-11-11 02:13] LABS: Troponin I 0.054 ng/mL (0.000-0.034)
[2024-11-11] MEDS: methylPREDNISolone SOD SUCC 125 MG VIAL 60 MG IV PUSH ×3 (02:47→13:24)
--- NOTE | 2024-11-11 02:57 | PC.NURSE ---
0120 this nurse entered room due to bipap alarming. Bipap read 4 for respiratory rate. back up rate was 4. Could not wake patient with sternal rub and calling her name. Rapid response called. 115/69, 85, 92%. fsbs >200. H. Gerling increased back up rate on bipap. Patient began to wake up some. pinpoint pupils. Patient given narcan, within 5 minutes was answering questions. ABG's done. CTA of chest and CT of brain done. Moved patient closer to nurses desk to room 206 bed 2.
--- NOTE | 2024-11-11 03:15 | PC.NURSE ---
Daughter and POA Luzmaria Pascual called for consent for the CTA of chest and notified of the rapid response immediately following it.
[2024-11-11 04:26] LABS: Hematocrit 49.9 % (37.0-47.0); Hemoglobin 15.1 g/dL (12.0-15.0); Immature Granulocyte Absolute 0.03 K/mm3 (0.00-0.031); Immature Granulocyte Percent A 0.4 % (0-0.5); Lymphocytes Absolute Auto 0.34 K/mm3 (0.9-3.2); Lymphocytes Percent Auto 4.9 % (18.3-44.2); Mean Corpuscular HGB Conc 30.3 g/dl (32-36); Mean Corpuscular Hemoglobin 28.4 pg (26-34); Mean Corpuscular Volume 93.8 fl (80-100); Mean Platelet Volume 9.2 fl (7.4-10.4); Monocytes Percent Auto 0.4 % (2.6-8.5); Neutrophils Absolute Auto 6.5 K/mm3 (1.3-6.7); Neutrophils Percent Auto 94.3 % (45.5-73.1); Nucleated Red Blood Cells Perc 0.3 % (0.0-0.2); Platelet Count Result 229 k/mm3 (150-375); Red Blood Count 5.32 M/mm3 (4.2-5.4); Red Cell Distribution Width 14.8 % (11.5-14.5); White Blood Count 6.9 K/mm3 (4.5-10.0)
[2024-11-11 04:40] LABS: Alanine Aminotransferase 14 U/L (6-35); Alkaline Phosphatase 86 U/L (38-126); Anion Gap 5 mmol/L (4-12); Aspartate Amino Transferase 14 U/L (14-36); Bilirubin,Total 0.5 mg/dL (0.2-1.3); Blood Urea Nitrogen 12 mg/dL (7-17); Calcium 8.4 mg/dL (8.4-10.2); Carbon Dioxide 35 mmol/L (22-30); Chloride 96 mmol/L (98-107); Estimated CRCL calculation 50 ml/min; Estimated Glomerular Filt Rate > 60; Glucose 139 mg/dL (65-110); Magnesium 2.1 mg/dL (1.6-2.3); Sodium 136 mmol/L (137-145)
[2024-11-11 05:10] LABS: Thyroid Stimulating Hormone Reflex 0.326 uIU/mL (0.465-4.68)
[2024-11-11 05:59] LABS: Free T4 Free Thyroxine Reflex 1.18 ng/dL (0.78-2.19)
[2024-11-11 06:56] LABS: Partial Thromboplastin Time 24.6 Seconds (22.3-36.8); Prothrombin Time 13.1 Seconds (11.1-14.7)
[2024-11-11 07:11] LABS: Total Triiodothyronine (T3) 0.87 NG/ML (0.97-1.69)
[2024-11-11] MEDS: NICOTINE (*PBKC) 21 MG PATCH 1 PATCH TRANSDERM (08:34)
[2024-11-11] MEDS: ENOXAPARIN 40 MG/0.4 ML SYRINGE SUB-Q (08:34)
[2024-11-11] MEDS: GABAPENTIN 300 MG CAPSULE PO ×3 (08:35→17:13)
[2024-11-11] MEDS: MEMANTINE 10 MG TABLET PO (08:35)
[2024-11-11] MEDS: levoFLOXacin 750 MG TABLET PO (08:35)
[2024-11-11] MEDS: busPIRone HCL 5 MG TABLET 15 MG PO ×3 (08:35→17:13)
[2024-11-11] MEDS: ASPIRIN 81 MG CHEWABLE TABLET PO (08:36)
[2024-11-11] MEDS: hydroCHLOROthiazide 12.5 MG CAPSULE PO (08:36)
[2024-11-11] MEDS: FOLIC ACID 1 MG TABLET PO (08:36)
[2024-11-11] MEDS: PANTOPRAZOLE 40 MG TABLET PO (08:36)
[2024-11-11] MEDS: buPROPion HCL SR (12 HR) 150 MG TAB PO (08:36)
[2024-11-11] MEDS: CYANOCOBALAMIN 1,000 MCG TABLET 1000 MCG PO (08:36)
[2024-11-11] MEDS: amLODIPine BESYLATE 5 MG TABLET PO (08:37)
[2024-11-11] MEDS: DONEPEZIL HCL 5 MG TABLET PO (08:42)
--- NOTE | 2024-11-11 08:45 | P.CONCA_ITS ---
Assessment and Plan Assessment and plan (1) Acute electrocardiogram changes: Code(s): R94.31 - Abnormal electrocardiogram [ECG] [EKG] Status: Acute Assessment and Plan: She has a left posterior fascicular block which is a change from prior EKG's showing RBBB. LPFB can indicate underlying coronary artery disease (which is an established diagnosis), or cardiomyopathy, among other etiologies. In the absence of any ischemic symptoms currently I would not anticipate any workup in this regard aside from an echocardiogram. She had a mild troponin elevation which was flat, not indicative of ACS, and most likely secondary to her severe hypoxia/supply demand mismatch in combination with known underlying CAD. Will await results of the echocardiogram and will make further recommendations based on those results. History of Present Illness History of Present Illness Consult date/time: 11/11/24 08:45 Requesting physician: Maryan Chung APN-C Consult reason: Other (LPFB) Reason For Visit: Hypoxia, COPD, pneumonia Narrative: Velia Pascual is a 59 year old female with coronary artery disease and COPD who presents to the hospital with somnolence and was found to be hypoxic with oxygen saturation in the 50's upon arrival. She is admitted for COPD exacerbation. Cardiology is consulted because of a finding of left posterior fascicular block on ECG. She has dementia so her recollection of her medical history is poor, but she does know she has mild coronary artery disease with no stents. 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 Her breathing has significantly improved since admission. Review of Systems 2 Review of Systems: All systems reviewed & are unremarkable except as noted in HPI and below PMFSH Past Medical History Medical History Substance abuse Nicotine abuse Dementia Acute electrocardiogram changes Hypoxic respiratory failure Tobacco use Hyperlipemia Anxiety Depression Ankle fracture, left UTI (urinary tract infection) Pneumonia Bronchitis COPD (chronic obstructive pulmonary disease) Myocardial infarction HTN (hypertension) CAD (coronary artery disease) Possible AR around 2019 when hospitalized for pneumonia. Buckle Coverer is [facility] [place] [facility] Surgical History Surgical History H/O: hysterectomy Family History Family History Mother Diabetes mellitus CHF (congestive heart failure) Renal disease Father COPD (chronic obstructive pulmonary disease) Sibling Heart disease Social History Social History Social History: Patient currently lives with her boyfriend. Her daughter Luzmaria is her surrogate. She denies having any pets at home, and had a total of three kids, one girl and 2 boys. She wishes to be a full code at this time Smoking packs per day: 0.5 Smoking cigarettes per day: 10.0 Years smoked: 44 Smoking pack-years: 22.00 Smoking status: Current every day smoker Tobacco type: cigarettes Second hand tobacco smoke exposure: Yes Alcohol intake: never Drinks per week: 1 Substance use: never Substance use type: marijuana Other substance usage details: About a $20 bag Last use: 10/21/23 Do You Feel Safe in your Home?: Yes Lack of Transportation: No Lack of Food: Never True Current Housing: I Have Housing Concerned About Future Housing: No Difficulty Paying Gas/Electric Bills: No Difficulty Paying for Meds: No Currently Unemployed: No Education: High School Diploma/GED Difficulty w/ Childcare or Family Care: No Living arrangements: other Additional living arrangements comments: Lives with boyfriend Occupation/Education: other 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 Gender identity (if verbalized by the patient): Female Sexual Orientation (if Verbalized by the Patient): Straight or Heterosexual Spiritual care concerns: No Agree to blood products: Yes Meds Home Medications and Allergies Home Medications ?Medication ?Instructions ?Recorded ?Confirmed ?Type atorvastatin 80 mg tablet 80 mg PO HS 10/11/20 11/10/24 History buspirone 10 mg tablet 15 mg PO TID 10/11/20 11/10/24 History donepezil 5 mg tablet 5 mg PO DAILY 10/11/20 11/10/24 History gabapentin 600 mg tablet 300 mg PO TID 10/11/20 11/10/24 History aspirin 81 mg chewable tablet 81 mg PO DAILY 01/26/22 11/10/24 History cyanocobalamin (vitamin B-12) 1,000 mcg PO DAILY 01/26/22 11/10/24 History 1,000 mcg tablet (Vitamin B-12) memantine 10 mg tablet 10 mg PO DAILY 01/26/22 11/10/24 History nitroglycerin 0.4 mg sublingual 0.4 mg sublingual Q5M PRN Chest 01/26/22 11/10/24 History tablet Pain omeprazole 40 mg capsule,delayed 40 mg PO DAILY 01/26/22 11/10/24 History release levalbuterol HCl 1.25 mg/0.5 mL 1.25 mg (0.5 mL) inhalation Q6HRT 01/28/22 11/10/24 Rx solution for nebulization PRN shortness of breath #1 inh trazodone 50 mg tablet 50 mg PO HS 10/23/23 11/10/24 History albuterol sulfate 90 mcg/actuation 2 puff inhalation BID PRN 11/10/24 11/10/24 History aerosol inhaler shortness of breath or wheezing amlodipine 5 mg tablet 5 mg PO DAILY 11/10/24 11/10/24 History budesonide-formoterol HFA 160 2 puff inhalation BID 11/10/24 11/10/24 History mcg-4.5 mcg/actuation aerosol inhaler (Symbicort) bupropion HCl (smoking deter) 150 150 mg PO BID 11/10/24 11/10/24 History mg tablet,12 hr sustained-release(smoking deterrent) folic acid 1 mg tablet 1 mg PO DAILY 11/10/24 11/10/24 History hydrochlorothiazide 12.5 mg tablet 12.5 mg PO DAILY 11/10/24 11/10/24 History pantoprazole 40 mg tablet,delayed 40 mg PO DAILY 11/10/24 11/10/24 History release valacyclovir 1 gram tablet 1,000 mg PO TID 11/10/24 11/10/24 History Allergies Allergy/AdvReac Type Severity Reaction Status Date / Time ibuprofen Allergy Mild Ulcers Verified 11/10/24 19:22 codeine AdvReac Unknown N/V Verified 11/10/24 19:22 Vital Signs Vital Signs - 24 hr 11/10/24 19:11 11/10/24 19:15 11/10/24 19:16 Temperature 36.8 C Pulse Rate 60 95 96 Respiratory Rate 14 16 14 Blood Pressure 105/74 105/74 111/75 Pulse Oximetry 88 L 91 92 Oxygen Delivery Nasal Cannula Oxygen Flow Rate 5.5 Fraction of Inspired Oxygen 11/10/24 19:19 11/10/24 19:19 11/10/24 19:19 Temperature Pulse Rate 96 97 Respiratory Rate 13 Blood Pressure 111/75 Pulse Oximetry 91 92 Oxygen Delivery Nasal Cannula Oxygen Flow Rate 4 5 Fraction of Inspired Oxygen 11/10/24 19:19 11/10/24 19:31 11/10/24 19:39 Temperature Pulse Rate 92 93 85 Respiratory Rate 22 H 18 14 Blood Pressure 111/75 110/74 Pulse Oximetry 91 88 L 99 Oxygen Delivery BiPAP Oxygen Flow Rate Fraction of Inspired Oxygen 11/10/24 19:49 11/10/24 20:53 11/10/24 22:20 Temperature Pulse Rate 87 87 Respiratory Rate 17 23 H Blood Pressure Pulse Oximetry 100 98 Oxygen Delivery BiPAP BiPAP Oxygen Flow Rate Fraction of Inspired Oxygen 11/10/24 23:21 11/10/24 23:31 11/11/24 00:00 Temperature 36.8 C Pulse Rate 87 95 89 Respiratory Rate 23 H 18 Blood Pressure 110/77 Pulse Oximetry 98 96 Oxygen Delivery BiPAP Oxygen Flow Rate Fraction of Inspired Oxygen 40 11/11/24 01:30 11/11/24 01:52 11/11/24 02:00 Temperature Pulse Rate 87 86 Respiratory Rate 12 15 Blood Pressure 115/69 Pulse Oximetry 91 95 Oxygen Delivery BiPAP BiPAP Oxygen Flow Rate Fraction of Inspired Oxygen 11/11/24 02:06 11/11/24 03:31 11/11/24 04:00 Temperature 36.8 C Pulse Rate 88 89 86 Respiratory Rate 20 18 Blood Pressure 109/71 Pulse Oximetry 95 96 Oxygen Delivery BiPAP Oxygen Flow Rate Fraction of Inspired Oxygen 40 11/11/24 04:00 11/11/24 06:09 11/11/24 08:12 Temperature Pulse Rate 91 98 Respiratory Rate Blood Pressure Pulse Oximetry 90 Oxygen Delivery Nasal Cannula Oxygen Flow Rate 5 Fraction of Inspired Oxygen 11/11/24 08:12 11/11/24 08:29 Temperature Pulse Rate 93 96 Respiratory Rate 16 16 Blood Pressure Pulse Oximetry Oxygen Delivery Oxygen Flow Rate Fraction of Inspired Oxygen Exam 2 Const: General: comfortable, no acute distress, alert and awake O rientation/consciousness: patient oriented x3 HENMT: Head: normal to inspection Eyes: General: appearance normal, both eyes and all related structures P upils: Equal, round and reactive pupils present Neck: Neck: normal visual inspection, supple and no JVD Carotids: normal carotid upstroke Resp: Effort & Inspection: normal respiratory effort Auscultation: crackles and diminished lung sounds Cardio: Rate: regular rate Rhythm: regular rhythm Heart sounds: S1 normal heart sound present, S2 normal heart sound present and no murmurs GI: Auscultation: normal bowel sounds Skin: General skin exam: normal color Neuro: General: patient oriented x3 Cranial nerves: Yes Equal, round and reactive pupils present Extrem: General: normal to inspection Psych: Appearance: grossly normal Mental Status: mental status grossly normal Results Labs and Meds 11/11/24 04:04 11/11/24 04:04 Lab results: Cardiac Enzymes 11/10/24 11/10/24 11/11/24 Range/Units 19:29 22:27 01:33 AST 18 (14-36) U/L Troponin I 0.061 H* 0.057 H* 0.054 H* (0.000-0.034) ng/mL 11/11/24 11/11/24 Range/Units 01:34 04:04 AST 17 14 (14-36) U/L Troponin I (0.000-0.034) ng/mL Coagulation 11/11/24 Range/Units 04:04 PT 13.1 (11.1-14.7) Seconds APTT 24.6 (22.3-36.8) Seconds CBC 11/10/24 11/11/24 11/11/24 Range/Units 19:29 01:34 04:04 WBC 8.9 8.0 6.9 (4.5-10.0) K/mm3 RBC 5.23 5.55 H 5.32 (4.2-5.4) M/mm3 Hgb 15.1 H 16.0 H 15.1 H (12.0-15.0) g/dL Hct 49.5 H 52.1 H 49.9 H (37.0-47.0) % Plt Count 233 244 229 (150-375) k/mm3 Lymph # (Auto) 1.78 0.37 L 0.34 L (0.9-3.2) K/mm3 [place] # (Auto) 1.2 H 0.1 0.0 L (0.1-0.6) K/mm3 Eos # (Auto) 0.0 0.0 0.0 (0-0.3) K/mm3 Baso # (Auto) 0.0 0.0 0.0 (0.0-0.1) K/mm3 Comprehensive Metabolic Panel 11/10/24 11/11/24 11/11/24 Range/Units 19:29 01:34 04:04 Sodium 135 L 137 136 L (137-145) mmol/L Potassium 4.0 3.8 4.0 (3.4-5.0) mmol/L Chloride 96 L 96 L 96 L (98-107) mmol/L Carbon Dioxide 36 H 34 H 35 H (22-30) mmol/L BUN 15 13 12 (7-17) mg/dL Creatinine 1.07 H 0.92 0.82 (0.7-1.0) mg/dL Glucose 85 196 H 139 H (65-110) mg/dL Calcium 8.4 8.6 8.4 (8.4-10.2) mg/dL AST 18 17 14 (14-36) U/L ALT 13 17 14 (6-35) U/L Alkaline Phosphatase 84 88 86 (38-126) U/L Total Protein 6.0 L 7.0 6.0 L (6.3-8.2) g/dL Albumin 3.9 4.3 4.0 (3.5-5.1) g/dL Intake and Output 11/10/24 11/11/24 11/11/24 23:59 07:59 15:59 Intake Total 480 0 Output Total 200 Balance 280 0 Intake: Oral 480 0 Output: Urine 200 Patient Weight 11/11/24 23:59 Weight 64.1 kg
--- NOTE | 2024-11-11 10:04 | P.CONPL_ITS ---
Assessment and Plan Assessment and plan (1) COPD exacerbation: Code(s): J44.1 - Chronic obstructive pulmonary disease with (acute) exacerbation Status: Acute Assessment and Plan: Regarding her COPD, patient is followed by local medical social consultant Dr. Luo. Patient smoked pack a cigarettes for 44 years and is currently smoking half a pack a day, pack years 44. Patient has chronic hypoxemic respiratory failure prescribed 4 L at rest, with activity and with sleep. Patient tells me she does not wear oxygen when she ambulates and that when she returns from ambulation her saturations are in the 60s. She does not wear oxygen at sleep. Per the daughter, patient was in the process of being worked up for a home BiPAP machine and was awaiting a outpatient sleep study through Dr. Luo at the end of the month. patient is maintained on Symbicort inhaler and rescue albuterol. Of note patient was recently admitted to [facility] 10/23/23 through 10/26/23 with a COPD exacerbation and her blood gas on 2 L 7.37/47/78. 11/11/2024: Patient is on hydrocodone at home and early in the morning she was unresponsive with pinpoint pupils on BiPAP with a rate of 4 breathing 4 times a minute. Respiratory rate was increased to 18 and she was given Narcan and woke up. ABG prior to Narcan was 7.35/60/77. She is afebrile. White blood cell count 6.9, creatinine 0.82, BNP 2180, TSH 0.326, free T4 1.18. Currently she is requiring 15 L high-flow nasal cannula saturations 92%. She tells me she is breathing normal, her phlegm production is normal, she denies wheezing, hemoptysis. She has had a tremor over the last 2 weeks. Plan: Will treat the patient for COPD exacerbation. She has no wheezing currently and says she is breathing back at her baseline. I will change her Solu-Medrol 60 IV q.6 to prednisone 40 p.o. starting 11/12/24, Today is day 2 steroids. patient has tremors and I will change her nebulized albuterol to levalbuterol 1.25 q.6 hours, ipratropium 0.5 mg q.6 hours. Patient is afebrile, no leukocytosis, no infectious complaints, and no focal infiltrates on her CT scan of the chest. I do not believe she has pneumonia. She may have a bronchitis and agree with levofloxacin 750 mg p.o. Q 48 hours while we are treating her for COPD exacerbation. She did get ceftriaxone and azithromycin x1 on 11/10 so today is day 2 of antibiotics. Her BNP is 2180, echocardiogram is pending, will monitor daily weights and watch for any fluid overload. (2) Chronic respiratory failure with hypoxia and hypercapnia: Code(s): J96.11 - Chronic respiratory failure with hypoxia; J96.12 - Chronic respiratory failure with hypercapnia Status: Acute Assessment and Plan: Prior to discharge on last admission patient had a blood gas on 2 L 7.37/47/78 on 10/24/2023. Patient is scheduled to have an outpatient sleep study per her medical social consultant in order to determine if she qualifies for BiPAP. 11/11/2024: Patient was placed on BiPAP this morning following unresponsiveness with pinpoint pupils and responded to Narcan. She had difficulty with the pressures on the BiPAP I place the patient on noninvasive ventilation with the AVAPS mode and adjusted the settings to comfort resulting in a rate of14, tidal volume 500, EPAP 5, minimum inspiratory pressure 6, maximal inspiratory pressure 25, inspiratory time 1.0, rise of 5 and 40%. This was more comfortable. Her peak inspiratory pressure was 11. Plan: I will place the patient on noninvasive ventilation with the AVAPS settings as above and perform an ABG prior to removal. (3) Nicotine abuse: Code(s): Z72.0 - Tobacco use Status: Chronic Assessment and Plan: Patient continues to smoke half a pack a cigarettes a day. Plan: I told the patient and the family that the cigarettes or actively killing her in that is not absolutely necessary she should quit. Her current boyfriend buys her the cigarettes and I have told them the need to throw all the cigarettes away in the house and refused to purchase any more. The patient is interested in quitting and feels that she can do that. History of Present Illness History of Present Illness Consult date: 11/11/24 Chief complaint: Hypoxia, COPD, pneumonia Narrative: 11/11/2024: COPD exacerbation with hypoxemic respiratory failure 59-year-old with a history of coronary artery disease, hypertension, hyperlipidemia, depression, anxiety, tobacco use, COPD on 4 L nasal cannula with rest, activity and sleep. Regarding her COPD, patient is followed by local medical social consultant Dr. Luo. Patient smoked pack a cigarettes for 44 years and is currently smoking half a pack a day, pack years 44. Patient has chronic hypoxemic respiratory failure prescribed 4 L at rest, with activity and with sleep. Patient tells me she does not wear oxygen when she ambulates and that when she returns from ambulation her saturations are in the 60s. She does not wear oxygen at sleep. Per the daughter, patient was in the process of being worked up for a home BiPAP machine and was awaiting a outpatient sleep study through Dr. Luo at the end of the month. patient is maintained on Symbicort inhaler and rescue albuterol. Of note patient was recently admitted to [facility] for 15 through with a COPD exacerbation and her blood gas on 2 L 7.37/ . patient presented to the emergency department on 11/10/2024 with altered mental status and hypoxemia. Her room air saturations were 55%. Blood pressure is 105/74, heart rate 60, respirations 14 and she had bilateral wheezes. Her white blood cell count was 8.9, creatinine was 1.07, serum bicarbonate was 33, her COVID influenza RSV RT PCR were negative. Her CTA demonstrated moderate apical predominant centrilobular emphysema with no infiltrates. She was treated with Bronchodilators, ceftriaxone, azithromycin, Solu-Medrol and BiPAP. 11/11/2024: Patient is on hydrocodone at home and early in the morning she was unresponsive with pinpoint pupils on BiPAP with a rate of 4 breathing 4 times a minute. Respiratory rate was increased to 18 and she was given Narcan and woke up. ABG prior to Narcan was 7.35/60/77. She is afebrile. White blood cell count 6.9, creatinine 0.82, TSH 0.326, free T4 1.18. Currently she is requiring 15 L high-flow nasal cannula saturations 92%. I place the patient on noninvasive ventilation with the AVAPS mode and adjusted the settings to comfort resulting in a rate of14, tidal volume 500, EPAP 5, minimum inspiratory pressure 6, maximal inspiratory pressure 25, inspiratory time 1.0, rise of 5 and 40%. This was more comfortable. Her peak inspiratory pressure was 11. She tells me she is breathing normal, her phlegm production is normal, she denies wheezing, hemoptysis. She has had a tremor over the last 2 weeks. DATA: 11/11/24: Clinical Indication: Hypoxic respiratory failure CT Scan of the Chest with Contrast: Technique: Contiguous sections were acquired throughout the chest after intravenous administration of 100 cc of Omnipaque 350. Dose reduction technique was used on this scan by utilizing automated exposure control and iterative reconstruction technique. The dose-length product (DLP) was 307.08 mGy-cm. Findings: There is no evidence of any significant mediastinal, hilar or axillary lymphadenopathy. There is no filling defect in the pulmonary arterial tree to suggest pulmonary embolus. There is no evidence of aortic dissection or aneurysm. There is no evidence of pleural or pericardial effusion. The lungs are clear. No pulmonary nodules or infiltrates are noted. There is moderate emphysema. Images through the upper abdomen reveal no abnormalities. Impression: Moderate emphysema. No evidence of pulmonary embolus, aortic dissection, or aortic aneurysm. Clear lungs. 06/12/2017: CT chest abdomen pelvis. FINDINGS: CHEST CT: Normal size and homogeneous enhancement of the thyroid gland. No hilar or mediastinal mass lesion or lymphadenopathy. No thoracic aortic aneurysm or dissection. Normal heart size. No pericardial or pleural effusion. Mild emphysematous changes of the lungs. 06/22/2015: PFT report only: SPO2 97% ON ROOM AIR. FVC, FEV1 NORMAL,FEV1%, FEF 25-75% DECREASED. IMPRESSION: MILD OBSTRUCTIVE VENTILATORY DEFECT WITH SIGNIFICANT SMALL AIRWAY DISEASE PATTERN. Review of Systems 2 Constitutional: Constitutional: Reports no additional constitutional complaints Eyes: Eyes: Reports no additional eye complaints ENT: Reports system reviewed and no additional complaints, except as documented Cardiovascular: Cardiovascular: Reports no additional cardiovascular complaints Respiratory: Respiratory: Reports no additional respiratory complaints Gastrointestinal: Gastrointestinal: Reports no additional gastrointestinal complaints Musculoskeletal: Musculoskeletal: Reports no additional musculoskeletal complaints Neurologic: Reports system reviewed and no additional complaints, except as documented Psychiatric: Psychiatric: Reports no additional psychiatric complaints Endocrine: Endocrine: Reports no additional endocrine complaints Hematologic/Lymphatic: Hematologic/Lymphatic: Reports no additional hematologic/lymphatic complaints Allergic/Immunologic: Allergic/Immunologic: Reports no additional allergic/immunologic complaints FOR[facility]LY [facility] Past Medical History Medical History Substance abuse Nicotine abuse Dementia Acute electrocardiogram changes Hypoxic respiratory failure Tobacco use Hyperlipemia Anxiety Depression Ankle fracture, left UTI (urinary tract infection) Pneumonia Bronchitis COPD (chronic obstructive pulmonary disease) Myocardial infarction HTN (hypertension) CAD (coronary artery disease) Possible NH around 2019 when hospitalized for pneumonia. Cna Hha is Rajan Quinn Heart Surgical History Surgical History H/O: hysterectomy Family History Family History Mother Diabetes mellitus CHF (congestive heart failure) Renal disease Father COPD (chronic obstructive pulmonary disease) Sibling Heart disease Social History Social History Social History: Patient currently lives with her boyfriend. Her daughter Luzmaria is her surrogate. She denies having any pets at home, and had a total of three kids, one girl and 2 boys. She wishes to be a full code at this time Smoking packs per day: 0.5 Smoking cigarettes per day: 10.0 Years smoked: 44 Smoking pack-years: 22.00 Smoking status: Current every day smoker Tobacco type: cigarettes Second hand tobacco smoke exposure: Yes Alcohol intake: never Drinks per week: 1 Substance use: never Substance use type: marijuana Other substance usage details: About a $20 bag Last use: 10/21/23 Do You Feel Safe in your Home?: Yes Lack of Transportation: No Lack of Food: Never True Current Housing: I Have Housing Concerned About Future Housing: No Difficulty Paying Gas/Electric Bills: No Difficulty Paying for Meds: No Currently Unemployed: No Education: High School Diploma/GED Difficulty w/ Childcare or Family Care: No Living arrangements: other Additional living arrangements comments: Lives with boyfriend Occupation/Education: other 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 Gender identity (if verbalized by the patient): Female Sexual Orientation (if Verbalized by the Patient): Straight or Heterosexual Spiritual care concerns: No Agree to blood products: Yes Meds Home Medications and Allergies Home Medications ?Medication ?Instructions ?Recorded ?Confirmed ?Type atorvastatin 80 mg tablet 80 mg PO HS 10/11/20 11/10/24 History buspirone 10 mg tablet 15 mg PO TID 10/11/20 11/10/24 History donepezil 5 mg tablet 5 mg PO DAILY 10/11/20 11/10/24 History gabapentin 600 mg tablet 300 mg PO TID 10/11/20 11/10/24 History aspirin 81 mg chewable tablet 81 mg PO DAILY 01/26/22 11/10/24 History cyanocobalamin (vitamin B-12) 1,000 mcg PO DAILY 01/26/22 11/10/24 History 1,000 mcg tablet (Vitamin B-12) memantine 10 mg tablet 10 mg PO DAILY 01/26/22 11/10/24 History nitroglycerin 0.4 mg sublingual 0.4 mg sublingual Q5M PRN Chest 01/26/22 11/10/24 History tablet Pain omeprazole 40 mg capsule,delayed 40 mg PO DAILY 01/26/22 11/10/24 History release levalbuterol HCl 1.25 mg/0.5 mL 1.25 mg (0.5 mL) inhalation Q6HRT 01/28/22 11/10/24 Rx solution for nebulization PRN shortness of breath #1 inh trazodone 50 mg tablet 50 mg PO HS 10/23/23 11/10/24 History albuterol sulfate 90 mcg/actuation 2 puff inhalation BID PRN 11/10/24 11/10/24 History aerosol inhaler shortness of breath or wheezing amlodipine 5 mg tablet 5 mg PO DAILY 11/10/24 11/10/24 History budesonide-formoterol HFA 160 2 puff inhalation BID 11/10/24 11/10/24 History mcg-4.5 mcg/actuation aerosol inhaler (Symbicort) bupropion HCl (smoking deter) 150 150 mg PO BID 11/10/24 11/10/24 History mg tablet,12 hr sustained-release(smoking deterrent) folic acid 1 mg tablet 1 mg PO DAILY 11/10/24 11/10/24 History hydrochlorothiazide 12.5 mg tablet 12.5 mg PO DAILY 11/10/24 11/10/24 History pantoprazole 40 mg tablet,delayed 40 mg PO DAILY 11/10/24 11/10/24 History release valacyclovir 1 gram tablet 1,000 mg PO TID 11/10/24 11/10/24 History Allergies Allergy/AdvReac Type Severity Reaction Status Date / Time ibuprofen Allergy Mild Ulcers Verified 11/10/24 19:22 codeine AdvReac Unknown N/V Verified 11/10/24 19:22 Vital Signs Vital Signs - 24 hr 11/10/24 19:11 11/10/24 19:15 11/10/24 19:16 Temperature 36.8 C Pulse Rate 60 95 96 Respiratory Rate 14 16 14 Blood Pressure 105/74 105/74 111/75 Pulse Oximetry 88 L 91 92 Oxygen Delivery Nasal Cannula Oxygen Flow Rate 5.5 Fraction of Inspired Oxygen 11/10/24 19:19 11/10/24 19:19 11/10/24 19:19 Temperature Pulse Rate 96 97 Respiratory Rate 13 Blood Pressure 111/75 Pulse Oximetry 91 92 Oxygen Delivery Nasal Cannula Oxygen Flow Rate 4 5 Fraction of Inspired Oxygen 11/10/24 19:19 11/10/24 19:31 11/10/24 19:39 Temperature Pulse Rate 92 93 85 Respiratory Rate 22 H 18 14 Blood Pressure 111/75 110/74 Pulse Oximetry 91 88 L 99 Oxygen Delivery BiPAP Oxygen Flow Rate Fraction of Inspired Oxygen 11/10/24 19:49 11/10/24 20:53 11/10/24 22:20 Temperature Pulse Rate 87 87 Respiratory Rate 17 23 H Blood Pressure Pulse Oximetry 100 98 Oxygen Delivery BiPAP BiPAP Oxygen Flow Rate Fraction of Inspired Oxygen 11/10/24 23:21 11/10/24 23:31 11/11/24 00:00 Temperature 36.8 C Pulse Rate 87 95 89 Respiratory Rate 23 H 18 Blood Pressure 110/77 Pulse Oximetry 98 96 Oxygen Delivery BiPAP Oxygen Flow Rate Fraction of Inspired Oxygen 40 11/11/24 01:30 11/11/24 01:52 11/11/24 02:00 Temperature Pulse Rate 87 86 Respiratory Rate 12 15 Blood Pressure 115/69 Pulse Oximetry 91 95 Oxygen Delivery BiPAP BiPAP Oxygen Flow Rate Fraction of Inspired Oxygen 11/11/24 02:06 11/11/24 03:31 11/11/24 04:00 Temperature 36.8 C Pulse Rate 88 89 86 Respiratory Rate 20 18 Blood Pressure 109/71 Pulse Oximetry 95 96 Oxygen Delivery BiPAP Oxygen Flow Rate Fraction of Inspired Oxygen 40 11/11/24 04:00 11/11/24 06:09 11/11/24 08:00 Temperature 36.6 C Pulse Rate 91 98 81 Respiratory Rate 20 Blood Pressure 111/69 Pulse Oximetry 97 Oxygen Delivery Oxygen Flow Rate Fraction of Inspired Oxygen 11/11/24 08:12 11/11/24 08:12 11/11/24 08:29 Temperature Pulse Rate 93 96 Respiratory Rate 16 16 Blood Pressure Pulse Oximetry 90 Oxygen Delivery Nasal Cannula Oxygen Flow Rate 5 Fraction of Inspired Oxygen Exam 2 Const: General: cooperative, healthy appearing and comfortable O rientation/consciousness: oriented to person, oriented to place and oriented to time HENMT: Head: normal to inspection Ears: hearing grossly normal bilaterally Eyes: General: appearance normal, both eyes and all related structures Neck: Neck: normal visual inspection Chest: Chest palpation & inspection: normal inspection of the chest Resp: Effort & Inspection: normal respiratory effort and able to speak in complete sentences Auscultation: no crackles, no rales, no rhonchi, no wheezes and lung sounds not diminished Cardio: Jugular venous distension: no JVD GI: Inspection: normal to inspection GI Palp: No abdominal tenderness Skin: General skin exam: normal color Neuro: General: oriented to person, oriented to place and oriented to time Extrem: General: normal to inspection Other: Right upper greater than left upper extremity tremor. Psych: Appearance: grossly normal Results Laboratory Findings 11/11/24 04:04 11/11/24 04:04 ABG, PT/INR, D-dimer: ABG ABG pH 7.352 (7.350-7.450) 11/11/24 01:32 ABG pCO2 59.5 mmHg (35.0-45.0) H 11/11/24 01:32 ABG pO2 76.8 mmHg (80.0-100.0) L 11/11/24 01:32 ABG O2 Saturation 94.5 % (95.0-100.0) L 11/11/24 01:32 PT/INR, D-dimer PT 13.1 Seconds (11.1-14.7) 11/11/24 04:04 INR 1.0 11/11/24 04:04 Abnormal lab findings: Abnormal Labs 11/10/24 11/10/24 11/10/24 19:29 19:54 22:27 RBC Hgb 15.1 H Hct 49.5 H MCHC 30.5 L RDW 15.0 H Neut % (Auto) Lymph % (Auto) [place] % (Auto) 13.0 H Baso % (Auto) Lymph # (Auto) [place] # (Auto) 1.2 H Absolute Neuts (auto) Absolute Nucleated RBC Nucleated RBC % ABG pCO2 50.7 H ABG pO2 ABG HCO3 31.6 H ABG O2 Saturation Carboxyhemoglobin 6.0 H Sodium 135 L Chloride 96 L Carbon Dioxide 36 H Anion Gap 3 L Creatinine 1.07 H Estimated GFR 52 L Glucose POC Capillary Glucose Troponin I 0.061 H* 0.057 H* Total Protein 6.0 L TSH (Reflex) Total T3 11/11/24 11/11/24 11/11/24 01:26 01:32 01:33 RBC Hgb Hct MCHC RDW Neut % (Auto) Lymph % (Auto) [place] % (Auto) Baso % (Auto) Lymph # (Auto) [place] # (Auto) Absolute Neuts (auto) Absolute Nucleated RBC Nucleated RBC % ABG pCO2 59.5 H ABG pO2 76.8 L ABG HCO3 32.3 H ABG O2 Saturation 94.5 L Carboxyhemoglobin Sodium Chloride Carbon Dioxide Anion Gap Creatinine Estimated GFR Glucose POC Capillary Glucose 201 H Troponin I 0.054 H* Total Protein TSH (Reflex) Total T3 11/11/24 11/11/24 01:34 04:04 RBC 5.55 H Hgb 16.0 H 15.1 H Hct 52.1 H 49.9 H MCHC 30.7 L 30.3 L RDW 14.9 H 14.8 H Neut % (Auto) 94.2 H 94.3 H Lymph % (Auto) 4.6 L 4.9 L [place] % (Auto) 0.7 L 0.4 L Baso % (Auto) 0.1 L 0.0 L Lymph # (Auto) 0.37 L 0.34 L [place] # (Auto) 0.0 L Absolute Neuts (auto) 7.6 H Absolute Nucleated RBC 0.020 H Nucleated RBC % 0.3 H ABG pCO2 ABG pO2 ABG HCO3 ABG O2 Saturation Carboxyhemoglobin Sodium 136 L Chloride 96 L 96 L Carbon Dioxide 34 H 35 H Anion Gap Creatinine Estimated GFR Glucose 196 H 139 H POC Capillary Glucose Troponin I Total Protein 6.0 L TSH (Reflex) 0.326 L Total T3 0.87 L Diagnostic Findings Additional studies: ITS Impressions Chest X-Ray 11/10/24 21:00 IMPRESSION: No acute cardiopulmonary process. Head CT 11/11/24 06:35 Impression: No significant abnormality seen. Chest CTA 11/11/24 06:51 Impression: Moderate emphysema. No evidence of pulmonary embolus, aortic dissection, or aortic aneurysm. Clear lungs.
[2024-11-11 11:28] LABS: NT Pro B Type Natriuretic Pept 2180 pg/mL (19.9-100)
[2024-11-11 11:48] LABS: Amphetamine Screen Urine Negative (Negative); Barbiturate Screen Urine Negative (Negative); Benzodiazepines Screen Urine Negative (Negative); Cannabinoid Screen Urine Negative (Negative); Cocaine Screen Urine Negative (Negative); Methadone Screen Urine Negative (Negative); Opiate Screen Urine Negative (Negative); Phencyclidine Screen Urine Negative (Negative)
[2024-11-11] MEDS: ACETAMINOPHEN 500 MG TABLET 1000 MG PO (13:22)
--- NOTE | 2024-11-11 16:46 | P.PNIM_ITS ---
Progress Note: A&P Assessment and Plan (1) COPD exacerbation: Code(s): J44.1 - Chronic obstructive pulmonary disease with (acute) exacerbation Status: Acute Assessment and Plan: S/p BiPAP , now on NC 15 liters On 4 liters at baseline Continue Bronchodilators and PO Prednisone monitor Pulmonology following (2) Hypoxic respiratory failure: Code(s): J96.91 - Respiratory failure, unspecified with hypoxia Status: Acute Assessment and Plan: improving now on 15 L NC continue titrating oxygen (3) Elevated troponin: Code(s): R77.8 - Other specified abnormalities of plasma proteins Status: Chronic Assessment and Plan: * Elevated, but remains at baseline. * ECHO no regional wall motion abnormalities * Continue monitoring * Cardiology eval noted (4) HTN (hypertension): Code(s): I10 - Essential (primary) hypertension Status: Chronic Assessment and Plan: * Continue home medications once confirmed. * Monitor and trend VS * PRN Hydralazine ordered for SBP>180 and DBP>90. (5) Anxiety and depression: Code(s): F41.9 - Anxiety disorder, unspecified; F32.A - Depression, unspecified Status: Chronic Assessment and Plan: * Continue home meds once confirmed (6) Hyperlipemia: Code(s): E78.5 - Hyperlipidemia, unspecified Status: Chronic Assessment and Plan: * Continue home meds once confirmed. (7) Dementia: Code(s): F03.90 - Unspecified dementia, unspecified severity, without behavioral disturbance, psychotic disturbance, mood disturbance, and anxiety Status: Chronic Assessment and Plan: * Continue home meds (8) Nicotine abuse: Code(s): Z72.0 - Tobacco use Status: Chronic Assessment and Plan: * Pt counseled for smoking cessation. * Nicotine patch ordered. * Continue Welbutrin. (9) Substance abuse: Code(s): F19.10 - Other psychoactive substance abuse, uncomplicated Status: Chronic Assessment and Plan: * In addition to nicotine, pt uses daily marijuana and also routinely drinks, although she reports she hasn't had any in three weeks. * Monitor closely and initiate CIWA if needed. Plan DVT prophylaxis on Sq Lovenox Subjective Date/time seen: 11/11/24 16:46 Interval history: Comfortable at bedside Review of Systems Review of Systems: All systems reviewed & are unremarkable except as noted in HPI and below Exam Const: General: comfortable Other: Elderly female patient appearing older than stated age lying supine at this time on stretcher on BiPAP. She is alert, oriented and answering questions appropriately. HENMT: Face/Nose/Sinus: Normal nares present Mouth: Yes dry mucous membranes Eyes: General: appearance normal, both eyes and all related structures Neck: Neck: supple and no JVD Lymphatic: lymphadenopathy not noted Chest: Other: Nontender to palpation Resp: Effort & Inspection: normal respiratory effort Auscultation: wheezes (Prolonged expiratory phase) expiratory wheezes Cardio: Rate: regular rate Rhythm: regular rhythm Heart sounds: no gallops, no murmurs and no rubs GI: Auscultation: normal bowel sounds Skin: General skin exam: normal color, no rashes or lesions noted, no erythema, No lesion and No rashes Lesions: no lesions noted Rashes: no rashes noted Wounds: no wounds Other: Skin is dry and flaky. Neuro: Speech: normal speech Motor exam (neuro): Abnormal motor strength present (Generalized, nonfocal weakness) Sensory Exam: normal sensation Other: Tremor present at rest that worsens with intentional movement. Extrem: General: normal to inspection, no edema and no pedal edema Psych: Mental Status: mental status grossly normal Affect: normal affect Objective Data Vital Signs Vital Signs: Vital Signs - 24 hr 11/10/24 19:11 11/10/24 19:15 11/10/24 19:16 Temperature 98.3 F Pulse Rate 60 95 96 Respiratory Rate 14 16 14 Blood Pressure 105/74 105/74 111/75 Pulse Oximetry 88 L 91 92 Oxygen Delivery Nasal Cannula Oxygen Flow Rate 5.5 Fraction of Inspired Oxygen 11/10/24 19:19 11/10/24 19:19 11/10/24 19:19 Temperature Pulse Rate 96 97 Respiratory Rate 13 Blood Pressure 111/75 Pulse Oximetry 91 92 Oxygen Delivery Nasal Cannula Oxygen Flow Rate 4 5 Fraction of Inspired Oxygen 11/10/24 19:19 11/10/24 19:31 11/10/24 19:39 Temperature Pulse Rate 92 93 85 Respiratory Rate 22 H 18 14 Blood Pressure 111/75 110/74 Pulse Oximetry 91 88 L 99 Oxygen Delivery BiPAP Oxygen Flow Rate Fraction of Inspired Oxygen 11/10/24 19:49 11/10/24 20:53 11/10/24 22:20 Temperature Pulse Rate 87 87 Respiratory Rate 17 23 H Blood Pressure Pulse Oximetry 100 98 Oxygen Delivery BiPAP BiPAP Oxygen Flow Rate Fraction of Inspired Oxygen 11/10/24 23:21 11/10/24 23:31 11/11/24 00:00 Temperature 98.3 F Pulse Rate 87 95 89 Respiratory Rate 23 H 18 Blood Pressure 110/77 Pulse Oximetry 98 96 Oxygen Delivery BiPAP Oxygen Flow Rate Fraction of Inspired Oxygen 40 11/11/24 01:30 11/11/24 01:52 11/11/24 02:00 Temperature Pulse Rate 87 86 Respiratory Rate 12 15 Blood Pressure 115/69 Pulse Oximetry 91 95 Oxygen Delivery BiPAP BiPAP Oxygen Flow Rate Fraction of Inspired Oxygen 11/11/24 02:06 11/11/24 03:31 11/11/24 04:00 Temperature 98.2 F Pulse Rate 88 89 86 Respiratory Rate 20 18 Blood Pressure 109/71 Pulse Oximetry 95 96 Oxygen Delivery BiPAP Oxygen Flow Rate Fraction of Inspired Oxygen 40 11/11/24 04:00 11/11/24 06:09 11/11/24 08:00 Temperature 97.8 F Pulse Rate 91 98 81 Respiratory Rate 20 Blood Pressure 111/69 Pulse Oximetry 97 Oxygen Delivery Oxygen Flow Rate Fraction of Inspired Oxygen 11/11/24 08:00 11/11/24 08:00 11/11/24 08:12 Temperature Pulse Rate 97 Respiratory Rate Blood Pressure Pulse Oximetry 90 Oxygen Delivery BiPAP Nasal Cannula Oxygen Flow Rate 5 Fraction of Inspired Oxygen 40 11/11/24 08:12 11/11/24 08:29 11/11/24 10:00 Temperature Pulse Rate 93 96 97 Respiratory Rate 16 16 Blood Pressure Pulse Oximetry Oxygen Delivery Oxygen Flow Rate Fraction of Inspired Oxygen 11/11/24 12:00 11/11/24 12:00 11/11/24 12:00 Temperature 97.7 F Pulse Rate 89 104 H Respiratory Rate 20 Blood Pressure 119/76 Pulse Oximetry 94 94 Oxygen Delivery High Flow Therapy with Na Oxygen Flow Rate 15 Fraction of Inspired Oxygen 11/11/24 13:43 11/11/24 13:50 11/11/24 14:00 Temperature Pulse Rate 90 96 92 Respiratory Rate 16 16 Blood Pressure Pulse Oximetry Oxygen Delivery Oxygen Flow Rate Fraction of Inspired Oxygen 11/11/24 14:30 Temperature Pulse Rate Respiratory Rate Blood Pressure Pulse Oximetry Oxygen Delivery High Flow Therapy with Na Oxygen Flow Rate 13 Fraction of Inspired Oxygen Intake/Output Intake/Output: Intake & Output 11/08/24 11/09/24 11/10/24 11/11/24 23:59 23:59 23:59 23:59 Intake Total 480 660 Output Total 200 Balance 280 660 Meds/Results Medications: Active Medications Generic Name Dose Route Start Last Admin Trade Name Freq PRN Reason Stop Dose Admin Acetaminophen 1,000 mg 11/10/24 22:20 11/11/24 13:22 Acetaminophen 500 Mg Tablet PO 1,000 mg Q6H PRN Administration Mild Pain (1-3) or Fever Hydrocodone Bitart/Acetaminophen 1 tab 11/10/24 22:20 Hydrocodone/Acetaminophen (*Crx) 5-325 Mg Tablet PO Q6H PRN Pain Rated 4-6 Amlodipine Besylate 5 mg 11/11/24 09:00 11/11/24 08:37 Amlodipine Besylate 5 Mg Tablet PO 5 mg DAILY ANNA Administration Aspirin 81 mg 11/11/24 09:00 11/11/24 08:36 Aspirin 81 Mg Chewable Tablet PO 81 mg DAILY ANNA Administration Atorvastatin Calcium 80 mg 11/11/24 21:00 Atorvastatin 40 Mg Tablet PO HS ANNA Bupropion HCl 150 mg 11/11/24 09:00 11/11/24 08:36 Bupropion Hcl Sr (12 Hr) 150 Mg Tab PO 150 mg DAILY ANNA Administration Buspirone HCl 15 mg 11/11/24 09:00 11/11/24 13:22 Buspirone Hcl 5 Mg Tablet PO 15 mg TID ANNA Administration Cyanocobalamin 1,000 mcg 11/11/24 09:00 11/11/24 08:36 Cyanocobalamin 1,000 Mcg Tablet PO 1,000 mcg DAILY ANNA Administration Donepezil HCl 5 mg 11/11/24 09:00 11/11/24 08:42 Donepezil Hcl 5 Mg Tablet PO 5 mg DAILY ANNA Administration Enoxaparin Sodium 40 mg 11/11/24 09:00 11/11/24 08:34 Enoxaparin 40 Mg/0.4 Ml Syringe SUB-Q 40 mg DAILY ANNA Administration Folic Acid 1 mg 11/11/24 09:00 11/11/24 08:36 Folic Acid 1 Mg Tablet PO 1 mg DAILY ANNA Administration Gabapentin 300 mg 11/11/24 09:00 11/11/24 13:22 Gabapentin 300 Mg Capsule PO 300 mg TID ANNA Administration Hydralazine HCl 10 mg 11/10/24 22:20 Hydralazine Hcl 20 Mg/Ml Vial IV PUSH Q8H PRN Blood Pressure - High Hydrochlorothiazide 12.5 mg 11/11/24 09:00 11/11/24 08:36 Hydrochlorothiazide 12.5 Mg Capsule PO 12.5 mg DAILY ANNA Administration Ipratropium [place] 0.5 mg 11/11/24 20:00 Ipratropium Br 0.02% Inh Soln 0.5 Mg/2.5 Ml Vial INHALATION Q6HRT ANNA Levalbuterol HCl 1.25 mg 11/11/24 20:00 Levalbuterol Neb 1.25 Mg/3 Ml INHALATION Q6HRT ANNA Levalbuterol HCl 1.25 mg 11/11/24 15:12 Levalbuterol Neb 1.25 Mg/3 Ml INHALATION Q4HR PRN Wheezing Levofloxacin 750 mg 11/11/24 09:00 11/11/24 08:35 Levofloxacin 750 Mg Tablet PO 750 mg Q48H ANNA Administration Memantine 10 mg 11/11/24 09:00 11/11/24 08:35 Memantine 10 Mg Tablet PO 10 mg DAILY ANNA Administration Nicotine 1 patch 11/10/24 22:30 11/11/24 08:34 Nicotine (*Mikakc) 21 Mg Patch TRANSDERM 1 patch DAILY ANNA Administration Ondansetron HCl 4 mg 11/10/24 22:20 Ondansetron Inj 4 Mg/2 Ml Vial IV PUSH Q4H PRN Nausea And Vomiting Pantoprazole Sodium 40 mg 11/11/24 09:00 11/11/24 08:36 Pantoprazole 40 Mg Tablet PO 40 mg DAILY ANNA Administration Perflutren Lipid Microsphere 0 ml 11/10/24 22:20 Perflutren Lipid Microspheres 1.5 Ml Vial Diluted To 10 Ml Total Volume IV PUSH 11/13/24 22:20 ONCE PRN adequate visualization Protocol Perflutren Lipid Microsphere 0 ml 11/11/24 14:50 Perflutren Lipid Microspheres 1.5 Ml Vial Diluted To 10 Ml Total Volume IV PUSH 11/14/24 14:50 ONCE PRN adequate visualization Protocol Prednisone 40 mg 11/12/24 08:00 Prednisone 20 Mg Tablet PO DAILY@0800 ANNA Trazodone HCl 50 mg 11/11/24 21:00 Trazodone Hcl 50 Mg Tablet PO HS [facility] Radiology Results: ITS Impressions Chest X-Ray 11/10/24 21:00 IMPRESSION: No acute cardiopulmonary process. Head CT 11/11/24 06:35 Impression: No significant abnormality seen. Chest CTA 11/11/24 06:51 Impression: Moderate emphysema. No evidence of pulmonary embolus, aortic dissection, or aortic aneurysm. Clear lungs. Labs Labs: Laboratory Results - last 24 hr 11/10/24 11/10/24 11/10/24 19:29 19:54 22:27 WBC 8.9 RBC 5.23 Hgb 15.1 H Hct 49.5 H MCV 94.6 MCH 28.9 MCHC 30.5 L RDW 15.0 H Plt Count 233 MPV 9.1 Immature Gran % (Auto) 0.2 Neut % (Auto) 66.3 Lymph % (Auto) 20.0 [place] % (Auto) 13.0 H Eos % (Auto) 0.0 Baso % (Auto) 0.5 Lymph # (Auto) 1.78 [place] # (Auto) 1.2 H Eos # (Auto) 0.0 Baso # (Auto) 0.0 Abs Immat Gran (auto) 0.02 Absolute Neuts (auto) 5.9 Absolute Nucleated RBC 0.000 Nucleated RBC % 0.0 PT INR APTT Puncture Site Right radial ABG pH 7.412 ABG pCO2 50.7 H ABG pO2 83.9 ABG PO2/FiO2 Ratio 1.86 ABG HCO3 31.6 H ABG O2 Saturation 96.3 ABG O2 Content 20.1 ABG Base Excess 5.5 A-a Gradient 179.3 Oxyhemoglobin 90.2 Carboxyhemoglobin 6.0 H Methemoglobin 0.4 Reduced Hemoglobin 3.4 Total Hemoglobin 15.8 O2 Delivery Device Non-invasive vent O2 Liters/Min Market Reporter Vent Rate 4 FiO2 45 Expiratory Pressure 6 Inspiratory Pressure 12 Sodium 135 L Potassium 4.0 Chloride 96 L Carbon Dioxide 36 H Anion Gap 3 L BUN 15 Creatinine 1.07 H Estim Creat Clear Calc 39 Estimated GFR 52 L Glucose 85 POC Capillary Glucose Lactic Acid Calcium 8.4 Magnesium Total Bilirubin 0.8 AST 18 ALT 13 Alkaline Phosphatase 84 Troponin I 0.061 H* 0.057 H* NT-Pro-B Natriuret Pep Total Protein 6.0 L Albumin 3.9 TSH (Reflex) Free T4 Total T3 Urine Opiates Screen Urine Methadone Screen Ur Barbiturates Screen Ur Phencyclidine Scrn Ur Amphetamine Screen U Benzodiazepines Scrn Urine Cocaine Screen U Cannabinoids Screen Influenza A (RT-PCR) Negative Influenza B (RT-PCR) Negative RSV (RT-PCR) Negative SARS-CoV-2 RNA (RT-PCR) Negative 11/11/24 11/11/24 11/11/24 01:26 01:32 01:33 WBC RBC Hgb Hct MCV MCH MCHC RDW Plt Count MPV Immature Gran % (Auto) Neut % (Auto) Lymph % (Auto) [place] % (Auto) Eos % (Auto) Baso % (Auto) Lymph # (Auto) [place] # (Auto) Eos # (Auto) Baso # (Auto) Abs Immat Gran (auto) Absolute Neuts (auto) Absolute Nucleated RBC Nucleated RBC % PT INR APTT Puncture Site Right radial ABG pH 7.352 ABG pCO2 59.5 H ABG pO2 76.8 L ABG PO2/FiO2 Ratio 1.92 ABG HCO3 32.3 H ABG O2 Saturation 94.5 L ABG O2 Content 20.8 ABG Base Excess 4.6 A-a Gradient 140.0 Oxyhemoglobin 91.1 Carboxyhemoglobin Methemoglobin Reduced Hemoglobin Total Hemoglobin 16.2 O2 Delivery Device Bipap O2 Liters/Min Not Reportable Vent Rate FiO2 40 Expiratory Pressure 6 Inspiratory Pressure 12 Sodium Potassium Chloride Carbon Dioxide Anion Gap BUN Creatinine Estim Creat Clear Calc Estimated GFR Glucose POC Capillary Glucose 201 H Lactic Acid Calcium Magnesium Total Bilirubin AST ALT Alkaline Phosphatase Troponin I 0.054 H* NT-Pro-B Natriuret Pep Total Protein Albumin TSH (Reflex) Free T4 Total T3 Urine Opiates Screen Urine Methadone Screen Ur Barbiturates Screen Ur Phencyclidine Scrn Ur Amphetamine Screen U Benzodiazepines Scrn Urine Cocaine Screen U Cannabinoids Screen Influenza A (RT-PCR) Influenza B (RT-PCR) RSV (RT-PCR) SARS-CoV-2 RNA (RT-PCR) 11/11/24 11/11/24 11/11/24 01:34 04:04 11:23 WBC 8.0 6.9 RBC 5.55 H 5.32 Hgb 16.0 H 15.1 H Hct 52.1 H 49.9 H MCV 93.9 93.8 MCH 28.8 28.4 MCHC 30.7 L 30.3 L RDW 14.9 H 14.8 H Plt Count 244 229 MPV 9.3 9.2 Immature Gran % (Auto) 0.4 0.4 Neut % (Auto) 94.2 H 94.3 H Lymph % (Auto) 4.6 L 4.9 L [place] % (Auto) 0.7 L 0.4 L Eos % (Auto) 0.0 0.0 Baso % (Auto) 0.1 L 0.0 L Lymph # (Auto) 0.37 L 0.34 L [place] # (Auto) 0.1 0.0 L Eos # (Auto) 0.0 0.0 Baso # (Auto) 0.0 0.0 Abs Immat Gran (auto) 0.03 0.03 Absolute Neuts (auto) 7.6 H 6.5 Absolute Nucleated RBC 0.000 0.020 H Nucleated RBC % 0.0 0.3 H PT 13.1 INR 1.0 APTT 24.6 Puncture Site ABG pH ABG pCO2 ABG pO2 ABG PO2/FiO2 Ratio ABG HCO3 ABG O2 Saturation ABG O2 Content ABG Base Excess A-a Gradient Oxyhemoglobin Carboxyhemoglobin Methemoglobin Reduced Hemoglobin Total Hemoglobin O2 Delivery Device O2 Liters/Min Vent Rate FiO2 Expiratory Pressure Inspiratory Pressure Sodium 137 136 L Potassium 3.8 4.0 Chloride 96 L 96 L Carbon Dioxide 34 H 35 H Anion Gap 7 5 BUN 13 12 Creatinine 0.92 0.82 Estim Creat Clear Calc 45 50 Estimated GFR > 60 > 60 Glucose 196 H 139 H POC Capillary Glucose Lactic Acid 2.0 Calcium 8.6 8.4 Magnesium 2.1 2.1 Total Bilirubin 0.5 0.5 AST 17 14 ALT 17 14 Alkaline Phosphatase 88 86 Troponin I NT-Pro-B Natriuret Pep 2180 H Total Protein 7.0 6.0 L Albumin 4.3 4.0 TSH (Reflex) 0.326 L Free T4 1.18 Total T3 0.87 L Urine Opiates Screen Negative Urine Methadone Screen Negative Ur Barbiturates Screen Negative Ur Phencyclidine Scrn Negative Ur Amphetamine Screen Negative U Benzodiazepines Scrn Negative Urine Cocaine Screen Negative U Cannabinoids Screen Negative Influenza A (RT-PCR) Influenza B (RT-PCR) RSV (RT-PCR) SARS-CoV-2 RNA (RT-PCR) Quality VTE Prophylaxis VTE prophylaxis: pharmacologic ordered
[2024-11-11] MEDS: LEVALBUTEROL NEB 1.25 MG/3 ML INHALATION ×2 (16:55→19:47)
[2024-11-11] MEDS: IPRATROPIUM BR 0.02% INH SOLN 0.5 MG/2.5 ML VIAL INHALATION (19:47)
[2024-11-11] MEDS: ATORVASTATIN 40 MG TABLET 80 MG PO (20:38)
[2024-11-11] MEDS: traZODone HCL 50 MG TABLET PO (20:38)
[2024-11-12] VITALS (22 sets, daily range): BP systolic 109–118; BP diastolic 63–64; PULSE 77–110; RESP 15–20; TEMP 36.4–36.6; O2SAT 85–97
[2024-11-12] MEDS: IPRATROPIUM BR 0.02% INH SOLN 0.5 MG/2.5 ML VIAL INHALATION ×3 (01:53→14:23)
[2024-11-12] MEDS: LEVALBUTEROL NEB 1.25 MG/3 ML INHALATION ×3 (01:53→14:24)
[2024-11-12 04:32] LABS: Basophils Percent Auto 0.1 % (0.2-1.2); Hematocrit 48.4 % (37.0-47.0); Hemoglobin 14.8 g/dL (12.0-15.0); Immature Granulocyte Absolute 0.04 K/mm3 (0.00-0.031); Immature Granulocyte Percent A 0.4 % (0-0.5); Lymphocytes Absolute Auto 0.54 K/mm3 (0.9-3.2); Lymphocytes Percent Auto 4.9 % (18.3-44.2); Mean Corpuscular HGB Conc 30.6 g/dl (32-36); Mean Corpuscular Hemoglobin 28.6 pg (26-34); Mean Corpuscular Volume 93.4 fl (80-100); Monocytes Absolute Auto 0.7 K/mm3 (0.1-0.6); Monocytes Percent Auto 6.1 % (2.6-8.5); Neutrophils Absolute Auto 9.8 K/mm3 (1.3-6.7); Neutrophils Percent Auto 88.5 % (45.5-73.1); Platelet Count Result 222 k/mm3 (150-375); Red Blood Count 5.18 M/mm3 (4.2-5.4); Red Cell Distribution Width 14.8 % (11.5-14.5); White Blood Count 11.1 K/mm3 (4.5-10.0)
[2024-11-12 04:42] LABS: Alveolar/Arterial O2 Gradient 133.3 mmHg; Base Excess ABG 7.1 mEq/l (+/-2.0); Fractional Inspired Oxygen 40 %; HCO3 ABG 31.6 mEq/l (22.0-26.0); Oxygen Content ABG 21.3 %vol (16.0-22.0); Oxyhemoglobin 97.3 % THb (90.0-100.0); PCO2 ABG 43.6 mmHg (35.0-45.0); PO2 ABG 101.8 mmHg (80.0-100.0); PO2 FiO2 Ratio Arterial Blood 2.55 %; Total Hemoglobin 15.5 g/dL (12.0-18.0); pH ABG 7.478 (7.350-7.450)
[2024-11-12 04:43] LABS: Device OTHER DEVICE; Modified Allen's Test Pass; Site Drawn RIGHT RADIAL
[2024-11-12 04:47] LABS: Alanine Aminotransferase 16 U/L (6-35); Albumin Level 3.6 g/dL (3.5-5.1); Alkaline Phosphatase 74 U/L (38-126); Anion Gap 8 mmol/L (4-12); Aspartate Amino Transferase 30 U/L (14-36); Bilirubin,Total 0.5 mg/dL (0.2-1.3); Blood Urea Nitrogen 11 mg/dL (7-17); Calcium 8.7 mg/dL (8.4-10.2); Carbon Dioxide 31 mmol/L (22-30); Chloride 98 mmol/L (98-107); Estimated CRCL calculation 74 ml/min; Estimated Glomerular Filt Rate > 60; Glucose 152 mg/dL (65-110); Magnesium 2.2 mg/dL (1.6-2.3); Potassium 3.9 mmol/L (3.4-5.0); Sodium 137 mmol/L (137-145)
--- NOTE | 2024-11-12 08:04 | P.PNIM_ITS ---
Progress Note: A&P Assessment and Plan (1) COPD exacerbation: Code(s): J44.1 - Chronic obstructive pulmonary disease with (acute) exacerbation Status: Acute Assessment and Plan: S/p BiPAP , now on NC 15 liters On 4 liters at baseline Continue Bronchodilators and PO Prednisone monitor Pulmonology following (2) Hypoxic respiratory failure: Code(s): J96.91 - Respiratory failure, unspecified with hypoxia Status: Acute Assessment and Plan: improving now on 15 L NC continue titrating oxygen (3) Elevated troponin: Code(s): R77.8 - Other specified abnormalities of plasma proteins Status: Chronic Assessment and Plan: * Elevated, but remains at baseline. * ECHO no regional wall motion abnormalities * Continue monitoring * Cardiology eval noted (4) HTN (hypertension): Code(s): I10 - Essential (primary) hypertension Status: Chronic Assessment and Plan: * Continue home medications once confirmed. * Monitor and trend VS * PRN Hydralazine ordered for SBP>180 and DBP>90. (5) Anxiety and depression: Code(s): F41.9 - Anxiety disorder, unspecified; F32.A - Depression, unspecified Status: Chronic Assessment and Plan: * Continue home meds once confirmed (6) Hyperlipemia: Code(s): E78.5 - Hyperlipidemia, unspecified Status: Chronic Assessment and Plan: * Continue home meds once confirmed. (7) Dementia: Code(s): F03.90 - Unspecified dementia, unspecified severity, without behavioral disturbance, psychotic disturbance, mood disturbance, and anxiety Status: Chronic Assessment and Plan: * Continue home meds (8) Nicotine abuse: Code(s): Z72.0 - Tobacco use Status: Chronic Assessment and Plan: * Pt counseled for smoking cessation. * Nicotine patch ordered. * Continue Welbutrin. (9) Substance abuse: Code(s): F19.10 - Other psychoactive substance abuse, uncomplicated Status: Chronic Assessment and Plan: * In addition to nicotine, pt uses daily marijuana and also routinely drinks, although she reports she hasn't had any in three weeks. * Monitor closely and initiate CIWA if needed. Plan DVT prophylaxis on Sq Lovenox Subjective Date/time seen: 11/12/24 08:04 Review of Systems Review of Systems: All systems reviewed & are unremarkable except as noted in HPI and below Exam Const: General: comfortable Other: Elderly female patient appearing older than stated age lying supine at this time on stretcher on BiPAP. She is alert, oriented and answering questions appropriately. HENMT: Face/Nose/Sinus: Normal nares present Mouth: Yes dry mucous membranes Eyes: General: appearance normal, both eyes and all related structures Neck: Neck: supple and no JVD Lymphatic: lymphadenopathy not noted Chest: Other: Nontender to palpation Resp: Effort & Inspection: normal respiratory effort Auscultation: wheezes (Prolonged expiratory phase) expiratory wheezes Cardio: Rate: regular rate Rhythm: regular rhythm Heart sounds: no gallops, no murmurs and no rubs GI: Auscultation: normal bowel sounds Skin: General skin exam: normal color, no rashes or lesions noted, no erythema, No lesion and No rashes Lesions: no lesions noted Rashes: no rashes noted Wounds: no wounds Other: Skin is dry and flaky. Neuro: Speech: normal speech Motor exam (neuro): Abnormal motor strength present (Generalized, nonfocal weakness) Sensory Exam: normal sensation Other: Tremor present at rest that worsens with intentional movement. Extrem: General: normal to inspection, no edema and no pedal edema Psych: Mental Status: mental status grossly normal Affect: normal affect Objective Data Vital Signs Vital Signs: Vital Signs - 24 hr 11/11/24 08:12 11/11/24 08:12 11/11/24 08:29 Temperature Pulse Rate 93 96 Respiratory Rate 16 16 Blood Pressure Pulse Oximetry 90 Oxygen Delivery Nasal Cannula Oxygen Flow Rate 5 Fraction of Inspired Oxygen 11/11/24 10:00 11/11/24 12:00 11/11/24 12:00 Temperature 97.7 F Pulse Rate 97 89 Respiratory Rate 20 Blood Pressure 119/76 Pulse Oximetry 94 94 Oxygen Delivery High Flow Therapy with Na Oxygen Flow Rate 15 Fraction of Inspired Oxygen 11/11/24 12:00 11/11/24 13:43 11/11/24 13:50 Temperature Pulse Rate 104 H 90 96 Respiratory Rate 16 16 Blood Pressure Pulse Oximetry Oxygen Delivery Oxygen Flow Rate Fraction of Inspired Oxygen 11/11/24 14:00 11/11/24 14:30 11/11/24 16:00 Temperature Pulse Rate 92 101 H Respiratory Rate Blood Pressure Pulse Oximetry Oxygen Delivery High Flow Therapy with Na Oxygen Flow Rate 13 Fraction of Inspired Oxygen 11/11/24 16:00 11/11/24 16:55 11/11/24 17:02 Temperature 97.9 F Pulse Rate 97 98 100 Respiratory Rate 20 22 H 22 H Blood Pressure 112/44 L Pulse Oximetry 100 Oxygen Delivery Oxygen Flow Rate Fraction of Inspired Oxygen 11/11/24 18:00 11/11/24 19:51 11/11/24 19:52 Temperature Pulse Rate 102 H 100 Respiratory Rate 20 Blood Pressure Pulse Oximetry 91 Oxygen Delivery High Flow Nasal Cannula Oxygen Flow Rate 12 Fraction of Inspired Oxygen 11/11/24 20:00 11/11/24 20:00 11/11/24 20:00 Temperature 97.8 F Pulse Rate 95 101 H Respiratory Rate 18 Blood Pressure 103/58 L Pulse Oximetry 99 94 Oxygen Delivery High Flow Nasal Cannula Oxygen Flow Rate 12 Fraction of Inspired Oxygen 11/11/24 20:01 11/11/24 22:00 11/11/24 22:20 Temperature Pulse Rate 103 H 99 100 Respiratory Rate 20 19 Blood Pressure Pulse Oximetry 95 Oxygen Delivery BiPAP Oxygen Flow Rate Fraction of Inspired Oxygen 11/11/24 23:35 11/11/24 23:36 11/12/24 00:00 Temperature 97.7 F Pulse Rate 99 95 Respiratory Rate 18 Blood Pressure 119/64 Pulse Oximetry 94 96 Oxygen Delivery BiPAP Oxygen Flow Rate Fraction of Inspired Oxygen 40 11/12/24 01:53 11/12/24 01:54 11/12/24 02:00 Temperature Pulse Rate 90 90 93 Respiratory Rate 15 15 Blood Pressure Pulse Oximetry 97 Oxygen Delivery BiPAP Oxygen Flow Rate Fraction of Inspired Oxygen 11/12/24 02:05 11/12/24 03:35 11/12/24 04:00 Temperature 97.7 F Pulse Rate 92 92 Respiratory Rate 16 18 Blood Pressure 110/63 Pulse Oximetry 94 94 Oxygen Delivery BiPAP Oxygen Flow Rate Fraction of Inspired Oxygen 40 11/12/24 04:00 11/12/24 06:00 Temperature Pulse Rate 81 88 Respiratory Rate Blood Pressure Pulse Oximetry Oxygen Delivery Oxygen Flow Rate Fraction of Inspired Oxygen Intake/Output Intake/Output: Intake & Output 11/09/24 11/10/24 11/11/24 11/12/24 23:59 23:59 23:59 23:59 Intake Total 480 1580 200 Output Total 200 800 Balance 280 780 200 Meds/Results Medications: Active Medications Generic Name Dose Route Start Last Admin Trade Name Freq PRN Reason Stop Dose Admin Acetaminophen 1,000 mg 11/10/24 22:20 11/11/24 13:22 Acetaminophen 500 Mg Tablet PO 1,000 mg Q6H PRN Administration Mild Pain (1-3) or Fever Hydrocodone Bitart/Acetaminophen 1 tab 11/10/24 22:20 Hydrocodone/Acetaminophen (*Crx) 5-325 Mg Tablet PO Q6H PRN Pain Rated 4-6 Amlodipine Besylate 5 mg 11/11/24 09:00 11/11/24 08:37 Amlodipine Besylate 5 Mg Tablet PO 5 mg DAILY ANNA Administration Aspirin 81 mg 11/11/24 09:00 11/11/24 08:36 Aspirin 81 Mg Chewable Tablet PO 81 mg DAILY ANNA Administration Atorvastatin Calcium 80 mg 11/11/24 21:00 11/11/24 20:38 Atorvastatin 40 Mg Tablet PO 80 mg HS ANNA Administration Bupropion HCl 150 mg 11/11/24 09:00 11/11/24 08:36 Bupropion Hcl Sr (12 Hr) 150 Mg Tab PO 150 mg DAILY ANNA Administration Buspirone HCl 15 mg 11/11/24 09:00 11/11/24 17:13 Buspirone Hcl 5 Mg Tablet PO 15 mg TID ANNA Administration Cyanocobalamin 1,000 mcg 11/11/24 09:00 11/11/24 08:36 Cyanocobalamin 1,000 Mcg Tablet PO 1,000 mcg DAILY ANNA Administration Donepezil HCl 5 mg 11/11/24 09:00 11/11/24 08:42 Donepezil Hcl 5 Mg Tablet PO 5 mg DAILY ANNA Administration Enoxaparin Sodium 40 mg 11/11/24 09:00 11/11/24 08:34 Enoxaparin 40 Mg/0.4 Ml Syringe SUB-Q 40 mg DAILY ANNA Administration Folic Acid 1 mg 11/11/24 09:00 11/11/24 08:36 Folic Acid 1 Mg Tablet PO 1 mg DAILY ANNA Administration Gabapentin 300 mg 11/11/24 09:00 11/11/24 17:13 Gabapentin 300 Mg Capsule PO 300 mg TID ANNA Administration Hydralazine HCl 10 mg 11/10/24 22:20 Hydralazine Hcl 20 Mg/Ml Vial IV PUSH Q8H PRN Blood Pressure - High Hydrochlorothiazide 12.5 mg 11/11/24 09:00 11/11/24 08:36 Hydrochlorothiazide 12.5 Mg Capsule PO 12.5 mg DAILY ANNA Administration Ipratropium [place] 0.5 mg 11/11/24 20:00 11/12/24 01:53 Ipratropium Br 0.02% Inh Soln 0.5 Mg/2.5 Ml Vial INHALATION 0.5 mg Q6HRT ANNA Administration Levalbuterol HCl 1.25 mg 11/11/24 20:00 11/12/24 01:53 Levalbuterol Neb 1.25 Mg/3 Ml INHALATION 1.25 mg Q6HRT ANNA Administration Levalbuterol HCl 1.25 mg 11/11/24 15:12 11/11/24 16:55 Levalbuterol Neb 1.25 Mg/3 Ml INHALATION 1.25 mg Q4HR PRN Administration Wheezing Levofloxacin 750 mg 11/11/24 09:00 11/11/24 08:35 Levofloxacin 750 Mg Tablet PO 750 mg Q48H ANNA Administration Memantine 10 mg 11/11/24 09:00 11/11/24 08:35 Memantine 10 Mg Tablet PO 10 mg DAILY ANNA Administration Nicotine 1 patch 11/10/24 22:30 11/11/24 08:34 Nicotine (*Pbkc) 21 Mg Patch TRANSDERM 1 patch DAILY ANNA Administration Ondansetron HCl 4 mg 11/10/24 22:20 Ondansetron Inj 4 Mg/2 Ml Vial IV PUSH Q4H PRN Nausea And Vomiting Pantoprazole Sodium 40 mg 11/11/24 09:00 11/11/24 08:36 Pantoprazole 40 Mg Tablet PO 40 mg DAILY ANNA Administration Perflutren Lipid Microsphere 0 ml 11/10/24 22:20 Perflutren Lipid Microspheres 1.5 Ml Vial Diluted To 10 Ml Total Volume IV PUSH 11/13/24 22:20 ONCE PRN adequate visualization Protocol Perflutren Lipid Microsphere 0 ml 11/11/24 14:50 Perflutren Lipid Microspheres 1.5 Ml Vial Diluted To 10 Ml Total Volume IV PUSH 11/14/24 14:50 ONCE PRN adequate visualization Protocol Prednisone 40 mg 11/12/24 08:00 Prednisone 20 Mg Tablet PO DAILY@0800 ANNA Trazodone HCl 50 mg 11/11/24 21:00 11/11/24 20:38 Trazodone Hcl 50 Mg Tablet PO 50 mg HS ANNA Administration Radiology Results: ITS Impressions Chest X-Ray 11/10/24 21:00 IMPRESSION: No acute cardiopulmonary process. Head CT 11/11/24 06:35 Impression: No significant abnormality seen. Chest CTA 11/11/24 06:51 Impression: Moderate emphysema. No evidence of pulmonary embolus, aortic dissection, or aortic aneurysm. Clear lungs. Labs Labs: Laboratory Results - last 24 hr 11/11/24 11/11/24 11/12/24 01:34 11:23 04:24 WBC 11.1 H RBC 5.18 Hgb 14.8 Hct 48.4 H MCV 93.4 MCH 28.6 MCHC 30.6 L RDW 14.8 H Plt Count 222 MPV 9.0 Immature Gran % (Auto) 0.4 Neut % (Auto) 88.5 H Lymph % (Auto) 4.9 L [place] % (Auto) 6.1 Eos % (Auto) 0.0 Baso % (Auto) 0.1 L Lymph # (Auto) 0.54 L [place] # (Auto) 0.7 H Eos # (Auto) 0.0 Baso # (Auto) 0.0 Abs Immat Gran (auto) 0.04 H Absolute Neuts (auto) 9.8 H Absolute Nucleated RBC 0.000 Nucleated RBC % 0.0 Puncture Site ABG pH ABG pCO2 ABG pO2 ABG PO2/FiO2 Ratio ABG HCO3 ABG O2 Saturation ABG O2 Content ABG Base Excess A-a Gradient Oxyhemoglobin Total Hemoglobin O2 Delivery Device O2 Liters/Min FiO2 Sodium 137 Potassium 3.9 Chloride 98 Carbon Dioxide 31 H Anion Gap 8 BUN 11 Creatinine 0.62 L Estim Creat Clear Calc 74 Estimated GFR > 60 Glucose 152 H Calcium 8.7 Magnesium 2.2 Total Bilirubin 0.5 AST 30 ALT 16 Alkaline Phosphatase 74 NT-Pro-B Natriuret Pep 2180 H Total Protein 6.0 L Albumin 3.6 Urine Opiates Screen Negative Urine Methadone Screen Negative Ur Barbiturates Screen Negative Ur Phencyclidine Scrn Negative Ur Amphetamine Screen Negative U Benzodiazepines Scrn Negative Urine Cocaine Screen Negative U Cannabinoids Screen Negative 11/12/24 04:28 WBC RBC Hgb Hct MCV MCH MCHC RDW Plt Count MPV Immature Gran % (Auto) Neut % (Auto) Lymph % (Auto) [place] % (Auto) Eos % (Auto) Baso % (Auto) Lymph # (Auto) [place] # (Auto) Eos # (Auto) Baso # (Auto) Abs Immat Gran (auto) Absolute Neuts (auto) Absolute Nucleated RBC Nucleated RBC % Puncture Site Right radial ABG pH 7.478 H ABG pCO2 43.6 ABG pO2 101.8 H ABG PO2/FiO2 Ratio 2.55 ABG HCO3 31.6 H ABG O2 Saturation 98.0 ABG O2 Content 21.3 ABG Base Excess 7.1 A-a Gradient 133.3 Oxyhemoglobin 97.3 Total Hemoglobin 15.5 O2 Delivery Device Other device O2 Liters/Min FiO2 40 Sodium Potassium Chloride Carbon Dioxide Anion Gap BUN Creatinine Estim Creat Clear Calc Estimated GFR Glucose Calcium Magnesium Total Bilirubin AST ALT Alkaline Phosphatase NT-Pro-B Natriuret Pep Total Protein Albumin Urine Opiates Screen Urine Methadone Screen Ur Barbiturates Screen Ur Phencyclidine Scrn Ur Amphetamine Screen U Benzodiazepines Scrn Urine Cocaine Screen U Cannabinoids Screen Quality VTE Prophylaxis VTE prophylaxis: pharmacologic ordered Hospitalist MIPS Advance Care Plan I have confirmed that the patient's Advanced Care Plan is present, code status is documented, or surrogate decision maker is listed in patient medical record.: Yes Medication Reconciliation I have utilized all available resources to obtain, update and review the patients current medications (includes all prescriptions, OTC, herbals, cannabis, and nutritional supplements).: Yes
[2024-11-12] MEDS: ENOXAPARIN 40 MG/0.4 ML SYRINGE SUB-Q (09:17)
[2024-11-12] MEDS: FOLIC ACID 1 MG TABLET PO (09:17)
[2024-11-12] MEDS: CYANOCOBALAMIN 1,000 MCG TABLET 1000 MCG PO (09:17)
[2024-11-12] MEDS: ASPIRIN 81 MG CHEWABLE TABLET PO (09:17)
[2024-11-12] MEDS: buPROPion HCL SR (12 HR) 150 MG TAB PO (09:17)
[2024-11-12] MEDS: hydroCHLOROthiazide 12.5 MG CAPSULE PO (09:17)
[2024-11-12] MEDS: MEMANTINE 10 MG TABLET PO (09:17)
[2024-11-12] MEDS: busPIRone HCL 5 MG TABLET 15 MG PO ×2 (09:17→14:03)
[2024-11-12] MEDS: predniSONE 20 MG TABLET 40 MG PO (09:18)
[2024-11-12] MEDS: NICOTINE (*PBKC) 21 MG PATCH 1 PATCH TRANSDERM (09:18)
[2024-11-12] MEDS: amLODIPine BESYLATE 5 MG TABLET PO (09:18)
[2024-11-12] MEDS: PANTOPRAZOLE 40 MG TABLET PO (09:18)
[2024-11-12] MEDS: GABAPENTIN 300 MG CAPSULE PO ×2 (09:18→14:03)
[2024-11-12] MEDS: DONEPEZIL HCL 5 MG TABLET PO (09:26)
--- NOTE | 2024-11-12 09:49 | PM.PNPUL ---
Progress Note: A&P Assessment and Plan (1) COPD exacerbation: Code(s): J44.1 - Chronic obstructive pulmonary disease with (acute) exacerbation Status: Acute Assessment and Plan: Regarding her COPD, patient is followed by local scroll machine operator Dr. Luo. Patient smoked pack a cigarettes for 44 years and is currently smoking half a pack a day, pack years 44. Patient has chronic hypoxemic respiratory failure prescribed 4 L at rest, with activity and with sleep. Patient tells me she does not wear oxygen when she ambulates and that when she returns from ambulation her saturations are in the 60s. She does not wear oxygen at sleep. Per the daughter, patient was in the process of being worked up for a home BiPAP machine and was awaiting a outpatient sleep study through Dr. Luo at the end of the month. patient is maintained on Symbicort inhaler and rescue albuterol. Of note patient was recently admitted to [facility] 10/23/23 through 10/26/23 with a COPD exacerbation and her blood gas on 2 L 7.37/47/78. 11/11/2024: Patient is on hydrocodone at home and early in the morning she was unresponsive with pinpoint pupils on BiPAP with a rate of 4 breathing 4 times a minute. Respiratory rate was increased to 18 and she was given Narcan and woke up. ABG prior to Narcan was 7.35/60/77. She is afebrile. White blood cell count 6.9, creatinine 0.82, BNP 2180, TSH 0.326, free T4 1.18. Currently she is requiring 15 L high-flow nasal cannula saturations 92%. She tells me she is breathing normal, her phlegm production is normal, she denies wheezing, hemoptysis. She has had a tremor over the last 2 weeks. Plan: Will treat the patient for COPD exacerbation. She has no wheezing currently and says she is breathing back at her baseline. I will change her Solu-Medrol 60 IV q.6 to prednisone 40 p.o. starting 11/12/24, Today is day 2 steroids. patient has tremors and I will change her nebulized albuterol to levalbuterol 1.25 q.6 hours, ipratropium 0.5 mg q.6 hours. Patient is afebrile, no leukocytosis, no infectious complaints, and no focal infiltrates on her CT scan of the chest. I do not believe she has pneumonia. She may have a bronchitis and agree with levofloxacin 750 mg p.o. Q 48 hours while we are treating her for COPD exacerbation. She did get ceftriaxone and azithromycin x1 on 11/10 so today is day 2 of antibiotics. Her BNP is 2180, echocardiogram is pending, will monitor daily weights and watch for any fluid overload. Later in the day patient had an echocardiogram with LVEF 60 65%, grade 1 diastolic dysfunction, mildly increased right atrium, normal left atrium, mildly increased RV size with reduced function, no tricuspid regurgitation. Mild suggestion of PFO. 11/12/2024: Patient tells me she is breathing normal, she denies cough, phlegm or hemoptysis. She is afebrile. White blood cell count 11.1, when I enter the room she was on 12 L nasal cannula saturations 98%. I decreased her to 4 L and her saturations are 94%. Patient tells me her tremor is easier to control today. Patient wore the noninvasive ventilator with the AVAPS mode settings above and said that she slept well. Patient had an ABG prior to removal with a pH of 7.48/44/102. Plan: Patient has no wheezing on exam. Continue prednisone 40 q.day, day 3 of steroids. Continue ipratropium and levalbuterol nebulizers q.6 hours. Continue Levaquin 750 mg a will increase dose to Q 24 hours as her creatinine has improved, day 3 total antibiotics. Will perform home O2 assessment and if patient is close to her baseline oxygen requirements of 4 L at rest will discharge home on these pulmonary medications: Prednisone 40 mg p.o. q.day x2 days Levaquin 750 mg q.day x4 days Symbicort 160-4.5 at 2 puffs b.i.d. Levalbuterol 2 puffs q.4 hours p.r.n. shortness of breath or wheezing. Oxygen at rest and with activity per formal home O2 assessment which I have ordered. Oxygen 5 L at night. Follow up with her primary scroll machine operator, Dr. Luo, in 3-4 weeks. (2) Chronic respiratory failure with hypoxia and hypercapnia: Code(s): J96.11 - Chronic respiratory failure with hypoxia; J96.12 - Chronic respiratory failure with hypercapnia Status: Acute Assessment and Plan: Prior to discharge on last admission patient had a blood gas on 2 L 7.37/47/78 on 10/24/2023. Patient is scheduled to have an outpatient sleep study per her scroll machine operator, Dr. Fulton, in order to determine if she qualifies for BiPAP. 11/11/2024: Patient was placed on BiPAP this morning following unresponsiveness with pinpoint pupils and responded to Narcan. She had difficulty with the pressures on the BiPAP I place the patient on noninvasive ventilation with the AVAPS mode and adjusted the settings to comfort resulting in a rate of14, tidal volume 500, EPAP 5, minimum inspiratory pressure 6, maximal inspiratory pressure 25, inspiratory time 1.0, rise of 5 and 40%. This was more comfortable. Her peak inspiratory pressure was 11. Plan: I will place the patient on noninvasive ventilation with the AVAPS settings as above and perform an ABG prior to removal. 11/12/2024: Patient wore the noninvasive ventilator with the AVAPS mode settings above and said that she slept well. Patient had an ABG prior to removal with a pH of 7.48/44/102. plan: Noninvasive with above settings provides adequate ventilation. She is in the process of getting a home sleep study at the end of the month for approved for a home machine through her primary scroll machine operator, Dr. Fulton. (3) Nicotine abuse: Code(s): Z72.0 - Tobacco use Status: Chronic Assessment and Plan: Patient continues to smoke half a pack a cigarettes a day. 11/11/24 Plan: I told the patient and the family that the cigarettes or actively killing her in that is not absolutely necessary she should quit. Her current boyfriend buys her the cigarettes and I have told them the need to throw all the cigarettes away in the house and refused to purchase any more. The patient is interested in quitting and feels that she can do that. 11/12/2024: Patient tells me she did have a conversation with her boyfriend who buys her the cigarettes and he will no longer do this. Subjective Date/time seen: 11/12/24 09:49 Interval history: 11/11/2024: COPD exacerbation with hypoxemic respiratory failure 59-year-old with a history of coronary artery disease, hypertension, hyperlipidemia, depression, anxiety, tobacco use, COPD on 4 L nasal cannula with rest, activity and sleep. Regarding her COPD, patient is followed by local scroll machine operator Dr. Luo. Patient smoked pack a cigarettes for 44 years and is currently smoking half a pack a day, pack years 44. Patient has chronic hypoxemic respiratory failure prescribed 4 L at rest, with activity and with sleep. Patient tells me she does not wear oxygen when she ambulates and that when she returns from ambulation her saturations are in the 60s. She does not wear oxygen at sleep. Per the daughter, patient was in the process of being worked up for a home BiPAP machine and was awaiting a outpatient sleep study through Dr. Luo at the end of the month. patient is maintained on Symbicort inhaler and rescue albuterol. Of note patient was recently admitted to [facility] for 15 through with a COPD exacerbation and her blood gas on 2 L 7.37/47/ 78. patient presented to the emergency department on 11/10/2024 with altered mental status and hypoxemia. Her room air saturations were 55%. Blood pressure is 105/74, heart rate 60, respirations 14 and she had bilateral wheezes. Her white blood cell count was 8.9, creatinine was 1.07, serum bicarbonate was 33, her COVID influenza RSV RT PCR were negative. Her CTA demonstrated moderate apical predominant centrilobular emphysema with no infiltrates. She was treated with Bronchodilators, ceftriaxone, azithromycin, Solu-Medrol and BiPAP. 11/11/2024: Patient is on hydrocodone at home and early in the morning she was unresponsive with pinpoint pupils on BiPAP with a rate of 4 breathing 4 times a minute. Respiratory rate was increased to 18 and she was given Narcan and woke up. ABG prior to Narcan was 7.35/60/77. She is afebrile. White blood cell count 6.9, creatinine 0.82, TSH 0.326, free T4 1.18. Currently she is requiring 15 L high-flow nasal cannula saturations 92%. I place the patient on noninvasive ventilation with the AVAPS mode and adjusted the settings to comfort resulting in a rate of14, tidal volume 500, EPAP 5, minimum inspiratory pressure 6, maximal inspiratory pressure 25, inspiratory time 1.0, rise of 5 and 40%. This was more comfortable. Her peak inspiratory pressure was 11. She tells me she is breathing normal, her phlegm production is normal, she denies wheezing, hemoptysis. She has had a tremor over the last 2 weeks. Later in the day patient had an echocardiogram with LVEF 60 65%, grade 1 diastolic dysfunction, mildly increased right atrium, normal left atrium, mildly increased RV size with reduced function, no tricuspid regurgitation. Mild suggestion of PFO. 11/12/2024: Patient tells me she is breathing normal, she denies cough, phlegm or hemoptysis. She is afebrile. White blood cell count 11.1, when I enter the room she was on 12 L nasal cannula saturations 98%. I decreased her to 4 L and her saturations are 94%. Patient tells me her tremor is easier to control today. Patient wore the noninvasive ventilator with the AVAPS mode settings above and said that she slept well. Patient had an ABG prior to removal with a pH of 7.48/44/102. DATA: 11/11/24: Clinical Indication: Hypoxic respiratory failure CT Scan of the Chest with Contrast: Technique: Contiguous sections were acquired throughout the chest after intravenous administration of 100 cc of Omnipaque 350. Dose reduction technique was used on this scan by utilizing automated exposure control and iterative reconstruction technique. The dose-length product (DLP) was 307.08 mGy-cm. Findings: There is no evidence of any significant mediastinal, hilar or axillary lymphadenopathy. There is no filling defect in the pulmonary arterial tree to suggest pulmonary embolus. There is no evidence of aortic dissection or aneurysm. There is no evidence of pleural or pericardial effusion. The lungs are clear. No pulmonary nodules or infiltrates are noted. There is moderate emphysema. Images through the upper abdomen reveal no abnormalities. Impression: Moderate emphysema. No evidence of pulmonary embolus, aortic dissection, or aortic aneurysm. Clear lungs. 06/12/2017: CT chest abdomen pelvis. FINDINGS: CHEST CT: Normal size and homogeneous enhancement of the thyroid gland. No hilar or mediastinal mass lesion or lymphadenopathy. No thoracic aortic aneurysm or dissection. Normal heart size. No pericardial or pleural effusion. Mild emphysematous changes of the lungs. 06/22/2015: PFT report only: SPO2 97% ON ROOM AIR. FVC, FEV1 NORMAL,FEV1%, FEF 25-75% DECREASED. IMPRESSION: MILD OBSTRUCTIVE VENTILATORY DEFECT WITH SIGNIFICANT SMALL AIRWAY DISEASE PATTERN. Review of Systems Constitutional: Constitutional: Reports no additional constitutional complaints Eyes: Eyes: Reports no additional eye complaints ENT: Reports system reviewed and no additional complaints, except as documented Cardiovascular: Cardiovascular: Reports no additional cardiovascular complaints Respiratory: Respiratory: Reports no additional respiratory complaints Gastrointestinal: Gastrointestinal: Reports no additional gastrointestinal complaints Musculoskeletal: Musculoskeletal: Reports no additional musculoskeletal complaints Neurologic: Reports system reviewed and no additional complaints, except as documented Psychiatric: Psychiatric: Reports no additional psychiatric complaints Endocrine: Endocrine: Reports no additional endocrine complaints Hematologic/Lymphatic: Hematologic/Lymphatic: Reports no additional hematologic/lymphatic complaints Allergic/Immunologic: Allergic/Immunologic: Reports no additional allergic/immunologic complaints Exam Const: General: cooperative, healthy appearing and comfortable Orientation/consciousness: oriented to person, oriented to place and oriented to time HENMT: Head: normal to inspection Ears: hearing grossly normal bilaterally Eyes: General: appearance normal, both eyes and all related structures Neck: Neck: normal visual inspection Chest: Chest palpation & inspection: normal inspection of the chest Resp: Effort & Inspection: normal respiratory effort and able to speak in complete sentences Auscultation: no crackles, no rales, no rhonchi, no wheezes and lung sounds not diminished Cardio: Jugular venous distension: no JVD GI: Inspection: normal to inspection Skin: General skin exam: normal color Neuro: General: oriented to person, oriented to place and oriented to time Extrem: General: normal to inspection Other: Right upper greater than left upper extremity tremor. Psych: Appearance: grossly normal Objective Data Vital Signs Vital Signs: Vital Signs - 24 hr 11/11/24 10:00 11/11/24 12:00 11/11/24 12:00 Temperature 36.5 C Pulse Rate 97 89 Respiratory Rate 20 Blood Pressure 119/76 Pulse Oximetry 94 94 Oxygen Delivery High Flow Therapy with Na Oxygen Flow Rate 15 Fraction of Inspired Oxygen 11/11/24 12:00 11/11/24 13:43 11/11/24 13:50 Temperature Pulse Rate 104 H 90 96 Respiratory Rate 16 16 Blood Pressure Pulse Oximetry Oxygen Delivery Oxygen Flow Rate Fraction of Inspired Oxygen 11/11/24 14:00 11/11/24 14:30 11/11/24 16:00 Temperature Pulse Rate 92 101 H Respiratory Rate Blood Pressure Pulse Oximetry Oxygen Delivery High Flow Therapy with Na Oxygen Flow Rate 13 Fraction of Inspired Oxygen 11/11/24 16:00 11/11/24 16:55 11/11/24 17:02 Temperature 36.6 C Pulse Rate 97 98 100 Respiratory Rate 20 22 H 22 H Blood Pressure 112/44 L Pulse Oximetry 100 Oxygen Delivery Oxygen Flow Rate Fraction of Inspired Oxygen 11/11/24 18:00 11/11/24 19:51 11/11/24 19:52 Temperature Pulse Rate 102 H 100 Respiratory Rate 20 Blood Pressure Pulse Oximetry 91 Oxygen Delivery High Flow Nasal Cannula Oxygen Flow Rate 12 Fraction of Inspired Oxygen 11/11/24 20:00 11/11/24 20:00 11/11/24 20:00 Temperature 36.6 C Pulse Rate 95 101 H Respiratory Rate 18 Blood Pressure 103/58 L Pulse Oximetry 99 94 Oxygen Delivery High Flow Nasal Cannula Oxygen Flow Rate 12 Fraction of Inspired Oxygen 11/11/24 20:01 11/11/24 22:00 11/11/24 22:20 Temperature Pulse Rate 103 H 99 100 Respiratory Rate 20 19 Blood Pressure Pulse Oximetry 95 Oxygen Delivery BiPAP Oxygen Flow Rate Fraction of Inspired Oxygen 11/11/24 23:35 11/11/24 23:36 11/12/24 00:00 Temperature 36.5 C Pulse Rate 99 95 Respiratory Rate 18 Blood Pressure 119/64 Pulse Oximetry 94 96 Oxygen Delivery BiPAP Oxygen Flow Rate Fraction of Inspired Oxygen 40 11/12/24 01:53 11/12/24 01:54 11/12/24 02:00 Temperature Pulse Rate 90 90 93 Respiratory Rate 15 15 Blood Pressure Pulse Oximetry 97 Oxygen Delivery BiPAP Oxygen Flow Rate Fraction of Inspired Oxygen 11/12/24 02:05 11/12/24 03:35 11/12/24 04:00 Temperature 36.5 C Pulse Rate 92 92 Respiratory Rate 16 18 Blood Pressure 110/63 Pulse Oximetry 94 94 Oxygen Delivery BiPAP Oxygen Flow Rate Fraction of Inspired Oxygen 40 11/12/24 04:00 11/12/24 06:00 11/12/24 08:00 Temperature 36.6 C Pulse Rate 81 88 87 Respiratory Rate 16 Blood Pressure 118/63 Pulse Oximetry 93 Oxygen Delivery Oxygen Flow Rate Fraction of Inspired Oxygen 11/12/24 09:07 11/12/24 09:07 11/12/24 09:25 Temperature Pulse Rate 92 95 Respiratory Rate 20 20 Blood Pressure Pulse Oximetry 96 Oxygen Delivery Nasal Cannula Oxygen Flow Rate 4 Fraction of Inspired Oxygen Intake/Output Intake/Output: Intake & Output 11/09/24 11/10/24 11/11/24 11/12/24 23:59 23:59 23:59 23:59 Intake Total 480 1580 440 Output Total 200 800 Balance 280 780 440 Meds/Results Medications: Active Medications Generic Name Dose Route Start Last Admin Trade Name Freq PRN Reason Stop Dose Admin Acetaminophen 1,000 mg 11/10/24 22:20 11/11/24 13:22 Acetaminophen 500 Mg Tablet PO 1,000 mg Q6H PRN Administration Mild Pain (1-3) or Fever Hydrocodone Bitart/Acetaminophen 1 tab 11/10/24 22:20 Hydrocodone/Acetaminophen (*Crx) 5-325 Mg Tablet PO Q6H PRN Pain Rated 4-6 Amlodipine Besylate 5 mg 11/11/24 09:00 11/12/24 09:18 Amlodipine Besylate 5 Mg Tablet PO 5 mg DAILY ANNA Administration Aspirin 81 mg 11/11/24 09:00 11/12/24 09:17 Aspirin 81 Mg Chewable Tablet PO 81 mg DAILY ANNA Administration Atorvastatin Calcium 80 mg 11/11/24 21:00 11/11/24 20:38 Atorvastatin 40 Mg Tablet PO 80 mg HS ANNA Administration Bupropion HCl 150 mg 11/11/24 09:00 11/12/24 09:17 Bupropion Hcl Sr (12 Hr) 150 Mg Tab PO 150 mg DAILY ANNA Administration Buspirone HCl 15 mg 11/11/24 09:00 11/12/24 09:17 Buspirone Hcl 5 Mg Tablet PO 15 mg TID ANNA Administration Cyanocobalamin 1,000 mcg 11/11/24 09:00 11/12/24 09:17 Cyanocobalamin 1,000 Mcg Tablet PO 1,000 mcg DAILY ANNA Administration Donepezil HCl 5 mg 11/11/24 09:00 11/12/24 09:26 Donepezil Hcl 5 Mg Tablet PO 5 mg DAILY ANNA Administration Enoxaparin Sodium 40 mg 11/11/24 09:00 11/12/24 09:17 Enoxaparin 40 Mg/0.4 Ml Syringe SUB-Q 40 mg DAILY ANNA Administration Folic Acid 1 mg 11/11/24 09:00 11/12/24 09:17 Folic Acid 1 Mg Tablet PO 1 mg DAILY ANNA Administration Gabapentin 300 mg 11/11/24 09:00 11/12/24 09:18 Gabapentin 300 Mg Capsule PO 300 mg TID ANNA Administration Hydralazine HCl 10 mg 11/10/24 22:20 Hydralazine Hcl 20 Mg/Ml Vial IV PUSH Q8H PRN Blood Pressure - High Hydrochlorothiazide 12.5 mg 11/11/24 09:00 11/12/24 09:17 Hydrochlorothiazide 12.5 Mg Capsule PO 12.5 mg DAILY ANNA Administration Ipratropium [place] 0.5 mg 11/11/24 20:00 11/12/24 09:06 Ipratropium Br 0.02% Inh Soln 0.5 Mg/2.5 Ml Vial INHALATION 0.5 mg Q6HRT ANNA Administration Levalbuterol HCl 1.25 mg 11/11/24 20:00 11/12/24 09:07 Levalbuterol Neb 1.25 Mg/3 Ml INHALATION 1.25 mg Q6HRT ANNA Administration Levalbuterol HCl 1.25 mg 11/11/24 15:12 11/11/24 16:55 Levalbuterol Neb 1.25 Mg/3 Ml INHALATION 1.25 mg Q4HR PRN Administration Wheezing Levofloxacin 750 mg 11/11/24 09:00 11/11/24 08:35 Levofloxacin 750 Mg Tablet PO 750 mg Q48H ANNA Administration Memantine 10 mg 11/11/24 09:00 11/12/24 09:17 Memantine 10 Mg Tablet PO 10 mg DAILY ANNA Administration Nicotine 1 patch 11/10/24 22:30 11/12/24 09:18 Nicotine (*Pbkc) 21 Mg Patch TRANSDERM 1 patch DAILY ANNA Administration Ondansetron HCl 4 mg 11/10/24 22:20 Ondansetron Inj 4 Mg/2 Ml Vial IV PUSH Q4H PRN Nausea And Vomiting Pantoprazole Sodium 40 mg 11/11/24 09:00 11/12/24 09:18 Pantoprazole 40 Mg Tablet PO 40 mg DAILY ANNA Administration Perflutren Lipid Microsphere 0 ml 11/10/24 22:20 Perflutren Lipid Microspheres 1.5 Ml Vial Diluted To 10 Ml Total Volume IV PUSH 11/13/24 22:20 ONCE PRN adequate visualization Protocol Perflutren Lipid Microsphere 0 ml 11/11/24 14:50 Perflutren Lipid Microspheres 1.5 Ml Vial Diluted To 10 Ml Total Volume IV PUSH 11/14/24 14:50 ONCE PRN adequate visualization Protocol Prednisone 40 mg 11/12/24 08:00 11/12/24 09:18 Prednisone 20 Mg Tablet PO 40 mg DAILY@0800 ANNA Administration Trazodone HCl 50 mg 11/11/24 21:00 11/11/24 20:38 Trazodone Hcl 50 Mg Tablet PO 50 mg HS ANNA Administration Radiology Results: ITS Impressions Chest X-Ray 11/10/24 21:00 IMPRESSION: No acute cardiopulmonary process. Head CT 11/11/24 06:35 Impression: No significant abnormality seen. Chest CTA 11/11/24 06:51 Impression: Moderate emphysema. No evidence of pulmonary embolus, aortic dissection, or aortic aneurysm. Clear lungs. Labs Labs: Laboratory Results - last 24 hr 11/11/24 11/11/24 11/12/24 01:34 11:23 04:24 WBC 11.1 H RBC 5.18 Hgb 14.8 Hct 48.4 H MCV 93.4 MCH 28.6 MCHC 30.6 L RDW 14.8 H Plt Count 222 MPV 9.0 Immature Gran % (Auto) 0.4 Neut % (Auto) 88.5 H Lymph % (Auto) 4.9 L [place] % (Auto) 6.1 Eos % (Auto) 0.0 Baso % (Auto) 0.1 L Lymph # (Auto) 0.54 L [place] # (Auto) 0.7 H Eos # (Auto) 0.0 Baso # (Auto) 0.0 Abs Immat Gran (auto) 0.04 H Absolute Neuts (auto) 9.8 H Absolute Nucleated RBC 0.000 Nucleated RBC % 0.0 Puncture Site ABG pH ABG pCO2 ABG pO2 ABG PO2/FiO2 Ratio ABG HCO3 ABG O2 Saturation ABG O2 Content ABG Base Excess A-a Gradient Oxyhemoglobin Total Hemoglobin O2 Delivery Device O2 Liters/Min FiO2 Sodium 137 Potassium 3.9 Chloride 98 Carbon Dioxide 31 H Anion Gap 8 BUN 11 Creatinine 0.62 L Estim Creat Clear Calc 74 Estimated GFR > 60 Glucose 152 H Calcium 8.7 Magnesium 2.2 Total Bilirubin 0.5 AST 30 ALT 16 Alkaline Phosphatase 74 NT-Pro-B Natriuret Pep 2180 H Total Protein 6.0 L Albumin 3.6 Urine Opiates Screen Negative Urine Methadone Screen Negative Ur Barbiturates Screen Negative Ur Phencyclidine Scrn Negative Ur Amphetamine Screen Negative U Benzodiazepines Scrn Negative Urine Cocaine Screen Negative U Cannabinoids Screen Negative 11/12/24 04:28 WBC RBC Hgb Hct MCV MCH MCHC RDW Plt Count MPV Immature Gran % (Auto) Neut % (Auto) Lymph % (Auto) [place] % (Auto) Eos % (Auto) Baso % (Auto) Lymph # (Auto) [place] # (Auto) Eos # (Auto) Baso # (Auto) Abs Immat Gran (auto) Absolute Neuts (auto) Absolute Nucleated RBC Nucleated RBC % Puncture Site Right radial ABG pH 7.478 H ABG pCO2 43.6 ABG pO2 101.8 H ABG PO2/FiO2 Ratio 2.55 ABG HCO3 31.6 H ABG O2 Saturation 98.0 ABG O2 Content 21.3 ABG Base Excess 7.1 A-a Gradient 133.3 Oxyhemoglobin 97.3 Total Hemoglobin 15.5 O2 Delivery Device Other device O2 Liters/Min FiO2 40 Sodium Potassium Chloride Carbon Dioxide Anion Gap BUN Creatinine Estim Creat Clear Calc Estimated GFR Glucose Calcium Magnesium Total Bilirubin AST ALT Alkaline Phosphatase NT-Pro-B Natriuret Pep Total Protein Albumin Urine Opiates Screen Urine Methadone Screen Ur Barbiturates Screen Ur Phencyclidine Scrn Ur Amphetamine Screen U Benzodiazepines Scrn Urine Cocaine Screen U Cannabinoids Screen
--- NOTE | 2024-11-12 11:25 | P.PNCA_ITS ---
Progress Note: A&P Assessment and Plan (1) Elevated troponin: Code(s): R77.8 - Other specified abnormalities of plasma proteins Status: Chronic (2) HTN (hypertension): Code(s): I10 - Essential (primary) hypertension Status: Chronic (3) Acute electrocardiogram changes: Code(s): R94.31 - Abnormal electrocardiogram [ECG] [EKG] Status: Acute (4) Hyperlipemia: Code(s): E78.5 - Hyperlipidemia, unspecified Status: Chronic (5) PFO (patent foramen ovale): Code(s): Q21.12 - Patent foramen ovale Status: Acute Plan Assessment: 1. Abnormal EKG-posterior fascicular block 2. Elevated troponin without chest pain most likely secondary to stress of COPD exacerbation 3. COPD exacerbation 4. Hypoxia 5. Pneumonia 6. Hypertension 7. Nonobstructive CAD Plan: -TTE shows normal LV function, RA and RV enlargement with depressed RV systolic function, mild MR, possible PFO on bubble study. Follow-up with cardiology as outpatient for further evaluation of PFO given right-sided chamber dilation and depressed RV systolic function. May need KATHY as an outpatient to further evaluate PFO -outpatient stress test after she recovers from her acute illness -add aspirin 81 mg daily, statin -good risk factor control including blood pressure, lipids, blood sugars -continue amlodipine and hydrochlorothiazide for blood pressure -check and replace electrolytes to keep potassium more than 4 and magnesium more than 2 -follow-up with cardiology in 4 weeks after discharge Thank you for allowing us to participate in the care of Ms. Pascual. Cardiology will sign off. Please call us with any questions. Subjective Date/time seen: 11/12/24 11:25 Interval history: Reason for encounter: Abnormal EKG Relevant history: 59 year old female with CAD and COPD presented with somnol ence and hypoxia with O2 saturation in the 50s on arrival in the ER. She is being treated for COPD exacerbation. She had a mild troponin elevation which was flat, not indicative of ACS, and most likely secondary to her severe hypoxia/supply demand mismatch in combination with known underlying CAD. Cardiology was consulted for left posterior fascicular block on EKG. TTE was ordered. TTE: Normal LVEF of 60-65%, grade 1 diastolic dysfunction, mild MR, mild RV and RA enlargement with RV systolic dysfunction, possible PFO on agitated saline contrast injection Interval history: No chest pain, palpitations. Shortness of breath is improved. Review of Systems Cardiovascular: Comments: As mentioned in the HPI Respiratory: Comments: As mentioned in the HPI Exam Narrative: General: Alert oriented x3, no acute distress Neck: Supple, no JVD Chest: Bilaterally clear to auscultation, no rales or rhonchi Cardiac: S1, S2 +, regular rate, regular rhythm, no murmurs or rubs Extremities: No pedal edema, no skin rash Neurologic: Alert and oriented x3, no focal neurological deficits Objective Data Vital Signs Vital Signs: Vital Signs - 24 hr 11/11/24 12:00 11/11/24 12:00 11/11/24 12:00 Temperature 36.5 C Pulse Rate 89 104 H Respiratory Rate 20 Blood Pressure 119/76 Pulse Oximetry 94 94 Oxygen Delivery High Flow Therapy with Na Oxygen Flow Rate 15 Fraction of Inspired Oxygen 11/11/24 13:43 11/11/24 13:50 11/11/24 14:00 Temperature Pulse Rate 90 96 92 Respiratory Rate 16 16 Blood Pressure Pulse Oximetry Oxygen Delivery Oxygen Flow Rate Fraction of Inspired Oxygen 11/11/24 14:30 11/11/24 16:00 11/11/24 16:00 Temperature 36.6 C Pulse Rate 101 H 97 Respiratory Rate 20 Blood Pressure 112/44 L Pulse Oximetry 100 Oxygen Delivery High Flow Therapy with Na Oxygen Flow Rate 13 Fraction of Inspired Oxygen 11/11/24 16:55 11/11/24 17:02 11/11/24 18:00 Temperature Pulse Rate 98 100 102 H Respiratory Rate 22 H 22 H Blood Pressure Pulse Oximetry Oxygen Delivery Oxygen Flow Rate Fraction of Inspired Oxygen 11/11/24 19:51 11/11/24 19:52 11/11/24 20:00 Temperature 36.6 C Pulse Rate 100 95 Respiratory Rate 20 18 Blood Pressure 103/58 L Pulse Oximetry 91 99 Oxygen Delivery High Flow Nasal Cannula Oxygen Flow Rate 12 Fraction of Inspired Oxygen 11/11/24 20:00 11/11/24 20:00 11/11/24 20:01 Temperature Pulse Rate 101 H 103 H Respiratory Rate 20 Blood Pressure Pulse Oximetry 94 Oxygen Delivery High Flow Nasal Cannula Oxygen Flow Rate 12 Fraction of Inspired Oxygen 11/11/24 22:00 11/11/24 22:20 11/11/24 23:35 Temperature 36.5 C Pulse Rate 99 100 99 Respiratory Rate 19 18 Blood Pressure 119/64 Pulse Oximetry 95 94 Oxygen Delivery BiPAP Oxygen Flow Rate Fraction of Inspired Oxygen 11/11/24 23:36 11/12/24 00:00 11/12/24 01:53 Temperature Pulse Rate 95 90 Respiratory Rate 15 Blood Pressure Pulse Oximetry 96 Oxygen Delivery BiPAP Oxygen Flow Rate Fraction of Inspired Oxygen 40 11/12/24 01:54 11/12/24 02:00 11/12/24 02:05 Temperature Pulse Rate 90 93 92 Respiratory Rate 15 16 Blood Pressure Pulse Oximetry 97 Oxygen Delivery BiPAP Oxygen Flow Rate Fraction of Inspired Oxygen 11/12/24 03:35 11/12/24 04:00 11/12/24 04:00 Temperature 36.5 C Pulse Rate 92 81 Respiratory Rate 18 Blood Pressure 110/63 Pulse Oximetry 94 94 Oxygen Delivery BiPAP Oxygen Flow Rate Fraction of Inspired Oxygen 40 11/12/24 06:00 11/12/24 08:00 11/12/24 08:00 Temperature 36.6 C Pulse Rate 88 87 Respiratory Rate 16 Blood Pressure 118/63 Pulse Oximetry 93 93 Oxygen Delivery Nasal Cannula Oxygen Flow Rate 4 Fraction of Inspired Oxygen 11/12/24 09:07 11/12/24 09:07 11/12/24 09:25 Temperature Pulse Rate 92 95 Respiratory Rate 20 20 Blood Pressure Pulse Oximetry 96 Oxygen Delivery Nasal Cannula Oxygen Flow Rate 4 Fraction of Inspired Oxygen Intake/Output Intake/Output: Intake & Output 11/09/24 11/10/24 11/11/24 11/12/24 23:59 23:59 23:59 23:59 Intake Total 480 1580 440 Output Total 200 800 Balance 280 780 440 Meds/Results Medications: Active Medications Generic Name Dose Route Start Last Admin Trade Name Freq PRN Reason Stop Dose Admin Acetaminophen 1,000 mg 11/10/24 22:20 11/11/24 13:22 Acetaminophen 500 Mg Tablet PO 1,000 mg Q6H PRN Administration Mild Pain (1-3) or Fever Hydrocodone Bitart/Acetaminophen 1 tab 11/10/24 22:20 Hydrocodone/Acetaminophen (*Crx) 5-325 Mg Tablet PO Q6H PRN Pain Rated 4-6 Amlodipine Besylate 5 mg 11/11/24 09:00 11/12/24 09:18 Amlodipine Besylate 5 Mg Tablet PO 5 mg DAILY ANNA Administration Aspirin 81 mg 11/11/24 09:00 11/12/24 09:17 Aspirin 81 Mg Chewable Tablet PO 81 mg DAILY ANNA Administration Atorvastatin Calcium 80 mg 11/11/24 21:00 11/11/24 20:38 Atorvastatin 40 Mg Tablet PO 80 mg HS ANNA Administration Bupropion HCl 150 mg 11/11/24 09:00 11/12/24 09:17 Bupropion Hcl Sr (12 Hr) 150 Mg Tab PO 150 mg DAILY ANNA Administration Buspirone HCl 15 mg 11/11/24 09:00 11/12/24 09:17 Buspirone Hcl 5 Mg Tablet PO 15 mg TID ANNA Administration Cyanocobalamin 1,000 mcg 11/11/24 09:00 11/12/24 09:17 Cyanocobalamin 1,000 Mcg Tablet PO 1,000 mcg DAILY ANNA Administration Donepezil HCl 5 mg 11/11/24 09:00 11/12/24 09:26 Donepezil Hcl 5 Mg Tablet PO 5 mg DAILY ANNA Administration Enoxaparin Sodium 40 mg 11/11/24 09:00 11/12/24 09:17 Enoxaparin 40 Mg/0.4 Ml Syringe SUB-Q 40 mg DAILY ANNA Administration Folic Acid 1 mg 11/11/24 09:00 11/12/24 09:17 Folic Acid 1 Mg Tablet PO 1 mg DAILY ANNA Administration Gabapentin 300 mg 11/11/24 09:00 11/12/24 09:18 Gabapentin 300 Mg Capsule PO 300 mg TID ANNA Administration Hydralazine HCl 10 mg 11/10/24 22:20 Hydralazine Hcl 20 Mg/Ml Vial IV PUSH Q8H PRN Blood Pressure - High Hydrochlorothiazide 12.5 mg 11/11/24 09:00 11/12/24 09:17 Hydrochlorothiazide 12.5 Mg Capsule PO 12.5 mg DAILY ANNA Administration Ipratropium [place] 0.5 mg 11/11/24 20:00 11/12/24 09:06 Ipratropium Br 0.02% Inh Soln 0.5 Mg/2.5 Ml Vial INHALATION 0.5 mg Q6HRT ANNA Administration Levalbuterol HCl 1.25 mg 11/11/24 20:00 11/12/24 09:07 Levalbuterol Neb 1.25 Mg/3 Ml INHALATION 1.25 mg Q6HRT ANNA Administration Levalbuterol HCl 1.25 mg 11/11/24 15:12 11/11/24 16:55 Levalbuterol Neb 1.25 Mg/3 Ml INHALATION 1.25 mg Q4HR PRN Administration Wheezing Levofloxacin 750 mg 11/12/24 10:00 Levofloxacin 750 Mg Tablet PO DAILY ANNA Memantine 10 mg 11/11/24 09:00 11/12/24 09:17 Memantine 10 Mg Tablet PO 10 mg DAILY ANNA Administration Nicotine 1 patch 11/10/24 22:30 11/12/24 09:18 Nicotine (*Pbkc) 21 Mg Patch TRANSDERM 1 patch DAILY ANNA Administration Ondansetron HCl 4 mg 11/10/24 22:20 Ondansetron Inj 4 Mg/2 Ml Vial IV PUSH Q4H PRN Nausea And Vomiting Pantoprazole Sodium 40 mg 11/11/24 09:00 11/12/24 09:18 Pantoprazole 40 Mg Tablet PO 40 mg DAILY ANNA Administration Perflutren Lipid Microsphere 0 ml 11/11/24 14:50 Perflutren Lipid Microspheres 1.5 Ml Vial Diluted To 10 Ml Total Volume IV PUSH 11/14/24 14:50 ONCE PRN adequate visualization Protocol Prednisone 40 mg 11/12/24 08:00 11/12/24 09:18 Prednisone 20 Mg Tablet PO 40 mg DAILY@0800 ANNA Administration Trazodone HCl 50 mg 11/11/24 21:00 11/11/24 20:38 Trazodone Hcl 50 Mg Tablet PO 50 mg HS ANNA Administration Radiology Results: ITS Impressions Chest X-Ray 11/10/24 21:00 IMPRESSION: No acute cardiopulmonary process. Head CT 11/11/24 06:35 Impression: No significant abnormality seen. Chest CTA 11/11/24 06:51 Impression: Moderate emphysema. No evidence of pulmonary embolus, aortic dissection, or aortic aneurysm. Clear lungs. Labs Labs: Laboratory Results - last 24 hr 11/11/24 11/11/24 11/12/24 01:34 11:23 04:24 WBC 11.1 H RBC 5.18 Hgb 14.8 Hct 48.4 H MCV 93.4 MCH 28.6 MCHC 30.6 L RDW 14.8 H Plt Count 222 MPV 9.0 Immature Gran % (Auto) 0.4 Neut % (Auto) 88.5 H Lymph % (Auto) 4.9 L [place] % (Auto) 6.1 Eos % (Auto) 0.0 Baso % (Auto) 0.1 L Lymph # (Auto) 0.54 L [place] # (Auto) 0.7 H Eos # (Auto) 0.0 Baso # (Auto) 0.0 Abs Immat Gran (auto) 0.04 H Absolute Neuts (auto) 9.8 H Absolute Nucleated RBC 0.000 Nucleated RBC % 0.0 Puncture Site ABG pH ABG pCO2 ABG pO2 ABG PO2/FiO2 Ratio ABG HCO3 ABG O2 Saturation ABG O2 Content ABG Base Excess A-a Gradient Oxyhemoglobin Total Hemoglobin O2 Delivery Device O2 Liters/Min FiO2 Sodium 137 Potassium 3.9 Chloride 98 Carbon Dioxide 31 H Anion Gap 8 BUN 11 Creatinine 0.62 L Estim Creat Clear Calc 74 Estimated GFR > 60 Glucose 152 H Calcium 8.7 Magnesium 2.2 Total Bilirubin 0.5 AST 30 ALT 16 Alkaline Phosphatase 74 NT-Pro-B Natriuret Pep 2180 H Total Protein 6.0 L Albumin 3.6 Urine Opiates Screen Negative Urine Methadone Screen Negative Ur Barbiturates Screen Negative Ur Phencyclidine Scrn Negative Ur Amphetamine Screen Negative U Benzodiazepines Scrn Negative Urine Cocaine Screen Negative U Cannabinoids Screen Negative 11/12/24 04:28 WBC RBC Hgb Hct MCV MCH MCHC RDW Plt Count MPV Immature Gran % (Auto) Neut % (Auto) Lymph % (Auto) [place] % (Auto) Eos % (Auto) Baso % (Auto) Lymph # (Auto) [place] # (Auto) Eos # (Auto) Baso # (Auto) Abs Immat Gran (auto) Absolute Neuts (auto) Absolute Nucleated RBC Nucleated RBC % Puncture Site Right radial ABG pH 7.478 H ABG pCO2 43.6 ABG pO2 101.8 H ABG PO2/FiO2 Ratio 2.55 ABG HCO3 31.6 H ABG O2 Saturation 98.0 ABG O2 Content 21.3 ABG Base Excess 7.1 A-a Gradient 133.3 Oxyhemoglobin 97.3 Total Hemoglobin 15.5 O2 Delivery Device Other device O2 Liters/Min FiO2 40 Sodium Potassium Chloride Carbon Dioxide Anion Gap BUN Creatinine Estim Creat Clear Calc Estimated GFR Glucose Calcium Magnesium Total Bilirubin AST ALT Alkaline Phosphatase NT-Pro-B Natriuret Pep Total Protein Albumin Urine Opiates Screen Urine Methadone Screen Ur Barbiturates Screen Ur Phencyclidine Scrn Ur Amphetamine Screen U Benzodiazepines Scrn Urine Cocaine Screen U Cannabinoids Screen Imaging My impression: TTE shows normal LV systolic function, mildly enlarged RA and RV with depressed RV systolic function, mild MR, PFO on bubble study ECG Interpretation: Sinus rhythm, posterior fascicular block, ST depressions in inferior leads
--- NOTE | 2024-11-12 13:19 | HOMEO2EVAL ---
Evaluation was performed at [facility] Home Oxygen Evaluation RC: Home Oxygen (O2) Evaluation Start: 11/12/24 09:54 Freq: ONCE Status: Active Protocol: RPE Activity Type Activity Date Activity User E-sign Co-sign Detail Recorded Client Recorded Date Recorded By Document 11/12/24 11:30 [email or web address] 11/12/24 13:12 SINDHU Document 11/12/24 11:31 [email or web address] [email or web address] 11/12/24 13:12 SINDHU Document 11/12/24 11:35 [email or web address] [email or web address] 11/12/24 13:12 SINDHU Document 11/12/24 11:36 [email or web address] [email or web address] 11/12/24 13:12 SINDHU Document 11/12/24 11:45 SINDHU [email or web address] 11/12/24 13:12 SINDHU 11/12/24 11/12/24 11/12/24 11:30 11:31 11:35 Home O2 Evaluation [Oxygen] -Test Phase Resting Resting Exercise -Oxygen Delivery Room Air Nasal Cannula Nasal Cannula -Oxygen Flow Rate (L/min) 2 2 [Pulse Oximetry] -Pulse Oximetry (90-100 %) 85 L 93 86 L [Exercise] -Ambulation Distance (feet) -Ambulation Distance (meters) [Comments] -Home Oxygen Evaluation Comments [Charges] -Evaluation Charges O2 Evaluation by Pulmonary 11/12/24 11/12/24 11:36 11:45 Home O2 Evaluation [Oxygen] -Test Phase Exercise Resting -Oxygen Delivery Nasal Cannula Nasal Cannula -Oxygen Flow Rate (L/min) 3 2 [Pulse Oximetry] -Pulse Oximetry (90-100 %) 90 94 [Exercise] -Ambulation Distance (feet) 400 -Ambulation Distance (meters) 121.91 [Comments] -Home Oxygen Evaluation Comments PT REQUIRES 2 LITERS AT REST, 3 LITERS WITH ACTIVITY [Charges] -Evaluation Charges
--- NOTE | 2024-11-12 13:19 | PCRCNOTE ---
Home O2 eval done, DME [employer]. Pt has all required home O2 supplies. 2l rest, 3l activity, 5l nocturnal
[2024-11-12] MEDS: levoFLOXacin 750 MG TABLET PO (14:03)
--- NOTE | 2024-11-12 14:29 | P.DS_ITS ---
DS: Admitting Diagnosis Discharge Date 0 12/2024 Admitting Diagnosis Shortness of breath DS: Discharge Diagnosis Discharge Diagnosis (1) COPD exacerbation: Code(s): J44.1 - Chronic obstructive pulmonary disease with (acute) exacerbation Status: Acute Assessment and Plan: S/p BiPAP , now on NC 15 liters On day of discharge baseline 3-4 L nasal cannula On 4 liters at baseline Continue Bronchodilators and PO Prednisone monitor Pulmonology following (2) Hypoxic respiratory failure: Code(s): J96.91 - Respiratory failure, unspecified with hypoxia Status: Acute Assessment and Plan: improving now on 3 to 4 L NC continue titrating oxygen (3) Elevated troponin: Code(s): R77.8 - Other specified abnormalities of plasma proteins Status: Chronic Assessment and Plan: * Elevated, but remains at baseline. * ECHO no regional wall motion abnormalities * Continue monitoring * Cardiology eval noted (4) HTN (hypertension): Code(s): I10 - Essential (primary) hypertension Status: Chronic Assessment and Plan: * Continue home medications once confirmed. * Monitor and trend VS * PRN Hydralazine ordered for SBP>180 and DBP>90. (5) Anxiety and depression: Code(s): F41.9 - Anxiety disorder, unspecified; F32.A - Depression, unspecified Status: Chronic Assessment and Plan: * Continue home meds once confirmed (6) Hyperlipemia: Code(s): E78.5 - Hyperlipidemia, unspecified Status: Chronic Assessment and Plan: * Continue home meds once confirmed. (7) Dementia: Code(s): F03.90 - Unspecified dementia, unspecified severity, without behavioral disturbance, psychotic disturbance, mood disturbance, and anxiety Status: Chronic Assessment and Plan: * Continue home meds (8) Nicotine abuse: Code(s): Z72.0 - Tobacco use Status: Chronic Assessment and Plan: * Pt counseled for smoking cessation. * Nicotine patch ordered. * Continue Welbutrin. (9) Substance abuse: Code(s): F19.10 - Other psychoactive substance abuse, uncomplicated Status: Chronic Assessment and Plan: * In addition to nicotine, pt uses daily marijuana and also routinely drinks, although she reports she hasn't had any in three weeks. * Monitor closely and initiate CIWA if needed. DS: Summary Hospital Course Hospital Course: 59-year-old female patient with past medical history significant of COPD on 3-4 L baseline supplemental oxygen at home, continuing to smoke at a 44+ pack-year history, hyperlipidemia, anxiety, depression, coronary artery disease status post AK, hypertension and dementia comes to the emergency room with increased somnolence. For the past 3 days patient states she has had increasing dyspnea with exertion, she also notes that she has had increased weakness. Family who is at the bedside states patient has been having increased confusion, increased unsteadiness on her feet and at times has been unable to hold anything due to her degree of weakness. She has had no recent medication changes, she denies any current pain, she has not had any recent sleep study and she only takes baby aspirin daily for anticoagulation. She is followed by environmental technician Dr. Rob العراقي in [place], job developer Dr. Lincoln Moran in [place] and her Neurologist is Shaw Phillips in [place]. Patient does not have any current medical providers at facility. In addition to patient's 44+ year pack history she socially smokes marijuana daily and normally drinks at least 1 beer nightly the reports she has not had any for 3 weeks. Patient denies any current chest pain, nausea, vomiting, diarrhea. Patient's daughter Luzmaria is her POA is at the bedside. Upon arrival to the emergency room patient was noted to be somnolent, oxygen saturations 55% on room air. Patient initially placed on 5 L supplemental oxygen per nasal cannula and quickly upgraded to BiPAP with settings of 12/6 with 40% FiO2 and is maintaining her oxygen saturations in the high 90s to 100%. Patient had improvement in her overall mental status with addition of BiPAP and started to wake up and become more active. She has continued mild SOB. Significant labs include normal CBC, normal metabolic panel, elevated troponin at 0.061, however when looking back historically patient's troponin has been sapna vated and appears to be at baseline. Her ABG after application of BiPAP with pH of 7.412, pCO2 of 50.7, PO2 of 83.9 a bicarb of 31.6. EKG shows sinus rhythm with 91 beats per minute any new left posterior fascicular block. Chest x-ray was performed that does not show any acute cardiopulmonary abnormalities. Despite patient's renal function being in normal range she does have a slight increase in her creatinine to 1.07 were baseline 0.6-0.7. I assumed care on 11/12/2024 on the day of discharge: Patient was admitted due to shortness of breath. Patient has a chronic smoker. Her baseline oxygen 3-4 L. during the hospitalization patient was previously on BiPAP and later weaned down to nasal cannula 15 L. today patient was able to saturate well on her baseline oxygen 3-4 L. Patient can follow up a her outpatient environmental technician Dr. Luo and will undergo sleep study for BiPAP. Patient underwent echocardiogram which shows a PFO. Patient was evaluated the Cardiology and advised to follow-up with cardiology as outpatient for further evaluation of PFO given right-sided chamber dilation and depressed RV systolic function. May need KATHY as an outpatient to further evaluate PFO Discussed with Dr. Infante who agrees to discharge with the following recommendation: Prednisone 40 mg p.o. q.day x2 days Levaquin 750 mg q.day x4 days Symbicort 160-4.5 at 2 puffs b.i.d. Levalbuterol 2 puffs q.4 hours p.r.n. shortness of breath or wheezing. Oxygen at rest and with activity per formal home O2 assessment which I have ordered. Oxygen 5 L at night. Patient requires oxygen 2-3 L at rest and activities and 5 L at night Time Spent with Patient Time attestation: Total time spent providing and/or coordinating discharge services: Exam Const: Other: Elderly female patient appearing older than stated age lying supine at this time on stretcher on BiPAP. She is alert, oriented and answering questions appropriately. Chest: Other: Nontender to palpation Skin: Other: Skin is dry and flaky. Neuro: Other: Tremor present at rest that worsens with intentional movement. DS: Data Data Completed and Pending Labs on day of discharge: Labs from last 24 hours 11/12/24 11/12/24 04:28 04:24 WBC 11.1 H RBC 5.18 Hgb 14.8 Hct 48.4 H MCV 93.4 MCH 28.6 MCHC 30.6 L RDW 14.8 H Plt Count 222 MPV 9.0 Immature Gran % (Auto) 0.4 Neut % (Auto) 88.5 H Lymph % (Auto) 4.9 L Harding % (Auto) 6.1 Eos % (Auto) 0.0 Baso % (Auto) 0.1 L Lymph # (Auto) 0.54 L Harding # (Auto) 0.7 H Eos # (Auto) 0.0 Baso # (Auto) 0.0 Abs Immat Gran (auto) 0.04 H Absolute Neuts (auto) 9.8 H Absolute Nucleated RBC 0.000 Nucleated RBC % 0.0 Puncture Site Right radial ABG pH 7.478 H ABG pCO2 43.6 ABG pO2 101.8 H ABG PO2/FiO2 Ratio 2.55 ABG HCO3 31.6 H ABG O2 Saturation 98.0 ABG O2 Content 21.3 ABG Base Excess 7.1 A-a Gradient 133.3 Oxyhemoglobin 97.3 Total Hemoglobin 15.5 O2 Delivery Device Other device O2 Liters/Min FiO2 40 Sodium 137 Potassium 3.9 Chloride 98 Carbon Dioxide 31 H Anion Gap 8 BUN 11 Creatinine 0.62 L Estim Creat Clear Calc 74 Estimated GFR > 60 Glucose 152 H Calcium 8.7 Magnesium 2.2 Total Bilirubin 0.5 AST 30 ALT 16 Alkaline Phosphatase 74 Total Protein 6.0 L Albumin 3.6 Preliminary micro results at discharge 11/10/24 21:27 Blood Culture - Preliminary Blood 11/10/24 21:46 Blood Culture - Preliminary Blood Imaging Radiologist's impression: ITS Impressions Chest X-Ray 11/10/24 21:00 IMPRESSION: No acute cardiopulmonary process. Head CT 11/11/24 06:35 Impression: No significant abnormality seen. Chest CTA 11/11/24 06:51 Impression: Moderate emphysema. No evidence of pulmonary embolus, aortic dissection, or aortic aneurysm. Clear lungs. Discharge Plan Discharge Attending physician on discharge: Colin Winter Consulting providers: Maynor Infante; Dunia Wakefield Discharging Clinician: Colin Winter Anticipated Discharge Date/Time: 11/12/24 14:36 Patient Disposition: Home Activity: as tolerated Diet: heart healthy Discharge Instructions: Follow-up with cardiology as outpatient for further evaluation of PFO given right-sided chamber dilation and depressed RV systolic function. Referral for Cardiology has been given. Follow-up with the environmental technician. Smoking cessation encouraged. As per pulmonology: Prednisone 40 mg p.o. q.day x2 days Levaquin 750 mg q.day x4 days Symbicort 160-4.5 at 2 puffs b.i.d. Levalbuterol 2 puffs q.4 hours p.r.n. shortness of breath or wheezing. Patient requires oxygen 2-3 L at rest and activities and 5 L at night Check blood pressure 1 to 2 times a day. Record and bring into your doctor for review. Call your doctor if your blood pressure is greater than 180/110 or less than 90/45. Walk with cane or other assist device. Take precautions to avoid falls. Rise slowly from a lying or sitting position. Pause before standing or walking. Contact your doctor or call 911 and come to the Emergency Room if you have any type of trauma, lightheadedness with standing or other worrisome symptoms. Avoid NSAIDs (ibuprofen, naproxen, Aleve). Tylenol is safe to take. Follow-up with your primary care provider in 1-2 weeks. Please call for appointment. Follow-up with Cardiology in 2-4 weeks. Please call for an appointment. Thank you for using [facility] for your health care needs. Patient Instructions: Antibiotic Form, COPD (Chronic Obstructive Pulmonary Disease) (DC) Patient Language: Comoran Stand Alone Forms: General Discharge Information Follow-up/Referrals: Dunia Wakefield MD [Physician] - (Follow-up with cardiology as outpatient for further evaluation of PFO given right-sided chamber dilation and depressed RV systolic function. May need KATHY as an outpatient to further evaluate PFO ) Ilir,MD Gracie [Primary Care Provider] - Discharge Medications: New prednisone 20 mg Tablet 40 mg PO DAILY@0800 Qty: 2 0RF levalbuterol HCl 1.25 mg/3 mL Solution For Nebulization 1.25 mg inhalation Q4HR PRN (Reason: Wheezing) Qty: 90 0RF budesonide-formoterol [Symbicort] 160-4.5 mcg/actuation HFA aerosol inhaler 2 puff inhalation BID Qty: 10.2 0RF levofloxacin 750 mg tablet 750 mg PO DAILY Qty: 4 0RF Rx Instructions: Please complete the course for another 4 days Continued atorvastatin 80 mg tablet 80 mg PO HS gabapentin 600 mg tablet 300 mg PO TID donepezil 5 mg tablet 5 mg PO DAILY buspirone 10 mg tablet 15 mg PO TID cyanocobalamin (vitamin B-12) [Vitamin B-12] 1,000 mcg Tablet 1,000 mcg PO DAILY omeprazole 40 mg capsule,delayed release(DR/EC) 40 mg PO DAILY nitroglycerin 0.4 mg Tablet, Sublingual 0.4 mg SUBLINGUAL Q5M MDD 1.2 PRN (Reason: Chest Pain) Rx Instructions: do not exceed 3 doses per episode aspirin 81 mg Tablet,Chewable 81 mg PO DAILY trazodone 50 mg tablet 50 mg PO HS amlodipine 5 mg tablet 5 mg PO DAILY bupropion HCl (smoking deter) 150 mg tablet extended release 12 hr 150 mg PO BID folic acid 1 mg tablet 1 mg PO DAILY hydrochlorothiazide 12.5 mg tablet 12.5 mg PO DAILY pantoprazole 40 mg tablet,delayed release (DR/EC) 40 mg PO DAILY valacyclovir 1 gram tablet 1,000 mg PO TID Discontinued levalbuterol HCl 1.25 mg/0.5 mL Solution For Nebulization 1.25 mg inhalation Q6HRT PRN (Reason: shortness of breath) Qty: 1 0RF No Action memantine 10 mg tablet 10 mg PO DAILY albuterol sulfate 90 mcg/actuation HFA aerosol inhaler 2 puff INHALATION BID PRN (Reason: shortness of breath or wheezing) budesonide-formoterol [Symbicort] 160-4.5 mcg/actuation HFA aerosol inhaler 2 puff INHALATION BID Date of admission: 11/11/24 09:48 Primary Care Provider: Ilir,Gracie Admitting Provider: Boby Bravo Attending physician on admission: Boby Bravo Condition: Serious
[2024-11-13 17:15] LABS: Adenovirus DNA Not Detected (Not Detected); Chlamydophila pneumoniae Not Detected (Not Detected); Coronavirus 229E Not Detected (Not Detected); Coronavirus HKU1 Not Detected (Not Detected); Coronavirus NL63 Not Detected (Not Detected); Coronavirus OC43 Not Detected (Not Detected); Human Metapneumovirus Not Detected (Not Detected); Human Parainfluenza Virus 1 Not Detected (Not Detected); Human Parainfluenza Virus 2 Not Detected (Not Detected); Human Parainfluenza Virus 3 Not Detected (Not Detected); Human Parainfluenza Virus 4 Not Detected (Not Detected); Human RSV B Not Detected (Not Detected); Influenza A Not Detected (Not Detected); Influenza B Not Detected (Not Detected); Mycoplasma pneumoniae Not Detected (Not Detected); Rhinovirus/Enterovirus Not Detected (Not Detected)
== END 2024-11-12 16:25 | disposition home or self-care (01) | DRG 140 ==
LOC: ANHED 19:41 → ANHIMU 22:03
PROVIDERS: Internal Medicine Pulmonary Disease; Nurse Practitioner Adult Health; Physician Assistant; Admitting Provider Internal Medicine; Emergency Provider Emergency Medicine; PCP Family Medicine; Visit Provider General Practice
DX: J44.1 Chronic obstructive pulmonary disease with (acute) exacerbation (principal); J96.11 Chronic respiratory failure with hypoxia; J96.12 Chronic respiratory failure with hypercapnia; I25.10 Atherosclerotic heart disease of native coronary artery without angina pectoris; I10 Essential (primary) hypertension; I44.5 Left posterior fascicular block; E78.5 Hyperlipidemia, unspecified; R40.4 Transient alteration of awareness; R79.89 Other specified abnormal findings of blood chemistry; F03.90 Unspecified dementia, unspecified severity, without behavioral disturbance, psychotic disturbance, mood disturbance, and anxiety; F41.9 Anxiety disorder, unspecified; F32.A Depression, unspecified; F17.210 Nicotine dependence, cigarettes, uncomplicated; F12.90 Cannabis use, unspecified, uncomplicated; Z20.822 Contact with and (suspected) exposure to COVID-19; I25.2 Old myocardial infarction; Q21.12 Patent foramen ovale; Z99.81 Dependence on supplemental oxygen; Z79.82 Long term (current) use of aspirin
CPT/HCPCS: 36415; 36600; 70450; 71045; 71275; 80053; 80307; 82375; 82805; 82948; 83050; 83605; 83735; 83880; 84439; 84443; 84480; 84484; 85018; 85025; 85610; 85730; 87040; 87633; 87637; 93005; 93306; 94002; 94003; 94618; 94640; 96374; 96375; 97161; 97165; 99285; A9270; G0378; G0379; J0456; J0696; J1650; J2310; J2919; J7512; Q9967